=== PATIENT | male | born 1940 | race Caucasian/White ===

== ENCOUNTER 2017-11-11 13:40 | Inpatient (IN) | payer OTHER ==
[~2017-11-11] VITALS: Ht 182.9 cm; Wt 87.7 kg
[2017-11-11 15:35] VITALS: BP 107/76; PULSE 84; TEMP 36.6; O2SAT 99; BMI 22.3
[2017-11-11 15:44] LABS: HEMOGLOBIN 8.2 g/dL (14.0-18.0); MEAN CELL VOLUME 84.5 fL (80-100); MEAN CORPUSCULAR HEMOGLOBIN 27.7 pg (25-34); MEAN PLATELET VOLUME 8.3 fL (7.4-10.4); PLATELET COUNT 220 K/uL (130-400); RED CELL DISTRIBUTION WIDTH CV 15.9 % (11.5-14.5); RED CELL DISTRIBUTION WIDTH SD 49.3 fL (36.4-46.3); WHITE BLOOD COUNT 8.04 K/uL (4.8-10.8)
[2017-11-11] MEDS ORDERED: PANTOprazole INJ 80 MG in DEXTROSE 5% 100ML IV SCH (15:45)
[2017-11-11 16:00] LABS: MEAN CORPUSCULAR HGB CONC 32.8 g/dl (32-36)
--- NOTE | 2017-11-11 16:04 | DIAGNOSTIC IMAGING REPORT ---
CHEST ONE VIEW PORTABLE CLINICAL HISTORY: Shortness of breath. COMPARISON STUDY: No previous studies for comparison. FINDINGS: Lung volumes are normal. No pneumothorax or pleural effusion is noted. There is no evidence for pulmonary edema. Cardiomediastinal silhouette is normal. Pulmonary vascularity is normal. IMPRESSION: No acute cardiopulmonary findings. Electronically signed by: Olegario Hurtado M.D. 11/11/2017 4:03 PM Dictated Date/Time: 11/11/2017 3:57 PM
[2017-11-11 16:06] LABS: ALBUMIN 1.9 gm/dl (3.4-5.0); ALKALINE PHOSPHATASE 161 U/L (45-117); ALT/SGPT 40 U/L (12-78); AST/SGOT 52 U/L (15-37); BLOOD UREA NITROGEN 13 mg/dl (7-18); CARBON DIOXIDE 27 mmol/L (21-32); CREATININE 0.69 mg/dl (0.60-1.40); GLUCOSE 99 mg/dl (70-99); POTASSIUM 3.5 mmol/L (3.5-5.1); SODIUM 133 mmol/L (136-145); TOTAL PROTEIN 6.4 gm/dl (6.4-8.2)
[2017-11-11] MEDS ORDERED: SODIUM CHLORIDE 0.9% 500ML 500 ML IV ONE (16:15)
[2017-11-11] MEDS: SODIUM CHLORIDE 0.9% 1000ML 1,000 ML IV SCH ×2 (16:31→23:52)
[2017-11-11] MEDS: PANTOprazole INJ 40 MG in DEXTROSE 5% 100ML IV SCH ×2 (16:31→21:37)
[2017-11-11] MEDS ORDERED: LISI-461 PO (16:44)
[2017-11-11] MEDS ORDERED: ATV/1 PO (17:23)
[2017-11-11] MEDS ORDERED: SIMV-151 PO (17:23)
--- NOTE | 2017-11-11 17:29 | Surgery Consultation ---
Consultation Date of Consultation: Nov 11, 2017. Attending Physician: Nathalie Tarango M.D. History of Present Illness pt has been having some weakness and weightloss ( about 45 lbs over past 9 months or so). Here today for SOB and found to be anemic. denies n/v, abdominal pain or other symptoms. Social History Drug Use: none Marital Status: Housing Status: lives alone ( in Rehab with dementia) Occupation Status: retired Allergies Coded Allergies: Penicillins (Verified Allergy, Intermediate, HIVES, 11/11/17) swelling Home Medications Scheduled Lisinopril (Lisinopril), 1 TAB PO DAILY Lorazepam (Ativan), 1 MG PO TID Simvastatin (Simvastatin), 1 TAB PO HS Current Inpatient Medications Current Inpatient Medications Medications (Trade) Dose Ordered Sig/Jose Route Start Time Stop Time Status Last Admin Dose Admin Ondansetron HCl (Zofran Inj) 4 mg Q6H PRN IV 11/11/17 15:30 12/11/17 15:29 Pantoprazole Sodium 40 mg/ Dextrose 100 ml @ 20 mls/hr Q5H IV 11/11/17 16:00 12/11/17 15:59 11/11/17 16:31 20 MLS/HR Sodium Chloride 1,000 ml @ 100 mls/hr Q10H IV 11/11/17 17:15 11/12/17 03:14 11/11/17 16:31 100 MLS/HR Review of Systems Respiratory: + shortness of breath, + dyspnea on exertion Abdomen: + GI bleeding Physical Exam Date Time Temp Pulse Resp B/P (MAP) Pulse Ox O2 Delivery O2 Flow Rate FiO2 11/11/17 15:35 36.6 84 18 107/76 General Appearance: no apparent distress, + pertinent finding (pale) Head: normocephalic, atraumatic ENT: hearing grossly normal Neck: no JVD Respiratory/Chest: no respiratory distress, no accessory muscle use Abdomen/GI: non tender, soft, no pulsatile mass Extremities/Musculoskelatal: no calf tenderness, non-tender Neurologic/Psych: alert, oriented x 3 Skin: warm/dry, no rash, + pallor Laboratory Results Last 24 Hours Test 11/11/17 15:34 White Blood Count 8.04 K/uL Red Blood Count 2.96 M/uL Hemoglobin 8.2 g/dL Hematocrit 25.0 % Mean Corpuscular Volume 84.5 fL Mean Corpuscular Hemoglobin 27.7 pg Mean Corpuscular Hemoglobin Concent 32.8 g/dl RDW Standard Deviation 49.3 fL RDW Coefficient of Variation 15.9 % Platelet Count 220 K/uL Mean Platelet Volume 8.3 fL Prothrombin Time 10.7 SECONDS Prothromb Time International Ratio 1.0 Sodium Level 133 mmol/L Potassium Level 3.5 mmol/L Chloride Level 100 mmol/L Carbon Dioxide Level 27 mmol/L Anion Gap 6.0 mmol/L Blood Urea Nitrogen 13 mg/dl Creatinine 0.69 mg/dl Estimated GFR () 104.6 Estimated GFR (Non- 90.3 BUN/Creatinine Ratio 18.5 Random Glucose 99 mg/dl Calcium Level 8.0 mg/dl Total Bilirubin 0.4 mg/dl Direct Bilirubin 0.2 mg/dl Aspartate Amino Transf (AST/SGOT) 52 U/L Alanine Aminotransferase (ALT/SGPT) 40 U/L Alkaline Phosphatase 161 U/L Total Protein 6.4 gm/dl Albumin 1.9 gm/dl Globulin 4.5 gm/dl Albumin/Globulin Ratio 0.4 Assessment & Plan 77 year old with heme + stool with weightloss/anemia colon ca until proven otherwise no acute bleeding await GI input. will need colonoscopy +/- egd will follow along
[2017-11-11] MEDS ORDERED: NURSING VERBAL MED ORDER ONE (19:00)
[2017-11-11 19:03] LABS: HEMATOCRIT 26.7 % (42-52); HEMOGLOBIN 8.6 g/dL (14.0-18.0)
--- NOTE | 2017-11-11 19:41 | History and Physical ---
History & Physical Date & Time of Service: Nov 11, 2017 at 17:22 Chief Complaint: Gi Bleed Primary Care Physician: Arline History of Present Illness Source: patient, clinic records, hospital records Pt is 77 y/o M with PMH HTN, gout, anxiety, BPH who presented as transfer from [facility] ER for anemia and heme +stool. Pt states went to ER secondary to SOB. There he was found to have Hgb: 8 and had Hemoccult positive stool. He had temp of 38.1 then 38.6C and was given tylenol. No leukocytosis, negative troponin, normal co-ags. negative CXR. He was given Protonix 80mg IV. Report no GI support there so pt was transferred here. Pt states for past 3 months has been having SOB, worse with exertion and generalized weakness. Denies CP, palpitations. He reports progressive anorexia and past couple of weeks hasn't been eating or drinking much. Pt reports approx 20 pound weight loss over past couple of months. He reports that has been working with his PCP - Dr Nunn and pt reports has had benign labs done and they had talked about him being referred for a colonoscopy. Reports hx anxiety with his having dementia and sometimes will use Ativan. Denies current anxiety. Denies known fever/chills, diaphoresis, N/V/D/C, LESTER, dizziness, syncope , vision changes, neck pain, CP, orthopnea, palpitations, cough, sore throat, choking, otalgia, rhinorrhea, abdominal pain, paresthesias, extremity edema, rashes, dysuria, hematuria, urinary frequency or retention, epistaxis, any melena, hematochezia, or indigestion. Denies ill contacts. Denies aspirin or NSAID use. Denies hx colonoscopy in past. Past Medical/Surgical History Medical Problems: (1) Anxiety Status: Chronic (2) BPH (benign prostatic hyperplasia) Status: Chronic (3) Gout Status: Chronic (4) HTN (hypertension) Status: Chronic (5) Hyperlipidemia Status: Chronic Surgical Problems: (1) Hx of transurethral resection of prostate Status: Resolved Family History FH: skin cancer Social History Smoking Status: Never Smoker Smokeless Tobacco Use: No Alcohol Use: none Drug Use: none Marital Status: Housing status: lives alone ( in care facility with dementia) Allergies Coded Allergies: Penicillins (Verified Allergy, Intermediate, HIVES, 11/11/17) swelling Home Medications Scheduled Lisinopril (Lisinopril), 1 TAB PO DAILY Lorazepam (Ativan), 1 MG PO TID Simvastatin (Simvastatin), 1 TAB PO HS Review of Systems See HPI for pertinent positives & negatives. All other systems reviewed and were otherwise negative Physical Exam Vital Signs Date Time Temp Pulse Resp B/P (MAP) Pulse Ox O2 Delivery O2 Flow Rate FiO2 11/11/17 15:35 36.6 84 18 107/76 General Appearance: WD/WN, no apparent distress Head: normocephalic, atraumatic Eyes: normal inspection, PERRL, EOMI, sclerae normal ENT: pharynx normal, + pertinent finding (mucous membranes moist, hard of hearing) Neck: supple, no JVD, trachea midline Respiratory/Chest: lungs clear, normal breath sounds, no respiratory distress, no accessory muscle use Cardiovascular: regular rate, rhythm, normal peripheral pulses Abdomen/GI: normal bowel sounds, non tender, soft Extremities/Musculoskelatal: normal inspection, normal capillary refill, no pedal edema, normal range of motion, non-tender Neurologic/Psych: alert, normal mood/affect, oriented x 3 Skin: normal color, warm/dry Diagnostics Laboratory Results 11/11/17 15:34 11/11/17 18:51 11/11/17 15:34 Test 11/11/17 15:34 11/11/17 18:04 11/11/17 18:15 Red Blood Count 2.96 M/uL (4.7-6.1) Mean Corpuscular Volume 84.5 fL (80-100) Mean Corpuscular Hemoglobin 27.7 pg (25-34) Mean Corpuscular Hemoglobin Concent 32.8 g/dl (32-36) RDW Standard Deviation 49.3 fL (36.4-46.3) RDW Coefficient of Variation 15.9 % (11.5-14.5) Mean Platelet Volume 8.3 fL (7.4-10.4) Prothrombin Time 10.7 SECONDS (9.0-12.0) Prothromb Time International Ratio 1.0 (0.9-1.1) Anion Gap 6.0 mmol/L (3-11) Estimated GFR () 104.6 Estimated GFR (Non- 90.3 BUN/Creatinine Ratio 18.5 (10-20) Calcium Level 8.0 mg/dl (8.5-10.1) Total Bilirubin 0.4 mg/dl (0.2-1) Direct Bilirubin 0.2 mg/dl (0-0.2) Aspartate Amino Transf (AST/SGOT) 52 U/L (15-37) Alanine Aminotransferase (ALT/SGPT) 40 U/L (12-78) Alkaline Phosphatase 161 U/L (45-117) Total Protein 6.4 gm/dl (6.4-8.2) Albumin 1.9 gm/dl (3.4-5.0) Globulin 4.5 gm/dl (2.5-4.0) Albumin/Globulin Ratio 0.4 (0.9-2) Lactic Acid Level 1.4 mmol/L (0.4-2.0) Procalcitonin 0.31 ng/ml (0-0.5) Urine Color YELLOW Urine Appearance CLEAR (CLEAR) Urine pH 7.0 (4.5-7.5) Urine Specific [place] 1.004 (1.000-1.030) Urine Protein NEG (NEG) Urine Glucose (UA) NEG (NEG) Urine Ketones NEG (NEG) Urine Occult Blood NEG (NEG) Urine Nitrite NEG (NEG) Urine Bilirubin NEG (NEG) Urine Urobilinogen NEG (NEG) Urine Leukocyte Esterase NEG (NEG) Date/Time Source Procedure Growth Status 11/11/17 00:00 Nasal MRSA DNA Surveillance Screen Pending Received Results Past 24 Hours Test 11/11/17 15:34 Range/Units White Blood Count 8.04 4.8-10.8 K/uL Red Blood Count 2.96 4.7-6.1 M/uL Hemoglobin 8.2 14.0-18.0 g/dL Hematocrit 25.0 42-52 % Mean Corpuscular Volume 84.5 80-100 fL Mean Corpuscular Hemoglobin 27.7 25-34 pg Mean Corpuscular Hemoglobin Concent 32.8 32-36 g/dl RDW Standard Deviation 49.3 36.4-46.3 fL RDW Coefficient of Variation 15.9 11.5-14.5 % Platelet Count 220 130-400 K/uL Mean Platelet Volume 8.3 7.4-10.4 fL Prothrombin Time 10.7 9.0-12.0 SECONDS Prothromb Time International Ratio 1.0 0.9-1.1 Sodium Level 133 136-145 mmol/L Potassium Level 3.5 3.5-5.1 mmol/L Chloride Level 100 98-107 mmol/L Carbon Dioxide Level 27 21-32 mmol/L Anion Gap 6.0 3-11 mmol/L Blood Urea Nitrogen 13 7-18 mg/dl Creatinine 0.69 0.60-1.40 mg/dl Estimated GFR () 104.6 Estimated GFR (Non- 90.3 BUN/Creatinine Ratio 18.5 10-20 Random Glucose 99 70-99 mg/dl Calcium Level 8.0 8.5-10.1 mg/dl Total Bilirubin 0.4 0.2-1 mg/dl Direct Bilirubin 0.2 0-0.2 mg/dl Aspartate Amino Transf (AST/SGOT) 52 15-37 U/L Alanine Aminotransferase (ALT/SGPT) 40 12-78 U/L Alkaline Phosphatase 161 45-117 U/L Total Protein 6.4 6.4-8.2 gm/dl Albumin 1.9 3.4-5.0 gm/dl Globulin 4.5 2.5-4.0 gm/dl Albumin/Globulin Ratio 0.4 0.9-2 Diagnostic Radiology CXR: IMPRESSION: No acute cardiopulmonary findings. CXR normal EKG EKG: sinus rhythm, rate 82, 1st degree AV block Impression Assessment and Plan ANEMIA Hgb: 8.2. SOB and weakness x 3 months. No dizziness or syncope or CP. BP: 107/76 , P: 84. No active rectal bleeding -trend H&H -PRBC type and cross ordered -NSS 250ml bolus followed by 100ml/hr -clear liquid diet for now -GI consult, suspect pt will require colonoscopy and +/- EGD -will hold on abd imaging currently, appreciate GI in put HEME POSITIVE STOOL No signs of active bleeding. No reported hematochezia, melena, abdominal pain, N /V/D/C. Pt had heme positive stool and was given Protonix 80mg IV at [place] ER -Protonix drip was ordered, consider re-evaluation and discontinuation as does not appear to be active upper GI bleed FEVER Had temp 38.6C, lactic acid 2.4 at [facility]. Was given Tylenol. Negative influenza. Negative CXR. Unremarkable Urine culture. Pt without cough, N/V/D, rhinorrhea, rashes or infectious symptoms at this time. -will do U/A, repeat lactic acid, add procalcitonin and blood cultures -monitor at this time and hold on antibiotics at this time HTN Currently pt with soft BP's -hold lisinopril HLD -hold simvastatin currently DVT Prophylaxis -SCD Disposition admit tele Full Code as per discussion with pt Follows with Dr Nunn for routine care Pt was seen with Dr Wall. See addendum I have seen and examined the patient and agree with the assessment and plan above with the following exceptions. Dedpite denying anxiety above he reported it to me so I have continued his Lorazepam PRN. Review of PDMP reveals he was given it BID a couple of months ago but not on a consistent basis. The main reason that he went to the ER was SOB, which has been progressively worse since Aug when he got out of rehab after a long hospital stay for weakness in his legs after a prostate surgery. He reports being able to function and perform IADLs and is living alone and caring for himself. He denies coughing or chest pain and can't objectively tell me any limitations, he just knows it's harder to do things than it was a few weeks ago. Regarding weight loss and anemia, he denies abdominal pain, denies any changes in his stools including denying seeing any blood or black stools. He denies nausea, vomiting or abdominal pain. He denies h/o colonoscopy and has no abdominal imaging in the inpatient or outpatient records for review. Ordered echo for tomorrow and GI consult to consider expediting cancer screening as malignancy is higher on the differential. There does not appear an active bleed going on and he is not meeting requirements for a transfusion at this time. Symptomatic anemia was considered, but no h/o CAD and this has been progressive for him. Ordering records to see baseline H/H in recent months and any recent workups. Physical exam is unremarkable. Abdomen is benign. DO [facility] Level of Care Telemetry Advanced Directives Existing Living Will: No Existing Power of Morgue Technician: No Resuscitation Status FULL RESUSCITATION VTE Prophylaxis VTE Risk Assessment Done? Y/N: Yes Risk Level: Moderate Given or contraindicated: SCD's Additional Copies To Cruzito Nunn D.O.
[2017-11-11 20:01] VITALS: BP 104/68; PULSE 102; TEMP 36.9; O2SAT 100
[2017-11-11] MEDS ORDERED: LORAZEPAM 1 MG TAB PO PRN (21:00)
[2017-11-11] MEDS ORDERED: LORAZEPAM 1 MG TAB PO SCH (21:00)
[2017-11-11] MEDS: SIMVASTATIN 20 MG TAB PO SCH (21:49)
[2017-11-12] VITALS (12 sets, daily range): BP systolic 78–105; BP diastolic 45–68; PULSE 83–112; TEMP 36.4–37.4; O2SAT 96–100; Ht 182.9 cm; Wt 87.7 kg
[2017-11-12] MEDS: PANTOprazole INJ 40 MG in DEXTROSE 5% 100ML IV SCH ×4 (03:09→19:44)
[2017-11-12 05:51] LABS: HEMATOCRIT 24.1 % (42-52); HEMOGLOBIN 7.6 g/dL (14.0-18.0); MEAN CELL VOLUME 85.5 fL (80-100); MEAN CORPUSCULAR HGB CONC 31.5 g/dl (32-36); MEAN PLATELET VOLUME 8.3 fL (7.4-10.4); PLATELET COUNT 219 K/uL (130-400); RED CELL DISTRIBUTION WIDTH CV 15.9 % (11.5-14.5); RED CELL DISTRIBUTION WIDTH SD 49.7 fL (36.4-46.3); WHITE BLOOD COUNT 7.99 K/uL (4.8-10.8)
[2017-11-12 06:20] LABS: CALCIUM 7.5 mg/dl (8.5-10.1); CREATININE 0.74 mg/dl (0.60-1.40); POTASSIUM 3.7 mmol/L (3.5-5.1)
--- NOTE | 2017-11-12 06:40 | Clinical Documentation Query ---
TOVA Paul : CLINICAL DOCUMENTATION QUERY Patient is a 77 year old male admitted for evaluation of anemia. H&P notes report of approximately a 20 pound weight loss over the past couple months. databases computer consultant notes weight loss of "about 45 pounds over past 9 months or so". Based on current weight, this would represent a > 20% loss of body weight over this interval. This would suggest either a reduced energy intake and/or a hypermetabolic process. Please clarify as clinically appropriate. Thank you. In your clinical opinion is this patient being managed for: (x ) Severe protein-calorie malnutrition ( ) Not Agree ( ) Other explanation of clinical findings (Please Explain) ( ) Unable to determine (Please Define) ( ) Need to Discuss The medical record reflects the following clinical findings, treatment, and risk factors. Clinical Indicators: As above Treatment: GI consultation, admission to ICU, general surgery consultation, serial labs Risk Factors: Age, possible colon cancer Please clarify and document your clinical opinion in the progress notes and discharge summary. Terms such as "probable", "suspected", "likely", "questionable", "possible", or "still to be ruled out" are acceptable. IF IN AGREEMENT, YOU MUST DOCUMENT ABOVE DIAGNOSTIC STATEMENT IN DAILY PROGRESS NOTES AND DISCHARGE SUMMARY. This document is not part of the patient's record. Thank You, Sergey Montalvo, ALEJO [phone]
--- NOTE | 2017-11-12 08:32 | Gastrointestinal Consultation ---
Gastrointestinal Consultation Date of Consultation: Nov 12, 2017 Attending Physician: Dr. Tarango Consulting Physician: Dr. Vaca Reason for Consultation: Anemia, occult positive stool History of Present Illness Patient is a 77 year old male patient presented to [facility] yesterday for SOB. His Hb was 8 and an occult stool was positive and he was transferred here as there was no GI support available there. His Hb on arrival was 8.2 on arrival and this morning is 7.6. He is iron deficient (13) but MCV is normal. He has not had any gross bleeding prior to arrival or since arrival. On arrival to [place], he had a fever of 38.1 then 38.6C. Here, he has been afebrile w/o leukocytosis. He is mildly tachycardic with a HR of 100-110, and BPs are 90's/60. CXR was normal. He denies any abdominal pain, diarrhea, constipation, blood in stools. He passes a BM about 2 times/week. Of note, the pt tells me that he had a prostate surgery at [place] in July, complicated by sepsis. Additionally, on Sep 14, he had an episodes of dizziness, weakness for which he was taken to [facility] and told that he was dehydrated. He denies any blood in his urine. He has never undergone prior EGD or colonoscopy. Past Medical/Surgical History Past Medical History: 1. Anxiety 2. BPH 3. Gout 4. HTN 5. Hyperlipidemia Past Surgical History: Transurethral prostate resection. Family History FH: skin cancer Social History Smoking Status: Never Smoker Drug Use: none Marital Status: Housing Status: lives alone ( in Rehab with dementia) Occupation Status: retired Allergies Coded Allergies: Penicillins (Verified Allergy, Intermediate, HIVES, 11/11/17) swelling Current Medications Home Meds and Scripts Medications Dose Route/Sig Max Daily Dose Days Date Category Simvastatin 20 Mg Tab 1 Tab PO HS 11/11/17 Reported Ativan (Lorazepam) 1 Mg Tab 1 Mg PO TID 11/11/17 Reported Lisinopril 10 Mg Tab 1 Tab PO DAILY 11/11/17 Reported Review of Systems Constitutional: + fever, No weakness ENT: + hearing loss Respiratory: + shortness of breath, No cough Cardiac: No chest pain Abdomen: No pain, No nausea, No vomiting, No diarrhea, No constipation, No GI bleeding, No dysphagia, No odynophagia, No acolic stools, No jaundice Musculoskeletal: No joint pain Male : No dysuria Neuro: No memory loss Psych: No depression symptoms Heme: No abnormal bleeding/bruising Endo: + fatigue Skin: No rash Physical Exam Date Time Temp Pulse Resp B/P (MAP) Pulse Ox O2 Delivery O2 Flow Rate FiO2 11/12/17 05:39 101 99/52 (68) 108 91/56 (68) 112 95/60 (72) 11/12/17 04:00 100 20 90/57 (68) 100 Room Air 11/12/17 04:00 Room Air 11/12/17 00:17 36.9 98 22 100/67 (78) 96 Room Air 11/11/17 23:59 Room Air 11/11/17 20:01 36.9 102 22 104/68 (80) 100 Room Air 11/11/17 20:00 Room Air 11/11/17 15:35 36.6 84 18 107/76 99 Room Air General Appearance: no apparent distress Eyes: normal inspection, EOMI Neck: supple, no adenopathy, thyroid normal, no JVD Respiratory/Chest: chest non-tender, lungs clear, normal breath sounds, no accessory muscle use Cardiovascular: regular rate, rhythm, no JVD, no murmur Abdomen: normal bowel sounds, non tender, soft, no organomegaly Extremities: normal inspection, no pedal edema, normal capillary refill Neurologic/Psych: alert, normal mood/affect, oriented x 3 Skin: normal color, no jaundice, warm/dry, no rash Laboratory Results Last 24 Hours Test 11/11/17 15:34 11/11/17 18:04 11/11/17 18:15 11/11/17 18:51 White Blood Count 8.04 K/uL Red Blood Count 2.96 M/uL Hemoglobin 8.2 g/dL 8.6 g/dL Hematocrit 25.0 % 26.7 % Mean Corpuscular Volume 84.5 fL Mean Corpuscular Hemoglobin 27.7 pg Mean Corpuscular Hemoglobin Concent 32.8 g/dl RDW Standard Deviation 49.3 fL RDW Coefficient of Variation 15.9 % Platelet Count 220 K/uL Mean Platelet Volume 8.3 fL Prothrombin Time 10.7 SECONDS Prothromb Time International Ratio 1.0 Sodium Level 133 mmol/L Potassium Level 3.5 mmol/L Chloride Level 100 mmol/L Carbon Dioxide Level 27 mmol/L Anion Gap 6.0 mmol/L Blood Urea Nitrogen 13 mg/dl Creatinine 0.69 mg/dl Estimated GFR () 104.6 Estimated GFR (Non- 90.3 BUN/Creatinine Ratio 18.5 Random Glucose 99 mg/dl Calcium Level 8.0 mg/dl Total Bilirubin 0.4 mg/dl Direct Bilirubin 0.2 mg/dl Aspartate Amino Transf (AST/SGOT) 52 U/L Alanine Aminotransferase (ALT/SGPT) 40 U/L Alkaline Phosphatase 161 U/L Total Protein 6.4 gm/dl Albumin 1.9 gm/dl Globulin 4.5 gm/dl Albumin/Globulin Ratio 0.4 Lactic Acid Level 1.4 mmol/L Procalcitonin 0.31 ng/ml Urine Color YELLOW Urine Appearance CLEAR Urine pH 7.0 Urine Specific [place] 1.004 Urine Protein NEG Urine Glucose (UA) NEG Urine Ketones NEG Urine Occult Blood NEG Urine Nitrite NEG Urine Bilirubin NEG Urine Urobilinogen NEG Urine Leukocyte Esterase NEG Test 11/12/17 05:35 White Blood Count 7.99 K/uL Red Blood Count 2.82 M/uL Hemoglobin 7.6 g/dL Hematocrit 24.1 % Mean Corpuscular Volume 85.5 fL Mean Corpuscular Hemoglobin 27.0 pg Mean Corpuscular Hemoglobin Concent 31.5 g/dl RDW Standard Deviation 49.7 fL RDW Coefficient of Variation 15.9 % Platelet Count 219 K/uL Mean Platelet Volume 8.3 fL Sodium Level 134 mmol/L Potassium Level 3.7 mmol/L Chloride Level 104 mmol/L Carbon Dioxide Level 26 mmol/L Anion Gap 4.0 mmol/L Blood Urea Nitrogen 11 mg/dl Creatinine 0.74 mg/dl Est Creatinine Clear Calc Drug Dose 85.3 ml/min Estimated GFR () 101.7 Estimated GFR (Non- 87.7 BUN/Creatinine Ratio 14.4 Random Glucose 93 mg/dl Calcium Level 7.5 mg/dl Iron Level 13 mcg/dl Total Iron Binding Capacity 182 mcg/dl Ferritin 60.3 ng/ml Impression Patient is a 77 year old male with anemia, occult positive stool. Differentials considered are colon cancer, gastritis, Celiac Disease. Plan Colonoscopy to r/o colon cancer, which does not necessarily need to be done as an inpatient. If patient is still here at [facility] on Wednesday will plan for colonoscopy for then. If colonoscopy w/o cause of anemia, EGD would also be done that day. Issues that are not expected with colon cancer and suggest the need to r/o infection and other abdominal mass include his fever yesterday and, his prostate procedure and sepsis in Jul 2017. Please consider urine culture and CT abd/pelvis. I performed a history and physical examination of the patient. I have discussed the patient's case, impression and plan with EUGENE Nazario. Her note reflects my findings and plan. Patient has never had colon cancer screening. If patient agrees we will arrange endoscopic evaluation possible Wednesday. Jose Vaca MD
[2017-11-12] MEDS ORDERED: POLYETHYLENE (MIRALAX) 17 GM PACK PO ONE (09:28)
[2017-11-12] MEDS ORDERED: BISACODYL 5 MG TABEC PO ONE (09:30)
--- NOTE | 2017-11-12 09:38 | Gastroenterology Progress Note ---
Progress Note Date of Service: Nov 12, 2017 Subjective Pt evaluation today including: conversation w/ patient, physical exam, chart review, lab review, review of studies, review of inpatient medication list Mr. Ortiz is a 77 yr old male transferred yesterday from [place] for SOB, anemia, occult positive stool. Today: still no gross GI bleeding, no abdominal pain. Hb 8.2 yesterday afternoon , 7.6 this morning Pt tells me about prostate resection in Nov with sepsis, then dizzy episode requiring IV fluids on Sep 14 after which time colonoscopy was scheduled, so pt has likely been chronically anemic, atleast since August. Review of Systems Constitutional: + fever (early yesterday) ENT: No hearing loss Respiratory: No cough Cardiac: No chest pain Abdomen: + see HPI, No pain, No nausea, No vomiting, No diarrhea, No constipation, No GI bleeding Male : No dysuria, No hematuria Neuro: No memory loss Psych: No depression symptoms Heme: No abnormal bleeding/bruising Endo: + fatigue Skin: No rash Medications Current Inpatient Medications Medications (Trade) Dose Ordered Sig/Jose Route Start Time Stop Time Status Last Admin Dose Admin Ondansetron HCl (Zofran Inj) 4 mg Q6H PRN IV 11/11/17 15:30 12/11/17 15:29 Pantoprazole Sodium 40 mg/ Dextrose 100 ml @ 20 mls/hr Q5H IV 11/11/17 16:00 12/11/17 15:59 11/12/17 08:32 20 MLS/HR Simvastatin (Zocor Tab) 20 mg PM PO 11/11/17 21:00 12/11/17 20:59 11/11/17 21:49 20 MG Lorazepam (Ativan Tab) 1 mg TID PRN PO 11/11/17 21:00 12/11/17 20:59 Objective Vital Signs Date Time Temp Pulse Resp B/P (MAP) Pulse Ox O2 Delivery O2 Flow Rate FiO2 11/12/17 08:00 37.4 89 20 92/65 (74) 100 Room Air 11/12/17 08:00 Room Air 11/12/17 05:39 101 99/52 (68) 108 91/56 (68) 112 95/60 (72) 11/12/17 04:00 100 20 90/57 (68) 100 Room Air 11/12/17 04:00 Room Air 11/12/17 00:17 36.9 98 22 100/67 (78) 96 Room Air 11/11/17 23:59 Room Air 11/11/17 20:01 36.9 102 22 104/68 (80) 100 Room Air 11/11/17 20:00 Room Air 11/11/17 15:35 36.6 84 18 107/76 99 Room Air Physical Exam General Appearance: no apparent distress, + thin ENT: pharynx normal Neck: no JVD Respiratory/Chest: lungs clear Cardiovascular: regular rate, rhythm, no JVD, no murmur Abdomen: non tender, soft Extremities: non-tender Neurologic/Psych: alert, normal mood/affect, oriented x 3 Skin: normal color, no jaundice Laboratory Results Last 24 Hours Test 11/11/17 15:34 11/11/17 18:04 11/11/17 18:15 11/11/17 18:51 White Blood Count 8.04 K/uL Red Blood Count 2.96 M/uL Hemoglobin 8.2 g/dL 8.6 g/dL Hematocrit 25.0 % 26.7 % Mean Corpuscular Volume 84.5 fL Mean Corpuscular Hemoglobin 27.7 pg Mean Corpuscular Hemoglobin Concent 32.8 g/dl RDW Standard Deviation 49.3 fL RDW Coefficient of Variation 15.9 % Platelet Count 220 K/uL Mean Platelet Volume 8.3 fL Prothrombin Time 10.7 SECONDS Prothromb Time International Ratio 1.0 Sodium Level 133 mmol/L Potassium Level 3.5 mmol/L Chloride Level 100 mmol/L Carbon Dioxide Level 27 mmol/L Anion Gap 6.0 mmol/L Blood Urea Nitrogen 13 mg/dl Creatinine 0.69 mg/dl Estimated GFR () 104.6 Estimated GFR (Non- 90.3 BUN/Creatinine Ratio 18.5 Random Glucose 99 mg/dl Calcium Level 8.0 mg/dl Total Bilirubin 0.4 mg/dl Direct Bilirubin 0.2 mg/dl Aspartate Amino Transf (AST/SGOT) 52 U/L Alanine Aminotransferase (ALT/SGPT) 40 U/L Alkaline Phosphatase 161 U/L Total Protein 6.4 gm/dl Albumin 1.9 gm/dl Globulin 4.5 gm/dl Albumin/Globulin Ratio 0.4 Lactic Acid Level 1.4 mmol/L Procalcitonin 0.31 ng/ml Urine Color YELLOW Urine Appearance CLEAR Urine pH 7.0 Urine Specific [place] 1.004 Urine Protein NEG Urine Glucose (UA) NEG Urine Ketones NEG Urine Occult Blood NEG Urine Nitrite NEG Urine Bilirubin NEG Urine Urobilinogen NEG Urine Leukocyte Esterase NEG Test 11/12/17 05:35 White Blood Count 7.99 K/uL Red Blood Count 2.82 M/uL Hemoglobin 7.6 g/dL Hematocrit 24.1 % Mean Corpuscular Volume 85.5 fL Mean Corpuscular Hemoglobin 27.0 pg Mean Corpuscular Hemoglobin Concent 31.5 g/dl RDW Standard Deviation 49.7 fL RDW Coefficient of Variation 15.9 % Platelet Count 219 K/uL Mean Platelet Volume 8.3 fL Sodium Level 134 mmol/L Potassium Level 3.7 mmol/L Chloride Level 104 mmol/L Carbon Dioxide Level 26 mmol/L Anion Gap 4.0 mmol/L Blood Urea Nitrogen 11 mg/dl Creatinine 0.74 mg/dl Est Creatinine Clear Calc Drug Dose 85.3 ml/min Estimated GFR () 101.7 Estimated GFR (Non- 87.7 BUN/Creatinine Ratio 14.4 Random Glucose 93 mg/dl Calcium Level 7.5 mg/dl Iron Level 13 mcg/dl Total Iron Binding Capacity 182 mcg/dl Ferritin 60.3 ng/ml Assessment and Plan Mr. Ortiz is a 77 yr old male with anemia, occult positive stools. He also carries a hx of prostrate surgery 3 months ago complicated by Sepsis. Would question if some of his blood loss if from the prostate surgery. We will need to r/o colon cancer, ulcer disease, Celiac Disease. Plan: 1. Colonoscopy on Wednesday 11/15. If no abnormalities on Colonoscopy then will need EGD. 2. Celiac serology with tomorrow AM labs. 3. Consider CT abd/pelvis and urine culture because of pt's prostate procedure and sepsis in July, dizziness/dehydration in Aug and fever yesterday. 4. Regular consistency diet today and tomorrow. Clear liquids Wednesday. Prep Wednesday for colonoscopy Wednesday. Will Give one dose of Miralax/Dulcolax today and tomorrow to increase likelihood of good prep. I performed a history and physical examination of the patient. I have discussed the patient's case, impression and plan with EUGENE Nazario. Her note reflects my findings and plan. H/H stable. If patient remains an in patient will arrange a colonoscopy on Wednesday. Jose Vaca MD
--- NOTE | 2017-11-12 09:51 | ECHOCARDIOGRAM REPORT ---
*NOTICE TO RECEIVING CONSTITUTION PARTY AGENCY This information is strictly Confidential and protected under [place] law. [place] law prohibits you from making any further disclosure of this information unless further disclosure is expressly permitted by the written consent of the person to whom it pertains or is authorized by law. A general authorization for the release of medical or other information is not sufficient for this purpose. Hospital accepts no responsibility if the information is made available to any other person, INCLUDING THE PATIENT. Interpretation Summary * Name: LISA WATSON Study Date: 11/12/2017 07:20 AM BP: 95/60 mmHg * Patient Location: [facility]\S\E105\S\1 HR: 112 * : 1940 (M/d/yyyy) Gender: Male Height: 72 in * Age: 77 yrs Ethnicity: [place] Weight: 164 lb * Ordering Physician: Monisha Wall * Referring Physician: No Doctor, Assigned * Performed By: Steffanie Jang RDCS * * Reason For Study: Progressive dyspnea over several months * BSA: 2.0 m2 * -- Conclusions -- * Normal LV chamber size and wall thickness. * Normal LV systolic function, EF 55-60%. * No segmental left ventricular wall motion abnormalities are noted. * Grade I diastolic dysfunction. * No significant valvular pathology. Procedure Details * A complete two-dimensional transthoracic echocardiogram was performed (2D, M-mode, Doppler and color flow Doppler). * The study was technically limited. * The study was technically difficult. * Limited views were obtained. * There were technical limitations due to patient'sbody habitus Left Ventricle * The left ventricle is normal in size. * There is normal left ventricular wall thickness. * Left ventricular systolic function is normal. * No segmental left ventricular wall motion abnormalities are noted. * Ejection Fraction = 55-60%. * The left ventricular wall motion is normal. Right Ventricle * The right ventricle is not well visualized. * The right ventricular systolic function is normal as assessed by tricuspid annular plane systolic excursion (TAPSE) (normal >1.5 cm). Atria * The left atrium is not well visualized. * Grossly normal LA size. * Right atrium not well visualized. Mitral Valve * The mitral valve is normal in structure and function. Tricuspid Valve * The tricuspid valve is not well visualized. * There is no tricuspid stenosis. * No tricuspid regurgitation. Aortic Valve * The aortic valve is not well visualized. * No hemodynamically significant valvular aortic stenosis. * There is no significant aortic regurgitation. Pulmonic Valve * The pulmonary valve is not well seen, but the Doppler examination is normal without significant regurgitation or stenosis. Great Vessels * The aortic root is normal size. Pericardium/Pleural * There is no pericardial effusion. Left Ventricular Diastolic Function * Grade I diastolic dysfunction, (abnormal relaxation pattern). Doppler Measurements and Calculations MV E max blane 81.9 cm/sec MV A max blane 97.0 cm/sec MV E/A 0.84 Ao V2 max 106.8 cm/sec Ao max PG 4.6 mmHg Ao max PG (full) 2.2 mmHg LV V1 max PG 2.4 mmHg LV V1 max 77.0 cm/sec TR max blane 210.6 cm/sec
--- NOTE | 2017-11-12 11:38 | Progress Note ---
Medicine Progress Note Date & Time of Visit: Nov 12, 2017 at 11:31. Subjective 77 yo M with progressive worsening dyspnea and anemia along with weight loss over the past few months. The patient declines any blood transfusion this morning. He reports an improvement in his breathing and denies any lightheadedness with standing. TTE performed this am and was normal. Denies chest or abdominal pain. Objective Last 8 Hrs Date Time Temp Pulse Resp B/P (MAP) Pulse Ox O2 Delivery O2 Flow Rate FiO2 11/12/17 08:00 37.4 89 20 92/65 (74) 100 Room Air 11/12/17 08:00 Room Air 11/12/17 05:39 101 99/52 (68) 108 91/56 (68) 112 95/60 (72) 11/12/17 04:00 100 20 90/57 (68) 100 Room Air 11/12/17 04:00 Room Air Physical Exam: GEN: WNWD, in no acute distress, alert and appropriate HEENT: NC/AT, normal sclerae, MMM CARDIO: reg rate, S1/2 heard without m/g/r LUNGS: CTA bilaterally, no crackles, rales or wheezes, good diaphragmatic excursion ABD: soft, non-tender, non-distended, no rebound or guarding, +BS EXTREMITY: RP and DP palpable 2+ bilat, no LE swelling or edema, extremities are warm and well-perfused NEURO: CN 2-12 grossly intact MUSC: 5/5 strength throughout, no focal deficits SKIN: warm and dry Laboratory Results: 11/12/17 05:35 11/12/17 05:35 Test 11/11/17 15:34 11/11/17 18:04 11/11/17 18:15 11/12/17 05:35 Prothrombin Time 10.7 SECONDS (9.0-12.0) Prothromb Time International Ratio 1.0 (0.9-1.1) Total Bilirubin 0.4 mg/dl (0.2-1) Direct Bilirubin 0.2 mg/dl (0-0.2) Aspartate Amino Transf (AST/SGOT) 52 U/L (15-37) Alanine Aminotransferase (ALT/SGPT) 40 U/L (12-78) Alkaline Phosphatase 161 U/L (45-117) Total Protein 6.4 gm/dl (6.4-8.2) Albumin 1.9 gm/dl (3.4-5.0) Globulin 4.5 gm/dl (2.5-4.0) Albumin/Globulin Ratio 0.4 (0.9-2) Lactic Acid Level 1.4 mmol/L (0.4-2.0) Procalcitonin 0.31 ng/ml (0-0.5) Urine Color YELLOW Urine Appearance CLEAR (CLEAR) Urine pH 7.0 (4.5-7.5) Urine Specific [place] 1.004 (1.000-1.030) Urine Protein NEG (NEG) Urine Glucose (UA) NEG (NEG) Urine Ketones NEG (NEG) Urine Occult Blood NEG (NEG) Urine Nitrite NEG (NEG) Urine Bilirubin NEG (NEG) Urine Urobilinogen NEG (NEG) Urine Leukocyte Esterase NEG (NEG) Red Blood Count 2.82 M/uL (4.7-6.1) Mean Corpuscular Volume 85.5 fL (80-100) Mean Corpuscular Hemoglobin 27.0 pg (25-34) Mean Corpuscular Hemoglobin Concent 31.5 g/dl (32-36) RDW Standard Deviation 49.7 fL (36.4-46.3) RDW Coefficient of Variation 15.9 % (11.5-14.5) Mean Platelet Volume 8.3 fL (7.4-10.4) Anion Gap 4.0 mmol/L (3-11) Est Creatinine Clear Calc Drug Dose 85.3 ml/min Estimated GFR () 101.7 Estimated GFR (Non- 87.7 BUN/Creatinine Ratio 14.4 (10-20) Calcium Level 7.5 mg/dl (8.5-10.1) Iron Level 13 mcg/dl (35-175) Total Iron Binding Capacity 182 mcg/dl (250-450) Ferritin 60.3 ng/ml (8.0-388.0) Date/Time Source Procedure Growth Status 11/11/17 00:00 Nasal MRSA DNA Surveillance Screen - Final Specimen Negative for MRSA by DNA Probe Complete Last 24 Hours Test 11/11/17 15:34 11/11/17 18:04 11/11/17 18:15 11/11/17 18:51 White Blood Count 8.04 K/uL Red Blood Count 2.96 M/uL Hemoglobin 8.2 g/dL 8.6 g/dL Hematocrit 25.0 % 26.7 % Mean Corpuscular Volume 84.5 fL Mean Corpuscular Hemoglobin 27.7 pg Mean Corpuscular Hemoglobin Concent 32.8 g/dl RDW Standard Deviation 49.3 fL RDW Coefficient of Variation 15.9 % Platelet Count 220 K/uL Mean Platelet Volume 8.3 fL Prothrombin Time 10.7 SECONDS Prothromb Time International Ratio 1.0 Sodium Level 133 mmol/L Potassium Level 3.5 mmol/L Chloride Level 100 mmol/L Carbon Dioxide Level 27 mmol/L Anion Gap 6.0 mmol/L Blood Urea Nitrogen 13 mg/dl Creatinine 0.69 mg/dl Estimated GFR () 104.6 Estimated GFR (Non- 90.3 BUN/Creatinine Ratio 18.5 Random Glucose 99 mg/dl Calcium Level 8.0 mg/dl Total Bilirubin 0.4 mg/dl Direct Bilirubin 0.2 mg/dl Aspartate Amino Transf (AST/SGOT) 52 U/L Alanine Aminotransferase (ALT/SGPT) 40 U/L Alkaline Phosphatase 161 U/L Total Protein 6.4 gm/dl Albumin 1.9 gm/dl Globulin 4.5 gm/dl Albumin/Globulin Ratio 0.4 Lactic Acid Level 1.4 mmol/L Procalcitonin 0.31 ng/ml Urine Color YELLOW Urine Appearance CLEAR Urine pH 7.0 Urine Specific [place] 1.004 Urine Protein NEG Urine Glucose (UA) NEG Urine Ketones NEG Urine Occult Blood NEG Urine Nitrite NEG Urine Bilirubin NEG Urine Urobilinogen NEG Urine Leukocyte Esterase NEG Test 11/12/17 05:35 White Blood Count 7.99 K/uL Red Blood Count 2.82 M/uL Hemoglobin 7.6 g/dL Hematocrit 24.1 % Mean Corpuscular Volume 85.5 fL Mean Corpuscular Hemoglobin 27.0 pg Mean Corpuscular Hemoglobin Concent 31.5 g/dl RDW Standard Deviation 49.7 fL RDW Coefficient of Variation 15.9 % Platelet Count 219 K/uL Mean Platelet Volume 8.3 fL Sodium Level 134 mmol/L Potassium Level 3.7 mmol/L Chloride Level 104 mmol/L Carbon Dioxide Level 26 mmol/L Anion Gap 4.0 mmol/L Blood Urea Nitrogen 11 mg/dl Creatinine 0.74 mg/dl Est Creatinine Clear Calc Drug Dose 85.3 ml/min Estimated GFR () 101.7 Estimated GFR (Non- 87.7 BUN/Creatinine Ratio 14.4 Random Glucose 93 mg/dl Calcium Level 7.5 mg/dl Iron Level 13 mcg/dl Total Iron Binding Capacity 182 mcg/dl Ferritin 60.3 ng/ml Assessment & Plan 77 yo M with progressive worsening dyspnea and anemia along with weight loss over the past few months. The patient declines any blood transfusion this morning. He reports an improvement in his breathing and denies any lightheadedness with standing. TTE performed this am and was normal. Denies chest or abdominal pain. 1. Anemia -poss causes include malignancy in setting of weight loss vs ACD. Workup in progress with GI performing CSP on Wednesday to expedite workup. No signs of active bleeding. Pt declines blood transfusion at this time. Cont PPI drip until otherwise specified by GI team. 2. Protein-calorie malnutrition-Nutrition consult, apprec recs. 3. HTN-BP relatively low, holding outpatient lisinopril at this time. DVT Prophylaxis -SCDs in setting of poss bleed with anemia Monisha Wall DO [facility] Hospitalist Consultants: GI Gen Surg Current Inpatient Medications: Current Inpatient Medications Medications (Trade) Dose Ordered Sig/Jose Route Start Time Stop Time Status Last Admin Dose Admin Ondansetron HCl (Zofran Inj) 4 mg Q6H PRN IV 11/11/17 15:30 12/11/17 15:29 Pantoprazole Sodium 40 mg/ Dextrose 100 ml @ 20 mls/hr Q5H IV 11/11/17 16:00 12/11/17 15:59 11/12/17 08:32 20 MLS/HR Simvastatin (Zocor Tab) 20 mg PM PO 11/11/17 21:00 12/11/17 20:59 11/11/17 21:49 20 MG Lorazepam (Ativan Tab) 1 mg TID PRN PO 11/11/17 21:00 12/11/17 20:59 Polyethylene (Miralax Powder Packet) 17 gm DAILY PO 11/13/17 09:00 11/13/17 10:00 Bisacodyl (Dulcolax Tab) 5 mg ONE ONCE PO 11/13/17 09:30 11/13/17 09:31 Polyethylene Glycol/ Electrolytes (Golytely Soln) 8 dose UD PO 11/14/17 08:00 11/14/17 18:00 Bisacodyl (Dulcolax Tab) 10 mg ONE PO 11/14/17 09:45 11/14/17 09:46
[2017-11-12] MEDS ORDERED: SODIUM CHLORIDE 0.9% 500ML 500 ML IV SCH (12:45)
--- NOTE | 2017-11-12 12:54 | Surgery Progress Note ---
Surgery Progress Note Date of Service Nov 12, 2017. Subjective pt sleeping/ I did not wake him Objective Vital Signs: Date Time Temp Pulse Resp B/P (MAP) Pulse Ox O2 Delivery O2 Flow Rate FiO2 11/12/17 12:15 83 90/63 (72) 11/12/17 12:06 88 20 78/45 (56) 98 Room Air 11/12/17 12:00 37.0 85 20 87/60 (69) 98 Room Air 11/12/17 12:00 Room Air 11/12/17 08:00 37.4 89 20 92/65 (74) 100 Room Air 11/12/17 08:00 Room Air 11/12/17 05:39 101 99/52 (68) 108 91/56 (68) 112 95/60 (72) 11/12/17 04:00 100 20 90/57 (68) 100 Room Air 11/12/17 04:00 Room Air 11/12/17 00:17 36.9 98 22 100/67 (78) 96 Room Air 11/11/17 23:59 Room Air 11/11/17 20:01 36.9 102 22 104/68 (80) 100 Room Air 11/11/17 20:00 Room Air 11/11/17 15:35 36.6 84 18 107/76 99 Room Air General Appearance: no apparent distress Neck: no JVD Respiratory/Chest: no respiratory distress, no accessory muscle use Abdomen: non tender, non distended, soft Laboratory Results: Results Past 24 Hours Test 11/11/17 15:34 11/11/17 18:04 11/11/17 18:15 11/11/17 18:51 Range/Units White Blood Count 8.04 4.8-10.8 K/uL Red Blood Count 2.96 4.7-6.1 M/uL Hemoglobin 8.2 8.6 14.0-18.0 g/dL Hematocrit 25.0 26.7 42-52 % Mean Corpuscular Volume 84.5 80-100 fL Mean Corpuscular Hemoglobin 27.7 25-34 pg Mean Corpuscular Hemoglobin Concent 32.8 32-36 g/dl RDW Standard Deviation 49.3 36.4-46.3 fL RDW Coefficient of Variation 15.9 11.5-14.5 % Platelet Count 220 130-400 K/uL Mean Platelet Volume 8.3 7.4-10.4 fL Prothrombin Time 10.7 9.0-12.0 SECONDS Prothromb Time International Ratio 1.0 0.9-1.1 Sodium Level 133 136-145 mmol/L Potassium Level 3.5 3.5-5.1 mmol/L Chloride Level 100 98-107 mmol/L Carbon Dioxide Level 27 21-32 mmol/L Anion Gap 6.0 3-11 mmol/L Blood Urea Nitrogen 13 7-18 mg/dl Creatinine 0.69 0.60-1.40 mg/dl Estimated GFR () 104.6 Estimated GFR (Non- 90.3 BUN/Creatinine Ratio 18.5 10-20 Random Glucose 99 70-99 mg/dl Calcium Level 8.0 8.5-10.1 mg/dl Total Bilirubin 0.4 0.2-1 mg/dl Direct Bilirubin 0.2 0-0.2 mg/dl Aspartate Amino Transf (AST/SGOT) 52 15-37 U/L Alanine Aminotransferase (ALT/SGPT) 40 12-78 U/L Alkaline Phosphatase 161 45-117 U/L Total Protein 6.4 6.4-8.2 gm/dl Albumin 1.9 3.4-5.0 gm/dl Globulin 4.5 2.5-4.0 gm/dl Albumin/Globulin Ratio 0.4 0.9-2 Lactic Acid Level 1.4 0.4-2.0 mmol/L Procalcitonin 0.31 0-0.5 ng/ml Urine Color YELLOW Urine Appearance CLEAR CLEAR Urine pH 7.0 4.5-7.5 Urine Specific [place] 1.004 1.000-1.030 Urine Protein NEG NEG Urine Glucose (UA) NEG NEG Urine Ketones NEG NEG Urine Occult Blood NEG NEG Urine Nitrite NEG NEG Urine Bilirubin NEG NEG Urine Urobilinogen NEG NEG Urine Leukocyte Esterase NEG NEG Test 11/12/17 05:35 Range/Units White Blood Count 7.99 4.8-10.8 K/uL Red Blood Count 2.82 4.7-6.1 M/uL Hemoglobin 7.6 14.0-18.0 g/dL Hematocrit 24.1 42-52 % Mean Corpuscular Volume 85.5 80-100 fL Mean Corpuscular Hemoglobin 27.0 25-34 pg Mean Corpuscular Hemoglobin Concent 31.5 32-36 g/dl RDW Standard Deviation 49.7 36.4-46.3 fL RDW Coefficient of Variation 15.9 11.5-14.5 % Platelet Count 219 130-400 K/uL Mean Platelet Volume 8.3 7.4-10.4 fL Sodium Level 134 136-145 mmol/L Potassium Level 3.7 3.5-5.1 mmol/L Chloride Level 104 98-107 mmol/L Carbon Dioxide Level 26 21-32 mmol/L Anion Gap 4.0 3-11 mmol/L Blood Urea Nitrogen 11 7-18 mg/dl Creatinine 0.74 0.60-1.40 mg/dl Est Creatinine Clear Calc Drug Dose 85.3 ml/min Estimated GFR () 101.7 Estimated GFR (Non- 87.7 BUN/Creatinine Ratio 14.4 10-20 Random Glucose 93 70-99 mg/dl Calcium Level 7.5 8.5-10.1 mg/dl Iron Level 13 35-175 mcg/dl Total Iron Binding Capacity 182 250-450 mcg/dl Ferritin 60.3 8.0-388.0 ng/ml Assessment & Plan 11/12/17 no acute GI bleeding awaiting colonoscopy results wednesday will follow along [facility] surgeons covering this weekend if any acute issues.
[2017-11-12] MEDS ORDERED: NURSING VERBAL MED ORDER ONE (16:00)
[2017-11-12 17:37] LABS: HEMATOCRIT 25.5 % (42-52); HEMOGLOBIN 8.1 g/dL (14.0-18.0)
[2017-11-12] MEDS: SIMVASTATIN 20 MG TAB PO SCH (19:43)
[2017-11-13] VITALS: O2SAT 99
[2017-11-13] MEDS: PANTOprazole INJ 40 MG in DEXTROSE 5% 100ML IV SCH ×5 (00:27→20:46)
[2017-11-13 07:14] VITALS: BP_SYST 120; BP_SYST 93; BP_SYST 96; BP_DIAS 53; BP_DIAS 64; BP_DIAS 65; PULSE 55; PULSE 74; PULSE 76; TEMP 36.8; O2SAT 96
[2017-11-13] MEDS ORDERED: BISACODYL 5 MG TABEC ONE (07:58)
[2017-11-13] MEDS ORDERED: POLYETHYLENE (MIRALAX) 17 GM PACK PO SCH (08:00)
[2017-11-13] MEDS ORDERED: BISACODYL 5 MG TABEC PO ONE (09:30)
[2017-11-13] MEDS ORDERED: SODIUM CHLORIDE 0.9% 1000ML 1,000 ML IV SCH (16:00)
[2017-11-13] MEDS ORDERED: LAVAGE SOLUTION 4000ML PO SCH (16:00)
[2017-11-13 16:01] VITALS: BP 95/61; PULSE 93; TEMP 37.1; O2SAT 98
--- NOTE | 2017-11-13 19:03 | GASTROENTEROLOGY PROGRESS NOTE ---
DATE: 11/13/2017 SUBJECTIVE: Mr. Ortiz is doing quite well today. He has had no evidence of active bleeding. He denies any abdominal pain. He has been resting comfortably. His hemoglobin has been stable. His shortness of breath has improved, which is what his original presentation was and this was felt related to his anemia. PHYSICAL EXAMINATION: VITAL SIGNS: During this visit his most recent temperature is 36.8, pulse is 74, blood pressure is 93/53. SKIN: Anicteric. EYES: Show anicteric sclerae. NECK: Thin but supple. MOUTH: Clear lesions. CHEST: Some scattered rhonchi, but is otherwise clear. HEART: Regular rate and rhythm. ABDOMEN: Soft with good bowel sounds. There are no masses or rebound tenderness. EXTREMITIES: Thin, but warm with good distal pulse. LABORATORY DATA: Shows hemoglobin of 8.1. IMPRESSION: A 77-year-old gentleman with anemia, heme positive stool, concerns for chronic low-grade gastrointestinal bleeding; and who never had a screening colonoscopy. I will take the liberty of setting him up for upper and lower endoscopy on Wednesday. In the meantime, continue current care and follow his hemoglobin. This was discussed with patient and he is agreeable with this plan. PAT
[2017-11-13] MEDS: SIMVASTATIN 20 MG TAB PO SCH (20:46)
--- NOTE | 2017-11-13 23:33 | Progress Note ---
Medicine Progress Note Date & Time of Visit: Nov 13, 2017 at 15:48. Subjective 77 yo M with progressive worsening dyspnea and anemia along with weight loss over the past few months. The patient declines any blood transfusion. He reports an improvement in his breathing and denies any lightheadedness with standing. Orthostatics positive and urine is reported to be somewhat concentrated by nursing. TTE performed this am and was normal. Denies chest or abdominal pain. Objective Last 8 Hrs Date Time Temp Pulse Resp B/P (MAP) Pulse Ox O2 Delivery O2 Flow Rate FiO2 11/13/17 08:00 Room Air Physical Exam: GEN: WNWD, in no acute distress, alert and appropriate HEENT: NC/AT, normal sclerae, MMM CARDIO: reg rate, S1/2 heard without m/g/r LUNGS: CTA bilaterally, no crackles, rales or wheezes, good diaphragmatic excursion ABD: soft, non-tender, non-distended, no rebound or guarding, +BS EXTREMITY: RP and DP palpable 2+ bilat, no LE swelling or edema, extremities are warm and well-perfused NEURO: CN 2-12 grossly intact MUSC: 5/5 strength throughout, no focal deficits SKIN: warm and dry Laboratory Results: 11/12/17 05:35 11/12/17 16:54 11/12/17 05:35 Test 11/11/17 15:34 11/11/17 18:04 11/11/17 18:15 11/12/17 05:35 Prothrombin Time 10.7 SECONDS (9.0-12.0) Prothromb Time International Ratio 1.0 (0.9-1.1) Total Bilirubin 0.4 mg/dl (0.2-1) Direct Bilirubin 0.2 mg/dl (0-0.2) Aspartate Amino Transf (AST/SGOT) 52 U/L (15-37) Alanine Aminotransferase (ALT/SGPT) 40 U/L (12-78) Alkaline Phosphatase 161 U/L (45-117) Total Protein 6.4 gm/dl (6.4-8.2) Albumin 1.9 gm/dl (3.4-5.0) Globulin 4.5 gm/dl (2.5-4.0) Albumin/Globulin Ratio 0.4 (0.9-2) Lactic Acid Level 1.4 mmol/L (0.4-2.0) Procalcitonin 0.31 ng/ml (0-0.5) Urine Color YELLOW Urine Appearance CLEAR (CLEAR) Urine pH 7.0 (4.5-7.5) Urine Specific [place] 1.004 (1.000-1.030) Urine Protein NEG (NEG) Urine Glucose (UA) NEG (NEG) Urine Ketones NEG (NEG) Urine Occult Blood NEG (NEG) Urine Nitrite NEG (NEG) Urine Bilirubin NEG (NEG) Urine Urobilinogen NEG (NEG) Urine Leukocyte Esterase NEG (NEG) Red Blood Count 2.82 M/uL (4.7-6.1) Mean Corpuscular Volume 85.5 fL (80-100) Mean Corpuscular Hemoglobin 27.0 pg (25-34) Mean Corpuscular Hemoglobin Concent 31.5 g/dl (32-36) RDW Standard Deviation 49.7 fL (36.4-46.3) RDW Coefficient of Variation 15.9 % (11.5-14.5) Mean Platelet Volume 8.3 fL (7.4-10.4) Anion Gap 4.0 mmol/L (3-11) Est Creatinine Clear Calc Drug Dose 85.3 ml/min Estimated GFR () 101.7 Estimated GFR (Non- 87.7 BUN/Creatinine Ratio 14.4 (10-20) Calcium Level 7.5 mg/dl (8.5-10.1) Iron Level 13 mcg/dl (35-175) Total Iron Binding Capacity 182 mcg/dl (250-450) Ferritin 60.3 ng/ml (8.0-388.0) Test 11/13/17 04:32 Immunoglobulin A 169.0 mg/dL (70-400) Date/Time Source Procedure Growth Status 11/11/17 00:00 Nasal MRSA DNA Surveillance Screen - Final Specimen Negative for MRSA by DNA Probe Complete Last 24 Hours Test 11/12/17 16:54 11/13/17 04:32 Hemoglobin 8.1 g/dL Hematocrit 25.5 % Immunoglobulin A 169.0 mg/dL Assessment & Plan 77 yo M with progressive worsening dyspnea and anemia along with weight loss over the past few months. The patient declines any blood transfusion. He reports an improvement in his breathing and denies any lightheadedness with standing. Orthostatics positive and urine is reported to be somewhat concentrated by nursing. TTE performed this am and was normal. Denies chest or abdominal pain. 1. Anemia -poss causes include malignancy in setting of weight loss vs ACD. Workup in progress with GI performing CSP on Wednesday to expedite workup. No signs of active bleeding. Pt declines blood transfusion at this time. Cont PPI drip until otherwise specified by GI team. 2. Protein-calorie malnutrition-Nutrition consult, apprec recs. Cont PO intake 3. HTN-BP relatively low, holding outpatient lisinopril at this time. Pt orthostatic-1L IVF given. Cont to monitor for bleeding or HD instability. DVT Prophylaxis -SCDs in setting of poss bleed with anemia DO [facility] Hospital[facility] Consultants: GI Gen Surg Current Inpatient Medications: Current Inpatient Medications Medications (Trade) Dose Ordered Sig/Jose Route Start Time Stop Time Status Last Admin Dose Admin Ondansetron HCl (Zofran Inj) 4 mg Q6H PRN IV 11/11/17 15:30 12/11/17 15:29 Pantoprazole Sodium 40 mg/ Dextrose 100 ml @ 20 mls/hr Q5H IV 11/11/17 16:00 12/11/17 15:59 11/13/17 15:33 20 MLS/HR Simvastatin (Zocor Tab) 20 mg PM PO 11/11/17 21:00 12/11/17 20:59 11/12/17 19:43 20 MG Lorazepam (Ativan Tab) 1 mg TID PRN PO 11/11/17 21:00 12/11/17 20:59 Polyethylene Glycol/ Electrolytes (Golytely Soln) 8 dose UD PO 11/14/17 08:00 11/14/17 18:00 Bisacodyl (Dulcolax Tab) 10 mg ONE PO 11/14/17 09:45 11/14/17 09:46
[2017-11-13 23:45] VITALS: BP_SYST 106; BP_SYST 112; BP_SYST 99; BP_DIAS 62; BP_DIAS 70; PULSE 86; TEMP 37.1; O2SAT 97
[2017-11-14] MEDS: PANTOprazole INJ 40 MG in DEXTROSE 5% 100ML IV SCH ×5 (02:00→21:13)
[2017-11-14 07:45] LABS: HEMATOCRIT 20.4 % (42-52); HEMOGLOBIN 6.5 g/dL (14.0-18.0); MEAN CORPUSCULAR HEMOGLOBIN 27.1 pg (25-34); MEAN CORPUSCULAR HGB CONC 31.9 g/dl (32-36); MEAN PLATELET VOLUME 8.4 fL (7.4-10.4); PLATELET COUNT 212 K/uL (130-400); RED CELL DISTRIBUTION WIDTH CV 15.9 % (11.5-14.5)
[2017-11-14 07:52] VITALS: BP_SYST 100; BP_SYST 90; BP_SYST 96; BP_DIAS 61; BP_DIAS 64; BP_DIAS 67; PULSE 85; TEMP 36.7; O2SAT 96
[2017-11-14] MEDS ORDERED: LAVAGE SOLUTION 4000ML PO SCH (08:00)
[2017-11-14 08:08] LABS: CALCIUM 7.3 mg/dl (8.5-10.1); CREATININE 0.69 mg/dl (0.60-1.40); POTASSIUM 3.7 mmol/L (3.5-5.1)
[2017-11-14] MEDS ORDERED: BISACODYL 5 MG TABEC PO SCH (09:45)
--- NOTE | 2017-11-14 12:32 | Progress Note ---
Medicine Progress Note Date & Time of Visit: Nov 14, 2017 at 12:29. Subjective 77 yo M with progressive worsening dyspnea and anemia along with weight loss over the past few months. The patient continues to decline any blood transfusion. He reports an improvement in his breathing and denies any lightheadedness with standing. Orthostatics are negative after IVF given yesterday. Denies chest or abdominal pain. Denies any bleeding or blood in stool. Tolerating PO. Objective Last 8 Hrs Date Time Temp Pulse Resp B/P (MAP) Pulse Ox O2 Delivery O2 Flow Rate FiO2 11/14/17 08:30 Room Air 11/14/17 07:52 36.7 85 20 100/67 (78) 96 Room Air 90/61 (71) 96/64 (75) Physical Exam: GEN: WNWD, in no acute distress, alert and appropriate HEENT: NC/AT, normal sclerae, MMM CARDIO: reg rate, S1/2 heard without m/g/r LUNGS: CTA bilaterally, no crackles, rales or wheezes, good diaphragmatic excursion ABD: soft, non-tender, non-distended, no rebound or guarding, +BS EXTREMITY: RP and DP palpable 2+ bilat, no LE swelling or edema, extremities are warm and well-perfused NEURO: CN 2-12 grossly intact MUSC: 5/5 strength throughout, no focal deficits SKIN: warm and dry Laboratory Results: 11/14/17 06:54 11/14/17 06:54 Test 11/11/17 15:34 11/11/17 18:04 11/11/17 18:15 11/12/17 05:35 Prothrombin Time 10.7 SECONDS (9.0-12.0) Prothromb Time International Ratio 1.0 (0.9-1.1) Total Bilirubin 0.4 mg/dl (0.2-1) Direct Bilirubin 0.2 mg/dl (0-0.2) Aspartate Amino Transf (AST/SGOT) 52 U/L (15-37) Alanine Aminotransferase (ALT/SGPT) 40 U/L (12-78) Alkaline Phosphatase 161 U/L (45-117) Total Protein 6.4 gm/dl (6.4-8.2) Albumin 1.9 gm/dl (3.4-5.0) Globulin 4.5 gm/dl (2.5-4.0) Albumin/Globulin Ratio 0.4 (0.9-2) Lactic Acid Level 1.4 mmol/L (0.4-2.0) Procalcitonin 0.31 ng/ml (0-0.5) Urine Color YELLOW Urine Appearance CLEAR (CLEAR) Urine pH 7.0 (4.5-7.5) Urine Specific [place] 1.004 (1.000-1.030) Urine Protein NEG (NEG) Urine Glucose (UA) NEG (NEG) Urine Ketones NEG (NEG) Urine Occult Blood NEG (NEG) Urine Nitrite NEG (NEG) Urine Bilirubin NEG (NEG) Urine Urobilinogen NEG (NEG) Urine Leukocyte Esterase NEG (NEG) Iron Level 13 mcg/dl (35-175) Total Iron Binding Capacity 182 mcg/dl (250-450) Ferritin 60.3 ng/ml (8.0-388.0) Test 11/13/17 04:32 11/14/17 06:54 Immunoglobulin A 169.0 mg/dL (70-400) Red Blood Count 2.40 M/uL (4.7-6.1) Mean Corpuscular Volume 85.0 fL (80-100) Mean Corpuscular Hemoglobin 27.1 pg (25-34) Mean Corpuscular Hemoglobin Concent 31.9 g/dl (32-36) RDW Standard Deviation 50.0 fL (36.4-46.3) RDW Coefficient of Variation 15.9 % (11.5-14.5) Mean Platelet Volume 8.4 fL (7.4-10.4) Anion Gap 4.0 mmol/L (3-11) Est Creatinine Clear Calc Drug Dose 92.5 ml/min Estimated GFR () 104.6 Estimated GFR (Non- 90.3 BUN/Creatinine Ratio 15.9 (10-20) Calcium Level 7.3 mg/dl (8.5-10.1) Date/Time Source Procedure Growth Status 11/11/17 00:00 Nasal MRSA DNA Surveillance Screen - Final Specimen Negative for MRSA by DNA Probe Complete Last 24 Hours Test 11/14/17 06:54 White Blood Count 8.90 K/uL Red Blood Count 2.40 M/uL Hemoglobin 6.5 g/dL Hematocrit 20.4 % Mean Corpuscular Volume 85.0 fL Mean Corpuscular Hemoglobin 27.1 pg Mean Corpuscular Hemoglobin Concent 31.9 g/dl RDW Standard Deviation 50.0 fL RDW Coefficient of Variation 15.9 % Platelet Count 212 K/uL Mean Platelet Volume 8.4 fL Sodium Level 134 mmol/L Potassium Level 3.7 mmol/L Chloride Level 100 mmol/L Carbon Dioxide Level 29 mmol/L Anion Gap 4.0 mmol/L Blood Urea Nitrogen 11 mg/dl Creatinine 0.69 mg/dl Est Creatinine Clear Calc Drug Dose 92.5 ml/min Estimated GFR () 104.6 Estimated GFR (Non- 90.3 BUN/Creatinine Ratio 15.9 Random Glucose 83 mg/dl Calcium Level 7.3 mg/dl Assessment & Plan 77 yo M with progressive worsening dyspnea and anemia along with weight loss over the past few months. The patient continues to decline any blood transfusion. He reports an improvement in his breathing and denies any lightheadedness with standing. Orthostatics are negative after IVF given yesterday. Denies chest or abdominal pain. Denies any bleeding or blood in stool. Tolerating PO. 1. Anemia -poss causes include malignancy in setting of weight loss vs ACD. This is also in setting of worsening anemia after IVF so hemodilution is likely playing a role. Workup in progress with GI performing upper and lower endoscopy. No signs of active bleeding. Pt continues to decline blood transfusion at this time. Cont PPI drip until otherwise specified by GI team. 2. Protein-calorie malnutrition-Nutrition consult, apprec recs. Cont PO intake. Daily weights. 3. HTN-BP relatively low, holding outpatient lisinopril at this time. Cont to monitor for bleeding or HD instability. DVT Prophylaxis -SCDs in setting of poss bleed with anemia DO Malka Abreu Hospitalist Consultants: GI Gen Surg Current Inpatient Medications: Current Inpatient Medications Medications (Trade) Dose Ordered Sig/Jose Route Start Time Stop Time Status Last Admin Dose Admin Ondansetron HCl (Zofran Inj) 4 mg Q6H PRN IV 11/11/17 15:30 12/11/17 15:29 Pantoprazole Sodium 40 mg/ Dextrose 100 ml @ 20 mls/hr Q5H IV 11/11/17 16:00 12/11/17 15:59 11/14/17 11:34 20 MLS/HR Simvastatin (Zocor Tab) 20 mg PM PO 11/11/17 21:00 12/11/17 20:59 11/13/17 20:46 20 MG Lorazepam (Ativan Tab) 1 mg TID PRN PO 11/11/17 21:00 12/11/17 20:59 Polyethylene Glycol/ Electrolytes (Golytely Soln) 8 dose UD PO 11/14/17 08:00 11/14/17 18:00
[2017-11-14] MEDS: LAVAGE SOLUTION 4000ML PO SCH ×4 (16:07→17:47)
[2017-11-14 16:27] VITALS: BP_SYST 100; BP_SYST 116; BP_SYST 90; BP_DIAS 63; BP_DIAS 77; BP_DIAS 79; PULSE 106; PULSE 85; PULSE 92; TEMP 37; O2SAT 96
[2017-11-14] MEDS: SIMVASTATIN 20 MG TAB PO SCH (20:43)
[2017-11-14] MEDS: ONDANSETRON INJ 2 MG/ML 2 ML VIAL IV PRN (22:37)
[2017-11-14 23:04] VITALS: BP_SYST 108; BP_SYST 114; BP_SYST 120; BP_DIAS 73; BP_DIAS 74; BP_DIAS 83; PULSE 97; TEMP 36.7; O2SAT 97
[2017-11-15] VITALS (9 sets, daily range): BP systolic 95–132; BP diastolic 55–82; PULSE 72–125; TEMP 34.7–36.7; O2SAT 97–99
[2017-11-15] MEDS ORDERED: PROMETHAZINE HCL INJ 12.5 MG in SODIUM CHLORIDE 0.9% 50ML 50 ML IV STA (01:17)
[2017-11-15] MEDS ORDERED: SOD PHOSPHATE/SOD BIPHOSPHATE ENEMA 132 ML BTL PR ONE (02:30)
[2017-11-15] MEDS: PANTOprazole INJ 40 MG in DEXTROSE 5% 100ML IV SCH ×5 (03:35→23:42)
[2017-11-15 06:35] LABS: HEMATOCRIT 23.6 % (42-52); HEMOGLOBIN 7.3 g/dL (14.0-18.0)
--- NOTE | 2017-11-15 07:05 | DIAGNOSTIC IMAGING REPORT ---
KUB CLINICAL HISTORY: R/O Ileus/obstruction COMPARISON STUDY: CT of the abdomen and pelvis September 10, 2011. FINDINGS: Incidental note is made of a calcified right lower lobe granuloma. A large amount of poorly formed stool is noted within the colon which is moderately distended. There is no evidence for a small bowel obstruction. IMPRESSION: 1. Large amount of poorly formed stool throughout the colon. Moderate colonic distention which is nonspecific. A colonic obstruction is considered unlikely but would be difficult to exclude and radiographic follow-up is recommended. 2. No evidence for small bowel obstruction. Electronically signed by: Olegario Hurtado M.D. 11/15/2017 7:04 AM Dictated Date/Time: 11/15/2017 7:02 AM
[2017-11-15] MEDS ORDERED: SOD PHOSPHATE/SOD BIPHOSPHATE ENEMA 132 ML BTL PR STA (08:39)
--- NOTE | 2017-11-15 08:41 | Progress Note ---
Progress Note Date of Service Nov 15, 2017. (Glenis Diamond .EUGENE) Progress Note Pt was seen and evaluated, chart reviewed. No acute events overnight. Is NPO for EGD/Colon. Took 3/4 of bowel prep without a BM. Had an enema last night with a large, soft black BM. No other BMs. He is tired. No pain. No nausea, vomiting. Is refusing blood products. No acute distres Abd soft, non-distended and non-tender Fleet enema now. NPO for EGD/Colonoscopy (Glenis Diamond .EUGENE) ATTESTATION: I have performed a history and physical examination of this patient and reviewed the electronic record. Specifically, on physical examination there is no abdominal tenderness. I have discussed the case with EUGENE Hawley. The above note reflects my findings, conclusions, and recommendations. Parth Nam MD (Parth Nam M.D.)
[2017-11-15] MEDS: ONDANSETRON INJ 2 MG/ML 2 ML VIAL IV PRN ×2 (08:43→15:55)
--- NOTE | 2017-11-15 10:01 | Surgery Progress Note ---
Surgery Progress Note Date of Service Nov 15, 2017. Subjective Patient for possible EGD/Colonoscopy today. Objective Vital Signs: Date Time Temp Pulse Resp B/P (MAP) Pulse Ox O2 Delivery O2 Flow Rate FiO2 11/15/17 08:32 97 Room Air 11/15/17 07:47 90 95/55 (68) 11/15/17 07:46 76 106/76 (86) 11/15/17 07:45 36.3 82 20 112/68 (83) 97 Room Air 11/15/17 00:01 Room Air 11/14/17 23:04 36.7 97 18 108/74 (85) 97 Room Air 120/83 (95) 114/73 (87) 11/14/17 20:01 Room Air 11/14/17 16:27 37.0 85 18 90/63 (72) 96 Room Air 92 100/79 (86) 106 116/77 (90) 11/14/17 16:00 Room Air General Appearance: WD/WN, no apparent distress Laboratory Results: Results Past 24 Hours Test 11/15/17 05:46 Range/Units Hemoglobin 7.3 14.0-18.0 g/dL Hematocrit 23.6 42-52 % Assessment & Plan 11/15/17- Patient for possible EGD/Colonoscopy today. General Surgery awaiting results- will continue to follow peripherally.
[2017-11-15] MEDS ORDERED: FENTANYL CITRATE INJ 50 MCG/1 ML 2 ML VIAL ONE (10:11)
[2017-11-15] MEDS ORDERED: LIDOCAINE HCL 2% 2 ML VIAL (20MG/ML) ONE (10:11)
[2017-11-15] MEDS ORDERED: PROPOFOL IV EMULSION 10 MG/ML 20 ML VIAL IV ONE ×2 (10:11→11:01)
--- NOTE | 2017-11-15 10:49 | GI REPORT ---
Procedure Date: 11/15/2017 10:27 AM Procedure: Upper GI endoscopy Indications: Iron deficiency anemia, Heme positive stool, Weight loss Medicines: Monitored Anesthesia Care Complications: No immediate complications. Estimated blood loss: None. Estimated Blood Loss: Estimated blood loss: none. Procedure: Pre-Anesthesia Assessment: - Prior to the procedure, a History and Physical was performed, and patient medications, allergies and sensitivities were reviewed. The patient's tolerance of previous anesthesia was reviewed. - ASA Grade Assessment: III - A patient with severe systemic disease. After obtaining informed consent, the endoscope was passed under direct vision. Throughout the procedure, the patient's blood pressure, pulse, and oxygen saturations were monitored continuously. The scope was introduced through the mouth, and advanced to the third part of the duodenum. Small bowel enteroscopy was deemed necessary. The upper GI endoscopy was accomplished with ease. The patient tolerated the procedure well. Findings: The upper third of the esophagus, middle third of the esophagus and lower third of the esophagus were normal. The Z-line was regular and was found 37 cm from the incisors. A small hiatal hernia was present. The entire examined stomach was normal. Biopsies were taken with a cold forceps for Helicobacter pylori testing. The examined duodenum was normal. Biopsies for histology were taken with a cold forceps for evaluation of celiac disease. Verification of patient identification for the specimens was done by the physician and nurse using the patient's name, date and medical record number. Impression: - Normal upper third of esophagus, middle third of esophagus and lower third of esophagus. - Z-line regular, 37 cm from the incisors. - Small hiatal hernia. - Normal stomach. Biopsied. - Normal examined duodenum. Biopsied. Recommendation: - Perform a colonoscopy today. Parth Nam M.D. Parth Nam MD 11/15/2017 10:49:22 AM This report has been signed electronically. Note Initiated On: 11/15/2017 10:27 AM I attest to the content of the Intraoperative Record and orders documented therein, exceptions below
[2017-11-15] MEDS ORDERED: ENDOSCOPIC MARKER 5 ML SYR ONE (10:55)
--- NOTE | 2017-11-15 11:14 | GI REPORT ---
Procedure Date: 11/15/2017 10:28 AM Procedure: Colonoscopy Indications: Heme positive stool, Iron deficiency anemia Medicines: Monitored Anesthesia Care Complications: No immediate complications. Estimated blood loss: None. Estimated Blood Loss: Estimated blood loss: none. Procedure: Pre-Anesthesia Assessment: - Prior to the procedure, a History and Physical was performed, and patient medications, allergies and sensitivities were reviewed. The patient's tolerance of previous anesthesia was reviewed. - ASA Grade Assessment: III - A patient with severe systemic disease. After I obtained informed consent, the scope was passed under direct vision. Throughout the procedure, the patient's blood pressure, pulse, and oxygen saturations were monitored continuously. The Scope was introduced through the anus with the intention of advancing to the cecum. The scope was advanced to the descending colon before the procedure was aborted. Medications were given. The colonoscopy was performed with difficulty due to inadequate bowel prep. The patient tolerated the procedure well. The quality of the bowel preparation was inadequate. Findings: An ulcerated partially obstructing large mass was found in the descending colon. The mass was circumferential. A large amount of stool was found in the entire colon, precluding visualization. Impression: - Preparation of the colon was inadequate. 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 - Stool in the entire examined colon. - No specimens collected. Recommendation: - Perform CT scan (computed tomography) of the abdomen with contrast. - Repeat colonoscopy tomorrow because the bowel preparation was poor. Parth Nam M.D. Parth Nam MD 11/15/2017 11:13:46 AM This report has been signed electronically. Note Initiated On: 11/15/2017 10:28 AM I attest to the content of the Intraoperative Record and orders documented therein, exceptions below
[2017-11-15] MEDS ORDERED: OPTIRAY 320 IV PRN (12:30)
--- NOTE | 2017-11-15 12:40 | Anesthesiology Progress Note ---
Anesthesia Post Op Note Date & Time Nov 15, 2017 at 12:39 Vital Signs Pain Intensity: 0 Vital Signs Past 12 Hours Date Time Temp Pulse Resp B/P (MAP) Pulse Ox O2 Delivery O2 Flow Rate FiO2 11/15/17 12:27 36.2 76 20 112/70 (84) 99 Room Air 11/15/17 11:56 74 18 111/81 (91) 96 Room Air 11/15/17 11:30 84 20 107/73 (84) 97 Room Air 11/15/17 11:18 73 12 115/63 (80) 100 Mask 15 11/15/17 10:23 36.3 75 18 116/84 (95) 98 11/15/17 08:45 Room Air 11/15/17 08:32 97 Room Air 11/15/17 07:47 90 95/55 (68) 11/15/17 07:46 76 106/76 (86) 11/15/17 07:45 36.3 82 20 112/68 (83) 97 Room Air Notes Mental Status: alert / awake / arousable, participated in evaluation Pt Amnestic to Procedure: Yes Nausea / Vomiting: adequately controlled Pain: adequately controlled Airway Patency, RR, SpO2: stable & adequate BP & HR: stable & adequate Hydration State: stable & adequate Anesthetic Complications: no major complications apparent
--- NOTE | 2017-11-15 13:05 | Progress Note ---
Progress Note Date of Service Nov 15, 2017. Progress Note Pt is s/p EGD and colonoscopy. Colonoscopy w/ poor prep but a likely malignant partially obstructing tumor in the descending colon, we were unable to biopsy. He has reported weight loss - concerned for metastatic colon CA - Please send pt for CT ABD/Pelvis today w/ contrast - Clear liquids today - Start colytely at 3p - Please use fleet enema as needed - Trend H&H - Transfuse PRN if pt is agreeable - fearful of blood product related infections - NPO after midnight - Colonoscopy 11/16/17 Please call with any questions, concerns.
[2017-11-15] MEDS ORDERED: LAVAGE SOLUTION 4000ML PO SCH (15:00)
--- NOTE | 2017-11-15 15:25 | DIAGNOSTIC IMAGING REPORT ---
ABD/PELVIS IV AND ORAL CONT CLINICAL HISTORY: 77 years-old Male presenting with colon mass, weight loss. TECHNIQUE: Multidetector CT of the abdomen and pelvis was performed after the administration of oral and intravenous contrast. IV contrast: None. A dose lowering technique was used consistent with the principles of ALARA (as low as reasonably achievable). COMPARISON: 09/10/2011. CT DOSE (mGy.cm): The estimated cumulative dose is 600.38 mGycm. FINDINGS: Home Planning Consultant Salesperson topogram: Gaseous distention of bowel. Lung bases: Calcified granuloma noted in the right lower lobe. Dependent changes likely atelectasis. Normal heart size. Coronary artery calcification. Trace bilateral pleural effusions. Liver: Congenital hypoplasia of the medial segments of the left hepatic lobe. No focal lesion. Patent hepatic vasculature. Biliary: No intrahepatic or extrahepatic biliary ductal dilatation. Normal gallbladder. Pancreas: Mild parenchymal atrophy. Spleen: Normal. Splenule noted. Adrenal glands: Normal. Kidneys and ureters: Normal. No hydronephrosis. Bladder: Normal. Pelvic organs: Prostate enlargement likely secondary to benign prostatic hyperplasia. A TURP defect may be present. Bowel: Mild wall thickening of the rectum, nonspecific. Diverticulosis of the sigmoid colon. Masslike thickening of the distal descending colon, which has fistulized with adjacent small bowel. The adjacent small bowel appears grossly involved with the neoplastic process. Surrounding inflammatory change and fluid. Additional sinus tracts emanating from the mass anteriorly into the mesentery (series 3 image 260). Large stool burden proximal to this with mild diffuse colonic wall thickening. The greatest burden is noted in the cecum. The distal small bowel is decompressed. The appendix is normal. No pathologic distention of small bowel. Peritoneal cavity: Small amount of abdominal pelvic ascites. No soft tissue nodularity in the peritoneum. Mild infiltration of the omentum without soft tissue nodularity. Lymph nodes: Several borderline enlarged lymph nodes noted in the retroperitoneum the largest measuring 9 mm in short axis (series 3 image 29) in the left periaortic region anterior to the duodenum. Pathologically enlarged lymph node in the mesentery measuring 10 mm (series 3 image 241). Enlarged lymph nodes in the heather hepatis, though these are subcentimeter in the short axis. Few subcentimeter prominent lymph nodes noted in the right cardiophrenic region (series 3 image 84). Vasculature: Atherosclerosis of the normal caliber abdominal aorta. IVC patent. 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 Abdominal wall: Mild body wall edema. Musculoskeletal: Degenerative changes of the spine. IMPRESSION: 1. 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 This appears to have formed both a fistulous connection and direct invasion of adjacent small bowel as well as sinus tracks into the mesentery. 2. Resultant partial large bowel obstruction and developing stercoral colitis of the colon proximal to the descending colonic mass. 3. Findings also concerning for lymph node metastases, although the lymph nodes in the mesentery and retroperitoneum are borderline enlarged. 4. Small amount of abdominal pelvic ascites. The report will be called/faxed according to standard departmental protocol. Electronically signed by: Sukhjinder Jaquez M.D. 11/15/2017 3:18 PM Dictated Date/Time: 11/15/2017 3:07 PM
[2017-11-15] MEDS ORDERED: ONDANSETRON INJ 2 MG/ML 2 ML VIAL IV PRN (19:30)
[2017-11-15] MEDS ORDERED: PROMETHAZINE HCL 25 MG SUPP PR PRN (19:30)
[2017-11-15] MEDS: SIMVASTATIN 20 MG TAB PO SCH (21:46)
--- NOTE | 2017-11-15 23:31 | Progress Note ---
Medicine Progress Note Date & Time of Visit: Nov 15, 2017 at 15:30. Subjective 77 yo M with progressive worsening dyspnea and anemia along with weight loss over the past few months. The patient continues to decline any blood transfusion. He reports an improvement in his breathing and denies any lightheadedness with standing. Tolering PO somewhat and abdominal discomfort to say Objective Last 8 Hrs Date Time Temp Pulse Resp B/P (MAP) Pulse Ox O2 Delivery O2 Flow Rate FiO2 11/15/17 15:00 36.2 72 20 108/74 (85) 98 Room Air 11/15/17 12:27 36.2 76 20 112/70 (84) 99 Room Air 11/15/17 11:56 74 18 111/81 (91) 96 Room Air 11/15/17 11:30 84 20 107/73 (84) 97 Room Air 11/15/17 11:18 73 12 115/63 (80) 100 Mask 15 11/15/17 10:23 36.3 75 18 116/84 (95) 98 11/15/17 08:45 Room Air 11/15/17 08:32 97 Room Air 11/15/17 07:47 90 95/55 (68) 11/15/17 07:46 76 106/76 (86) 11/15/17 07:45 36.3 82 20 112/68 (83) 97 Room Air Physical Exam: GEN: WNWD, in no acute distress, alert and appropriate HEENT: NC/AT, normal sclerae, MMM CARDIO: reg rate, S1/2 heard without m/g/r LUNGS: CTA bilaterally, no crackles, rales or wheezes, good diaphragmatic excursion ABD: soft, mild gen TTP, non-distended, no rebound or guarding, +BS EXTREMITY: RP and DP palpable 2+ bilat, no LE swelling or edema, extremities are warm and well-perfused NEURO: CN 2-12 grossly intact MUSC: 5/5 strength throughout, no focal deficits SKIN: warm and dry Laboratory Results: 11/14/17 06:54 11/15/17 05:46 11/14/17 06:54 Test 11/11/17 15:34 11/11/17 18:04 11/11/17 18:15 11/12/17 05:35 Prothrombin Time 10.7 SECONDS (9.0-12.0) Prothromb Time International Ratio 1.0 (0.9-1.1) Total Bilirubin 0.4 mg/dl (0.2-1) Direct Bilirubin 0.2 mg/dl (0-0.2) Aspartate Amino Transf (AST/SGOT) 52 U/L (15-37) Alanine Aminotransferase (ALT/SGPT) 40 U/L (12-78) Alkaline Phosphatase 161 U/L (45-117) Total Protein 6.4 gm/dl (6.4-8.2) Albumin 1.9 gm/dl (3.4-5.0) Globulin 4.5 gm/dl (2.5-4.0) Albumin/Globulin Ratio 0.4 (0.9-2) Lactic Acid Level 1.4 mmol/L (0.4-2.0) Procalcitonin 0.31 ng/ml (0-0.5) Urine Color YELLOW Urine Appearance CLEAR (CLEAR) Urine pH 7.0 (4.5-7.5) Urine Specific [place] 1.004 (1.000-1.030) Urine Protein NEG (NEG) Urine Glucose (UA) NEG (NEG) Urine Ketones NEG (NEG) Urine Occult Blood NEG (NEG) Urine Nitrite NEG (NEG) Urine Bilirubin NEG (NEG) Urine Urobilinogen NEG (NEG) Urine Leukocyte Esterase NEG (NEG) Iron Level 13 mcg/dl (35-175) Total Iron Binding Capacity 182 mcg/dl (250-450) Ferritin 60.3 ng/ml (8.0-388.0) Test 11/13/17 04:32 11/14/17 06:54 Immunoglobulin A 169.0 mg/dL (70-400) Tissue Transglutaminase IgA Ab <1 U/ML (<4) Red Blood Count 2.40 M/uL (4.7-6.1) Mean Corpuscular Volume 85.0 fL (80-100) Mean Corpuscular Hemoglobin 27.1 pg (25-34) Mean Corpuscular Hemoglobin Concent 31.9 g/dl (32-36) RDW Standard Deviation 50.0 fL (36.4-46.3) RDW Coefficient of Variation 15.9 % (11.5-14.5) Mean Platelet Volume 8.4 fL (7.4-10.4) Anion Gap 4.0 mmol/L (3-11) Est Creatinine Clear Calc Drug Dose 92.5 ml/min Estimated GFR () 104.6 Estimated GFR (Non- 90.3 BUN/Creatinine Ratio 15.9 (10-20) Calcium Level 7.3 mg/dl (8.5-10.1) Date/Time Source Procedure Growth Status 11/11/17 00:00 Nasal MRSA DNA Surveillance Screen - Final Specimen Negative for MRSA by DNA Probe Complete Last 24 Hours Test 11/15/17 05:46 Hemoglobin 7.3 g/dL Hematocrit 23.6 % Assessment & Plan 77 yo M with progressive worsening dyspnea and anemia along with weight loss over the past few months. The patient continues to decline any blood transfusion. He reports an improvement in his breathing and denies any lightheadedness with standing. 1. Tumor mass-likely malignancy. Needs to repeat prep overnight obtain path tomorrow. Anemia -likely related to tumor mass seen on scope today. Pt declines blood. 2. Protein-calorie malnutrition-Nutrition consult, apprec recs. Cont PO intake. Daily weights. 3. HTN-BP relatively low, holding outpatient lisinopril at this time. Cont to monitor for bleeding or HD instability. DVT Prophylaxis -SCDs in setting of poss bleed with anemia Monisha Wall DO [facility] Hospitalist Consultants: GI Gen Surg Current Inpatient Medications: Current Inpatient Medications Medications (Trade) Dose Ordered Sig/Jose Route Start Time Stop Time Status Last Admin Dose Admin Ondansetron HCl (Zofran Inj) 4 mg Q6H PRN IV 11/11/17 15:30 12/11/17 15:29 11/15/17 08:43 4 MG Pantoprazole Sodium 40 mg/ Dextrose 100 ml @ 20 mls/hr Q5H IV 11/11/17 16:00 12/11/17 15:59 11/15/17 13:16 20 MLS/HR Simvastatin (Zocor Tab) 20 mg PM PO 11/11/17 21:00 12/11/17 20:59 11/14/17 20:43 20 MG Lorazepam (Ativan Tab) 1 mg TID PRN PO 11/11/17 21:00 12/11/17 20:59 Polyethylene Glycol/ Electrolytes (Golytely Soln) 16 dose UD PO 11/15/17 15:00 11/15/17 23:59 Ioversol (Optiray 320) 125 ml UD PRN IV 11/15/17 12:30 11/19/17 12:29
[2017-11-16] VITALS (16 sets, daily range): BP systolic 105–119; BP diastolic 58–83; PULSE 63–100; TEMP 36.2–36.6; O2SAT 93–98
[2017-11-16] MEDS: PANTOprazole INJ 40 MG in DEXTROSE 5% 100ML IV SCH ×2 (04:41→08:27)
[2017-11-16] MEDS: ONDANSETRON INJ 2 MG/ML 2 ML VIAL IV PRN ×2 (04:44→12:23)
[2017-11-16 05:43] LABS: HEMATOCRIT 23.6 % (42-52); HEMOGLOBIN 7.4 g/dL (14.0-18.0)
--- NOTE | 2017-11-16 11:39 | Surgery Progress Note ---
Surgery Progress Note Date of Service Nov 16, 2017. Subjective + feeling well no new complaints. he is aware of the findings on ct scan Objective Vital Signs: Date Time Temp Pulse Resp B/P (MAP) Pulse Ox O2 Delivery O2 Flow Rate FiO2 11/16/17 08:30 Room Air 11/16/17 07:46 94 Room Air 11/16/17 07:39 36.3 86 20 110/61 (77) 94 Room Air 11/16/17 00:00 98 Room Air 11/15/17 23:21 36.7 83 19 112/73 (86) 98 Room Air 11/15/17 16:00 98 Room Air 11/15/17 15:00 36.2 72 20 108/74 (85) 98 Room Air 11/15/17 12:27 36.2 76 20 112/70 (84) 99 Room Air 11/15/17 11:56 74 18 111/81 (91) 96 Room Air General Appearance: no apparent distress Head: normocephalic, atraumatic Neck: supple, trachea midline Respiratory/Chest: no respiratory distress, no accessory muscle use Abdomen: non tender, non distended, soft Extremities: normal range of motion, non-tender Laboratory Results: Results Past 24 Hours Test 11/16/17 05:17 Range/Units Hemoglobin 7.4 14.0-18.0 g/dL Hematocrit 23.6 42-52 % Assessment & Plan 11/16/17 discussed with primary service and GI ( Cyril). 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 b/c of fistulas will perform in open technique. we discussed risks ( bleeding/infection/leaks/injury to organs such as bladder/ ureter/ dvt/pe/mi etc...) questions answered he is also now agreeable to blood transfusion if needed. primary team to d/w him and anesthesia will plan for . 11/12/17 no acute GI bleeding awaiting colonoscopy results wednesday will follow along [facility] covering this weekend if any acute issues. 11/12/17 no acute GI bleeding awaiting colonoscopy results wednesday will follow along [facility] covering this if any acute issues.
--- NOTE | 2017-11-16 11:57 | Gastroenterology Progress Note ---
Progress Note Date of Service: Nov 16, 2017 Subjective Pt evaluation today including: conversation w/ patient, physical exam, chart review, lab review Pt was seen and evaluated, chart reviewed. No acute events noted over night. He did not take prep for colonoscopy. CT w/ evidence of colon mass w/ fistula to small bowel. Pt reports some mild abd pain today. No BM but passed gas. No black or bloody stools. No nausea, vomiting. CT ABD/Pelvis 11/15/17: Findings highly suspicious for primary malignancy of the descending colon.This appears to have formed both a fistulous connection and direct invasion of adjacent small bowel as well as sinus tracks into the mesentery. Resultant partial large bowel obstruction and developing stercoral colitis of the colon proximal to the descending colonic mass. Findings also concerning for lymph node metastases, although the lymph nodes in the mesentery and retroperitoneum are borderline enlarged. Small amount of abdominal pelvic ascites. The report will be called/faxed according to standard departmental protocol Colonoscopy 11/15/17: likely malignant partially obstructing tumor in the descending colon Review of Systems Constitutional: + weight loss, No fever, No chills, No weakness ENT: No hearing loss, No unusual epistaxis, No sore throat Respiratory: No cough, No sputum, No shortness of breath, No dyspnea on exertion Cardiac: No chest pain, No edema, No palpitations Abdomen: + pain, + constipation, No nausea, No vomiting, No diarrhea, No GI bleeding, No dysphagia, No odynophagia Skin: No rash, No itch, No color change, No bleeding Medications Current Inpatient Medications Medications (Trade) Dose Ordered Sig/Jose Route Start Time Stop Time Status Last Admin Dose Admin Ondansetron HCl (Zofran Inj) 4 mg Q6H PRN IV 11/11/17 15:30 12/11/17 15:29 11/16/17 04:44 4 MG Simvastatin (Zocor Tab) 20 mg PM PO 11/11/17 21:00 12/11/17 20:59 11/15/17 21:46 20 MG Lorazepam (Ativan Tab) 1 mg TID PRN PO 11/11/17 21:00 12/11/17 20:59 Ioversol (Optiray 320) 125 ml UD PRN IV 11/15/17 12:30 11/19/17 12:29 Promethazine HCl (Phenergan Supp) 25 mg Q6H PRN ME 11/15/17 19:30 12/15/17 19:29 Ondansetron HCl (Zofran Inj) 4 mg NOW PRN IV 11/15/17 19:30 12/15/17 19:29 Objective Vital Signs Date Time Temp Pulse Resp B/P (MAP) Pulse Ox O2 Delivery O2 Flow Rate FiO2 11/16/17 08:30 Room Air 11/16/17 07:46 94 Room Air 11/16/17 07:39 36.3 86 20 110/61 (77) 94 Room Air 11/16/17 00:00 98 Room Air 11/15/17 23:21 36.7 83 19 112/73 (86) 98 Room Air 11/15/17 16:00 98 Room Air 11/15/17 15:00 36.2 72 20 108/74 (85) 98 Room Air 11/15/17 12:27 36.2 76 20 112/70 (84) 99 Room Air 11/15/17 11:56 74 18 111/81 (91) 96 Room Air Physical Exam General Appearance: no apparent distress, + thin Eyes: PERRL ENT: hearing grossly normal Neck: supple, no adenopathy, trachea midline Respiratory/Chest: lungs clear, normal breath sounds, no respiratory distress, no accessory muscle use Cardiovascular: regular rate, rhythm, no edema, no gallop, no JVD Abdomen: normal bowel sounds, non tender, soft, no organomegaly, no pulsatile mass Neurologic/Psych: alert, normal mood/affect, oriented x 3 Skin: normal color, no jaundice, warm/dry, no rash Laboratory Results Last 24 Hours Test 11/16/17 05:17 Hemoglobin 7.4 g/dL Hematocrit 23.6 % Assessment and Plan 77 year old male w/ attempt of colonoscopy yesterday w/ likely malignant partially obstructing tumor in the descending colon, however biopsies were not performed due to poor prep. 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 + lymph node metastases. For now, no role for repeat colonoscopy as pt did not repeat the prep and he will need surgical evaluation. Please call with any questions, concerns, changes. ATTESTATION: I have performed a history and physical examination of this patient and reviewed the electronic record. Specifically, on physical examination there was mild abdominal tenderness. I had a long discussion with the patient about his disease and our management plan. I have discussed the case with EUGENE Hawley. The above note reflects my findings, conclusions, and recommendations. Parth Nam MD
--- NOTE | 2017-11-16 16:58 | Progress Note ---
Internal Med Progress Note Date of Service: Nov 16, 2017. Provider Documentation: SUBJECTIVE: Seen and examined at bedside States having nausea and abdominal discomfort Denies chest pain, SOB, dizziness Discussed with surgery Patient agreeable for blood transfusion today OBJECTIVE: Vital Signs-as noted below Physical Exam: General Appearance:Moderately built and nourished, no apparent distress Head: normocephalic, Atraumatic Eyes: normal inspection, EOMI, PERRL Neck: supple, Trachea midline Respiratory/Chest: Normal breath sounds, CTA Cardiovascular: S1, S2, No murmur Abdomen/GI:Soft, mild tender generalized, Bowel sounds present Extremities/Musculoskelatal:normal inspection, no edema Neurologic/Psych:AAOX3, grossly no focal neurological deficits Skin: normal color, warm Lab data as noted below. ASSESSMENT & PLAN: Patient is a 77 yr male presented with progressive worsening dyspnea and anemia along with weight loss over the past few months. Large descending Colon Mass likely malignant partially obstructing the descending colon S/p Colonoscopy: unable to obtain biopsies secondary to poor prep S/P EGD CT abd : suggestive of primary malignancy of the descending colon with fistulous connection and direct invasion of small bowel w/ sinus tracks and large bowel obstruction; lymph node metastases. Appreciate GI and Surgery Input Planned for surgery on Will give 2 units PRBCs given baseline anemia Anemia: likely secondary to above Monitor Hb 2 units PRBC Protein-calorie malnutrition: Nutrition consult HTN: relatively low hold lisinopril monitor DVT Px: SCDs Code Status: Full Code PROCEDURES: EGD: Impression: - Normal upper third of esophagus, middle third of esophagus and lower third of esophagus. - Z-line regular, 37 cm from the incisors. - Small hiatal hernia. - Normal stomach. Biopsied. - Normal examined duodenum. Biopsied. Recommendation: - Perform a colonoscopy today. Colonoscopy: Findings: An ulcerated partially obstructing large mass was found in the descending colon. The mass was circumferential. A large amount of stool was found in the entire colon, precluding visualization. Impression: - Preparation of the colon was inadequate. 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 - Stool in the entire examined colon. - No specimens collected. Recommendation: - Perform CT scan (computed tomography) of the abdomen with contrast. - Repeat colonoscopy tomorrow because the bowel preparation was poor. CT ABD: 1. 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 This appears to have formed both a fistulous connection and direct invasion of adjacent small bowel as well as sinus tracks into the mesentery. 2. Resultant partial large bowel obstruction and developing stercoral colitis of the colon proximal to the descending colonic mass. 3. Findings also concerning for lymph node metastases, although the lymph nodes in the mesentery and retroperitoneum are borderline enlarged. 4. Small amount of abdominal pelvic ascites. Vital Signs: Date Time Temp Pulse Resp B/P (MAP) Pulse Ox O2 Delivery O2 Flow Rate FiO2 11/16/17 08:30 Room Air 11/16/17 07:46 94 Room Air 11/16/17 07:39 36.3 86 20 110/61 (77) 94 Room Air 11/16/17 00:00 98 Room Air 11/15/17 23:21 36.7 83 19 112/73 (86) 98 Room Air Lab Results: Results Past 24 Hours Test 11/16/17 05:17 Range/Units Hemoglobin 7.4 14.0-18.0 g/dL Hematocrit 23.6 42-52 %
[2017-11-16] MEDS: SIMVASTATIN 20 MG TAB PO SCH (21:52)
[2017-11-17] VITALS: BP 116/75; PULSE 71; TEMP 36.3; O2SAT 95
[2017-11-17 07:19] LABS: HEMATOCRIT 29.2 % (42-52); HEMOGLOBIN 9.4 g/dL (14.0-18.0); MEAN CELL VOLUME 84.4 fL (80-100); MEAN CORPUSCULAR HEMOGLOBIN 27.2 pg (25-34); MEAN CORPUSCULAR HGB CONC 32.2 g/dl (32-36); MEAN PLATELET VOLUME 8.7 fL (7.4-10.4); PLATELET COUNT 206 K/uL (130-400); RED CELL DISTRIBUTION WIDTH SD 48.8 fL (36.4-46.3); WHITE BLOOD COUNT 8.05 K/uL (4.8-10.8)
[2017-11-17 07:25] VITALS: BP 108/71; PULSE 78; TEMP 36.4; O2SAT 95
[2017-11-17 07:57] LABS: CALCIUM 7.8 mg/dl (8.5-10.1); CREATININE 0.67 mg/dl (0.60-1.40); POTASSIUM 3.2 mmol/L (3.5-5.1)
[2017-11-17] MEDS: ONDANSETRON INJ 2 MG/ML 2 ML VIAL IV PRN ×2 (08:18→17:04)
--- NOTE | 2017-11-17 08:39 | Surgery Progress Note ---
Surgery Progress Note Date of Service Nov 17, 2017. Subjective no new complaints. received blood transfusion without incident. Objective Vital Signs: Date Time Temp Pulse Resp B/P (MAP) Pulse Ox O2 Delivery O2 Flow Rate FiO2 11/17/17 07:25 36.4 78 20 108/71 (83) 95 11/17/17 00:00 Room Air 11/17/17 00:00 36.3 71 16 116/75 95 11/16/17 23:38 36.2 70 18 119/77 (91) 97 Room Air 11/16/17 23:00 36.2 98 18 119/77 98 11/16/17 22:30 36.2 63 18 117/74 93 11/16/17 22:00 36.3 100 20 109/73 93 11/16/17 21:45 36.5 78 18 116/77 97 11/16/17 21:30 36.5 85 18 109/72 96 11/16/17 21:05 36.4 87 18 115/78 95 11/16/17 20:15 36.3 80 18 116/79 98 11/16/17 20:00 Room Air 11/16/17 19:45 36.6 77 20 111/77 96 11/16/17 19:15 36.3 90 18 118/83 97 11/16/17 19:00 36.3 84 18 106/72 97 11/16/17 18:40 36.3 86 18 105/58 96 11/16/17 15:59 36.3 86 22 109/65 (80) 96 Room Air General Appearance: no apparent distress Head: normocephalic, atraumatic Neck: supple, no JVD Respiratory/Chest: no respiratory distress, no accessory muscle use Abdomen: non tender, non distended, soft Extremities: normal inspection Laboratory Results: Results Past 24 Hours Test 11/17/17 06:52 Range/Units White Blood Count 8.05 4.8-10.8 K/uL Red Blood Count 3.46 4.7-6.1 M/uL Hemoglobin 9.4 14.0-18.0 g/dL Hematocrit 29.2 42-52 % Mean Corpuscular Volume 84.4 80-100 fL Mean Corpuscular Hemoglobin 27.2 25-34 pg Mean Corpuscular Hemoglobin Concent 32.2 32-36 g/dl RDW Standard Deviation 48.8 36.4-46.3 fL RDW Coefficient of Variation 16.0 11.5-14.5 % Platelet Count 206 130-400 K/uL Mean Platelet Volume 8.7 7.4-10.4 fL Sodium Level 137 136-145 mmol/L Potassium Level 3.2 3.5-5.1 mmol/L Chloride Level 101 98-107 mmol/L Carbon Dioxide Level 28 21-32 mmol/L Anion Gap 8.0 3-11 mmol/L Blood Urea Nitrogen 12 7-18 mg/dl Creatinine 0.67 0.60-1.40 mg/dl Est Creatinine Clear Calc Drug Dose 95.2 ml/min Estimated GFR () 105.9 Estimated GFR (Non- 91.4 BUN/Creatinine Ratio 18.7 10-20 Random Glucose 94 70-99 mg/dl Calcium Level 7.8 8.5-10.1 mg/dl Assessment & Plan 11/17/17 plan is to proceed with resection tomorrow re-discussed what to expect/risks/post op expectations pt agreeable 11/16/17 discussed with primary service and GI ( Cyril). 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 b/c of fistulas will perform in open technique. we discussed risks ( bleeding/infection/leaks/injury to organs such as bladder/ ureter/ dvt/pe/mi etc...) questions answered he is also now agreeable to blood transfusion if needed. primary team to d/w him and anesthesia will plan for . 11/12/17 no acute GI bleeding awaiting colonoscopy results wednesday will follow along [facility] covering this weekend if any acute issues. 11/16/17 discussed with primary service and GI ( Cyril). 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 b/c of fistulas will perform in open technique. we discussed risks ( bleeding/infection/leaks/injury to organs such as bladder/ ureter/ dvt/pe/mi etc...) questions answered he is also now agreeable to blood transfusion if needed. primary team to d/w him and anesthesia will plan for . 11/12/17 no acute GI bleeding awaiting colonoscopy results wednesday will follow along [facility] covering this weekend if any acute issues.
[2017-11-17 10:32] VITALS: PULSE 103; O2SAT 98
[2017-11-17 15:11] VITALS: BP 112/76; PULSE 81; TEMP 36.3; O2SAT 94
--- NOTE | 2017-11-17 15:14 | Progress Note ---
Internal Med Progress Note Date of Service: Nov 17, 2017. Provider Documentation: SUBJECTIVE: Seen and examined at bedside Less nauseous today, denies vomiting abdominal discomfort about the same Denies chest pain, SOB, dizziness Poor oral intake No BM, passing gas OBJECTIVE: Vital Signs-as noted below Physical Exam: General Appearance:Moderately built and nourished, no apparent distress Head: normocephalic, Atraumatic Eyes: normal inspection, EOMI, PERRL Neck: supple, Trachea midline Respiratory/Chest: Normal breath sounds, CTA Cardiovascular: S1, S2, No murmur Abdomen/GI:Soft, mild tender generalized, Bowel sounds present Extremities/Musculoskelatal:normal inspection, no edema Neurologic/Psych:AAOX3, grossly no focal neurological deficits Skin: normal color, warm Lab data as noted below. ASSESSMENT & PLAN: Patient is a 77 yr male presented with progressive worsening dyspnea and anemia along with weight loss over the past few months. Large descending Colon Mass likely malignant partially obstructing the descending colon S/p Colonoscopy: unable to obtain biopsies secondary to poor prep S/P EGD CT abd : suggestive of primary malignancy of the descending colon with fistulous connection and direct invasion of small bowel w/ sinus tracks and large bowel obstruction; lymph node metastases. Appreciate GI and Surgery Input Planned for resection tomorrow Start on IV fluids Poor oral intake Patient would like to think about considering TPN, States he is not sure yet Anemia: likely secondary to above Monitor Hb:9.4 S/P 2 units PRBC Hypokalemia: Poor oral intake Replace and monitor Protein-calorie malnutrition: Nutrition consult HTN: relatively low hold lisinopril monitor DVT Px: SCDs Code Status: Full Code PROCEDURES: EGD: Impression: - Normal upper third of esophagus, middle third of esophagus and lower third of esophagus. - Z-line regular, 37 cm from the incisors. - Small hiatal hernia. - Normal stomach. Biopsied. - Normal examined duodenum. Biopsied. Recommendation: - Perform a colonoscopy today. Colonoscopy: Findings: An ulcerated partially obstructing large mass was found in the descending colon. The mass was circumferential. A large amount of stool was found in the entire colon, precluding visualization. Impression: - Preparation of the colon was inadequate. 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 - Stool in the entire examined colon. - No specimens collected. Recommendation: - Perform CT scan (computed tomography) of the abdomen with contrast. - Repeat colonoscopy tomorrow because the bowel preparation was poor. CT ABD: 1. 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 This appears to have formed both a fistulous connection and direct invasion of adjacent small bowel as well as sinus tracks into the mesentery. 2. Resultant partial large bowel obstruction and developing stercoral colitis of the colon proximal to the descending colonic mass. 3. Findings also concerning for lymph node metastases, although the lymph nodes in the mesentery and retroperitoneum are borderline enlarged. 4. Small amount of abdominal pelvic ascites. Vital Signs: Date Time Temp Pulse Resp B/P (MAP) Pulse Ox O2 Delivery O2 Flow Rate FiO2 11/17/17 11:08 Room Air 11/17/17 10:32 103 98 11/17/17 07:25 36.4 78 20 108/71 (83) 95 11/17/17 00:00 Room Air 11/17/17 00:00 36.3 71 16 116/75 95 11/16/17 23:38 36.2 70 18 119/77 (91) 97 Room Air 11/16/17 23:00 36.2 98 18 119/77 98 11/16/17 22:30 36.2 63 18 117/74 93 11/16/17 22:00 36.3 100 20 109/73 93 11/16/17 21:45 36.5 78 18 116/77 97 11/16/17 21:30 36.5 85 18 109/72 96 11/16/17 21:05 36.4 87 18 115/78 95 11/16/17 20:15 36.3 80 18 116/79 98 11/16/17 20:00 Room Air 11/16/17 19:45 36.6 77 20 111/77 96 11/16/17 19:15 36.3 90 18 118/83 97 11/16/17 19:00 36.3 84 18 106/72 97 11/16/17 18:40 36.3 86 18 105/58 96 11/16/17 15:59 36.3 86 22 109/65 (80) 96 Room Air Lab Results: Results Past 24 Hours Test 11/17/17 06:52 Range/Units White Blood Count 8.05 4.8-10.8 K/uL Red Blood Count 3.46 4.7-6.1 M/uL Hemoglobin 9.4 14.0-18.0 g/dL Hematocrit 29.2 42-52 % Mean Corpuscular Volume 84.4 80-100 fL Mean Corpuscular Hemoglobin 27.2 25-34 pg Mean Corpuscular Hemoglobin Concent 32.2 32-36 g/dl RDW Standard Deviation 48.8 36.4-46.3 fL RDW Coefficient of Variation 16.0 11.5-14.5 % Platelet Count 206 130-400 K/uL Mean Platelet Volume 8.7 7.4-10.4 fL Sodium Level 137 136-145 mmol/L Potassium Level 3.2 3.5-5.1 mmol/L Chloride Level 101 98-107 mmol/L Carbon Dioxide Level 28 21-32 mmol/L Anion Gap 8.0 3-11 mmol/L Blood Urea Nitrogen 12 7-18 mg/dl Creatinine 0.67 0.60-1.40 mg/dl Est Creatinine Clear Calc Drug Dose 95.2 ml/min Estimated GFR () 105.9 Estimated GFR (Non- 91.4 BUN/Creatinine Ratio 18.7 10-20 Random Glucose 94 70-99 mg/dl Calcium Level 7.8 8.5-10.1 mg/dl
[2017-11-17] MEDS ORDERED: D5W AND 1/2NSS + 20MEQ KCL 1,000 ML IV SCH (15:30)
[2017-11-17] MEDS: POTASSIUM CHLORIDE 20 MEQ/15 ML UDC PO ONE ×2 (16:17→17:06)
[2017-11-17] MEDS: SIMVASTATIN 20 MG TAB PO SCH (21:20)
[2017-11-17 23:34] VITALS: BP_SYST 111; BP_SYST 93; BP_SYST 97; BP_DIAS 60; BP_DIAS 62; BP_DIAS 74; PULSE 81; TEMP 36.8; O2SAT 93
[2017-11-18] VITALS (26 sets, daily range): BP systolic 80–128; BP diastolic 52–91; PULSE 58–107; TEMP 36.3–37.2; O2SAT 88–100
[2017-11-18 05:46] LABS: HEMATOCRIT 29.9 % (42-52); HEMOGLOBIN 9.3 g/dL (14.0-18.0); MEAN CELL VOLUME 85.4 fL (80-100); MEAN CORPUSCULAR HEMOGLOBIN 26.6 pg (25-34); MEAN CORPUSCULAR HGB CONC 31.1 g/dl (32-36); MEAN PLATELET VOLUME 8.5 fL (7.4-10.4); PLATELET COUNT 212 K/uL (130-400); RED CELL DISTRIBUTION WIDTH CV 16.1 % (11.5-14.5); RED CELL DISTRIBUTION WIDTH SD 49.4 fL (36.4-46.3); WHITE BLOOD COUNT 10.34 K/uL (4.8-10.8)
[2017-11-18 06:15] LABS: CALCIUM 7.6 mg/dl (8.5-10.1); CREATININE 0.71 mg/dl (0.60-1.40); POTASSIUM 2.9 mmol/L (3.5-5.1)
[2017-11-18] MEDS ORDERED: ACETAMINOPHEN 1000 MG/100 ML IV IV ONE (08:00)
[2017-11-18] MEDS: POTASSIUM CHLR 10 MEQ / WTR 10 MEQ in PREMIXED WATER 100 ML IV SCH ×5 (08:30→23:43)
--- NOTE | 2017-11-18 11:57 | History & Physical Bridge Note ---
H&P Re-Evaluation Bridge Note: I have examined the patient, reviewed the History & Physical and in the interval since the performance of the History & Physical I have noted the following changes of clinical significance: No changes noted. rediscussed risks (bleeding/infection/dvt/pe/mi/leaks/injury to organs such as bowel/bladder/ ureter etc...). questions answered. ok to proceed.
[2017-11-18] MEDS ORDERED: FENTANYL CITRATE INJ 50 MCG/1 ML 2 ML VIAL ONE ×3 (12:26→17:42)
[2017-11-18] MEDS ORDERED: BUPIVACAINE/EPINEPHRINE 0.5% MPF 1:200,000 30 ML VIAL ONE (12:39)
[2017-11-18] MEDS ORDERED: CLINDAMYCIN PHOS 150 MG/ML 2 ML VIAL ONE (13:34)
[2017-11-18] MEDS ORDERED: LIDOCAINE HCL 2% 2 ML VIAL (20MG/ML) ONE (13:58)
[2017-11-18] MEDS ORDERED: CISATRACURIUM BESYLATE IV SOLN 2 MG/ML 10 ML VIAL ONE ×2 (13:58→14:15)
[2017-11-18] MEDS ORDERED: DEXAMETHASONE SOD INJ 4 MG/ML VIAL ONE (13:58)
[2017-11-18] MEDS ORDERED: SUCCINYLCHOLINE CHLORIDE 20 MG/ML 10 ML VIAL IV ONE (13:58)
[2017-11-18] MEDS ORDERED: ONDANSETRON INJ 2 MG/ML 2 ML VIAL ONE (13:58)
[2017-11-18] MEDS ORDERED: PROPOFOL IV EMULSION 10 MG/ML 20 ML VIAL IV ONE ×2 (13:58→17:08)
[2017-11-18] MEDS ORDERED: ALBUMIN HUMAN 5% 12.5 GM/250 ML VIAL IV ONE (14:06)
[2017-11-18] MEDS ORDERED: NALOXONE HCL 0.4 MG/1 ML VIAL/CARP IV PRN (15:30)
[2017-11-18] MEDS ORDERED: PROMETHAZINE HCL INJ 12.5 MG in SODIUM CHLORIDE 0.9% 50ML 50 ML IV PRN (15:30)
[2017-11-18] MEDS ORDERED: HYDROmorphone INJ 1 MG/ML SYR IV PRN (15:30)
[2017-11-18] MEDS ORDERED: FLUMAZENIL 0.1 MG/1 ML 10 ML VIAL IV PRN (15:30)
[2017-11-18] MEDS ORDERED: ATROPINE SULFATE 0.1 MG/ML 5ML SYR IV PRN (15:30)
[2017-11-18] MEDS ORDERED: EpHEDrine SULFATE INJ 50 MG/ML AMP IV PRN (15:30)
[2017-11-18] MEDS ORDERED: ONDANSETRON INJ 2 MG/ML 2 ML VIAL IV PRN (15:30)
[2017-11-18] MEDS ORDERED: SODIUM CHLORIDE 0.9% INJ 10 ML VIAL ONE (15:31)
[2017-11-18] MEDS ORDERED: VASOPRESSIN 20 UNIT/ML VIAL ONE (15:31)
[2017-11-18] MEDS ORDERED: EpHEDrine SULFATE INJ 50 MG/ML AMP ONE (15:31)
[2017-11-18] MEDS ORDERED: TISSEEL FIBRIN SEALANT 10ML TOP ONE (16:06)
--- NOTE | 2017-11-18 16:35 | [facility] Post Operative Brief Note ---
Immediate Operative Summary Operative Date Nov 18, 2017. 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 Juarez Performance Consultant Surgeon(s) Bonilla Acosta Pa-C Estimated Blood Loss 500 Findings Consistent with Post-Op Diagnosis Specimens left colon; portion of duodenum/jejunum Drains 19 ed Anesthesia Type General Complication(s) none
--- NOTE | 2017-11-18 17:11 | [facility] Operative Report ---
Operative Report Operative Date Nov 18, 2017. 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 Juarez Log Check Scaler Surgeon(s) Bonilla Acosta Pa-C Estimated Blood Loss 500 Specimens left colon; portion of duodenum/jejunum Drains 19 manjeet Anesthesia Type General Complication(s) none Description of Procedure After informed consent was obtained the patient was taken to the operating room and placed in the supine position. After successful intubation a Dunn catheter was placed. The abdomen was shaved and the perineum and abdomen were sterilely prepped and draped in usual fashion. We began with a midline incision which started above the umbilicus and carried it down to the pubic bone. We would end up extending this superiorly to the xiphoid process. We carried this down through the soft tissue using electrocautery. The anterior rectus fascia was opened using electrocautery. Peritoneum was elevated with hemostats and incised under direct vision using a Metzenbaum scissor. We then extended the incision to both poles with electrocautery. Once in the abdomen we examined all 4 quadrants. There was a very large mass in the proximal left colon relatively close to the splenic flexure. It was a very large very firm mass. There is no evidence of metastatic disease but it had grown into the retroperitoneum. Peritoneal surfaces were normal as was the liver. We began by mobilizing the left colon and sigmoid colon along the white line of Toldt using small amounts of electrocautery and blunt dissection. As we came up to the very hard firm mass we noted that it had eroded into the retroperitoneum. We transected the left colon with its junction at the sigmoid using a CALDERON purple cartridge linear stapler. We used a LigaSure device throughout the procedure to take down the mesentery. Once we came up the mesentery as far as we safely could we then try to mobilize the transverse colon. The proximal colon from the splenic flexure the entire way to the cecum was massively dilated. In fact several times throughout the case we decompressed the colon using needle decompression. We would then sew the needle hole closed with 3-0 silk. Eventually we were able to free up the transverse colon from the omentum as well as the stomach. We transected the transverse colon just distal to the middle colic vessels using a CALDERON purple cartridge stapler. We then used the LigaSure device to come around the splenic flexure and take it down. Eventually we were able to free up all of the colon proximal and distal to the mass itself. What we encountered then was the fistula seen on CAT scan. This was an extremely difficult fistula which involved 2 areas of the small bowel unfortunately 1 of them being the fourth portion of the duodenum. During the process of freeing up the tumor from the retroperitoneum there was some spillage as the tumor had eroded through the wall of the colon. We suctioned this up as rapidly as we could throughout the procedure whenever there would be spillage. Eventually we were able to figure out the small bowel fistulas. I was able to transect the duodenum right at the junction of the fourth portion with the proximal jejunum using a CALDERON light cartridge stapler. We then transected the bowel distal to the area of the 2 fistulas as well. Again we used LigaSure to take down the small bowel mesentery. Eventually we were able to pass off the specimen en bloc. It involved the left colon, a portion of the transverse colon,a portion of the duodenum and portion of the jejunum. Once we had the specimen out we thoroughly irrigated the entire abdomen with multiple liters of warm irrigation. We then changed our gloves as well. We then set about performing the 2 anastomoses. We performed a 2 layered handsewn end-to- end anastomosis from the fourth portion of the duodenum to the jejunum. We used a back row of 3-0 silk's, a running row of 3-0 Monocryl that involved serosa and mucosa. We then used 3-0 silk to make an anterior row. The anastomosis was patent and intact. We then covered the entire anastomosis with Tisseel sealant. There was no evidence of any air leak at the end of the procedure. There was a small mesenteric defect which we closed using 2-0 Vicryl in simple interrupted fashion. Next our attention turned to performing the colonic anastomosis. There was plenty of sigmoid colon such that we could perform a side to side transverse to sigmoid colon anastomosis. We made a small enterotomy in each and use a CALDERON brown cartridge stapler to create the [id number] anastomosis. I then hand sewed the common enterotomy using 3-0 Monocryl for the serosal mucosal layers followed by 3-0 silk in Lembert fashion for a second layer. We also used 3-0 silk for a crotch stitch. We were going to attempt to close this mesenteric defect however because of the orientation of it we would simply be making a large defect into a small defect which would be more dangerous. I therefore opted not to close that defect. Both of the anastomosis were viable and intact. Both were widely patent. There was adequate hemostasis at this point in the procedure. We thoroughly irrigated the entire abdomen again with multiple liters of warm irrigant. We placed a 19 Manjeet drain along the left paracolic gutter down into the pelvis brought out through a separate stab incision secured to skin using 2-0 silk. We then closed the fascia using 0- looped PDS starting either pole and running them and securing them in the midline. Soft tissue was irrigated and skin was closed very loosely with skin fara. A silver dressing was applied. The patient was left intubated and transferred to the intensive care unit in guarded condition. We did transfuse approximately 2 packed red blood cells during the procedure. Blood loss was approximately 500 cc. My physician's hospital clinic assistant was present throughout the entire procedure. He was instrumental in exposure and generalized assistance throughout the procedure. He also helped with wound closure and dressing placement. I attest to the content of the Intraoperative Record and any orders documented therein. Any exceptions are noted below.
[2017-11-18 17:30] LABS: HEMATOCRIT 31.6 % (42-52); HEMOGLOBIN 10.4 g/dL (14.0-18.0)
[2017-11-18] MEDS ORDERED: NOREPINEPHRINE BIT INJ 4 MG in DEXTROSE 5% 250ML 250 ML IV ONE (17:30)
[2017-11-18] MEDS ORDERED: NSS + 20MEQ KCL 1000ML 1,000 ML IV SCH (17:30)
[2017-11-18 17:31] LABS: ISTAT CREATININE 0.7 mg/dl (0.6-1.3); ISTAT IONIZED CALCIUM 1.08 mmol/l (1.12-1.32); ISTAT POTASSIUM 3.7 mEq/L (3.3-5.0)
[2017-11-18 17:32] LABS: ISTAT CREATININE 0.7 mg/dl (0.6-1.3); ISTAT IONIZED CALCIUM 1.03 mmol/l (1.12-1.32); ISTAT POTASSIUM 3.5 mEq/L (3.3-5.0)
[2017-11-18] MEDS ORDERED: VANCOMYCIN CONSULT ACTIVE PRN (17:45)
[2017-11-18 17:48] LABS: CALCIUM 6.6 mg/dl (8.5-10.1); CREATININE 0.57 mg/dl (0.60-1.40)
--- NOTE | 2017-11-18 17:49 | Anesthesiology Progress Note ---
Anesthesia Post Op Note Date & Time Nov 18, 2017 at 17:47 Vital Signs Pain Intensity: 0.0 Vital Signs Past 12 Hours Date Time Temp Pulse Resp B/P (MAP) Pulse Ox O2 Delivery O2 Flow Rate FiO2 11/18/17 17:22 70 15 93/59 100 60 11/18/17 17:18 71 14 88/61 (65) 99 11/18/17 17:12 72 14 90/61 (65) 100 Mechanical Ventilator 60 11/18/17 17:08 60 11/18/17 17:06 74 14 121/82 (95) 100 Mechanical Ventilator 60 11/18/17 16:52 74 13 101/71 100 Mechanical Ventilator 60 11/18/17 10:31 Room Air 11/18/17 10:27 36.4 87 18 120/76 (91) 94 11/18/17 08:30 Room Air 11/18/17 08:07 36.6 75 18 127/77 (94) 92 Room Air Notes Mental Status: alert / awake / arousable, participated in evaluation Pt Amnestic to Procedure: Yes Nausea / Vomiting: adequately controlled Pain: adequately controlled Airway Patency, RR, SpO2: stable & adequate BP & HR: stable & adequate Hydration State: stable & adequate Anesthetic Complications: no major complications apparent The patient was transported to the ICU with monitors and O2, VSS throughout transport. The pt remained intubated 2/2 large fluid shifts. I personally gave report to Dr. Corea. Care was transferred to ICU team.
[2017-11-18] MEDS: METRONIDAZOLE / NSS 500 MG in PREMIXED NSS 100 ML IV SCH (18:00)
[2017-11-18] MEDS ORDERED: CASPOFUNGIN INJ 70 MG in SODIUM CHLORIDE 0.9% 250ML 250 ML IV ONE (18:00)
[2017-11-18] MEDS ORDERED: VANCOMYCIN INJ 1,500 MG in SODIUM CHLORIDE 0.9% 500ML 500 ML IV ONE (18:00)
[2017-11-18] MEDS: CIPROFLOXACIN / D5W 400 MG in PREMIXED IN D5W 200 ML IV SCH (18:00)
[2017-11-18] MEDS: MIDAZOLAM HCL 5 MG/ML 1 ML VIAL IV PRN ×2 (18:04→23:43)
[2017-11-18] MEDS: NORMOSOL R 1,000 ML IV SCH (18:10)
[2017-11-18 18:20] LABS: POTASSIUM 3.4 mmol/L (3.5-5.1)
--- NOTE | 2017-11-18 18:25 | Progress Note ---
Internal Med Progress Note Date of Service: Nov 18, 2017. Provider Documentation: SUBJECTIVE: Seen and examined at bedside Currently sedated and Intubated post Op On pressors No family at bedside OBJECTIVE: Vital Signs-as noted below Physical Exam: General Appearance:Moderately built and nourished, no apparent distress, + Intubated Head: normocephalic, Atraumatic Eyes: normal inspection, EOMI, PERRL Neck: supple, Trachea midline Respiratory/Chest: Normal breath sounds, CTA Cardiovascular: S1, S2, No murmur Abdomen/GI:Soft, mild tender generalized, Bowel sounds present, +Surgical bandage, drain Extremities/Musculoskelatal:normal inspection, no edema Neurologic/Psych:grossly no focal neurological deficits Skin: normal color, warm Lab data as noted below. ASSESSMENT & PLAN: Patient is a 77 yr male presented with progressive worsening dyspnea and anemia along with weight loss over the past few months. Malignancy of descending colon with coloenteric fistula S/P extended left hemicolectomy and partial small bowel resection POD # 0 S/p Colonoscopy: unable to obtain biopsies secondary to poor prep S/P EGD CT abd : suggestive of primary malignancy of the descending colon with fistulous connection and direct invasion of small bowel w/ sinus tracks and large bowel obstruction; lymph node metastases. Intubated post op: 11/18/17 Appreciate GI and Surgery Input On IV fluids Consider to start TPN Continue board spectrum antibiotics Appreciate [employer] Compliance Manager help Pain control Anemia: likely secondary to above Monitor Hb:9.4>>10.4 S/P 2 units PRBC Monitor Hb Hypokalemia: Replace and monitor Normal magnesium levels Protein-calorie malnutrition: Nutrition consult HTN: relatively low hold lisinopril for now monitor DVT Px: SCDs Code Status: Full Code PROCEDURES: EGD: Impression: - Normal upper third of esophagus, middle third of esophagus and lower third of esophagus. - Z-line regular, 37 cm from the incisors. - Small hiatal hernia. - Normal stomach. Biopsied. - Normal examined duodenum. Biopsied. Recommendation: - Perform a colonoscopy today. Colonoscopy: Findings: An ulcerated partially obstructing large mass was found in the descending colon. The mass was circumferential. A large amount of stool was found in the entire colon, precluding visualization. Impression: - Preparation of the colon was inadequate. 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 - Stool in the entire examined colon. - No specimens collected. Recommendation: - Perform CT scan (computed tomography) of the abdomen with contrast. - Repeat colonoscopy tomorrow because the bowel preparation was poor. CT ABD: 1. 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 This appears to have formed both a fistulous connection and direct invasion of adjacent small bowel as well as sinus tracks into the mesentery. 2. Resultant partial large bowel obstruction and developing stercoral colitis of the colon proximal to the descending colonic mass. 3. Findings also concerning for lymph node metastases, although the lymph nodes in the mesentery and retroperitoneum are borderline enlarged. 4. Small amount of abdominal pelvic ascites. Vital Signs: Date Time Temp Pulse Resp B/P (MAP) Pulse Ox O2 Delivery O2 Flow Rate FiO2 11/18/17 17:22 70 15 93/59 100 60 11/18/17 17:18 71 14 88/61 (65) 99 11/18/17 17:12 72 14 90/61 (65) 100 Mechanical Ventilator 60 11/18/17 17:08 60 11/18/17 17:06 74 14 121/82 (95) 100 Mechanical Ventilator 60 11/18/17 16:52 74 13 101/71 100 Mechanical Ventilator 60 11/18/17 10:31 Room Air 11/18/17 10:27 36.4 87 18 120/76 (91) 94 11/18/17 08:30 Room Air 11/18/17 08:07 36.6 75 18 127/77 (94) 92 Room Air 11/18/17 00:00 Room Air 11/17/17 23:34 36.8 81 20 111/74 (86) 93 BiPAP 93/62 (72) 97/60 (72) Lab Results: Results Past 24 Hours Test 11/18/17 05:24 11/18/17 14:14 11/18/17 15:37 11/18/17 17:19 Range/Units White Blood Count 10.34 4.8-10.8 K/uL Red Blood Count 3.50 4.7-6.1 M/uL Hemoglobin 9.3 10.4 14.0-18.0 g/dL Hematocrit 29.9 31.6 42-52 % Mean Corpuscular Volume 85.4 80-100 fL Mean Corpuscular Hemoglobin 26.6 25-34 pg Mean Corpuscular Hemoglobin Concent 31.1 32-36 g/dl RDW Standard Deviation 49.4 36.4-46.3 fL RDW Coefficient of Variation 16.1 11.5-14.5 % Platelet Count 212 130-400 K/uL Mean Platelet Volume 8.5 7.4-10.4 fL Sodium Level 136 137 136-145 mmol/L Potassium Level 2.9 3.5-5.1 mmol/L Chloride Level 102 107 98-107 mmol/L Carbon Dioxide Level 26 23 21-32 mmol/L Anion Gap 8.0 15.0 14.0 7.0 3-11 mmol/L Blood Urea Nitrogen 15 15 7-18 mg/dl Creatinine 0.71 0.57 0.60-1.40 mg/dl Est Creatinine Clear Calc Drug Dose 89.9 111.9 ml/min Estimated GFR () 103.4 113.2 Estimated GFR (Non- 89.2 97.7 BUN/Creatinine Ratio 21.3 26.4 10-20 Random Glucose 101 155 70-99 mg/dl Calcium Level 7.6 6.6 8.5-10.1 mg/dl Magnesium Level 2.5 1.8-2.4 mg/dl Bedside Hemoglobin 8.8 9.2 14.0-18.0 g/dl Bedside Hematocrit 26 27 42-52 % Bedside Sodium 135 136 135-144 mEq/L Bedside Potassium 3.7 3.5 3.3-5.0 mEq/L Bedside Chloride 98 102 101-112 mEq/L Bedside Total CO2 26 24 24-31 mEq/l Bedside Blood Urea Nitrogen 14 14 7-18 mg/dl Bedside Creatinine 0.7 0.7 0.6-1.3 mg/dl Bedside Glucose (other) 143 174 70-99 mg/dl Bedside Ionized Calcium (Deya) 1.08 1.03 1.12-1.32 mmol/l Test 11/18/17 17:50 Range/Units Ionized Calcium 1.02 1.12-1.32 mmol/l Microbiology Results 11/18/17 MRSA DNA Surveillance Screen, Received Pending
[2017-11-18] MEDS ORDERED: THIAMINE HCL INJ 200 MG in SODIUM CHLORIDE 0.9% 50ML 50 ML IV STA (18:44)
[2017-11-18] MEDS ORDERED: CALCIUM GLUCONATE 10% 1,000 MG in SODIUM CHLORIDE 0.9% 50ML 50 ML IV STA (18:44)
--- NOTE | 2017-11-18 21:31 | Critical Care Consultation ---
Critical Care Consultation Date of Consultation: Nov 18, 2017. Attending Physician: Pradeep Caceres MD Reason for Consultation: Extended intubation s/p extended left hemicolectomy; partial small resection/ partial duodenal resection History of Present Illness Germán Ortiz is a 77yo male who was transferred from [facility] after being found to be anemic with heme positive stools. Per pt records he had been suffering from worsening shortness of breath for 3 months. Pt hasn't been eating or drinking much lately and experienced a 45lb weight loss over 9 months. No hx of prior colonoscopy. Pt rcv'd Protonix 80mg IV prior to transport. Here at [facility] pt underwent colonoscopy on 11/15 which demonstrated an ulcerated partially obstructing large mass in the descending colon. EGD at the same time demonstrated a small hiatal hernia but was otherwise unremarkable. 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 Pt was consented to open surgical procedure. Pt underwent extended left hemicolectomy and partial small resection/partial duodenal resection. Pt required multiple vasopressor intraoperatively and remained intubated on Levophed afterwards. He did have a 500 mL blood loss intraoperatively and was repleted with 2 units in the operating room and 2 units postop. Currently H&H are trending up. Patient was transferred to the ICU for further monitoring. I did speak with family. Patient has no history of DVT or PE. He has no prior history of cancer or bleeding dyscrasias. Family was able to contribute that the patient suffers from BPH and had previously had a TURP. Patient does not suffer from diabetes. He does take chronic medication for hyperlipidemia as well as hypertension. Review of systems is limited secondary to patient's intubation, intermittent sedation and condition. Past Medical/Surgical History Medical Problems: Anemia Anxiety BPH (benign prostatic hyperplasia) Gout HTN (hypertension) Hyperlipidemia Surgical Problems: Hx of transurethral resection of prostate Left rotator cuff repair Family History FH: skin cancer Social History Smoking Status: Never Smoker Smokeless Tobacco Use: No Alcohol Use: none Drug Use: none Marital Status: Housing Status: lives alone ( in Rehab with dementia) Occupation Status: retired Allergies Coded Allergies: Penicillins (Verified Allergy, Intermediate, HIVES, 11/11/17) swelling Home Medications Scheduled Lisinopril (Lisinopril), 1 TAB PO DAILY Lorazepam (Ativan), 1 MG PO TID Simvastatin (Simvastatin), 1 TAB PO HS Current Inpatient Medications Current Inpatient Medications Medications (Trade) Dose Ordered Sig/Jose Route Start Time Stop Time Status Last Admin Dose Admin Ciprofloxacin/ Dextrose 400 mg/ Prmx 200 ml @ 100 mls/hr Q12H IV 11/18/17 18:00 11/28/17 17:59 11/18/17 18:00 100 MLS/HR Metronidazole 500 mg/Prmx 100 ml @ 100 mls/hr Q8H IV 11/18/17 18:00 11/28/17 17:59 11/18/17 18:00 100 MLS/HR Norepinephrine Bitartrate 8 mg/ Dextrose 508 ml @ 0 mls/hr Q0M IV 11/18/17 17:13 12/18/17 17:12 Future hold Fentanyl Citrate (Fentanyl Inj) 100 mcg Q2H PRN IV 11/18/17 17:30 12/02/17 17:29 Midazolam HCl (Versed Inj) 2 mg Q2H PRN IV 11/18/17 17:30 12/18/17 17:29 11/18/17 18:04 2 MG Parenteral Electrolyte Solution 1,000 ml @ 125 mls/hr Q8H IV 11/18/17 17:45 12/18/17 17:44 11/18/17 18:10 125 MLS/HR Caspofungin 50 mg/ Sodium Chloride 260 ml @ 250 mls/hr QD IV 11/19/17 18:00 12/19/17 17:59 Miscellaneous Information (Consult) 1 ea UD PRN N/A 11/18/17 17:45 12/18/17 17:44 Review of Systems 12 systems reviewed and negative other than previously mentioned in the HPI. Physical Exam Date Time Temp Pulse Resp B/P (MAP) Pulse Ox O2 Delivery O2 Flow Rate FiO2 11/18/17 19:59 60 11/18/17 19:05 36.3 85 15 107/79 (88) 100 116/70 (85) 11/18/17 17:22 70 15 93/59 100 60 11/18/17 17:18 71 14 88/61 (65) 99 11/18/17 17:12 72 14 90/61 (65) 100 Mechanical Ventilator 60 11/18/17 17:08 60 11/18/17 17:06 74 14 121/82 (95) 100 Mechanical Ventilator 60 11/18/17 16:52 74 13 101/71 100 Mechanical Ventilator 60 11/18/17 10:31 Room Air 11/18/17 10:27 36.4 87 18 120/76 (91) 94 11/18/17 08:30 Room Air 11/18/17 08:07 36.6 75 18 127/77 (94) 92 Room Air 11/18/17 00:00 Room Air 11/17/17 23:34 36.8 81 20 111/74 (86) 93 BiPAP 93/62 (72) 97/60 (72) Vital Signs - as noted Laboratory Data - as noted Physical Exam: General - NAD, Intubated and resting alert in bed Eyes - PERRL, EOMI No icterus, gaze conjugate ENT - Mucosa moist, no lesions or candidiasis Neck - Supple, trachea midline, no masses or lymphadenopathy, no JVD or bruits Lungs - No paradoxical chest wall movement, clear and diminished to auscultation bilaterally, no wheezes, rales, or rhonchi Heart - Reg rate and rhythm, No murmur, rubs, clicks, or gallops appreciated Abdomen - BS Absent, no bruits noted, tympanic to percussion, soft, nontender, nondistended, surgical dressing clean dry and intact down the midline. [address] with diluted blood to suction Extremities - No pedal edema, pedal pulses intact Neuro - Rass 0 Strength extremities equal and appropriate bilaterally CN:PERRL, EOMI, no facial asymmetry Laboratory Results Last 24 Hours Test 11/18/17 05:24 11/18/17 14:14 11/18/17 15:37 11/18/17 17:19 White Blood Count 10.34 K/uL Red Blood Count 3.50 M/uL Hemoglobin 9.3 g/dL 10.4 g/dL Hematocrit 29.9 % 31.6 % Mean Corpuscular Volume 85.4 fL Mean Corpuscular Hemoglobin 26.6 pg Mean Corpuscular Hemoglobin Concent 31.1 g/dl RDW Standard Deviation 49.4 fL RDW Coefficient of Variation 16.1 % Platelet Count 212 K/uL Mean Platelet Volume 8.5 fL Sodium Level 136 mmol/L 137 mmol/L Potassium Level 2.9 mmol/L 3.4 mmol/L Chloride Level 102 mmol/L 107 mmol/L Carbon Dioxide Level 26 mmol/L 23 mmol/L Anion Gap 8.0 mmol/L 15.0 mmol/L 14.0 mmol/L 7.0 mmol/L Blood Urea Nitrogen 15 mg/dl 15 mg/dl Creatinine 0.71 mg/dl 0.57 mg/dl Est Creatinine Clear Calc Drug Dose 89.9 ml/min 111.9 ml/min Estimated GFR () 103.4 113.2 Estimated GFR (Non- 89.2 97.7 BUN/Creatinine Ratio 21.3 26.4 Random Glucose 101 mg/dl 155 mg/dl Calcium Level 7.6 mg/dl 6.6 mg/dl Magnesium Level 2.5 mg/dl Bedside Hemoglobin 8.8 g/dl 9.2 g/dl Bedside Hematocrit 26 % 27 % Bedside Sodium 135 mEq/L 136 mEq/L Bedside Potassium 3.7 mEq/L 3.5 mEq/L Bedside Chloride 98 mEq/L 102 mEq/L Bedside Total CO2 26 mEq/l 24 mEq/l Bedside Blood Urea Nitrogen 14 mg/dl 14 mg/dl Bedside Creatinine 0.7 mg/dl 0.7 mg/dl Bedside Glucose (other) 143 mg/dl 174 mg/dl Bedside Ionized Calcium (Deya) 1.08 mmol/l 1.03 mmol/l Phosphorus Level 3.0 mg/dl Test 11/18/17 17:50 Ionized Calcium 1.02 mmol/l Diagnostic Results CHEST ONE VIEW PORTABLE CLINICAL HISTORY: Shortness of breath. COMPARISON STUDY: No previous studies for comparison. FINDINGS: Lung volumes are normal. No pneumothorax or pleural effusion is noted. There is no evidence for pulmonary edema. Cardiomediastinal silhouette is normal. Pulmonary vascularity is normal. IMPRESSION: No acute cardiopulmonary findings. Electronically signed by: Olegario Hurtado M.D. 11/11/2017 4:03 PM Dictated Date/Time: 11/11/2017 3:57 PM KUB CLINICAL HISTORY: R/O Ileus/obstruction COMPARISON STUDY: CT of the abdomen and pelvis September 10, 2011. FINDINGS: Incidental note is made of a calcified right lower lobe granuloma. A large amount of poorly formed stool is noted within the colon which is moderately distended. There is no evidence for a small bowel obstruction. IMPRESSION: 1. Large amount of poorly formed stool throughout the colon. Moderate colonic distention which is nonspecific. A colonic obstruction is considered unlikely but would be difficult to exclude and radiographic follow-up is recommended. 2. No evidence for small bowel obstruction. Electronically signed by: Olegario Hurtado M.D. 11/15/2017 7:04 AM Dictated Date/Time: 11/15/2017 7:02 AM ABD/PELVIS IV AND ORAL CONT CLINICAL HISTORY: 77 years-old Male presenting with colon mass, weight loss. TECHNIQUE: Multidetector CT of the abdomen and pelvis was performed after the administration of oral and intravenous contrast. IV contrast: None. A dose lowering technique was used consistent with the principles of ALARA (as low as reasonably achievable). COMPARISON: 09/10/2011. CT DOSE (mGy.cm): The estimated cumulative dose is 600.38 mGycm. FINDINGS: Dermatology Physician Assistant topogram: Gaseous distention of bowel. Lung bases: Calcified granuloma noted in the right lower lobe. Dependent changes likely atelectasis. Normal heart size. Coronary artery calcification. Trace bilateral pleural effusions. Liver: Congenital hypoplasia of the medial segments of the left hepatic lobe. No focal lesion. Patent hepatic vasculature. Biliary: No intrahepatic or extrahepatic biliary ductal dilatation. Normal gallbladder. Pancreas: Mild parenchymal atrophy. Spleen: Normal. Splenule noted. Adrenal glands: Normal. Kidneys and ureters: Normal. No hydronephrosis. Bladder: Normal. Pelvic organs: Prostate enlargement likely secondary to benign prostatic hyperplasia. A TURP defect may be present. Bowel: Mild wall thickening of the rectum, nonspecific. Diverticulosis of the sigmoid colon. Masslike thickening of the distal descending colon, which has fistulized with adjacent small bowel. The adjacent small bowel appears grossly involved with the neoplastic process. Surrounding inflammatory change and fluid. Additional sinus tracts emanating from the mass anteriorly into the mesentery (series 3 image 260). Large stool burden proximal to this with mild diffuse colonic wall thickening. The greatest burden is noted in the cecum. The distal small bowel is decompressed. The appendix is normal. No pathologic distention of small bowel. Peritoneal cavity: Small amount of abdominal pelvic ascites. No soft tissue nodularity in the peritoneum. Mild infiltration of the omentum without soft tissue nodularity. Lymph nodes: Several borderline enlarged lymph nodes noted in the retroperitoneum the largest measuring 9 mm in short axis (series 3 image 29) in the left periaortic region anterior to the duodenum. Pathologically enlarged lymph node in the mesentery measuring 10 mm (series 3 image 241). Enlarged lymph nodes in the heather hepatis, though these are subcentimeter in the short axis. Few subcentimeter prominent lymph nodes noted in the right cardiophrenic region (series 3 image 84). Vasculature: Atherosclerosis of the normal caliber abdominal aorta. IVC patent. 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 Abdominal wall: Mild body wall edema. Musculoskeletal: Degenerative changes of the spine. IMPRESSION: 1. 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 This appears to have formed both a fistulous connection and direct invasion of adjacent small bowel as well as sinus tracks into the mesentery. 2. Resultant partial large bowel obstruction and developing stercoral colitis of the colon proximal to the descending colonic mass. 3. Findings also concerning for lymph node metastases, although the lymph nodes in the mesentery and retroperitoneum are borderline enlarged. 4. Small amount of abdominal pelvic ascites. The report will be called/faxed according to standard departmental protocol. Electronically signed by: Sukhjinder Jaquez M.D. 11/15/2017 3:18 PM Dictated Date/Time: 11/15/2017 3:07 PM CHEST ONE VIEW PORTABLE CLINICAL HISTORY: 77 years-old Male presenting with S/P OR Intubation ET Tube placement. TECHNIQUE: Portable upright AP view of the chest was obtained. COMPARISON: 11/11/2017. FINDINGS: Nasogastric tube descends below the diaphragm, side hole at the gastroesophageal junction. An endotracheal tube may also be present terminating in the cervical trachea. Multiple overlying external leads degrade image quality. Atherosclerosis of aortic arch. Lungs and pleural spaces clear. Osseous structures normal. Upper abdomen normal. IMPRESSION: 1. Endotracheal tube terminates in the cervical trachea; advancement recommended. 2. Nasogastric tube terminates in the gastric lumen with sidehole at the gastroesophageal junction; advanced recommended. The report will be called/faxed according to standard departmental protocol. Electronically signed by: Sukhjinder Jaquez M.D. 11/18/2017 10:01 PM Dictated Date/Time: 11/18/2017 10:00 PM Assessment & Plan (1) GI bleed (2) Colonic mass (3) Hypotension (4) Hyperlipidemia (5) Anemia Reason Critically Ill: Patient is an 77-year-old male who is transferred to the ICU for continue hypotension intra-operatively, with 500cc EBL and 4u of PRBCs given. Colonic mass found on CT and removed via L hemicolectomy with resection. Pt remains intubated secondary to profound hypotension. PLAN: CV: * Hypotension * Levophed titrate to MAP > 65 * Check Random Cortisol * Monitor fluid status * Paroxysmal atrial fibrillation with RVR noted around 2330 * Patient's blood pressures dropped to systolics of 70s * Treated with 1 dose of 5 mg IV metoprolol * Patient return to prior sinus rhythm with first-degree AV block * QTC 462 * Repeat morning EKG * Monitor on telemetry * Arterial line in place * Hold home anti-hypertensives Neuro: * Intermittent Versed and fentanyl for sedation * Goal RASS 0 * Patient denies pain Resp: * Patient intubated and sedated. * Chest x-ray completed to verify ET tube as air leak was noted and tube was located at 21cm at the lip: Noted to be in the cervical trachea and was advanced * Now in place at 3.9cm above the esther * Repeat CXR in AM * AC 14/500/5/50% * Titrate fio2 per protocol Fluids/Renal: * Monitor and replete electrolytes per protocol * Trend Renal Function * UOP decreased * 3rd spacing 2/2 surgical procedure * Monitor fluid status * Hypotensive ID: * Abx ciprofloxacin, metronidazole, vancomycin * Antifungal: Caspofungin * Trend fever curve * Monitor WBC, Except rise after surgery GI/Nutrition: * POD # 0 Left Colectomy and resection * Dr. Juarez following * Dressing clean dry and intact * MICHAEL Drain to suction with dilute blood appearance * Pt denies pain * EBL in OR 500cc * 4u of PRBCs given * Pt required phenylephrine, vasopressin as well as use of albumin intraoperatively * NPO * NG tube in place, not to be move and checked for permission per GI Heme: * Anemia secondary to Rectal bleeding * OR EBL 500cc * 4u PRBCs rcv'd * Trend H&H Endocrine: Accu-Checks per protocol, started insulin infusion for 2 blood sugars greater than 180 CCT: 80 Minutes; This time is exclusive of all separately billable procedures. Thank you for involving us in the care of this patient. Please refer to Dr. Sergey Corea's addendum for further recommendations. I have personally evaluated and examined this patient. I agree with assessment and plan of John Kirk PA-C. I discussed the treatment plan with the family. Will readdress CODE STATUS today
[2017-11-18] MEDS: NOREPINEPHRINE BIT INJ 8 MG in DEXTROSE 5% 500ML 500 ML IV SCH (21:43)
--- NOTE | 2017-11-18 22:02 | Pharmacy Progress Note ---
Pharmacy Abx Initial Consult Date of Service Nov 18, 2017. Pharmacy Dosing Scope Date of Consult: 11/18/17 Consultation requested by: Dr. Corea Pharmacy is consulted to initiate vancomycin IV dosing therapy, order appropriate labs and adjust drug dose/frequency. Subjective The patient is a 77 year old male admitted on Nov 11, 2017 at 15:19. Objective Height (Feet): 6 Height (Inches): 0.00 Weight (Kilograms): 75.300 Vital Signs (Past 12Hrs) Vital Signs Past 12 Hours Date Time Temp Pulse Resp B/P (MAP) Pulse Ox O2 Delivery O2 Flow Rate FiO2 11/18/17 19:59 60 11/18/17 19:05 36.3 85 15 107/79 (88) 100 116/70 (85) 11/18/17 17:22 70 15 93/59 100 60 11/18/17 17:18 71 14 88/61 (65) 99 11/18/17 17:12 72 14 90/61 (65) 100 Mechanical Ventilator 60 11/18/17 17:08 60 11/18/17 17:06 74 14 121/82 (95) 100 Mechanical Ventilator 60 11/18/17 16:52 74 13 101/71 100 Mechanical Ventilator 60 11/18/17 10:31 Room Air 11/18/17 10:27 36.4 87 18 120/76 (91) 94 Lab Results (24Hrs) Laboratory Tests (24 Hours) Test 11/18/17 05:24 White Blood Count 10.34 K/uL (4.8-10.8) Micro Results Date/Time Source Procedure Growth Status 11/18/17 17:00 Nasal MRSA DNA Surveillance Screen - Final Specimen Negative for MRSA by DNA Probe Complete 11/11/17 00:00 Nasal MRSA DNA Surveillance Screen - Final Specimen Negative for MRSA by DNA Probe Complete Risk Factors for Resistance * Current hospitalization > 5 days Assessment & Plan Assessment 77 year old male s/p bowel surgery w/ shannon spillage of intra-abdominal contents. Has been admitted since 11/11 so with possibility for MRSA. Plan Vancomycin IV * Loading dose: 1500 mg (20 mg/kg) * Maintenance dose: 1250 mg IV (16.6 mg/kg) every 12 hours - start 8 hrs after loading dose since it was not a full dose * Goal trough level for gastrointestinal infection : 15 to 20 mcg/mL * Trough level ordered for 11/20/17 prior to the 4th dose Pharmacy will continue to follow and will adjust dose/frequency as necessary. Thank you.
--- NOTE | 2017-11-18 22:03 | DIAGNOSTIC IMAGING REPORT ---
CHEST ONE VIEW PORTABLE CLINICAL HISTORY: 77 years-old Male presenting with S/P OR Intubation ET Tube placement. TECHNIQUE: Portable upright AP view of the chest was obtained. COMPARISON: 11/11/2017. FINDINGS: Nasogastric tube descends below the diaphragm, side hole at the gastroesophageal junction. An endotracheal tube may also be present terminating in the cervical trachea. Multiple overlying external leads degrade image quality. Atherosclerosis of aortic arch. Lungs and pleural spaces clear. Osseous structures normal. Upper abdomen normal. IMPRESSION: 1. Endotracheal tube terminates in the cervical trachea; advancement recommended. 2. Nasogastric tube terminates in the gastric lumen with sidehole at the gastroesophageal junction; advanced recommended. The report will be called/faxed according to standard departmental protocol. Electronically signed by: Sukhjinder Jaquez M.D. 11/18/2017 10:01 PM Dictated Date/Time: 11/18/2017 10:00 PM
--- NOTE | 2017-11-18 22:55 | DIAGNOSTIC IMAGING REPORT ---
CHEST ONE VIEW PORTABLE CLINICAL HISTORY: 77 years-old Male presenting with Adjusted ET Tube. TECHNIQUE: Portable upright AP view of the chest was obtained. COMPARISON: 11/18/2017 at 9:39 PM. FINDINGS: The endotracheal tube has been advanced and is approximately 1 cm from the esther. Nasogastric tube descends below the diaphragm with sidehole remaining at the gastroesophageal junction. Atherosclerosis of the aortic arch. Cardiac silhouette normal in size. Mildly low lung volumes with hypoventilatory changes. Multiple overlying external leads degrade image quality. Osseous structures normal. A hiatal hernia may be present. IMPRESSION: 1. Endotracheal tube has been advanced now within 1 cm of the esther; consider slight retraction/repositioning. 2. Nasogastric tube terminates in the gastric lumen with sidehole at the gastroesophageal junction; advancement recommended. The report will be called/faxed according to standard departmental protocol. Electronically signed by: Sukhjinder Jaquez M.D. 11/18/2017 10:54 PM Dictated Date/Time: 11/18/2017 10:51 PM
[2017-11-18] MEDS ORDERED: METOPROLOL TARTRATE 1 MG/ML VIAL IV SCH (23:45)
[2017-11-18] MEDS ORDERED: METOPROLOL TARTRATE 1 MG/ML VIAL ONE (23:46)
[2017-11-19] VITALS (78 sets, daily range): BP systolic 71–119; BP diastolic 41–90; PULSE 68–111; TEMP 36.4–37.4; O2SAT 93–100
[2017-11-19 00:06] LABS: HEMATOCRIT 37.2 % (42-52); HEMOGLOBIN 12.8 g/dL (14.0-18.0)
[2017-11-19 00:20] LABS: BLOOD UREA NITROGEN 19 mg/dl (7-18); CALCIUM 6.9 mg/dl (8.5-10.1); CARBON DIOXIDE 19 mmol/L (21-32); CREATININE 1.07 mg/dl (0.60-1.40); GLUCOSE 175 mg/dl (70-99); PHOSPHORUS 3.2 mg/dl (2.5-4.9); POTASSIUM 4.2 mmol/L (3.5-5.1); SODIUM 136 mmol/L (136-145)
[2017-11-19] MEDS: POTASSIUM CHLR 10 MEQ / WTR 10 MEQ in PREMIXED WATER 100 ML IV SCH ×2 (01:05→08:01)
[2017-11-19] MEDS: FENTANYL CITRATE INJ 50 MCG/1 ML 2 ML VIAL IV PRN ×3 (01:40→08:00)
[2017-11-19] MEDS ORDERED: VANCOMYCIN INJ 1,250 MG in SODIUM CHLORIDE 0.9% 250ML 250 ML IV SCH (02:00)
[2017-11-19] MEDS: VASOPRESSIN INJ 50 UNITS in SODIUM CHLORIDE 0.9% 500ML 500 ML IV PRN (02:04)
[2017-11-19] MEDS: NORMOSOL R 1,000 ML IV SCH ×3 (02:26→17:58)
--- NOTE | 2017-11-19 02:45 | Procedure Note ---
Procedure Note Procedure Date Nov 19, 2017. Central Line Procedure time out: side/site verified, patient ID confirmed, sterile procedure used Consent obtained: emergent consent implied (Spoke with Dr. Corea, Emergent Consent Agreed) Time of procedure: 02:10 Performed by: physician computer engineering technologist Indications: poor venous access, central drug admin., CVP monitoring Prep: chlorhexadine prep, sterile drape, sterile procedures used Anesthesia: local injection, lidocaine 1% without epi Volume anesthetic (ml's): 5 Central line lumen: triple Central line location: internal jugular (R) Additional details: percutaneous placement, ultrasound guidance, Selinger technique used, line sutured, good blood return CXR: appropriate position, no pneumothorax Complications: none Patient tolerated procedure: well Post-procedure vital signs: reviewed and stable Comments: Consent was obtained prior to procedure. Indication, risks, and benefits were explained at length. Procedure: Procedure was performed under strict sterile field in O.R. fashion. The right neck and chest were cleaned with chloroprep scrub and the pt was draped in sterile fashion. The internal jugular vein was identified using ultrasound. After anesthetizing the area with 5cc of lidocaine, venous blood was withdrawn after accessing the vein under ultrasound guidance. The syringe was removed and a guide wire was advanced into the introducer needle.The dilator was advanced after being exchanged for the introducer needle. After appropriate dilation was obtained, the dilator was removed and the central catheter was placed over the guide wire using Seldinger technique. The wire was removed intact and the catheter was sutured at 16cm. A surgical dressing was placed over the catheter with a biofilm shield in place. At the time of the procedure each port was aspirated and then flushed properly. Pt tolerated the procedure well with no complications. Post procedure x-ray was completed, placement was appropriate and no pneumothorax was noted.
[2017-11-19 03:31] LABS: HEMOGLOBIN 11.5 g/dL (14.0-18.0)
[2017-11-19 03:49] LABS: CALCIUM 6.7 mg/dl (8.5-10.1); CREATININE 1.38 mg/dl (0.60-1.40); POTASSIUM 4.5 mmol/L (3.5-5.1)
[2017-11-19] MEDS: METRONIDAZOLE / NSS 500 MG in PREMIXED NSS 100 ML IV SCH ×3 (04:08→18:10)
[2017-11-19] MEDS: NOREPINEPHRINE BIT INJ 8 MG in DEXTROSE 5% 500ML 500 ML IV SCH (05:43)
[2017-11-19] MEDS: CIPROFLOXACIN / D5W 400 MG in PREMIXED IN D5W 200 ML IV SCH ×2 (06:02→18:10)
--- NOTE | 2017-11-19 07:08 | DIAGNOSTIC IMAGING REPORT ---
CHEST ONE VIEW PORTABLE CLINICAL HISTORY: CVL Placement COMPARISON STUDY: Chest radiograph November 18, 2017. FINDINGS: The tip of the endotracheal tube 6 cm above the esther. There is apparent kinking or discontinuity of the distal endotracheal tube which is probably artifactual. The tip of the right internal jugular central line projects over the distal SVC. There is no pneumothorax. There is no evidence for pulmonary edema. Cardiomediastinal silhouette is stable. Tip of nasogastric tube projects over the gastric cardia. IMPRESSION: 1. No pneumothorax following placement of right internal jugular central line. 2. Tip of endotracheal tube approximately 6 cm above the esther. Linear radiodensity adjacent to the endotracheal tube tip is indeterminate and may be artifactual. Kinking/discontinuity of the tube is considered unlikely. This can be assessed on subsequent chest radiograph. Electronically signed by: Olegario Hurtado M.D. 11/19/2017 7:06 AM Dictated Date/Time: 11/19/2017 7:00 AM
[2017-11-19] MEDS: INSULIN ASPART 100 UNITS/ML 3 ML PEN SC SCH ×4 (08:02→21:00)
--- NOTE | 2017-11-19 08:13 | Anesthesiology Progress Note ---
Anesthesia Post Op Note Date & Time Nov 19, 2017 at 08:10 Vital Signs Pain Intensity: 9.0 Vital Signs Past 12 Hours Date Time Temp Pulse Resp B/P (MAP) Pulse Ox O2 Delivery O2 Flow Rate FiO2 11/19/17 07:31 40 18 06:03 88 19 95/60 (75) 97 78/58 18 06:01 77 19 89/72 (81) 97 80/60 18 05:46 87 19 95/68 (78) 99 81/58 18 05:32 40 18 05:31 88 15 87/69 (72) 98 77/58 18 05:17 81 14 101/73 (68) 97 79/60 18 05:01 88 21 115/77 (88) 100 91/69 18 04:46 89 20 109/70 (73) 98 89/65 18 04:31 76 19 112/73 (88) 98 89/57 18 04:31 76 19 112/73 (88) 98 89/57 18 04:22 90 21 113/65 (84) 98 83/61 18 04:16 77 19 105/74 (78) 98 82/64 218 04:01 36.5 78 19 104/79 (83) 99 99/60 18 04:00 40 18 04:00 100 Mechanical Ventilator 40 11/19/17 03:57 86 19 101/80 (86) 99 101/62 18 03:46 86 20 115/78 (99) 99 92/74 218 03:31 72 21 105/79 (91) 99 101/75 18 03:16 91 22 107/76 (86) 98 76/64 218 03:02 84 24 72/49 (62) 98 75/58 218 02:53 96 22 86/75 (81) 98 86/56 /2/18 02:39 100 22 87/74 (77) 98 74/57 /2/18 02:31 92 21 93/78 (79) 99 104/90 18 02:01 88 20 108/75 (77) 98 93/71 11/19/17 01:55 94 19 97/70 (77) 99 97/70 11/19/17 01:46 111 26 79/53 (70) 97 80/62 11/19/17 01:44 40 11/19/17 01:39 87 33 82/67 (73) 93 93/68 11/19/17 01:17 92 32 100/61 (75) 97 98/74 11/19/17 01:04 88 23 /69 (97) 97 104/76 11/19/17 01:00 90 24 (88) 98 106/81 11/19/17 01:00 37.4 92 21 97/76 (87) 99 110/80 (87) 11/19/17 00:50 92 20 97/76 (87) 97 96/66 11/19/17 00:32 96 16 71/55 (64) 96 85/58 11/19/17 00:17 76 26 71/41 (58) 98 95/65 (73) 11/19/17 00:02 90 20 94/76 (67) 98 86/60 11/19/17 00:01 100 Mechanical Ventilator 60 11/19/17 00:01 60 11/18/17 23:58 37.2 58 26 101/72 (76) 100 91/58 11/18/17 23:49 124 83/59 11/18/17 23:32 107 28 87/67 (76) 96 80/52 11/18/17 23:32 107 28 87/67 (76) 96 80/52 11/18/17 23:31 97 23 94/71 (80) 97 83/55 11/18/17 23:17 99 26 93/69 (71) 97 11/18/17 23:10 45 11/18/17 23:01 100 25 99/75 (77) 99 11/18/17 22:46 90 32 102/86 (96) 99 11/18/17 22:31 92 30 90/73 (74) 99 11/18/17 22:16 83 30 102/67 (77) 100 11/18/17 22:16 83 30 102/67 (77) 100 11/18/17 22:01 81 21 98/73 (84) 99 11/18/17 21:46 91 22 104/73 (84) 100 11/18/17 21:31 79 23 113/72 (89) 100 11/18/17 21:16 96 20 97/74 (76) 100 11/18/17 21:01 80 19 106/71 (74) 99 11/18/17 20:46 84 19 99/71 (74) 100 11/18/17 20:31 76 24 99/76 (87) 88 11/18/17 20:16 92 16 108/79 (85) 98 Notes Pt Amnestic to Procedure: No Patient still intubated, IV pressors infusing, sedated and unable to participate in interview.....will continue to follow.
[2017-11-19] MEDS ORDERED: NORMOSOL R 1,000 ML IV ONE (08:15)
[2017-11-19] MEDS ORDERED: METOPROLOL TARTRATE 1 MG/ML VIAL IV PRN (08:30)
[2017-11-19] MEDS ORDERED: INSULIN GLARGINE SOLOSTAR 100 UNITS/ML 3 ML PEN SC ONE (08:30)
[2017-11-19] MEDS: PANTOprazole INJ 40 MG in SYRINGE 0 ML IV SCH (09:44)
[2017-11-19] MEDS: HEPARIN SOD 5000 UNIT/0.5 ML CARP SC SCH ×3 (09:47→22:32)
[2017-11-19] MEDS: MIDAZOLAM HCL 5 MG/ML 1 ML VIAL IV PRN ×3 (09:51→18:09)
[2017-11-19] MEDS ORDERED: FENTANYL BOLUS FROM BAG IV PRN (10:00)
[2017-11-19] MEDS ORDERED: FENTANYL 1250MCG/250ML NSS IV PRN (10:00)
[2017-11-19 10:34] LABS: HEMATOCRIT 30.5 % (42-52); MEAN CELL VOLUME 86.6 fL (80-100); MEAN CORPUSCULAR HEMOGLOBIN 28.4 pg (25-34); MEAN CORPUSCULAR HGB CONC 32.8 g/dl (32-36); MEAN PLATELET VOLUME 8.9 fL (7.4-10.4); PLATELET COUNT 138 K/uL (130-400); RED CELL DISTRIBUTION WIDTH CV 15.9 % (11.5-14.5); RED CELL DISTRIBUTION WIDTH SD 48.9 fL (36.4-46.3); WHITE BLOOD COUNT 10.35 K/uL (4.8-10.8)
[2017-11-19 10:44] LABS: HEMOGLOBIN A1C 5.4 % (4.5-5.6)
[2017-11-19 10:54] LABS: IG# 0.06 K/uL (0.00-0.02); LYMPH % 10.7 %; LYMPH ABS # 1.11 K/uL (1.2-3.4); MONO % 7.1 %; MONO ABS # 0.73 K/uL (0.11-0.59); NEUT % 81.6 %; NEUT ABS # 8.45 K/uL (1.4-6.5)
[2017-11-19] MEDS ORDERED: NORMOSOL R 500 ML IV ONE (13:00)
--- NOTE | 2017-11-19 13:20 | Pharmacy Progress Note ---
Pharmacy Antibiotic Prog Note Date of Service Nov 19, 2017. Objective Height (Feet): 6 Height (Inches): 0.00 Weight (Kilograms): 75.300 Lab Results (24hrs): Test 11/18/17 14:14 11/18/17 15:37 11/18/17 17:19 11/18/17 17:50 Bedside Hemoglobin 8.8 g/dl (14.0-18.0) 9.2 g/dl (14.0-18.0) Bedside Hematocrit 26 % (42-52) 27 % (42-52) Bedside Sodium 135 mEq/L (135-144) 136 mEq/L (135-144) Bedside Potassium 3.7 mEq/L (3.3-5.0) 3.5 mEq/L (3.3-5.0) Bedside Chloride 98 mEq/L (101-112) 102 mEq/L (101-112) Bedside Total CO2 26 mEq/l (24-31) 24 mEq/l (24-31) Bedside Blood Urea Nitrogen 14 mg/dl (7-18) 14 mg/dl (7-18) Bedside Creatinine 0.7 mg/dl (0.6-1.3) 0.7 mg/dl (0.6-1.3) Bedside Ionized Calcium (Deya) 1.08 mmol/l (1.12-1.32) 1.03 mmol/l (1.12-1.32) Bedside Glucose (other) 174 mg/dl (70-99) Phosphorus Level 3.0 mg/dl (2.5-4.9) Ionized Calcium 1.02 mmol/l (1.12-1.32) Test 11/18/17 23:49 11/19/17 00:15 11/19/17 03:20 11/19/17 06:43 Sodium Level 136 mmol/L (136-145) 135 mmol/L (136-145) Potassium Level 4.2 mmol/L (3.5-5.1) 4.5 mmol/L (3.5-5.1) Chloride Level 107 mmol/L (98-107) 104 mmol/L (98-107) Carbon Dioxide Level 19 mmol/L (21-32) 20 mmol/L (21-32) Anion Gap 10.0 mmol/L (3-11) 11.0 mmol/L (3-11) Blood Urea Nitrogen 19 mg/dl (7-18) 19 mg/dl (7-18) Creatinine 1.07 mg/dl (0.60-1.40) 1.38 mg/dl (0.60-1.40) Est Creatinine Clear Calc Drug Dose 59.6 ml/min 46.2 ml/min Estimated GFR () 76.1 56.0 Estimated GFR (Non- 65.7 48.3 BUN/Creatinine Ratio 17.7 (10-20) 13.9 (10-20) Random Glucose 175 mg/dl (70-99) 216 mg/dl (70-99) Calcium Level 6.9 mg/dl (8.5-10.1) 6.7 mg/dl (8.5-10.1) Phosphorus Level 3.2 mg/dl (2.5-4.9) Magnesium Level 1.9 mg/dl (1.8-2.4) 2.1 mg/dl (1.8-2.4) Troponin I < 0.015 ng/ml (0-0.045) Bedside Glucose 166 mg/dl (70-99) 187 mg/dl (70-99) Hemoglobin 11.5 g/dL (14.0-18.0) Hematocrit 35.0 % (42-52) Lactic Acid Level 3.5 mmol/L (0.4-2.0) Random Cortisol 53.01 mcg/dl Test 11/19/17 10:20 11/19/17 12:28 White Blood Count 10.35 K/uL (4.8-10.8) Red Blood Count 3.52 M/uL (4.7-6.1) Hemoglobin 10.0 g/dL (14.0-18.0) Hematocrit 30.5 % (42-52) Mean Corpuscular Volume 86.6 fL (80-100) Mean Corpuscular Hemoglobin 28.4 pg (25-34) Mean Corpuscular Hemoglobin Concent 32.8 g/dl (32-36) Platelet Count 138 K/uL (130-400) Mean Platelet Volume 8.9 fL (7.4-10.4) Neutrophils (%) (Auto) 81.6 % Lymphocytes (%) (Auto) 10.7 % Monocytes (%) (Auto) 7.1 % Eosinophils (%) (Auto) 0.0 % Basophils (%) (Auto) 0.0 % Neutrophils # (Auto) 8.45 K/uL (1.4-6.5) Lymphocytes # (Auto) 1.11 K/uL (1.2-3.4) Monocytes # (Auto) 0.73 K/uL (0.11-0.59) Eosinophils # (Auto) 0.00 K/uL (0-0.5) Basophils # (Auto) 0.00 K/uL (0-0.2) RDW Standard Deviation 48.9 fL (36.4-46.3) RDW Coefficient of Variation 15.9 % (11.5-14.5) Immature Granulocyte % (Auto) 0.6 % Immature Granulocyte # (Auto) 0.06 K/uL (0.00-0.02) Hyposegmented Neutrophils 1+ Echinocytes 1+ Estimated Average Glucose 108 mg/dl Hemoglobin A1c 5.4 % (4.5-5.6) Bedside Glucose (other) 175 mg/dl (70-99) Assessment & Plan Assessment * 77 yo M POD 1 s/p hemicolectomy on ciprofloxacin, metronidazole, vancomycin, and caspofungin x48 hours each for spillage of abdominal contents during surgery * No cultures pending * Significant increase in SCr from 0.6 to 1.4 over 24 hours - will hold additional vancomycin and check a random level at 16 hours post-dose * Vancomycin should be therapeutic until 11/20 1800 (48 hours after initial dose) - OK to discontinue at that time per Dr. Corea * Goal vancomycin trough 15-20 mcg/mL Plan * Discontinue ongoing vancomycin for now * Random level today @ 1900 Pharmacy will continue to follow and will adjust dose/frequency as necessary. Thank you
--- NOTE | 2017-11-19 15:20 | Surgery Progress Note ---
Surgery Progress Note Date of Service Nov 19, 2017. Subjective Post OP Day: 1 remains intubated, on pressors, reaching for tubes, granddaughters at the bedside Objective Vital Signs: Date Time Temp Pulse Resp B/P (MAP) Pulse Ox O2 Delivery O2 Flow Rate FiO2 11/19/17 13:57 40 11/19/17 12:32 75 16 102/59 (73) 97 11/19/17 12:01 36.8 78 16 110/74 (86) 96 Mechanical Ventilator 35 11/19/17 11:32 84 17 102/81 (88) 96 11/19/17 11:02 68 22 110/72 (85) 11/19/17 11:00 73 18 92/81 (85) 97 11/19/17 10:55 40 11/19/17 10:32 72 17 91/83 (86) 96 11/19/17 10:02 78 17 96/59 (71) 96 Mechanical Ventilator 35 11/19/17 09:16 78 20 119/85 (96) 100 11/19/17 09:01 81 14 109/79 (89) 100 11/19/17 09:00 81 20 96/62 (73) 99 11/19/17 08:46 84 17 111/78 (89) 98 11/19/17 08:31 74 16 87/73 (78) 99 11/19/17 08:17 81 16 90/60 (70) 98 11/19/17 08:01 36.4 85 27 106/48 (67) 97 Mechanical Ventilator 40 11/19/17 08:00 Mechanical Ventilator 11/19/17 07:31 81 18 100/78 (85) 99 11/19/17 07:31 40 11/19/17 07:02 86 22 94/65 (75) 98 11/19/17 07:00 82 20 100/64 (76) 99 11/19/17 06:03 88 19 95/60 (75) 97 78/58 18 06:01 77 19 89/72 (81) 97 80/60 18 05:46 87 19 95/68 (78) 99 81/58 11/19/17 05:32 40 11/19/17 05:31 88 15 87/69 (72) 98 77/58 11/19/17 05:17 81 14 101/73 (68) 97 79/60 3/2/18 05:01 88 21 115/77 (88) 100 91/69 3/2/18 04:46 89 20 109/70 (73) 98 89/65 3/2/18 04:31 76 19 112/73 (88) 98 89/57 3/2/18 04:31 76 19 112/73 (88) 98 89/57 3/2/18 04:22 90 21 113/65 (84) 98 83/61 3/2/18 04:16 77 19 105/74 (78) 98 82/64 3/2/18 04:01 36.5 78 19 104/79 (83) 99 99/60 3/2/18 04:00 40 3/2/18 04:00 100 Mechanical Ventilator 40 3/2/18 03:57 86 19 101/80 (86) 99 101/62 3/2/18 03:46 86 20 115/78 (99) 99 92/74 3/2/18 03:31 72 21 105/79 (91) 99 101/75 3/2/18 03:16 91 22 107/76 (86) 98 76/64 3/2/18 03:02 84 24 72/49 (62) 98 75/58 3/2/18 02:53 96 22 86/75 (81) 98 86/56 3/2/18 02:39 100 22 87/74 (77) 98 74/57 3/2/18 02:31 92 21 93/78 (79) 99 104/90 3/2/18 02:01 88 20 108/75 (77) 98 93/71 3/2/18 01:55 94 19 97/70 (77) 99 97/70 3/2/18 01:46 111 26 79/53 (70) 97 80/62 3/2/18 01:44 40 3/2/18 01:39 87 33 82/67 (73) 93 93/68 3/2/18 01:17 92 32 100/61 (75) 97 98/74 3/2/18 01:04 88 23 /69 (97) 97 104/76 3/2/18 01:00 90 24 (88) 98 106/81 3/2/18 01:00 37.4 92 21 97/76 (87) 99 110/80 (87) 3/2/18 00:50 92 20 97/76 (87) 97 96/66 11/19/17 00:32 96 16 71/55 (64) 96 85/58 11/19/17 00:17 76 26 71/41 (58) 98 95/65 (73) 11/19/17 00:02 90 20 94/76 (67) 98 86/60 11/19/17 00:01 100 Mechanical Ventilator 60 11/19/17 00:01 60 11/18/17 23:58 37.2 58 26 101/72 (76) 100 91/58 11/18/17 23:49 124 83/59 11/18/17 23:32 107 28 87/67 (76) 96 80/52 11/18/17 23:32 107 28 87/67 (76) 96 80/52 11/18/17 23:31 97 23 94/71 (80) 97 83/55 11/18/17 23:17 99 26 93/69 (71) 97 11/18/17 23:10 45 11/18/17 23:01 100 25 99/75 (77) 99 11/18/17 22:46 90 32 102/86 (96) 99 11/18/17 22:31 92 30 90/73 (74) 99 11/18/17 22:16 83 30 102/67 (77) 100 11/18/17 22:16 83 30 102/67 (77) 100 11/18/17 22:01 81 21 98/73 (84) 99 11/18/17 21:46 91 22 104/73 (84) 100 11/18/17 21:31 79 23 113/72 (89) 100 11/18/17 21:16 96 20 97/74 (76) 100 11/18/17 21:01 80 19 106/71 (74) 99 11/18/17 20:46 84 19 99/71 (74) 100 11/18/17 20:31 76 24 99/76 (87) 88 11/18/17 20:16 92 16 108/79 (85) 98 11/18/17 20:01 36.5 87 20 107/78 (84) 100 11/18/17 20:00 100 Mechanical Ventilator 60 11/18/17 20:00 60 11/18/17 19:59 60 11/18/17 19:46 100 23 119/83 (104) 99 11/18/17 19:37 98 18 120/91 (100) 100 11/18/17 19:31 94 25 128/90 (114) 100 11/18/17 19:16 86 17 122/86 (90) 100 11/18/17 19:05 36.3 85 15 107/79 (88) 100 116/70 (85) 11/18/17 19:02 84 17 107/79 (81) 98 11/18/17 17:22 70 15 93/59 100 60 11/18/17 17:18 71 14 88/61 (65) 99 11/18/17 17:12 72 14 90/61 (65) 100 Mechanical Ventilator 60 11/18/17 17:08 60 11/18/17 17:06 74 14 121/82 (95) 100 Mechanical Ventilator 60 11/18/17 16:52 74 13 101/71 100 Mechanical Ventilator 60 Physical Exam: MICHAEL drainage (200 cc overnight), urine output (100 cc overnight) Abdomen: non distended, soft Incision(s): intact (dressing) Laboratory Results: Results Past 24 Hours Test 11/18/17 15:37 11/18/17 17:19 11/18/17 17:50 11/18/17 23:49 Range/Units Bedside Hemoglobin 9.2 14.0-18.0 g/dl Bedside Hematocrit 27 42-52 % Bedside Sodium 136 135-144 mEq/L Bedside Potassium 3.5 3.3-5.0 mEq/L Bedside Chloride 102 101-112 mEq/L Bedside Total CO2 24 24-31 mEq/l Anion Gap 14.0 7.0 10.0 3-11 mmol/L Bedside Blood Urea Nitrogen 14 7-18 mg/dl Bedside Creatinine 0.7 0.6-1.3 mg/dl Bedside Glucose (other) 174 70-99 mg/dl Bedside Ionized Calcium (Deya) 1.03 1.12-1.32 mmol/l Hemoglobin 10.4 12.8 14.0-18.0 g/dL Hematocrit 31.6 37.2 42-52 % Sodium Level 137 136 136-145 mmol/L Potassium Level 3.4 4.2 3.5-5.1 mmol/L Chloride Level 107 107 98-107 mmol/L Carbon Dioxide Level 23 19 21-32 mmol/L Blood Urea Nitrogen 15 19 7-18 mg/dl Creatinine 0.57 1.07 0.60-1.40 mg/dl Est Creatinine Clear Calc Drug Dose 111.9 59.6 ml/min Estimated GFR () 113.2 76.1 Estimated GFR (Non- 97.7 65.7 BUN/Creatinine Ratio 26.4 17.7 10-20 Random Glucose 155 175 70-99 mg/dl Calcium Level 6.6 6.9 8.5-10.1 mg/dl Phosphorus Level 3.0 3.2 2.5-4.9 mg/dl Ionized Calcium 1.02 1.12-1.32 mmol/l Magnesium Level 1.9 1.8-2.4 mg/dl Troponin I < 0.015 0-0.045 ng/ml Test 11/19/17 00:15 11/19/17 03:20 11/19/17 06:43 11/19/17 10:20 Range/Units Bedside Glucose 166 187 70-99 mg/dl Hemoglobin 11.5 10.0 14.0-18.0 g/dL Hematocrit 35.0 30.5 42-52 % Sodium Level 135 136-145 mmol/L Potassium Level 4.5 3.5-5.1 mmol/L Chloride Level 104 98-107 mmol/L Carbon Dioxide Level 20 21-32 mmol/L Anion Gap 11.0 3-11 mmol/L Blood Urea Nitrogen 19 7-18 mg/dl Creatinine 1.38 0.60-1.40 mg/dl Est Creatinine Clear Calc Drug Dose 46.2 ml/min Estimated GFR () 56.0 Estimated GFR (Non- 48.3 BUN/Creatinine Ratio 13.9 10-20 Random Glucose 216 70-99 mg/dl Lactic Acid Level 3.5 0.4-2.0 mmol/L Calcium Level 6.7 8.5-10.1 mg/dl Magnesium Level 2.1 1.8-2.4 mg/dl Random Cortisol 53.01 mcg/dl White Blood Count 10.35 4.8-10.8 K/uL Red Blood Count 3.52 4.7-6.1 M/uL Mean Corpuscular Volume 86.6 80-100 fL Mean Corpuscular Hemoglobin 28.4 25-34 pg Mean Corpuscular Hemoglobin Concent 32.8 32-36 g/dl Platelet Count 138 130-400 K/uL Mean Platelet Volume 8.9 7.4-10.4 fL Neutrophils (%) (Auto) 81.6 % Lymphocytes (%) (Auto) 10.7 % Monocytes (%) (Auto) 7.1 % Eosinophils (%) (Auto) 0.0 % Basophils (%) (Auto) 0.0 % Neutrophils # (Auto) 8.45 1.4-6.5 K/uL Lymphocytes # (Auto) 1.11 1.2-3.4 K/uL Monocytes # (Auto) 0.73 0.11-0.59 K/uL Eosinophils # (Auto) 0.00 0-0.5 K/uL Basophils # (Auto) 0.00 0-0.2 K/uL RDW Standard Deviation 48.9 36.4-46.3 fL RDW Coefficient of Variation 15.9 11.5-14.5 % Immature Granulocyte % (Auto) 0.6 % Immature Granulocyte # (Auto) 0.06 0.00-0.02 K/uL Hyposegmented Neutrophils 1+ Echinocytes 1+ Estimated Average Glucose 108 mg/dl Hemoglobin A1c 5.4 4.5-5.6 % Test 11/19/17 12:28 Range/Units Bedside Glucose (other) 175 70-99 mg/dl Microbiology Results 11/18/17 MRSA DNA Surveillance Screen - Final, Complete Specimen Negative for MRSA by DNA Probe Assessment & Plan extended left hemicolectomy; partial small resection/partial duodenal resection for obstructing colon cancer with coloenteric fistula(s) anemia/hypotension seen this morning by Dr. Juarez given (2) 500cc boluses today UOP remains low preop Hgb 9, 2 units given intraop MICHAEL output 200 cc per shift (had >1 liter ascites in OR) on cipro, flagyl, caspofungin family meeting planned for this afternoon to discuss code status
[2017-11-19] MEDS ORDERED: NORMOSOL R 500 ML IV SCH (17:15)
[2017-11-19] MEDS ORDERED: CASPOFUNGIN INJ 50 MG in SODIUM CHLORIDE 0.9% 250ML 250 ML IV SCH (18:00)
--- NOTE | 2017-11-19 18:04 | Progress Note ---
Internal Med Progress Note Date of Service: Nov 19, 2017. Provider Documentation: SUBJECTIVE: Seen and examined at bedside Patient continues to be intubated and admits to having pain Currently on pressors for profound Hypotension Family bedside, discussed in detail: Granddaughter states patient never wanted to be Intubated Applied Research Director discussed with Patient's Son in detail OBJECTIVE: Vital Signs-as noted below Physical Exam: General Appearance:Moderately built and nourished, no apparent distress, + Intubated Head: normocephalic, Atraumatic Eyes: normal inspection, EOMI, PERRL Neck: supple, Trachea midline Respiratory/Chest: Normal breath sounds, CTA Cardiovascular: S1, S2, No murmur Abdomen/GI:Soft, mild tender generalized, Bowel sounds present, +Surgical bandage, drain Extremities/Musculoskelatal:normal inspection, no edema Neurologic/Psych:grossly no focal neurological deficits Skin: normal color, warm Lab data as noted below. ASSESSMENT & PLAN: Patient is a 77 yr male presented with progressive worsening dyspnea and anemia along with weight loss over the past few months. 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 Intubated post op: 11/18/17 Appreciate GI and Surgery Input On IV fluids, pressors Continue empiric board spectrum antibiotics Appreciate Applied Research Director help Pain control discussed with Patient's Son in detail regarding current management May need to readdress goals of care if patient deteriorates Anemia: likely secondary to above Monitor Hb:9.4>>10.0 S/P 4 units PRBC Monitor Hb Hypokalemia: Resolved monitor Protein-calorie malnutrition: Nutrition consult HTN: Currently Hypotensive on pressors hold lisinopril monitor DVT Px: Heparin SQ Code Status: Full Code for now PROCEDURES: EGD: Impression: - Normal upper third of esophagus, middle third of esophagus and lower third of esophagus. - Z-line regular, 37 cm from the incisors. - Small hiatal hernia. - Normal stomach. Biopsied. - Normal examined duodenum. Biopsied. Recommendation: - Perform a colonoscopy today. Colonoscopy: Findings: An ulcerated partially obstructing large mass was found in the descending colon. The mass was circumferential. A large amount of stool was found in the entire colon, precluding visualization. Impression: - Preparation of the colon was inadequate. 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 - Stool in the entire examined colon. - No specimens collected. Recommendation: - Perform CT scan (computed tomography) of the abdomen with contrast. - Repeat colonoscopy tomorrow because the bowel preparation was poor. CT ABD: 1. 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 This appears to have formed both a fistulous connection and direct invasion of adjacent small bowel as well as sinus tracks into the mesentery. 2. Resultant partial large bowel obstruction and developing stercoral colitis of the colon proximal to the descending colonic mass. 3. Findings also concerning for lymph node metastases, although the lymph nodes in the mesentery and retroperitoneum are borderline enlarged. 4. Small amount of abdominal pelvic ascites. Vital Signs: Date Time Temp Pulse Resp B/P (MAP) Pulse Ox O2 Delivery O2 Flow Rate FiO2 11/19/17 18:21 87 16 88/63 (71) 11/19/17 18:01 88 14 109/67 (81) 96 11/19/17 18:00 88 21 88/62 (71) 95 11/19/17 17:48 40 11/19/17 17:32 87 11 94/62 (73) 97 11/19/17 17:01 76 18 106/67 (80) 96 11/19/17 17:00 74 16 84/58 (67) 96 11/19/17 16:32 78 16 98/63 (75) 96 11/19/17 16:07 35 11/19/17 16:07 Mechanical Ventilator 35 11/19/17 16:01 85 21 117/83 (94) 96 11/19/17 16:00 36.8 80 17 104/65 (78) 97 11/19/17 15:02 82 16 95/62 (73) 95 11/19/17 14:31 70 16 103/71 (82) 96 11/19/17 14:01 68 18 101/74 (83) 96 11/19/17 13:57 40 11/19/17 13:37 69 16 102/66 (78) 96 11/19/17 13:32 72 19 90/51 (64) 96 18 13:00 79 20 102/63 (76) 95 /2/18 12:32 75 16 102/59 (73) 97 //18 12:01 36.8 78 16 110/74 (86) 96 Mechanical Ventilator 35 18 12:00 35 /2/18 12:00 Mechanical Ventilator 35 18 11:32 84 17 102/81 (88) 96 18 11:02 68 22 110/72 (85) 18 11:00 73 18 92/81 (85) 97 18 10:55 40 18 10:32 72 17 91/83 (86) 96 18 10:02 78 17 96/59 (71) 96 Mechanical Ventilator 35 11/19/17 09:16 78 20 119/85 (96) 100 /11/07 09:01 81 14 109/79 (89) 100 11/19/17 09:00 81 20 96/62 (73) 99 11/19/17 08:46 84 17 111/78 (89) 98 18 08:31 74 16 87/73 (78) 99 /18 08:17 81 16 90/60 (70) 98 18 08:01 36.4 85 27 106/48 (67) 97 Mechanical Ventilator 40 11/19/17 08:00 Mechanical Ventilator 18 08:00 40 /18 08:00 Mechanical Ventilator 40 11/19/17 07:31 81 18 100/78 (85) 99 18 07:31 40 18 07:02 86 22 94/65 (75) 98 //18 07:00 82 20 100/64 (76) 99 /2/18 06:03 88 19 95/60 (75) 97 78/58 /2/18 06:01 77 19 89/72 (81) 97 80/60 /2/18 05:46 87 19 95/68 (78) 99 81/58 /2/18 05:32 40 /2/18 05:31 88 15 87/69 (72) 98 77/58 /2/18 05:17 81 14 101/73 (68) 97 79/60 3/2/18 05:01 88 21 115/77 (88) 100 91/69 3/2/18 04:46 89 20 109/70 (73) 98 89/65 3/2/18 04:31 76 19 112/73 (88) 98 89/57 3/2/18 04:31 76 19 112/73 (88) 98 89/57 3/2/18 04:22 90 21 113/65 (84) 98 83/61 3/2/18 04:16 77 19 105/74 (78) 98 82/64 3/2/18 04:01 36.5 78 19 104/79 (83) 99 99/60 3/2/18 04:00 40 3/2/18 04:00 100 Mechanical Ventilator 40 3/2/18 03:57 86 19 101/80 (86) 99 101/62 3/2/18 03:46 86 20 115/78 (99) 99 92/74 3/2/18 03:31 72 21 105/79 (91) 99 101/75 3/2/18 03:16 91 22 107/76 (86) 98 76/64 3/2/18 03:02 84 24 72/49 (62) 98 75/58 3/2/18 02:53 96 22 86/75 (81) 98 86/56 3/2/18 02:39 100 22 87/74 (77) 98 74/57 3/2/18 02:31 92 21 93/78 (79) 99 104/90 3/2/18 02:01 88 20 108/75 (77) 98 93/71 3/2/18 01:55 94 19 97/70 (77) 99 97/70 3/2/18 01:46 111 26 79/53 (70) 97 80/62 3/2/18 01:44 40 3/2/18 01:39 87 33 82/67 (73) 93 93/68 3/2/18 01:17 92 32 100/61 (75) 97 98/74 3/2/18 01:04 88 23 /69 (97) 97 104/76 3/2/18 01:00 90 24 (88) 98 106/81 3/2/18 01:00 37.4 92 21 97/76 (87) 99 110/80 (87) 3/2/18 00:50 92 20 97/76 (87) 97 96/66 11/19/17 00:32 96 16 71/55 (64) 96 85/58 11/19/17 00:17 76 26 71/41 (58) 98 95/65 (73) 11/19/17 00:02 90 20 94/76 (67) 98 86/60 11/19/17 00:01 100 Mechanical Ventilator 60 11/19/17 00:01 60 11/18/17 23:58 37.2 58 26 101/72 (76) 100 91/58 11/18/17 23:49 124 83/59 11/18/17 23:32 107 28 87/67 (76) 96 80/52 11/18/17 23:32 107 28 87/67 (76) 96 80/52 11/18/17 23:31 97 23 94/71 (80) 97 83/55 11/18/17 23:17 99 26 93/69 (71) 97 11/18/17 23:10 45 11/18/17 23:01 100 25 99/75 (77) 99 11/18/17 22:46 90 32 102/86 (96) 99 11/18/17 22:31 92 30 90/73 (74) 99 11/18/17 22:16 83 30 102/67 (77) 100 11/18/17 22:16 83 30 102/67 (77) 100 11/18/17 22:01 81 21 98/73 (84) 99 11/18/17 21:46 91 22 104/73 (84) 100 11/18/17 21:31 79 23 113/72 (89) 100 11/18/17 21:16 96 20 97/74 (76) 100 11/18/17 21:01 80 19 106/71 (74) 99 11/18/17 20:46 84 19 99/71 (74) 100 11/18/17 20:31 76 24 99/76 (87) 88 11/18/17 20:16 92 16 108/79 (85) 98 11/18/17 20:01 36.5 87 20 107/78 (84) 100 11/18/17 20:00 100 Mechanical Ventilator 60 11/18/17 20:00 60 11/18/17 19:59 60 11/18/17 19:46 100 23 119/83 (104) 99 11/18/17 19:37 98 18 120/91 (100) 100 11/18/17 19:31 94 25 128/90 (114) 100 11/18/17 19:16 86 17 122/86 (90) 100 11/18/17 19:05 36.3 85 15 107/79 (88) 100 116/70 (85) 11/18/17 19:02 84 17 107/79 (81) 98 Lab Results: Results Past 24 Hours Test 11/18/17 23:49 11/19/17 00:15 11/19/17 03:20 11/19/17 06:43 Range/Units Hemoglobin 12.8 11.5 14.0-18.0 g/dL Hematocrit 37.2 35.0 42-52 % Sodium Level 136 135 136-145 mmol/L Potassium Level 4.2 4.5 3.5-5.1 mmol/L Chloride Level 107 104 98-107 mmol/L Carbon Dioxide Level 19 20 21-32 mmol/L Anion Gap 10.0 11.0 3-11 mmol/L Blood Urea Nitrogen 19 19 7-18 mg/dl Creatinine 1.07 1.38 0.60-1.40 mg/dl Est Creatinine Clear Calc Drug Dose 59.6 46.2 ml/min Estimated GFR () 76.1 56.0 Estimated GFR (Non- 65.7 48.3 BUN/Creatinine Ratio 17.7 13.9 10-20 Random Glucose 175 216 70-99 mg/dl Calcium Level 6.9 6.7 8.5-10.1 mg/dl Phosphorus Level 3.2 2.5-4.9 mg/dl Magnesium Level 1.9 2.1 1.8-2.4 mg/dl Troponin I < 0.015 0-0.045 ng/ml Bedside Glucose 166 187 70-99 mg/dl Lactic Acid Level 3.5 0.4-2.0 mmol/L Random Cortisol 53.01 mcg/dl Test 11/19/17 10:20 11/19/17 12:28 11/19/17 16:07 Range/Units White Blood Count 10.35 4.8-10.8 K/uL Red Blood Count 3.52 4.7-6.1 M/uL Hemoglobin 10.0 14.0-18.0 g/dL Hematocrit 30.5 42-52 % Mean Corpuscular Volume 86.6 80-100 fL Mean Corpuscular Hemoglobin 28.4 25-34 pg Mean Corpuscular Hemoglobin Concent 32.8 32-36 g/dl Platelet Count 138 130-400 K/uL Mean Platelet Volume 8.9 7.4-10.4 fL Neutrophils (%) (Auto) 81.6 % Lymphocytes (%) (Auto) 10.7 % Monocytes (%) (Auto) 7.1 % Eosinophils (%) (Auto) 0.0 % Basophils (%) (Auto) 0.0 % Neutrophils # (Auto) 8.45 1.4-6.5 K/uL Lymphocytes # (Auto) 1.11 1.2-3.4 K/uL Monocytes # (Auto) 0.73 0.11-0.59 K/uL Eosinophils # (Auto) 0.00 0-0.5 K/uL Basophils # (Auto) 0.00 0-0.2 K/uL RDW Standard Deviation 48.9 36.4-46.3 fL RDW Coefficient of Variation 15.9 11.5-14.5 % Immature Granulocyte % (Auto) 0.6 % Immature Granulocyte # (Auto) 0.06 0.00-0.02 K/uL Hyposegmented Neutrophils 1+ Echinocytes 1+ Estimated Average Glucose 108 mg/dl Hemoglobin A1c 5.4 4.5-5.6 % Bedside Glucose (other) 175 170 70-99 mg/dl
--- NOTE | 2017-11-19 18:29 | Critical Care Progress Note ---
Critical Care Progress Note Date of Service Nov 19, 2017. ICU Day ICU Day Number: [address] Corea Subjective Overnight patient's urine output decreased. He required the placement of a central line and arterial line. The patient did admit to abdominal pain at the incision site. Objective Vital signs reviewed Physical Exam: General - NAD, Intubated and resting alert in bed Eyes - PERRL, EOMI No icterus, gaze conjugate ENT -endotracheal tube present Neck - Supple, trachea midline Lungs - No paradoxical chest wall movement, clear and diminished to auscultation bilaterally, no wheezes, rales, or rhonchi Heart - Reg rate and rhythm, No murmur, rubs, clicks, or gallops appreciated Abdomen - BS Absent, no bruits noted, tympanic to percussion, soft, nontender, nondistended, surgical dressing clean dry and intact down the midline. [address] with serosanguineous fluid noted in the drain Extremities - No pedal edema, pedal pulses intact Neuro - Rass 0 Strength extremities equal and appropriate bilaterally normal perfusion CN:PERRL, EOMI, no facial asymmetry Assessment & Plan Reason Critically Ill: Patient is an 77-year-old male who is transferred to the ICU for continue hypotension intra-operatively, with 500cc EBL and 4u of PRBCs given. Colonic mass found on CT and removed via L hemicolectomy with resection. Pt remains intubated secondary to profound hypotension. PLAN: CV: * Hypotension * Levophed titrate to MAP > 65 * Monitor fluid status optimal CVP 12 * Paroxysmal atrial fibrillation with RVR noted around 2330 * Patient's blood pressures dropped to systolics of 70s * Treated with 1 dose of 5 mg IV metoprolol * Patient return to prior sinus rhythm with first-degree AV block * QTC 462 Neuro: * Intermittent Versed and fentanyl for sedation * Goal RASS 0 * Patient denies pain Resp: * Patient intubated and sedated. * Minimal vent settings at this time * Patient moving towards extubation, however he has significant vasoactive medication requirements and is requiring still large-volume resuscitation secondary to poor urinary output * I feel extubating the patient puts the patient at significant risk for acute decompensation and feel he is best kept intubated while still in the acute postoperative phase Fluids/Renal: * Monitor and replete electrolytes per protocol * Trend Renal Function * UOP decreased * 3rd spacing 2/2 surgical procedure * Monitor fluid status ID: * Abx ciprofloxacin, metronidazole, vancomycin * Antifungal: Caspofungin * Trend fever curve * Empiric 48 hours of all antibiotics then will likely discontinue GI/Nutrition: * POD # 1 Left Colectomy and resection * Dr. Juarez following, I have discussed with him this morning * Dressing clean dry and intact * MICHAEL Drain to suction with dilute blood appearance * Pt denies pain * 4u of PRBCs given * Pt required phenylephrine, vasopressin as well as use of albumin intraoperatively * NPO * NG tube in place, not to be moved Heme: * Anemia secondary to Rectal bleeding * OR EBL 500cc * 4u PRBCs rcv'd * Trend H&H Endocrine: Accu-Checks per protocol, started insulin infusion for 2 blood sugars greater than 180 Access: Right internal jugular vein triple-lumen catheter Radial arterial line discontinued today CODE STATUS: DO NOT RESUSCITATE in event of cardiac arrest I had an extensive discussion with the patient's son regarding update, Germán Gabriel Junior at [phone]. Patient's son agrees that the benefits outweigh the risk of early extubation. Of note patient's granddaughter presented herself to the ICU claiming to be the primary caregiver as well as power of city attorney. She was unable to produce any documentation. I called the patient's son and discussed her interactions. Patient's son advised me that he remains the primary caregiver and that if her conduct becomes detrimental to the patient's care that he requested we remove the granddaughter for the sake of the patient's condition. I advised him as well as the granddaughter that we will continue to follow the current treatment course that was discussed preoperatively and will maintain close line communication with the patient's son who will in turn disseminate the information to the rest of the family. Additionally updated the son that the kidneys surgery producing minimal urine. In the next 24 hours it may warrant a discussion whether the patient would desire to undergo hemodialysis albeit temporary. No formal decision has been made yet however initial thoughts were that the patient would not want to undergo such an aggressive measure. I have personally spent 85 minutes of critical care time in the direct management of this patient. This is a life/limb threatening event. This includes time spent evaluating patient, direct bedside care, chart review, placing orders, interpretation of diagnostic studies, discussion with consultants, patient, and/or family members regarding treatment decisions, as well as other required patient management activities. This time is exclusive of all separately billable procedures, and teaching time and separate from and in addition to any other critical care service time. Data Medications: Current Inpatient Medications Medications (Trade) Dose Ordered Sig/Jose Route Start Time Stop Time Status Last Admin Dose Admin Ciprofloxacin/ Dextrose 400 mg/ Prmx 200 ml @ 100 mls/hr Q12H IV 11/18/17 18:00 11/20/17 17:59 11/19/17 18:10 100 MLS/HR Metronidazole 500 mg/Prmx 100 ml @ 100 mls/hr Q8H IV 11/18/17 18:00 11/20/17 17:59 11/19/17 18:10 100 MLS/HR Norepinephrine Bitartrate 8 mg/ Dextrose 508 ml @ 0 mls/hr Q0M IV 11/18/17 17:13 12/18/17 17:12 Future hold 11/19/17 05:43 28.1 MLS/HR Midazolam HCl (Versed Inj) 2 mg Q2H PRN IV 11/18/17 17:30 12/18/17 17:29 11/19/17 18:09 2 MG Parenteral Electrolyte Solution 1,000 ml @ 125 mls/hr Q8H IV 11/18/17 17:45 12/18/17 17:44 11/19/17 17:58 125 MLS/HR Caspofungin 50 mg/ Sodium Chloride 260 ml @ 250 mls/hr QD IV 11/19/17 18:00 11/19/17 23:59 11/19/17 18:09 250 MLS/HR Miscellaneous Information (Consult) 1 ea UD PRN N/A 11/18/17 17:45 11/20/17 17:59 Vasopressin 50 units/Sodium Chloride 502.5 ml @ 0 mls/hr Q0M PRN IV 11/19/17 01:55 12/19/17 01:54 11/19/17 02:04 12 MLS/HR Insulin Aspart (novoLOG ASPART) SLIDING SCALE G... ACHS SC 11/19/17 06:45 12/19/17 06:44 11/19/17 08:02 1 UNITS Pantoprazole Sodium 40 mg/ Syringe 10 ml @ 5 mls/min DAILY@11 IV 11/19/17 11:00 12/19/17 10:59 11/19/17 09:44 5 MLS/MIN Metoprolol Tartrate (Lopressor Iv) 5 mg Q4H PRN IV 11/19/17 08:30 12/19/17 08:29 Heparin Sodium (Porcine) (Heparin Sq 5000 Unit/0.5ml) 5,000 unit Q8 SC 11/19/17 09:00 12/19/17 08:59 11/19/17 15:59 5,000 UNIT Fentanyl Citrate (Fentanyl Bolus From Bag) 50 mcg Q20M PRN IV 11/19/17 10:00 12/03/17 09:59 11/19/17 16:12 50 MCG Fentanyl Citrate 250 ml @ 0 mls/hr Q0M PRN IV 11/19/17 10:00 12/03/17 09:59 11/19/17 11:45 5 MLS/HR I & O: 24-Hour Column 11/20/17 08:00 Intake Total 2904 ml Output Total 300 ml Balance 2604 ml Vital Signs: Date Time Temp Pulse Resp B/P (MAP) Pulse Ox O2 Delivery O2 Flow Rate FiO2 11/19/17 17:32 87 11 94/62 (73) 97 11/19/17 17:01 76 18 106/67 (80) 96 11/19/17 17:00 74 16 84/58 (67) 96 11/19/17 16:32 78 16 98/63 (75) 96 11/19/17 16:07 35 11/19/17 16:07 Mechanical Ventilator 35 11/19/17 16:01 85 21 117/83 (94) 96 11/19/17 16:00 36.8 80 17 104/65 (78) 97 11/19/17 15:02 82 16 95/62 (73) 95 11/19/17 14:31 70 16 103/71 (82) 96 11/19/17 14:01 68 18 101/74 (83) 96 11/19/17 13:57 40 11/19/17 13:37 69 16 102/66 (78) 96 11/19/17 13:32 72 19 90/51 (64) 96 11/19/17 13:00 79 20 102/63 (76) 95 11/19/17 12:32 75 16 102/59 (73) 97 18 12:01 36.8 78 16 110/74 (86) 96 Mechanical Ventilator 35 11/19/17 12:00 35 11/19/17 12:00 Mechanical Ventilator 35 11/19/17 11:32 84 17 102/81 (88) 96 11/19/17 11:02 68 22 110/72 (85) 11/19/17 11:00 73 18 92/81 (85) 97 11/19/17 10:55 40 11/19/17 10:32 72 17 91/83 (86) 96 11/19/17 10:02 78 17 96/59 (71) 96 Mechanical Ventilator 35 11/19/17 09:16 78 20 119/85 (96) 100 11/19/17 09:01 81 14 109/79 (89) 100 11/19/17 09:00 81 20 96/62 (73) 99 11/19/17 08:46 84 17 111/78 (89) 98 11/19/17 08:31 74 16 87/73 (78) 99 11/19/17 08:17 81 16 90/60 (70) 98 11/19/17 08:01 36.4 85 27 106/48 (67) 97 Mechanical Ventilator 40 11/19/17 08:00 Mechanical Ventilator 11/19/17 08:00 40 11/19/17 08:00 Mechanical Ventilator 40 11/19/17 07:31 81 18 100/78 (85) 99 11/19/17 07:31 40 11/19/17 07:02 86 22 94/65 (75) 98 11/19/17 07:00 82 20 100/64 (76) 99 18 06:03 88 19 95/60 (75) 97 78/58 18 06:01 77 19 89/72 (81) 97 80/60 11/19/17 05:46 87 19 95/68 (78) 99 81/58 18 05:32 40 18 05:31 88 15 87/69 (72) 98 77/58 18 05:17 81 14 101/73 (68) 97 79/60 11/19/17 05:01 88 21 115/77 (88) 100 91/69 3/2/18 04:46 89 20 109/70 (73) 98 89/65 3/2/18 04:31 76 19 112/73 (88) 98 89/57 3/2/18 04:31 76 19 112/73 (88) 98 89/57 3/2/18 04:22 90 21 113/65 (84) 98 83/61 3/2/18 04:16 77 19 105/74 (78) 98 82/64 3/2/18 04:01 36.5 78 19 104/79 (83) 99 99/60 3/2/18 04:00 40 3/2/18 04:00 100 Mechanical Ventilator 40 3/2/18 03:57 86 19 101/80 (86) 99 101/62 3/2/18 03:46 86 20 115/78 (99) 99 92/74 3/2/18 03:31 72 21 105/79 (91) 99 101/75 3/2/18 03:16 91 22 107/76 (86) 98 76/64 3/2/18 03:02 84 24 72/49 (62) 98 75/58 3/2/18 02:53 96 22 86/75 (81) 98 86/56 3/2/18 02:39 100 22 87/74 (77) 98 74/57 3/2/18 02:31 92 21 93/78 (79) 99 104/90 3/2/18 02:01 88 20 108/75 (77) 98 93/71 3/2/18 01:55 94 19 97/70 (77) 99 97/70 3/2/18 01:46 111 26 79/53 (70) 97 80/62 3/2/18 01:44 40 3/2/18 01:39 87 33 82/67 (73) 93 93/68 3/2/18 01:17 92 32 100/61 (75) 97 98/74 3/2/18 01:04 88 23 /69 (97) 97 104/76 3/2/18 01:00 90 24 (88) 98 106/81 3/2/18 01:00 37.4 92 21 97/76 (87) 99 110/80 (87) 3/2/18 00:50 92 20 97/76 (87) 97 96/66 3/2/18 00:32 96 16 71/55 (64) 96 85/58 11/19/17 00:17 76 26 71/41 (58) 98 95/65 (73) 11/19/17 00:02 90 20 94/76 (67) 98 86/60 11/19/17 00:01 100 Mechanical Ventilator 60 11/19/17 00:01 60 11/18/17 23:58 37.2 58 26 101/72 (76) 100 91/58 11/18/17 23:49 124 83/59 11/18/17 23:32 107 28 87/67 (76) 96 80/52 11/18/17 23:32 107 28 87/67 (76) 96 80/52 11/18/17 23:31 97 23 94/71 (80) 97 83/55 11/18/17 23:17 99 26 93/69 (71) 97 11/18/17 23:10 45 11/18/17 23:01 100 25 99/75 (77) 99 11/18/17 22:46 90 32 102/86 (96) 99 11/18/17 22:31 92 30 90/73 (74) 99 11/18/17 22:16 83 30 102/67 (77) 100 11/18/17 22:16 83 30 102/67 (77) 100 11/18/17 22:01 81 21 98/73 (84) 99 11/18/17 21:46 91 22 104/73 (84) 100 11/18/17 21:31 79 23 113/72 (89) 100 11/18/17 21:16 96 20 97/74 (76) 100 11/18/17 21:01 80 19 106/71 (74) 99 11/18/17 20:46 84 19 99/71 (74) 100 11/18/17 20:31 76 24 99/76 (87) 88 11/18/17 20:16 92 16 108/79 (85) 98 11/18/17 20:01 36.5 87 20 107/78 (84) 100 11/18/17 20:00 100 Mechanical Ventilator 60 11/18/17 20:00 60 11/18/17 19:59 60 11/18/17 19:46 100 23 119/83 (104) 99 11/18/17 19:37 98 18 120/91 (100) 100 11/18/17 19:31 94 25 128/90 (114) 100 11/18/17 19:16 86 17 122/86 (90) 100 11/18/17 19:05 36.3 85 15 107/79 (88) 100 116/70 (85) 11/18/17 19:02 84 17 107/79 (81) 98 Laboratory Results: Last 24 Hours Test 11/18/17 23:49 11/19/17 00:15 11/19/17 03:20 11/19/17 06:43 Hemoglobin 12.8 g/dL 11.5 g/dL Hematocrit 37.2 % 35.0 % Sodium Level 136 mmol/L 135 mmol/L Potassium Level 4.2 mmol/L 4.5 mmol/L Chloride Level 107 mmol/L 104 mmol/L Carbon Dioxide Level 19 mmol/L 20 mmol/L Anion Gap 10.0 mmol/L 11.0 mmol/L Blood Urea Nitrogen 19 mg/dl 19 mg/dl Creatinine 1.07 mg/dl 1.38 mg/dl Est Creatinine Clear Calc Drug Dose 59.6 ml/min 46.2 ml/min Estimated GFR () 76.1 56.0 Estimated GFR (Non- 65.7 48.3 BUN/Creatinine Ratio 17.7 13.9 Random Glucose 175 mg/dl 216 mg/dl Calcium Level 6.9 mg/dl 6.7 mg/dl Phosphorus Level 3.2 mg/dl Magnesium Level 1.9 mg/dl 2.1 mg/dl Troponin I < 0.015 ng/ml Bedside Glucose 166 mg/dl 187 mg/dl Lactic Acid Level 3.5 mmol/L Random Cortisol 53.01 mcg/dl Test 11/19/17 10:20 11/19/17 12:28 11/19/17 16:07 White Blood Count 10.35 K/uL Red Blood Count 3.52 M/uL Hemoglobin 10.0 g/dL Hematocrit 30.5 % Mean Corpuscular Volume 86.6 fL Mean Corpuscular Hemoglobin 28.4 pg Mean Corpuscular Hemoglobin Concent 32.8 g/dl Platelet Count 138 K/uL Mean Platelet Volume 8.9 fL Neutrophils (%) (Auto) 81.6 % Lymphocytes (%) (Auto) 10.7 % Monocytes (%) (Auto) 7.1 % Eosinophils (%) (Auto) 0.0 % Basophils (%) (Auto) 0.0 % Neutrophils # (Auto) 8.45 K/uL Lymphocytes # (Auto) 1.11 K/uL Monocytes # (Auto) 0.73 K/uL Eosinophils # (Auto) 0.00 K/uL Basophils # (Auto) 0.00 K/uL RDW Standard Deviation 48.9 fL RDW Coefficient of Variation 15.9 % Immature Granulocyte % (Auto) 0.6 % Immature Granulocyte # (Auto) 0.06 K/uL Hyposegmented Neutrophils 1+ Echinocytes 1+ Estimated Average Glucose 108 mg/dl Hemoglobin A1c 5.4 % Bedside Glucose (other) 175 mg/dl 170 mg/dl
[2017-11-19] MEDS ORDERED: VANCOMYCIN INJ 1,000 MG in SODIUM CHLORIDE 0.9% 250ML 250 ML IV ONE (20:15)
[2017-11-20] VITALS (87 sets, daily range): BP systolic 87–126; BP diastolic 49–76; PULSE 70–93; TEMP 36.6–37.1; O2SAT 89–100
[2017-11-20] MEDS ORDERED: VANCOMYCIN TROUGH ONE (01:30)
[2017-11-20] MEDS: METRONIDAZOLE / NSS 500 MG in PREMIXED NSS 100 ML IV SCH ×2 (02:08→10:11)
[2017-11-20] MEDS: NORMOSOL R 1,000 ML IV SCH ×3 (02:08→16:45)
[2017-11-20] MEDS: INSULIN ASPART 100 UNITS/ML 3 ML PEN SC SCH ×4 (05:31→21:00)
[2017-11-20] MEDS: CIPROFLOXACIN / D5W 400 MG in PREMIXED IN D5W 200 ML IV SCH (05:31)
[2017-11-20] MEDS: HEPARIN SOD 5000 UNIT/0.5 ML CARP SC SCH ×3 (05:33→22:33)
[2017-11-20 05:47] LABS: HEMATOCRIT 28.6 % (42-52); HEMOGLOBIN 8.9 g/dL (14.0-18.0); MEAN CELL VOLUME 86.9 fL (80-100); MEAN CORPUSCULAR HEMOGLOBIN 27.1 pg (25-34); MEAN CORPUSCULAR HGB CONC 31.1 g/dl (32-36); MEAN PLATELET VOLUME 8.5 fL (7.4-10.4); PLATELET COUNT 118 K/uL (130-400); RED CELL DISTRIBUTION WIDTH CV 16.2 % (11.5-14.5); RED CELL DISTRIBUTION WIDTH SD 51.2 fL (36.4-46.3); WHITE BLOOD COUNT 13.59 K/uL (4.8-10.8)
[2017-11-20 06:29] LABS: CALCIUM 6.4 mg/dl (8.5-10.1); CREATININE 0.85 mg/dl (0.60-1.40); POTASSIUM 3.8 mmol/L (3.5-5.1)
[2017-11-20] MEDS ORDERED: VANCOMYCIN INJ 1,250 MG in SODIUM CHLORIDE 0.9% 250ML 250 ML IV ONE (08:15)
--- NOTE | 2017-11-20 08:27 | Pharmacy Progress Note ---
Pharmacy Abx Dose Short Note Date of Service Nov 20, 2017. Assessment & Plan Assessment 77 year old male receiving cipro/flagyl/vancomycin for empiric 48 hr treatment for spillage of abdominal contents during surgery Day # 2 of antimicrobial therapy. No cultures pending, vancomycin was held for an increase in SCr, random level last night 13.4 and given 1x dose of 1000 mg Plan Vancomycin * Random level this AM 15.4, SCr decreased to 0.85, estimate T1/2 ~9-10 hours * Gave supplemental 1 x dose of 1250 mg to get peak ~30, would begin maintenance of 1250 mg q12 hours, however vancomycin empiric 48 hours and is set to at 1800 (before additional dose needed), so will not schedule additional doses at this time, unless vancomycin to be continued. * No further levels ordered. Pharmacy will continue to follow and will adjust dose/frequency as necessary. Thank you.
--- NOTE | 2017-11-20 08:50 | Critical Care Progress Note ---
Critical Care Progress Note Date of Service Nov 20, 2017. ICU Day ICU Day Number: [address] Corea Subjective Denies pain, no events overnight Objective Vital signs reviewed Physical Exam: General - NAD, Intubated and resting alert in bed Eyes - PERRL, EOMI No icterus, gaze conjugate ENT -endotracheal tube present Neck - Supple, trachea midline Lungs - No paradoxical chest wall movement, clear and diminished to auscultation bilaterally, no wheezes, rales, or rhonchi Heart - Reg rate and rhythm, No murmur, rubs, clicks, or gallops appreciated Abdomen - BS Absent, no bruits noted, tympanic to percussion, soft, nontender, nondistended, surgical dressing clean dry and intact down the midline. [address] with serosanguineous fluid noted in the drain Extremities - No pedal edema, pedal pulses intact Neuro - Rass -1 Can hold head off pillow for greater than 5 seconds Assessment & Plan Reason Critically Ill: Patient is an 77-year-old male who is transferred to the ICU for continue hypotension intra-operatively, with 500cc EBL and 4u of PRBCs given. Colonic mass found on CT and removed via L hemicolectomy with resection. Pt remains intubated secondary to profound hypotension. PLAN: CV: * Hypotension * Levophed titrate to MAP > 65 * Monitor fluid status optimal CVP 8-10 after extubation * Paroxysmal atrial fibrillation with RVR * Resolved Neuro: * Started on fentanyl infusion yesterday for abdominal pain * Will decrease to DIAL PAINTER today Resp: * Minimal vent settings at this time * Improving urine output and creatinine * Maintaining a minute ventilation of 6 L on minimal vent settings pressure support 5 PEEP of 5 FiO2 30% * Adequate strength, able to lift head off bed for greater than 5 seconds * I feel that the patient is an appropriate window for extubation. I discussed reintubation and postop respiratory failure with the patient's son all in agreement after this extubation the patient should not be reintubated Fluids/Renal: * Monitor and replete electrolytes per protocol * Trend Renal Function * Improvement in renal function ID: * Abx ciprofloxacin, metronidazole, vancomycin * Antifungal: Caspofungin * Trend fever curve * Empiric stop today GI/Nutrition: * POD # 2 Left Colectomy and resection * Dressing clean dry and intact * MICHAEL Drain to suction improving * Pt denies pain * 4u of PRBCs given * NPO * NG tube in place, not to be moved Heme: * Anemia secondary to Rectal bleeding * OR EBL 500cc * 4u PRBCs rcv'd * Trend H&H Endocrine: Accu-Checks per protocol * Can transition to subcu insulin today Access: Right internal jugular vein triple-lumen catheter Radial arterial line discontinued November 19 CODE STATUS: DO NOT RESUSCITATE in event of cardiac arrest I have updated the patient's son at [phone] I discussed his care with the general surgery team I have personally spent 90 minutes of critical care time in the direct management of this patient. This is a life/limb threatening event. This includes time spent evaluating patient, direct bedside care, chart review, placing orders, interpretation of diagnostic studies, discussion with consultants, patient, and/or family members regarding treatment decisions, as well as other required patient management activities. This time is exclusive of all separately billable procedures, and teaching time and separate from and in addition to any other critical care service time. Data Medications: Current Inpatient Medications Medications (Trade) Dose Ordered Sig/Jose Route Start Time Stop Time Status Last Admin Dose Admin Ciprofloxacin/ Dextrose 400 mg/ Prmx 200 ml @ 100 mls/hr Q12H IV 11/18/17 18:00 11/20/17 17:59 11/20/17 05:31 100 MLS/HR Metronidazole 500 mg/Prmx 100 ml @ 100 mls/hr Q8H IV 11/18/17 18:00 11/20/17 17:59 11/20/17 02:08 100 MLS/HR Norepinephrine Bitartrate 8 mg/ Dextrose 508 ml @ 0 mls/hr Q0M IV 11/18/17 17:13 12/18/17 17:12 Future hold 11/19/17 05:43 28.1 MLS/HR Midazolam HCl (Versed Inj) 2 mg Q2H PRN IV 11/18/17 17:30 12/18/17 17:29 11/19/17 18:09 2 MG Parenteral Electrolyte Solution 1,000 ml @ 125 mls/hr Q8H IV 11/18/17 17:45 12/18/17 17:44 11/20/17 02:08 125 MLS/HR Miscellaneous Information (Consult) 1 ea UD PRN N/A 11/18/17 17:45 11/20/17 17:59 Vasopressin 50 units/Sodium Chloride 502.5 ml @ 0 mls/hr Q0M PRN IV 11/19/17 01:55 12/19/17 01:54 11/19/17 02:04 12 MLS/HR Insulin Aspart (novoLOG ASPART) SLIDING SCALE G... ACHS OR 11/19/17 06:45 12/19/17 06:44 11/19/17 08:02 1 UNITS Pantoprazole Sodium 40 mg/ Syringe 10 ml @ 5 mls/min DAILY@11 IV 11/19/17 11:00 12/19/17 10:59 11/19/17 09:44 5 MLS/MIN Metoprolol Tartrate (Lopressor Iv) 5 mg Q4H PRN IV 11/19/17 08:30 12/19/17 08:29 Heparin Sodium (Porcine) (Heparin Sq 5000 Unit/0.5ml) 5,000 unit Q8 SC 11/19/17 09:00 12/19/17 08:59 11/20/17 05:33 5,000 UNIT Fentanyl Citrate (Fentanyl Bolus From Bag) 50 mcg Q20M PRN IV 11/19/17 10:00 12/03/17 09:59 11/19/17 16:12 50 MCG Fentanyl Citrate 250 ml @ 0 mls/hr Q0M PRN IV 11/19/17 10:00 12/03/17 09:59 11/19/17 11:45 5 MLS/HR Vancomycin HCl 1250 mg/Sodium Chloride 275 ml @ 125 mls/hr NOW ONCE IV 11/20/17 08:15 11/20/17 10:26 Vital Signs: Date Time Temp Pulse Resp B/P (MAP) Pulse Ox O2 Delivery O2 Flow Rate FiO2 11/20/17 07:16 30 11/20/17 07:05 30 11/20/17 06:01 36.6 72 14 93/61 (72) 98 11/20/17 05:31 74 19 105/59 (74) 97 11/20/17 05:30 75 20 105/62 (76) 97 11/20/17 05:23 30 11/20/17 04:30 70 15 92/57 (69) 97 11/20/17 04:29 35 3/3/18 04:29 Mechanical Ventilator 35 3/18 04:01 71 14 96/63 (74) 97 3/3/18 03:31 72 14 99/68 (78) 98 3//18 03:30 72 14 98/59 (72) 98 3//18 03:01 70 14 94/65 (75) 97 //18 02:31 70 14 95/64 (74) 98 //18 02:31 30 3/18 02:30 71 14 87/55 (66) 97 //18 02:01 74 16 103/68 (80) 97 //18 02:00 77 15 103/63 (76) 97 11/20/18 01:31 77 15 107/66 (80) 98 //18 01:01 77 21 101/76 (84) 98 //18 01:00 77 15 102/62 (75) 98 /18 00:03 35 /18 00:03 Mechanical Ventilator 35 11/20/17 00:01 74 14 101/69 (80) 98 //18 00:00 37.0 75 14 101/62 (75) 98 /2/18 23:31 72 14 96/61 (73) 97 3/18 23:10 30 //18 23:01 71 14 88/63 (71) 98 3/2/18 23:00 71 12 93/57 (69) 98 3/2/18 22:01 37.0 73 14 87/60 (69) 97 3/2/18 21:32 89 15 93/88 (90) 98 3/2/18 21:30 87 14 92/88 (89) 98 3/2/18 21:01 78 14 113/69 (84) 98 3/2/18 20:31 80 14 101/74 (83) 98 /2/18 20:30 80 14 91/63 (72) 96 3/2/18 20:28 35 3/2/18 20:28 Mechanical Ventilator 35 3/2/18 20:25 30 3/2/18 20:02 80 14 87/59 (68) 96 3/2/18 20:00 37.0 80 14 89/60 (70) 97 3/2/18 19:31 84 15 108/72 (84) 96 3/2/18 19:01 68 15 93/63 (73) 96 18 19:00 71 15 80/52 (61) 96 18 18:21 87 16 88/63 (71) 18 18:01 88 14 109/67 (81) 96 18 18:00 88 21 88/62 (71) 95 18 17:48 40 11/19/17 17:32 87 11 94/62 (73) 97 11/19/17 17:01 76 18 106/67 (80) 96 11/19/17 17:00 74 16 84/58 (67) 96 11/19/17 16:32 78 16 98/63 (75) 96 11/19/17 16:07 35 11/19/17 16:07 Mechanical Ventilator 35 11/19/17 16:01 85 21 117/83 (94) 96 11/19/17 16:00 36.8 80 17 104/65 (78) 97 11/19/17 15:02 82 16 95/62 (73) 95 11/19/17 14:31 70 16 103/71 (82) 96 11/19/17 14:01 68 18 101/74 (83) 96 11/19/17 13:57 40 11/19/17 13:37 69 16 102/66 (78) 96 11/19/17 13:32 72 19 90/51 (64) 96 11/19/17 13:00 79 20 102/63 (76) 95 11/19/17 12:32 75 16 102/59 (73) 97 11/19/17 12:01 36.8 78 16 110/74 (86) 96 Mechanical Ventilator 35 11/19/17 12:00 35 11/19/17 12:00 Mechanical Ventilator 35 11/19/17 11:32 84 17 102/81 (88) 96 11/19/17 11:02 68 22 110/72 (85) 11/19/17 11:00 73 18 92/81 (85) 97 18 10:55 40 11/19/17 10:32 72 17 91/83 (86) 96 11/19/17 10:02 78 17 96/59 (71) 96 Mechanical Ventilator 35 11/19/17 09:16 78 20 119/85 (96) 100 11/19/17 09:01 81 14 109/79 (89) 100 11/19/17 09:00 81 20 96/62 (73) 99 11/19/17 08:46 84 17 111/78 (89) 98 11/19/17 08:31 74 16 87/73 (78) 99 Laboratory Results: Last 24 Hours Test 11/19/17 10:20 11/19/17 12:28 11/19/17 16:07 11/19/17 19:02 White Blood Count 10.35 K/uL Red Blood Count 3.52 M/uL Hemoglobin 10.0 g/dL Hematocrit 30.5 % Mean Corpuscular Volume 86.6 fL Mean Corpuscular Hemoglobin 28.4 pg Mean Corpuscular Hemoglobin Concent 32.8 g/dl Platelet Count 138 K/uL Mean Platelet Volume 8.9 fL Neutrophils (%) (Auto) 81.6 % Lymphocytes (%) (Auto) 10.7 % Monocytes (%) (Auto) 7.1 % Eosinophils (%) (Auto) 0.0 % Basophils (%) (Auto) 0.0 % Neutrophils # (Auto) 8.45 K/uL Lymphocytes # (Auto) 1.11 K/uL Monocytes # (Auto) 0.73 K/uL Eosinophils # (Auto) 0.00 K/uL Basophils # (Auto) 0.00 K/uL RDW Standard Deviation 48.9 fL RDW Coefficient of Variation 15.9 % Immature Granulocyte % (Auto) 0.6 % Immature Granulocyte # (Auto) 0.06 K/uL Hyposegmented Neutrophils 1+ Echinocytes 1+ Estimated Average Glucose 108 mg/dl Hemoglobin A1c 5.4 % Bedside Glucose (other) 175 mg/dl 170 mg/dl Random Vancomycin Level 13.4 mcg/ml Test 11/19/17 21:55 11/20/17 00:03 11/20/17 05:23 11/20/17 05:32 Bedside Glucose (other) 161 mg/dl 130 mg/dl Bedside Glucose 134 mg/dl White Blood Count 13.59 K/uL Red Blood Count 3.29 M/uL Hemoglobin 8.9 g/dL Hematocrit 28.6 % Mean Corpuscular Volume 86.9 fL Mean Corpuscular Hemoglobin 27.1 pg Mean Corpuscular Hemoglobin Concent 31.1 g/dl RDW Standard Deviation 51.2 fL RDW Coefficient of Variation 16.2 % Platelet Count 118 K/uL Mean Platelet Volume 8.5 fL Sodium Level 134 mmol/L Potassium Level 3.8 mmol/L Chloride Level 103 mmol/L Carbon Dioxide Level 23 mmol/L Anion Gap 8.0 mmol/L Blood Urea Nitrogen 21 mg/dl Creatinine 0.85 mg/dl Est Creatinine Clear Calc Drug Dose 75.1 ml/min Estimated GFR () 96.1 Estimated GFR (Non- 82.9 BUN/Creatinine Ratio 24.8 Random Glucose 129 mg/dl Calcium Level 6.4 mg/dl Magnesium Level 2.3 mg/dl Random Vancomycin Level 15.1 mcg/ml
[2017-11-20] MEDS ORDERED: CALCIUM GLUCONATE 10% 1,000 MG in SODIUM CHLORIDE 0.9% 50ML 50 ML IV STA (09:02)
--- NOTE | 2017-11-20 09:09 | Progress Note ---
Internal Med Progress Note Date of Service: Nov 20, 2017. Provider Documentation: SUBJECTIVE: Seen and examined at bedside Patient is extubated this morning Denies chest pain, SOB, abdominal pain On pressor support Mild leukocytosis, afebrile OBJECTIVE: Vital Signs-as noted below Physical Exam: General Appearance:Moderately built and nourished, no apparent distress Head: normocephalic, Atraumatic Eyes: normal inspection, EOMI, PERRL Neck: supple, Trachea midline Respiratory/Chest: Coarse breath sounds, CTA Cardiovascular: S1, S2, No murmur Abdomen/GI:Soft, mild tender generalized, Bowel sounds present, +Surgical bandage, drain Extremities/Musculoskelatal:normal inspection, Trace edema Neurologic/Psych:grossly no focal neurological deficits Skin: normal color, warm Lab data as noted below. ASSESSMENT & PLAN: Patient is a 77 yr male presented with progressive worsening dyspnea and anemia along with weight loss over the past few months. 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 Intubated post op: 11/18/17 Extubated on 11/20/17 Appreciate GI and Surgery Input On IV fluids, pressors Continue empiric board spectrum antibiotics Appreciate Veneer Jointer help Pain control Discussed with who discussed with Patient's Son in detail Pathology report pending Will consider to start on TPN as able Anemia: likely secondary to above Monitor Hb:8.9 today S/P 4 units PRBC Monitor Hb Transfuse PRN Hypokalemia/Hypocalcemia: Replace as needed monitor Protein-calorie malnutrition: Nutrition consult HTN: Currently Hypotensive on pressors hold lisinopril monitor DVT Px: Heparin SQ Disposition: Monitor in ICU PROCEDURES: EGD: Impression: - Normal upper third of esophagus, middle third of esophagus and lower third of esophagus. - Z-line regular, 37 cm from the incisors. - Small hiatal hernia. - Normal stomach. Biopsied. - Normal examined duodenum. Biopsied. Recommendation: - Perform a colonoscopy today. Colonoscopy: Findings: An ulcerated partially obstructing large mass was found in the descending colon. The mass was circumferential. A large amount of stool was found in the entire colon, precluding visualization. Impression: - Preparation of the colon was inadequate. 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 - Stool in the entire examined colon. - No specimens collected. Recommendation: - Perform CT scan (computed tomography) of the abdomen with contrast. - Repeat colonoscopy tomorrow because the bowel preparation was poor. CT ABD: 1. 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 This appears to have formed both a fistulous connection and direct invasion of adjacent small bowel as well as sinus tracks into the mesentery. 2. Resultant partial large bowel obstruction and developing stercoral colitis of the colon proximal to the descending colonic mass. 3. Findings also concerning for lymph node metastases, although the lymph nodes in the mesentery and retroperitoneum are borderline enlarged. 4. Small amount of abdominal pelvic ascites. Vital Signs: Date Time Temp Pulse Resp B/P (MAP) Pulse Ox O2 Delivery O2 Flow Rate FiO2 11/20/17 07:16 30 11/20/17 07:05 30 11/20/17 06:01 36.6 72 14 93/61 (72) 98 11/20/17 05:31 74 19 105/59 (74) 97 11/20/17 05:30 75 20 105/62 (76) 97 11/20/17 05:23 30 11/20/17 04:30 70 15 92/57 (69) 97 11/20/17 04:29 35 11/20/17 04:29 Mechanical Ventilator 35 11/20/17 04:01 71 14 96/63 (74) 97 11/20/17 03:31 72 14 99/68 (78) 98 11/20/17 03:30 72 14 98/59 (72) 98 11/20/17 03:01 70 14 94/65 (75) 97 11/20/17 02:31 70 14 95/64 (74) 98 11/20/17 02:31 30 11/20/17 02:30 71 14 87/55 (66) 97 11/20/17 02:01 74 16 103/68 (80) 97 11/20/17 02:00 77 15 103/63 (76) 97 11/20/17 01:31 77 15 107/66 (80) 98 11/20/17 01:01 77 21 101/76 (84) 98 3/3/18 01:00 77 15 102/62 (75) 98 3/3/18 00:03 35 3/3/18 00:03 Mechanical Ventilator 35 3//18 00:01 74 14 101/69 (80) 98 3/3/18 00:00 37.0 75 14 101/62 (75) 98 3/2/18 23:31 72 14 96/61 (73) 97 3/2/18 23:10 30 3/2/18 23:01 71 14 88/63 (71) 98 3/2/18 23:00 71 12 93/57 (69) 98 3/2/18 22:01 37.0 73 14 87/60 (69) 97 3/2/18 21:32 89 15 93/88 (90) 98 3/2/18 21:30 87 14 92/88 (89) 98 3/2/18 21:01 78 14 113/69 (84) 98 3/2/18 20:31 80 14 101/74 (83) 98 3/2/18 20:30 80 14 91/63 (72) 96 3/2/18 20:28 35 3/2/18 20:28 Mechanical Ventilator 35 3/2/18 20:25 30 3/2/18 20:02 80 14 87/59 (68) 96 3/2/18 20:00 37.0 80 14 89/60 (70) 97 3/2/18 19:31 84 15 108/72 (84) 96 3/2/18 19:01 68 15 93/63 (73) 96 3/2/18 19:00 71 15 80/52 (61) 96 3/2/18 18:21 87 16 88/63 (71) 3/2/18 18:01 88 14 109/67 (81) 96 3/2/18 18:00 88 21 88/62 (71) 95 3/2/18 17:48 40 3/2/18 17:32 87 11 94/62 (73) 97 3/2/18 17:01 76 18 106/67 (80) 96 3/2/18 17:00 74 16 84/58 (67) 96 3/2/18 16:32 78 16 98/63 (75) 96 3/2/18 16:07 35 3/2/18 16:07 Mechanical Ventilator 35 11/19/17 16:01 85 21 117/83 (94) 96 11/19/17 16:00 36.8 80 17 104/65 (78) 97 11/19/17 15:02 82 16 95/62 (73) 95 11/19/17 14:31 70 16 103/71 (82) 96 11/19/17 14:01 68 18 101/74 (83) 96 11/19/17 13:57 40 11/19/17 13:37 69 16 102/66 (78) 96 11/19/17 13:32 72 19 90/51 (64) 96 11/19/17 13:00 79 20 102/63 (76) 95 11/19/17 12:32 75 16 102/59 (73) 97 11/19/17 12:01 36.8 78 16 110/74 (86) 96 Mechanical Ventilator 35 11/19/17 12:00 35 11/19/17 12:00 Mechanical Ventilator 35 11/19/17 11:32 84 17 102/81 (88) 96 11/19/17 11:02 68 22 110/72 (85) 11/19/17 11:00 73 18 92/81 (85) 97 11/19/17 10:55 40 11/19/17 10:32 72 17 91/83 (86) 96 11/19/17 10:02 78 17 96/59 (71) 96 Mechanical Ventilator 35 11/19/17 09:16 78 20 119/85 (96) 100 11/19/17 09:01 81 14 109/79 (89) 100 11/19/17 09:00 81 20 96/62 (73) 99 Lab Results: Results Past 24 Hours Test 11/19/17 10:20 11/19/17 12:28 11/19/17 16:07 11/19/17 19:02 Range/Units White Blood Count 10.35 4.8-10.8 K/uL Red Blood Count 3.52 4.7-6.1 M/uL Hemoglobin 10.0 14.0-18.0 g/dL Hematocrit 30.5 42-52 % Mean Corpuscular Volume 86.6 80-100 fL Mean Corpuscular Hemoglobin 28.4 25-34 pg Mean Corpuscular Hemoglobin Concent 32.8 32-36 g/dl Platelet Count 138 130-400 K/uL Mean Platelet Volume 8.9 7.4-10.4 fL Neutrophils (%) (Auto) 81.6 % Lymphocytes (%) (Auto) 10.7 % Monocytes (%) (Auto) 7.1 % Eosinophils (%) (Auto) 0.0 % Basophils (%) (Auto) 0.0 % Neutrophils # (Auto) 8.45 1.4-6.5 K/uL Lymphocytes # (Auto) 1.11 1.2-3.4 K/uL Monocytes # (Auto) 0.73 0.11-0.59 K/uL Eosinophils # (Auto) 0.00 0-0.5 K/uL Basophils # (Auto) 0.00 0-0.2 K/uL RDW Standard Deviation 48.9 36.4-46.3 fL RDW Coefficient of Variation 15.9 11.5-14.5 % Immature Granulocyte % (Auto) 0.6 % Immature Granulocyte # (Auto) 0.06 0.00-0.02 K/uL Hyposegmented Neutrophils 1+ Echinocytes 1+ Estimated Average Glucose 108 mg/dl Hemoglobin A1c 5.4 4.5-5.6 % Bedside Glucose (other) 175 170 70-99 mg/dl Random Vancomycin Level 13.4 mcg/ml Test 11/19/17 21:55 11/20/17 00:03 11/20/17 05:23 11/20/17 05:32 Range/Units Bedside Glucose (other) 161 130 70-99 mg/dl Bedside Glucose 134 70-99 mg/dl White Blood Count 13.59 4.8-10.8 K/uL Red Blood Count 3.29 4.7-6.1 M/uL Hemoglobin 8.9 14.0-18.0 g/dL Hematocrit 28.6 42-52 % Mean Corpuscular Volume 86.9 80-100 fL Mean Corpuscular Hemoglobin 27.1 25-34 pg Mean Corpuscular Hemoglobin Concent 31.1 32-36 g/dl RDW Standard Deviation 51.2 36.4-46.3 fL RDW Coefficient of Variation 16.2 11.5-14.5 % Platelet Count 118 130-400 K/uL Mean Platelet Volume 8.5 7.4-10.4 fL Sodium Level 134 136-145 mmol/L Potassium Level 3.8 3.5-5.1 mmol/L Chloride Level 103 98-107 mmol/L Carbon Dioxide Level 23 21-32 mmol/L Anion Gap 8.0 3-11 mmol/L Blood Urea Nitrogen 21 7-18 mg/dl Creatinine 0.85 0.60-1.40 mg/dl Est Creatinine Clear Calc Drug Dose 75.1 ml/min Estimated GFR () 96.1 Estimated GFR (Non- 82.9 BUN/Creatinine Ratio 24.8 10-20 Random Glucose 129 70-99 mg/dl Calcium Level 6.4 8.5-10.1 mg/dl Magnesium Level 2.3 1.8-2.4 mg/dl Random Vancomycin Level 15.1 mcg/ml
--- NOTE | 2017-11-20 09:18 | Surgery Progress Note ---
Surgery Progress Note Date of Service Nov 20, 2017. Subjective 77-year-old male status post laparotomy, left hemicolectomy with duodenal resection large colon mass eroding in the duodenum, POD #[address] Juarez. He was extubated this morning but is still on low-dose vasopressors. His renal function appears to be improving. He states his pain is controlled is without complaint. Objective Vital Signs: Date Time Temp Pulse Resp B/P (MAP) Pulse Ox O2 Delivery O2 Flow Rate FiO2 11/20/17 07:16 30 11/20/17 07:05 30 11/20/17 06:01 36.6 72 14 93/61 (72) 98 11/20/17 05:31 74 19 105/59 (74) 97 11/20/17 05:30 75 20 105/62 (76) 97 11/20/17 05:23 30 11/20/17 04:30 70 15 92/57 (69) 97 11/20/17 04:29 35 11/20/17 04:29 Mechanical Ventilator 35 11/20/17 04:01 71 14 96/63 (74) 97 11/20/17 03:31 72 14 99/68 (78) 98 11/20/17 03:30 72 14 98/59 (72) 98 11/20/17 03:01 70 14 94/65 (75) 97 11/20/17 02:31 70 14 95/64 (74) 98 18 02:31 30 11/20/17 02:30 71 14 87/55 (66) 97 11/20/17 02:01 74 16 103/68 (80) 97 11/20/17 02:00 77 15 103/63 (76) 97 18 01:31 77 15 107/66 (80) 98 11/20/17 01:01 77 21 101/76 (84) 98 11/20/17 01:00 77 15 102/62 (75) 98 11/20/17 00:03 35 11/20/17 00:03 Mechanical Ventilator 35 11/20/17 00:01 74 14 101/69 (80) 98 11/20/17 00:00 37.0 75 14 101/62 (75) 98 11/19/17 23:31 72 14 96/61 (73) 97 11/19/17 23:10 30 3/2/18 23:01 71 14 88/63 (71) 98 3/2/18 23:00 71 12 93/57 (69) 98 3/2/18 22:01 37.0 73 14 87/60 (69) 97 3/2/18 21:32 89 15 93/88 (90) 98 3/2/18 21:30 87 14 92/88 (89) 98 3/2/18 21:01 78 14 113/69 (84) 98 3/2/18 20:31 80 14 101/74 (83) 98 3/2/18 20:30 80 14 91/63 (72) 96 3/2/18 20:28 35 3/2/18 20:28 Mechanical Ventilator 35 3/2/18 20:25 30 3/2/18 20:02 80 14 87/59 (68) 96 3/2/18 20:00 37.0 80 14 89/60 (70) 97 3/2/18 19:31 84 15 108/72 (84) 96 3/2/18 19:01 68 15 93/63 (73) 96 3/2/18 19:00 71 15 80/52 (61) 96 3/2/18 18:21 87 16 88/63 (71) 3/2/18 18:01 88 14 109/67 (81) 96 3/2/18 18:00 88 21 88/62 (71) 95 3/2/18 17:48 40 3/2/18 17:32 87 11 94/62 (73) 97 3/2/18 17:01 76 18 106/67 (80) 96 3/2/18 17:00 74 16 84/58 (67) 96 3/2/18 16:32 78 16 98/63 (75) 96 3/2/18 16:07 35 3/2/18 16:07 Mechanical Ventilator 35 3/2/18 16:01 85 21 117/83 (94) 96 3/2/18 16:00 36.8 80 17 104/65 (78) 97 3/2/18 15:02 82 16 95/62 (73) 95 3/2/18 14:31 70 16 103/71 (82) 96 3/2/18 14:01 68 18 101/74 (83) 96 3/2/18 13:57 40 3/2/18 13:37 69 16 102/66 (78) 96 11/19/17 13:32 72 19 90/51 (64) 96 11/19/17 13:00 79 20 102/63 (76) 95 11/19/17 12:32 75 16 102/59 (73) 97 11/19/17 12:01 36.8 78 16 110/74 (86) 96 Mechanical Ventilator 35 11/19/17 12:00 35 11/19/17 12:00 Mechanical Ventilator 35 11/19/17 11:32 84 17 102/81 (88) 96 11/19/17 11:02 68 22 110/72 (85) 11/19/17 11:00 73 18 92/81 (85) 97 11/19/17 10:55 40 11/19/17 10:32 72 17 91/83 (86) 96 11/19/17 10:02 78 17 96/59 (71) 96 Mechanical Ventilator 35 11/19/17 09:16 78 20 119/85 (96) 100 Physical Exam: MICHAEL drainage (Serosanguineous) General Appearance: no apparent distress Abdomen: non distended, soft, + tenderness (Appropriate tenderness to palpation ) Incision(s): clean, dry, intact, no erythema, no drainage Laboratory Results: Results Past 24 Hours Test 11/19/17 10:20 11/19/17 12:28 11/19/17 16:07 11/19/17 19:02 Range/Units White Blood Count 10.35 4.8-10.8 K/uL Red Blood Count 3.52 4.7-6.1 M/uL Hemoglobin 10.0 14.0-18.0 g/dL Hematocrit 30.5 42-52 % Mean Corpuscular Volume 86.6 80-100 fL Mean Corpuscular Hemoglobin 28.4 25-34 pg Mean Corpuscular Hemoglobin Concent 32.8 32-36 g/dl Platelet Count 138 130-400 K/uL Mean Platelet Volume 8.9 7.4-10.4 fL Neutrophils (%) (Auto) 81.6 % Lymphocytes (%) (Auto) 10.7 % Monocytes (%) (Auto) 7.1 % Eosinophils (%) (Auto) 0.0 % Basophils (%) (Auto) 0.0 % Neutrophils # (Auto) 8.45 1.4-6.5 K/uL Lymphocytes # (Auto) 1.11 1.2-3.4 K/uL Monocytes # (Auto) 0.73 0.11-0.59 K/uL Eosinophils # (Auto) 0.00 0-0.5 K/uL Basophils # (Auto) 0.00 0-0.2 K/uL RDW Standard Deviation 48.9 36.4-46.3 fL RDW Coefficient of Variation 15.9 11.5-14.5 % Immature Granulocyte % (Auto) 0.6 % Immature Granulocyte # (Auto) 0.06 0.00-0.02 K/uL Hyposegmented Neutrophils 1+ Echinocytes 1+ Estimated Average Glucose 108 mg/dl Hemoglobin A1c 5.4 4.5-5.6 % Bedside Glucose (other) 175 170 70-99 mg/dl Random Vancomycin Level 13.4 mcg/ml Test 11/19/17 21:55 11/20/17 00:03 11/20/17 05:23 11/20/17 05:32 Range/Units Bedside Glucose (other) 161 130 70-99 mg/dl Bedside Glucose 134 70-99 mg/dl White Blood Count 13.59 4.8-10.8 K/uL Red Blood Count 3.29 4.7-6.1 M/uL Hemoglobin 8.9 14.0-18.0 g/dL Hematocrit 28.6 42-52 % Mean Corpuscular Volume 86.9 80-100 fL Mean Corpuscular Hemoglobin 27.1 25-34 pg Mean Corpuscular Hemoglobin Concent 31.1 32-36 g/dl RDW Standard Deviation 51.2 36.4-46.3 fL RDW Coefficient of Variation 16.2 11.5-14.5 % Platelet Count 118 130-400 K/uL Mean Platelet Volume 8.5 7.4-10.4 fL Sodium Level 134 136-145 mmol/L Potassium Level 3.8 3.5-5.1 mmol/L Chloride Level 103 98-107 mmol/L Carbon Dioxide Level 23 21-32 mmol/L Anion Gap 8.0 3-11 mmol/L Blood Urea Nitrogen 21 7-18 mg/dl Creatinine 0.85 0.60-1.40 mg/dl Est Creatinine Clear Calc Drug Dose 75.1 ml/min Estimated GFR () 96.1 Estimated GFR (Non- 82.9 BUN/Creatinine Ratio 24.8 10-20 Random Glucose 129 70-99 mg/dl Calcium Level 6.4 8.5-10.1 mg/dl Magnesium Level 2.3 1.8-2.4 mg/dl Random Vancomycin Level 15.1 mcg/ml Assessment & Plan POD #2 left hemicolectomy partial small bowel resection, overall doing well, appreciate critical care management of this patient. Continue MICHAEL drain, NG tube, Dunn catheter Keep NPO, UGI on Wednesday continue broad spectrum abx for spillage during case continue dressing medical management per ICU team surgery will follow, call with questions or concerns
[2017-11-20] MEDS: PANTOprazole INJ 40 MG in SYRINGE 0 ML IV SCH (11:21)
[2017-11-20] MEDS ORDERED: FENTANYL CITRATE INJ 50 MCG/1 ML 2 ML VIAL ONE ×2 (11:51→13:53)
[2017-11-20] MEDS ORDERED: NURSING VERBAL MED ORDER ONE ×2 (12:00→14:30)
[2017-11-20] MEDS ORDERED: FENTANYL CITRATE 50 MCG/1 ML 20 ML AMP IV PRN (12:15)
[2017-11-20] MEDS ORDERED: SODIUM CHLORIDE 0.9% 1000ML 1,000 ML IV ONE (15:45)
[2017-11-20 16:28] LABS: HEMATOCRIT 26.4 % (42-52); HEMOGLOBIN 8.6 g/dL (14.0-18.0)
[2017-11-20] MEDS ORDERED: LACTATED RINGER'S 1000ML 500 ML IV SCH (16:45)
[2017-11-20] MEDS: VASOPRESSIN INJ 50 UNITS in SODIUM CHLORIDE 0.9% 500ML 500 ML IV PRN (19:53)
[2017-11-20] MEDS: NOREPINEPHRINE BIT INJ 8 MG in DEXTROSE 5% 500ML 500 ML IV SCH (19:55)
[2017-11-20] MEDS: FENTANYL CITRATE INJ 50 MCG/1 ML 2 ML VIAL IV PRN (22:58)
[2017-11-21] VITALS (42 sets, daily range): BP systolic 92–272; BP diastolic 41–271; PULSE 73–105; TEMP 36.8–37; O2SAT 93–99
[2017-11-21] MEDS: NORMOSOL R 1,000 ML IV SCH ×2 (02:06→08:41)
[2017-11-21] MEDS: FENTANYL CITRATE INJ 50 MCG/1 ML 2 ML VIAL IV PRN ×6 (03:41→23:36)
[2017-11-21] MEDS: HEPARIN SOD 5000 UNIT/0.5 ML CARP SC SCH (05:37)
[2017-11-21 05:39] LABS: CALCIUM 6.5 mg/dl (8.5-10.1); CREATININE 0.48 mg/dl (0.60-1.40); POTASSIUM 3.6 mmol/L (3.5-5.1)
[2017-11-21 06:02] LABS: HEMATOCRIT 24.3 % (42-52); MEAN CELL VOLUME 85.6 fL (80-100); MEAN CORPUSCULAR HEMOGLOBIN 28.2 pg (25-34); MEAN CORPUSCULAR HGB CONC 32.9 g/dl (32-36); RED CELL DISTRIBUTION WIDTH CV 16.2 % (11.5-14.5); RED CELL DISTRIBUTION WIDTH SD 50.6 fL (36.4-46.3); WHITE BLOOD COUNT 11.64 K/uL (4.8-10.8)
[2017-11-21] MEDS: INSULIN ASPART 100 UNITS/ML 3 ML PEN SC SCH ×4 (06:09→21:00)
[2017-11-21 06:41] LABS: MEAN PLATELET VOLUME 8.4 fL (7.4-10.4); PLATELET COUNT 76 K/uL (130-400)
[2017-11-21 06:54] LABS: BASO % 0.1 %; BASO ABS # 0.01 K/uL (0-0.2); EOS % 0.2 %; EOS ABS # 0.02 K/uL (0-0.5); IG# 0.04 K/uL (0.00-0.02); LYMPH % 8.6 %; MONO % 3.5 %; MONO ABS # 0.41 K/uL (0.11-0.59); NEUT % 87.3 %; NEUT ABS # 10.16 K/uL (1.4-6.5)
--- NOTE | 2017-11-21 10:16 | Surgery Progress Note ---
Surgery Progress Note Date of Service Nov 21, 2017. Subjective 77-year-old male status post laparotomy, left hemicolectomy with duodenal resection for large colon mass eroding in the duodenum, POD #[address] Juarez. He was extubated yesterday, and is still on low-dose vasopressors but these are being weaned. His renal function has improved. He states his pain is controlled is without complaint. He had a liquid bowel movement last night. He states he is having some mild pain with no other complaint. Objective Vital Signs: Date Time Temp Pulse Resp B/P (MAP) Pulse Ox O2 Delivery O2 Flow Rate FiO2 11/21/17 10:00 90 27 93/61 (72) 97 Nasal Cannula 2.0 11/21/17 09:30 88 16 94/58 (70) 95 Nasal Cannula 2.0 11/21/17 09:00 85 22 96/58 (71) 97 Nasal Cannula 2.0 11/21/17 08:30 94 26 99/61 (74) 95 Nasal Cannula 2.0 11/21/17 08:00 36.8 89 27 110/67 (81) 96 Nasal Cannula 2.0 11/21/17 08:00 Nasal Cannula 2.0 11/21/17 07:30 97 22 109/56 (73) 95 Nasal Cannula 2.0 11/21/17 07:00 90 23 103/56 (72) 97 Nasal Cannula 2.0 11/21/17 06:31 89 30 98/63 (75) 97 Nasal Cannula 2.0 11/21/17 06:01 86 26 93/62 (72) 96 Nasal Cannula 2.0 11/21/17 06:00 87 24 94/53 (67) 96 Nasal Cannula 2.0 11/21/17 05:32 86 27 103/99 (100) 93 Nasal Cannula 2.0 11/21/17 05:01 82 27 106/66 (79) 96 Nasal Cannula 2.0 11/21/17 05:00 85 27 272/271 (271) 95 Nasal Cannula 2.0 11/21/17 04:10 Nasal Cannula 11/21/17 04:01 78 22 107/69 (82) 98 Nasal Cannula 2.0 11/21/17 04:00 79 22 100/57 (71) 99 Nasal Cannula 2.0 11/21/17 03:31 78 27 105/68 (80) 96 Nasal Cannula 2.0 18 03:01 76 25 104/64 (77) 96 Nasal Cannula 2.0 18 03:00 77 28 101/57 (72) 96 Nasal Cannula 2.0 18 02:31 83 31 106/66 (79) 95 Nasal Cannula 2.0 18 02:01 82 28 107/65 (79) 96 Nasal Cannula 2.0 18 02:00 83 32 105/60 (75) 95 Nasal Cannula 2.0 18 01:31 84 32 100/63 (75) 95 Nasal Cannula 2.0 18 01:02 83 30 115/73 (87) 93 Nasal Cannula 2.0 11/21/17 01:00 78 33 110/62 (78) 96 Nasal Cannula 2.0 11/21/17 00:13 Nasal Cannula 18 00:01 76 25 115/68 (84) 98 Nasal Cannula 2.0 11/21/17 00:00 73 30 105/61 (76) 98 Nasal Cannula 2.0 11/20/17 23:01 77 27 103/60 (74) 96 Nasal Cannula 2.0 18 23:00 79 33 116/65 (82) 97 Nasal Cannula 2.0 18 22:31 76 21 108/65 (79) 97 Nasal Cannula 2.0 18 22:01 37.0 82 29 116/69 (85) 97 Nasal Cannula 2.0 18 22:00 80 29 105/60 (75) 97 Nasal Cannula 2.0 18 21:31 74 27 109/67 (81) 97 Nasal Cannula 2.0 18 21:13 79 24 107/60 (76) 97 Nasal Cannula 2.0 18 21:01 79 27 106/66 (79) 96 Nasal Cannula 2.0 18 21:00 80 27 109/61 (77) 96 Nasal Cannula 2.0 18 20:31 37.0 74 25 102/64 (77) 96 Nasal Cannula 2.0 18 20:24 Nasal Cannula 18 20:01 83 23 109/65 (80) 96 18 20:00 82 26 111/62 (78) 96 318 19:31 81 23 99/68 (78) 98 3/18 19:01 82 30 100/64 (76) 96 18 19:00 82 27 108/60 (76) 96 /18 18:31 78 16 106/61 (76) 97 3/18 18:30 78 19 100/56 (71) 97 18 18:15 80 23 100/55 (70) 97 18 18:01 81 18 96/58 (71) 97 //18 18:00 83 20 105/57 (73) 97 //18 17:45 86 24 105/57 (73) 97 /18 17:31 80 21 94/61 (72) 96 18 17:30 83 25 105/58 (74) 96 18 17:15 82 20 108/59 (75) 96 11/20/17 17:00 87 28 115/62 (79) 95 18 16:45 80 27 115/61 (79) 96 /18 16:30 93 23 113/61 (78) 95 Nasal Cannula 2.0 110/70 (83) 11/20/17 16:15 89 120/62 (81) 97 Nasal Cannula 2.0 11/20/17 16:00 91 Room Air 11/20/17 16:00 37.1 93 20 119/71 (87) 91 Room Air 11/20/17 15:45 89 114/65 (81) 95 11/20/17 15:30 74 102/61 (75) 95 18 15:15 75 96/56 (69) 95 18 15:02 86 96/62 (73) 89 18 15:00 76 98/56 (70) 95 18 14:45 85 108/60 (76) 94 18 14:31 81 104/66 (79) 94 11/20/18 14:30 83 103/56 (72) 93 18 14:15 85 101/55 (70) 93 18 14:01 83 111/69 (83) 94 18 14:00 86 102/56 (71) 93 3/3/18 13:45 80 99/55 (70) 94 11/20/17 13:31 78 103/67 (79) 94 11/20/17 13:30 80 103/55 (71) 95 11/20/17 13:15 76 98/53 (68) 95 11/20/17 13:00 73 87/49 (62) 95 11/20/17 12:45 75 90/50 (63) 95 11/20/17 12:30 78 102/55 (71) 94 11/20/17 12:15 80 105/55 (72) 94 11/20/17 12:00 36.9 77 20 95/58 (70) 92 Room Air 11/20/17 12:00 92 Room Air 11/20/17 11:30 75 91/50 (64) 99 Nasal Cannula 2.0 11/20/17 11:15 77 95/52 (66) 99 Nasal Cannula 2.0 11/20/17 11:01 74 99/65 (76) 99 Nasal Cannula 2.0 11/20/17 11:00 78 16 95/52 (66) 99 Nasal Cannula 2.0 11/20/17 10:45 77 95/52 (66) 100 Nasal Cannula 2.0 11/20/17 10:30 83 92/52 (65) 100 Nasal Cannula 2.0 11/20/17 10:15 80 96/52 (67) 99 Nasal Cannula 2.0 General Appearance: WD/WN, no apparent distress Abdomen: non distended, soft, + tenderness (Appropriate) Incision(s): clean, dry, intact, no erythema, no drainage Laboratory Results: Results Past 24 Hours Test 11/20/17 11:23 11/20/17 16:11 11/20/17 16:19 11/20/17 21:48 Range/Units Bedside Glucose (other) 123 104 90 70-99 mg/dl Hemoglobin 8.6 14.0-18.0 g/dL Hematocrit 26.4 42-52 % Test 11/21/17 04:57 11/21/17 06:03 Range/Units White Blood Count 11.64 4.8-10.8 K/uL Red Blood Count 2.84 4.7-6.1 M/uL Hemoglobin 8.0 14.0-18.0 g/dL Hematocrit 24.3 42-52 % Mean Corpuscular Volume 85.6 80-100 fL Mean Corpuscular Hemoglobin 28.2 25-34 pg Mean Corpuscular Hemoglobin Concent 32.9 32-36 g/dl Platelet Count 76 130-400 K/uL Mean Platelet Volume 8.4 7.4-10.4 fL Neutrophils (%) (Auto) 87.3 % Lymphocytes (%) (Auto) 8.6 % Monocytes (%) (Auto) 3.5 % Eosinophils (%) (Auto) 0.2 % Basophils (%) (Auto) 0.1 % Neutrophils # (Auto) 10.16 1.4-6.5 K/uL Lymphocytes # (Auto) 1.00 1.2-3.4 K/uL Monocytes # (Auto) 0.41 0.11-0.59 K/uL Eosinophils # (Auto) 0.02 0-0.5 K/uL Basophils # (Auto) 0.01 0-0.2 K/uL RDW Standard Deviation 50.6 36.4-46.3 fL RDW Coefficient of Variation 16.2 11.5-14.5 % Immature Granulocyte % (Auto) 0.3 % Immature Granulocyte # (Auto) 0.04 0.00-0.02 K/uL Platelet Estimate DECREASED Polychromasia 1+ Sodium Level 133 136-145 mmol/L Potassium Level 3.6 3.5-5.1 mmol/L Chloride Level 102 98-107 mmol/L Carbon Dioxide Level 27 21-32 mmol/L Anion Gap 4.0 3-11 mmol/L Blood Urea Nitrogen 15 7-18 mg/dl Creatinine 0.48 0.60-1.40 mg/dl Est Creatinine Clear Calc Drug Dose 132.9 ml/min Estimated GFR () 121.5 Estimated GFR (Non- 104.8 BUN/Creatinine Ratio 31.9 10-20 Random Glucose 82 70-99 mg/dl Calcium Level 6.5 8.5-10.1 mg/dl Ionized Calcium 0.96 1.12-1.32 mmol/l Magnesium Level 2.3 1.8-2.4 mg/dl Bedside Glucose (other) 81 70-99 mg/dl Assessment & Plan POD #3 left hemicolectomy partial small bowel resection, overall doing well, appreciate critical care management of this patient. Continue MICHAEL drain, NG tube, Dunn catheter Keep NPO, UGI on Wednesday continue broad spectrum abx for spillage during case Dressing change Out of bed to chair, IS medical management per ICU team surgery will follow, call with questions or concerns
[2017-11-21] MEDS ORDERED: CONSULT PHARMACY STA (11:15)
[2017-11-21] MEDS ORDERED: TPN/PPN CONSULT PHARMACY PRN (11:29)
[2017-11-21] MEDS: PANTOprazole INJ 40 MG in SYRINGE 0 ML IV SCH (11:29)
[2017-11-21] MEDS ORDERED: DEXTROSE 50% 50 ML SYR ONE (11:36)
--- NOTE | 2017-11-21 11:58 | Critical Care Progress Note ---
Critical Care Progress Note Date of Service Nov 21, 2017. ICU Day ICU Day Number: [address] Corea Subjective Feels improved compared to yesterday Vasopressin turned off at approximately 7 AM this morning Levophed turned off later this morning Objective Vital signs reviewed Physical Exam: General - NAD, Intubated and resting alert in bed Eyes - PERRL, EOMI No icterus, gaze conjugate Neck - Supple, trachea midline Lungs - No paradoxical chest wall movement, clear and diminished to auscultation bilaterally, no wheezes, rales, or rhonchi Heart - Reg rate and rhythm, No murmur, rubs, clicks, or gallops appreciated Abdomen - BS Absent, no bruits noted, tympanic to percussion, soft, nontender, nondistended, surgical dressing clean dry and intact down the midline. [address], fluid color improving to serous fluid Extremities -2+ edema Neuro -alert oriented 3 conversant Assessment & Plan Reason Critically Ill: Patient is an 77-year-old male who is transferred to the ICU for continue hypotension intra-operatively, with 500cc EBL and 4u of PRBCs given. Colonic mass found on CT and removed via L hemicolectomy with resection. Pt remains intubated secondary to profound hypotension, off vasoactive's this morning PLAN: CV: * Hypotension * Off vasoactive's as of this morning * Paroxysmal atrial fibrillation with RVR * Resolved Neuro: * Pain controlled * Continue with fentanyl IV as needed * Discontinued sedatives Resp: * Extubation 11/20/2017 * Incentive spirometry q. shift Fluids/Renal: * Stopping maintenance fluids today * Starting TPN administration today * Has central line, max concentrate fluids PAULINE: Resolved * Will begin gentle diuresis * 80 MBq potassium in TPN * Higher phosphorus levels secondary to possible refeeding syndrome Anasarca * Begin gentle diuresis ID: * Abx ciprofloxacin, metronidazole, vancomycin discontinued yesterday * Antifungal: Caspofungin discontinued yesterday * Trend fever curve GI/Nutrition: * POD # 3 Left Colectomy and resection * Dressing clean dry and intact * MICHAEL Drain to suction improving * Pt denies pain * 4u of PRBCs given * Starting TPN administration today * Given 2 g/kg protein: 600 kcal * 175 g dextrose: 595 kcal * 50 g lipid: 500 kcal * Total calories approximately 1695 kcal * Estimated caloric needs: 1875 kcal * NG tube in place, not to be moved Protein calorie malnutrition: Evidenced by BMI of 22, 50+ pound weight loss, acute (exploratory laparotomy) and chronic illness (abdominal mass), diffuse anasarca Heme: * Anemia secondary to Rectal bleeding * Likely require iron supplementation in the near future * DVT prophylaxis conversion to Lovenox later today renal function now normal Endocrine: Accu-Checks per protocol * Blood sugars within acceptable ranges Access: Right internal jugular vein triple-lumen catheter Radial arterial line discontinued November 19 CODE STATUS: DO NOT RESUSCITATE in event of cardiac arrest I have consented the patient for a PICC line as the patient will likely need continued TPN administration given protein calorie malnutrition recent weight loss I have personally spent 100 minutes of critical care time in the direct management of this patient. This is a life/limb threatening event. This includes time spent evaluating patient, direct bedside care, chart review, placing orders, interpretation of diagnostic studies, discussion with consultants, patient, and/or family members regarding treatment decisions, as well as other required patient management activities. This time is exclusive of all separately billable procedures, and teaching time and separate from and in addition to any other critical care service time. Data Medications: Current Inpatient Medications Medications (Trade) Dose Ordered Sig/Jose Route Start Time Stop Time Status Last Admin Dose Admin Norepinephrine Bitartrate 8 mg/ Dextrose 508 ml @ 0 mls/hr Q0M IV 11/18/17 17:13 12/18/17 17:12 Future hold 11/20/17 19:55 25 MLS/HR Midazolam HCl (Versed Inj) 2 mg Q2H PRN IV 11/18/17 17:30 12/18/17 17:29 11/19/17 18:09 2 MG Parenteral Electrolyte Solution 1,000 ml @ 125 mls/hr Q8H IV 11/18/17 17:45 12/18/17 17:44 11/21/17 08:41 125 MLS/HR Vasopressin 50 units/Sodium Chloride 502.5 ml @ 0 mls/hr Q0M PRN IV 11/19/17 01:55 12/19/17 01:54 11/20/17 19:53 24 MLS/HR Insulin Aspart (novoLOG ASPART) SLIDING SCALE G... ACHS SC 11/19/17 06:45 12/19/17 06:44 11/19/17 08:02 1 UNITS Pantoprazole Sodium 40 mg/ Syringe 10 ml @ 5 mls/min DAILY@11 IV 11/19/17 11:00 12/19/17 10:59 11/20/17 11:21 5 MLS/MIN Metoprolol Tartrate (Lopressor Iv) 5 mg Q4H PRN IV 11/19/17 08:30 12/19/17 08:29 Heparin Sodium (Porcine) (Heparin Sq 5000 Unit/0.5ml) 5,000 unit Q8 SC 11/19/17 09:00 12/19/17 08:59 11/21/17 05:37 5,000 UNIT Fentanyl Citrate (Fentanyl Bolus From Bag) 50 mcg Q20M PRN IV 11/19/17 10:00 12/03/17 09:59 11/19/17 16:12 50 MCG Fentanyl Citrate 250 ml @ 0 mls/hr Q0M PRN IV 11/19/17 10:00 12/03/17 09:59 11/19/17 11:45 5 MLS/HR Fentanyl Citrate (Fentanyl Inj) 100 mcg Q2H PRN IV 11/20/17 14:15 12/04/17 14:14 11/21/17 07:26 100 MCG Vital Signs: Date Time Temp Pulse Resp B/P (MAP) Pulse Ox O2 Delivery O2 Flow Rate FiO2 11/21/17 10:00 90 27 93/61 (72) 97 Nasal Cannula 2.0 11/21/17 09:30 88 16 94/58 (70) 95 Nasal Cannula 2.0 11/21/17 09:00 85 22 96/58 (71) 97 Nasal Cannula 2.0 11/21/17 08:30 94 26 99/61 (74) 95 Nasal Cannula 2.0 11/21/17 08:00 36.8 89 27 110/67 (81) 96 Nasal Cannula 2.0 11/21/17 08:00 Nasal Cannula 2.0 11/21/17 07:30 97 22 109/56 (73) 95 Nasal Cannula 2.0 11/21/17 07:00 90 23 103/56 (72) 97 Nasal Cannula 2.0 11/21/17 06:31 89 30 98/63 (75) 97 Nasal Cannula 2.0 11/21/17 06:01 86 26 93/62 (72) 96 Nasal Cannula 2.0 11/21/17 06:00 87 24 94/53 (67) 96 Nasal Cannula 2.0 11/21/17 05:32 86 27 103/99 (100) 93 Nasal Cannula 2.0 11/21/17 05:01 82 27 106/66 (79) 96 Nasal Cannula 2.0 11/21/17 05:00 85 27 272/271 (271) 95 Nasal Cannula 2.0 11/21/17 04:10 Nasal Cannula 11/21/17 04:01 78 22 107/69 (82) 98 Nasal Cannula 2.0 11/21/17 04:00 79 22 100/57 (71) 99 Nasal Cannula 2.0 11/21/17 03:31 78 27 105/68 (80) 96 Nasal Cannula 2.0 11/21/17 03:01 76 25 104/64 (77) 96 Nasal Cannula 2.0 11/21/17 03:00 77 28 101/57 (72) 96 Nasal Cannula 2.0 11/21/17 02:31 83 31 106/66 (79) 95 Nasal Cannula 2.0 11/21/17 02:01 82 28 107/65 (79) 96 Nasal Cannula 2.0 11/21/17 02:00 83 32 105/60 (75) 95 Nasal Cannula 2.0 11/21/17 01:31 84 32 100/63 (75) 95 Nasal Cannula 2.0 11/21/17 01:02 83 30 115/73 (87) 93 Nasal Cannula 2.0 11/21/17 01:00 78 33 110/62 (78) 96 Nasal Cannula 2.0 11/21/17 00:13 Nasal Cannula 11/21/17 00:01 76 25 115/68 (84) 98 Nasal Cannula 2.0 11/21/17 00:00 73 30 105/61 (76) 98 Nasal Cannula 2.0 11/20/17 23:01 77 27 103/60 (74) 96 Nasal Cannula 2.0 11/20/17 23:00 79 33 116/65 (82) 97 Nasal Cannula 2.0 18 22:31 76 21 108/65 (79) 97 Nasal Cannula 2.0 11/20/17 22:01 37.0 82 29 116/69 (85) 97 Nasal Cannula 2.0 11/20/17 22:00 80 29 105/60 (75) 97 Nasal Cannula 2.0 33/18 21:31 74 27 109/67 (81) 97 Nasal Cannula 2.0 318 21:13 79 24 107/60 (76) 97 Nasal Cannula 2.0 318 21:01 79 27 106/66 (79) 96 Nasal Cannula 2.0 18 21:00 80 27 109/61 (77) 96 Nasal Cannula 2.0 18 20:31 37.0 74 25 102/64 (77) 96 Nasal Cannula 2.0 18 20:24 Nasal Cannula 18 20:01 83 23 109/65 (80) 96 18 20:00 82 26 111/62 (78) 96 18 19:31 81 23 99/68 (78) 98 3//18 19:01 82 30 100/64 (76) 96 //18 19:00 82 27 108/60 (76) 96 11/20/18 18:31 78 16 106/61 (76) 97 3//18 18:30 78 19 100/56 (71) 97 3//18 18:15 80 23 100/55 (70) 97 3//18 18:01 81 18 96/58 (71) 97 //18 18:00 83 20 105/57 (73) 97 3/3/18 17:45 86 24 105/57 (73) 97 3/3/18 17:31 80 21 94/61 (72) 96 11/20/18 17:30 83 25 105/58 (74) 96 3//18 17:15 82 20 108/59 (75) 96 3/3/18 17:00 87 28 115/62 (79) 95 3/3/18 16:45 80 27 115/61 (79) 96 11/20/18 16:30 93 23 113/61 (78) 95 Nasal Cannula 2.0 110/70 (83) 18 16:15 89 120/62 (81) 97 Nasal Cannula 2.0 18 16:00 91 Room Air 18 16:00 37.1 93 20 119/71 (87) 91 Room Air 18 15:45 89 114/65 (81) 95 3/3/18 15:30 74 102/61 (75) 95 11/20/17 15:15 75 96/56 (69) 95 11/20/17 15:02 86 96/62 (73) 89 11/20/17 15:00 76 98/56 (70) 95 11/20/17 14:45 85 108/60 (76) 94 11/20/17 14:31 81 104/66 (79) 94 11/20/17 14:30 83 103/56 (72) 93 11/20/17 14:15 85 101/55 (70) 93 11/20/17 14:01 83 111/69 (83) 94 11/20/17 14:00 86 102/56 (71) 93 11/20/17 13:45 80 99/55 (70) 94 11/20/17 13:31 78 103/67 (79) 94 11/20/17 13:30 80 103/55 (71) 95 11/20/17 13:15 76 98/53 (68) 95 11/20/17 13:00 73 87/49 (62) 95 11/20/17 12:45 75 90/50 (63) 95 11/20/17 12:30 78 102/55 (71) 94 11/20/17 12:15 80 105/55 (72) 94 11/20/17 12:00 36.9 77 20 95/58 (70) 92 Room Air 11/20/17 12:00 92 Room Air 11/20/17 11:30 75 91/50 (64) 99 Nasal Cannula 2.0 11/20/17 11:15 77 95/52 (66) 99 Nasal Cannula 2.0 Laboratory Results: Last 24 Hours Test 11/20/17 11:23 11/20/17 16:11 11/20/17 16:19 11/20/17 21:48 Bedside Glucose (other) 123 mg/dl 104 mg/dl 90 mg/dl Hemoglobin 8.6 g/dL Hematocrit 26.4 % Test 11/21/17 04:57 11/21/17 06:03 White Blood Count 11.64 K/uL Red Blood Count 2.84 M/uL Hemoglobin 8.0 g/dL Hematocrit 24.3 % Mean Corpuscular Volume 85.6 fL Mean Corpuscular Hemoglobin 28.2 pg Mean Corpuscular Hemoglobin Concent 32.9 g/dl Platelet Count 76 K/uL Mean Platelet Volume 8.4 fL Neutrophils (%) (Auto) 87.3 % Lymphocytes (%) (Auto) 8.6 % Monocytes (%) (Auto) 3.5 % Eosinophils (%) (Auto) 0.2 % Basophils (%) (Auto) 0.1 % Neutrophils # (Auto) 10.16 K/uL Lymphocytes # (Auto) 1.00 K/uL Monocytes # (Auto) 0.41 K/uL Eosinophils # (Auto) 0.02 K/uL Basophils # (Auto) 0.01 K/uL RDW Standard Deviation 50.6 fL RDW Coefficient of Variation 16.2 % Immature Granulocyte % (Auto) 0.3 % Immature Granulocyte # (Auto) 0.04 K/uL Platelet Estimate DECREASED Polychromasia 1+ Sodium Level 133 mmol/L Potassium Level 3.6 mmol/L Chloride Level 102 mmol/L Carbon Dioxide Level 27 mmol/L Anion Gap 4.0 mmol/L Blood Urea Nitrogen 15 mg/dl Creatinine 0.48 mg/dl Est Creatinine Clear Calc Drug Dose 132.9 ml/min Estimated GFR () 121.5 Estimated GFR (Non- 104.8 BUN/Creatinine Ratio 31.9 Random Glucose 82 mg/dl Calcium Level 6.5 mg/dl Ionized Calcium 0.96 mmol/l Magnesium Level 2.3 mg/dl Bedside Glucose (other) 81 mg/dl
[2017-11-21 12:35] LABS: INR 1.1 (0.9-1.1); PTT PATIENT 44.5 SECONDS (21.0-31.0)
[2017-11-21 12:41] LABS: ALBUMIN 0.9 gm/dl (3.4-5.0); PHOSPHORUS 2.1 mg/dl (2.5-4.9)
--- NOTE | 2017-11-21 15:56 | Progress Note ---
Internal Med Progress Note Date of Service: Nov 21, 2017. Provider Documentation: SUBJECTIVE: Seen and examined at bedside Feels better today Abdominal Pain is controlled Off pressors and antibiotics Denies chest pain, SOB Planned to be started on TPN today Had Liquid BM overnight OBJECTIVE: Vital Signs-as noted below Physical Exam: General Appearance:Moderately built and nourished, no apparent distress Head: normocephalic, Atraumatic Eyes: normal inspection, EOMI, PERRL Neck: supple, Trachea midline Respiratory/Chest: Coarse breath sounds, CTA Cardiovascular: S1, S2, No murmur Abdomen/GI:Soft, mild tender generalized, Bowel sounds present, +Surgical bandage, drain Extremities/Musculoskelatal:normal inspection, 2-3+ Edema in extremities (3rd Spacing) Neurologic/Psych:grossly no focal neurological deficits Skin: normal color, warm Lab data as noted below. ASSESSMENT & PLAN: Patient is a 77 yr male presented with progressive worsening dyspnea and anemia along with weight loss over the past few months. 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 Intubated post op: 11/18/17 Extubated on 11/20/17 Appreciate GI and Surgery Input Off IV fluids, pressors, and empiric antibiotics Appreciate Shop Firer/Fireman help Pain control Pathology pending TPN to be started today Gentle diuresis PRN Anemia: likely secondary to above Monitor Hb:8.0 today S/P 4 units PRBC Monitor Hb Transfuse PRN Hypokalemia/Hypocalcemia: Replace as needed monitor Protein-calorie malnutrition: Nutrition consult On TPN HTN: hold lisinopril monitor DVT Px: Lovenox SQ Disposition: Monitor in ICU PROCEDURES: EGD: Impression: - Normal upper third of esophagus, middle third of esophagus and lower third of esophagus. - Z-line regular, 37 cm from the incisors. - Small hiatal hernia. - Normal stomach. Biopsied. - Normal examined duodenum. Biopsied. Recommendation: - Perform a colonoscopy today. Colonoscopy: Findings: An ulcerated partially obstructing large mass was found in the descending colon. The mass was circumferential. A large amount of stool was found in the entire colon, precluding visualization. Impression: - Preparation of the colon was inadequate. 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 - Stool in the entire examined colon. - No specimens collected. Recommendation: - Perform CT scan (computed tomography) of the abdomen with contrast. - Repeat colonoscopy tomorrow because the bowel preparation was poor. CT ABD: 1. 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 This appears to have formed both a fistulous connection and direct invasion of adjacent small bowel as well as sinus tracks into the mesentery. 2. Resultant partial large bowel obstruction and developing stercoral colitis of the colon proximal to the descending colonic mass. 3. Findings also concerning for lymph node metastases, although the lymph nodes in the mesentery and retroperitoneum are borderline enlarged. 4. Small amount of abdominal pelvic ascites. Vital Signs: Date Time Temp Pulse Resp B/P (MAP) Pulse Ox O2 Delivery O2 Flow Rate FiO2 11/21/17 14:00 105 26 105/84 (91) 96 Room Air 11/21/17 13:01 91 24 100/62 (75) 97 2.0 11/21/17 12:00 Nasal Cannula 2.0 11/21/17 12:00 36.8 92 22 99/59 (72) 96 Nasal Cannula 2.0 11/21/17 11:00 84 26 101/76 (84) 96 Nasal Cannula 2.0 11/21/17 10:30 90 27 99/61 (74) 96 Nasal Cannula 2.0 11/21/17 10:00 90 27 93/61 (72) 97 Nasal Cannula 2.0 11/21/17 09:30 88 16 94/58 (70) 95 Nasal Cannula 2.0 11/21/17 09:00 85 22 96/58 (71) 97 Nasal Cannula 2.0 11/21/17 08:30 94 26 99/61 (74) 95 Nasal Cannula 2.0 11/21/17 08:00 36.8 89 27 110/67 (81) 96 Nasal Cannula 2.0 11/21/17 08:00 Nasal Cannula 2.0 11/21/17 07:30 97 22 109/56 (73) 95 Nasal Cannula 2.0 11/21/17 07:00 90 23 103/56 (72) 97 Nasal Cannula 2.0 11/21/17 06:31 89 30 98/63 (75) 97 Nasal Cannula 2.0 11/21/17 06:01 86 26 93/62 (72) 96 Nasal Cannula 2.0 11/21/17 06:00 87 24 94/53 (67) 96 Nasal Cannula 2.0 11/21/17 05:32 86 27 103/99 (100) 93 Nasal Cannula 2.0 11/21/17 05:01 82 27 106/66 (79) 96 Nasal Cannula 2.0 11/21/17 05:00 85 27 272/271 (271) 95 Nasal Cannula 2.0 11/21/17 04:10 Nasal Cannula 11/21/17 04:01 78 22 107/69 (82) 98 Nasal Cannula 2.0 11/21/17 04:00 79 22 100/57 (71) 99 Nasal Cannula 2.0 11/21/17 03:31 78 27 105/68 (80) 96 Nasal Cannula 2.0 11/21/17 03:01 76 25 104/64 (77) 96 Nasal Cannula 2.0 11/21/17 03:00 77 28 101/57 (72) 96 Nasal Cannula 2.0 11/21/17 02:31 83 31 106/66 (79) 95 Nasal Cannula 2.0 11/21/17 02:01 82 28 107/65 (79) 96 Nasal Cannula 2.0 11/21/17 02:00 83 32 105/60 (75) 95 Nasal Cannula 2.0 11/21/17 01:31 84 32 100/63 (75) 95 Nasal Cannula 2.0 11/21/17 01:02 83 30 115/73 (87) 93 Nasal Cannula 2.0 11/21/17 01:00 78 33 110/62 (78) 96 Nasal Cannula 2.0 11/21/17 00:13 Nasal Cannula 11/21/17 00:01 76 25 115/68 (84) 98 Nasal Cannula 2.0 11/21/17 00:00 73 30 105/61 (76) 98 Nasal Cannula 2.0 11/20/17 23:01 77 27 103/60 (74) 96 Nasal Cannula 2.0 11/20/17 23:00 79 33 116/65 (82) 97 Nasal Cannula 2.0 11/20/17 22:31 76 21 108/65 (79) 97 Nasal Cannula 2.0 11/20/18 22:01 37.0 82 29 116/69 (85) 97 Nasal Cannula 2.0 18 22:00 80 29 105/60 (75) 97 Nasal Cannula 2.0 318 21:31 74 27 109/67 (81) 97 Nasal Cannula 2.0 33/18 21:13 79 24 107/60 (76) 97 Nasal Cannula 2.0 18 21:01 79 27 106/66 (79) 96 Nasal Cannula 2.0 18 21:00 80 27 109/61 (77) 96 Nasal Cannula 2.0 18 20:31 37.0 74 25 102/64 (77) 96 Nasal Cannula 2.0 18 20:24 Nasal Cannula 18 20:01 83 23 109/65 (80) 96 18 20:00 82 26 111/62 (78) 96 18 19:31 81 23 99/68 (78) 98 318 19:01 82 30 100/64 (76) 96 33/18 19:00 82 27 108/60 (76) 96 3/18 18:31 78 16 106/61 (76) 97 18 18:30 78 19 100/56 (71) 97 3/18 18:15 80 23 100/55 (70) 97 3/3/18 18:01 81 18 96/58 (71) 97 3/3/18 18:00 83 20 105/57 (73) 97 3/3/18 17:45 86 24 105/57 (73) 97 33/18 17:31 80 21 94/61 (72) 96 33/18 17:30 83 25 105/58 (74) 96 3/3/18 17:15 82 20 108/59 (75) 96 3/18 17:00 87 28 115/62 (79) 95 3/18 16:45 80 27 115/61 (79) 96 3/3/18 16:30 93 23 113/61 (78) 95 Nasal Cannula 2.0 110/70 (83) 18 16:15 89 120/62 (81) 97 Nasal Cannula 2.0 3/3/18 16:00 91 Room Air 3/3/18 16:00 37.1 93 20 119/71 (87) 91 Room Air 11/20/17 15:45 89 114/65 (81) 95 11/20/17 15:30 74 102/61 (75) 95 Lab Results: Results Past 24 Hours Test 11/20/17 16:11 11/20/17 16:19 11/20/17 21:48 11/21/17 04:57 Range/Units Hemoglobin 8.6 8.0 14.0-18.0 g/dL Hematocrit 26.4 24.3 42-52 % Bedside Glucose (other) 104 90 70-99 mg/dl White Blood Count 11.64 4.8-10.8 K/uL Red Blood Count 2.84 4.7-6.1 M/uL Mean Corpuscular Volume 85.6 80-100 fL Mean Corpuscular Hemoglobin 28.2 25-34 pg Mean Corpuscular Hemoglobin Concent 32.9 32-36 g/dl Platelet Count 76 130-400 K/uL Mean Platelet Volume 8.4 7.4-10.4 fL Neutrophils (%) (Auto) 87.3 % Lymphocytes (%) (Auto) 8.6 % Monocytes (%) (Auto) 3.5 % Eosinophils (%) (Auto) 0.2 % Basophils (%) (Auto) 0.1 % Neutrophils # (Auto) 10.16 1.4-6.5 K/uL Lymphocytes # (Auto) 1.00 1.2-3.4 K/uL Monocytes # (Auto) 0.41 0.11-0.59 K/uL Eosinophils # (Auto) 0.02 0-0.5 K/uL Basophils # (Auto) 0.01 0-0.2 K/uL RDW Standard Deviation 50.6 36.4-46.3 fL RDW Coefficient of Variation 16.2 11.5-14.5 % Immature Granulocyte % (Auto) 0.3 % Immature Granulocyte # (Auto) 0.04 0.00-0.02 K/uL Platelet Estimate DECREASED Polychromasia 1+ Sodium Level 133 136-145 mmol/L Potassium Level 3.6 3.5-5.1 mmol/L Chloride Level 102 98-107 mmol/L Carbon Dioxide Level 27 21-32 mmol/L Anion Gap 4.0 3-11 mmol/L Blood Urea Nitrogen 15 7-18 mg/dl Creatinine 0.48 0.60-1.40 mg/dl Est Creatinine Clear Calc Drug Dose 132.9 ml/min Estimated GFR () 121.5 Estimated GFR (Non- 104.8 BUN/Creatinine Ratio 31.9 10-20 Random Glucose 82 70-99 mg/dl Calcium Level 6.5 8.5-10.1 mg/dl Ionized Calcium 0.96 1.12-1.32 mmol/l Magnesium Level 2.3 1.8-2.4 mg/dl Test 11/21/17 06:03 11/21/17 11:33 11/21/17 11:51 11/21/17 12:01 Range/Units Bedside Glucose (other) 81 70-99 mg/dl Bedside Glucose 66 105 70-99 mg/dl Prothrombin Time 12.0 9.0-12.0 SECONDS Prothromb Time International Ratio 1.1 0.9-1.1 Activated Partial Thromboplast Time 44.5 21.0-31.0 SECONDS Partial Thromboplastin Ratio 1.7 Ionized Calcium 0.99 1.12-1.32 mmol/l Phosphorus Level 2.1 2.5-4.9 mg/dl Total Bilirubin 0.6 0.2-1 mg/dl Direct Bilirubin 0.3 0-0.2 mg/dl Aspartate Amino Transf (AST/SGOT) 12 15-37 U/L Alanine Aminotransferase (ALT/SGPT) 10 12-78 U/L Alkaline Phosphatase 87 45-117 U/L Total Protein 4.0 6.4-8.2 gm/dl Albumin 0.9 3.4-5.0 gm/dl Lipase 72 73-393 U/L
[2017-11-21] MEDS ORDERED: CUSTOM CENTRAL PN 1 BAG IV SCH (16:00)
[2017-11-21] MEDS ORDERED: DEXTROSE 10% 1,000 ML IV PRN (16:00)
[2017-11-21] MEDS ORDERED: FUROSEMIDE INJ 20 MG in SYRINGE 0 ML IV ONE (18:00)
[2017-11-21] MEDS ORDERED: ENOXAPARIN 40 MG/0.4 ML SYR SQ SCH (18:00)
[2017-11-21] MEDS ORDERED: HEPARIN SOD 5000 UNIT/0.5 ML CARP SC SCH (21:00)
[2017-11-22] VITALS (42 sets, daily range): BP systolic 82–115; BP diastolic 56–82; PULSE 82–150; TEMP 37–37.5; O2SAT 91–100
[2017-11-22] MEDS: FENTANYL CITRATE INJ 50 MCG/1 ML 2 ML VIAL IV PRN ×8 (03:21→23:41)
[2017-11-22 05:59] LABS: HEMATOCRIT 27.4 % (42-52); HEMOGLOBIN 8.9 g/dL (14.0-18.0); MEAN CELL VOLUME 86.7 fL (80-100); MEAN CORPUSCULAR HEMOGLOBIN 28.2 pg (25-34); MEAN CORPUSCULAR HGB CONC 32.5 g/dl (32-36); RED CELL DISTRIBUTION WIDTH CV 16.3 % (11.5-14.5); RED CELL DISTRIBUTION WIDTH SD 51.1 fL (36.4-46.3); WHITE BLOOD COUNT 11.56 K/uL (4.8-10.8)
[2017-11-22 06:14] LABS: CALCIUM 6.6 mg/dl (8.5-10.1); CREATININE 0.62 mg/dl (0.60-1.40); POTASSIUM 3.7 mmol/L (3.5-5.1)
[2017-11-22 06:16] LABS: PHOSPHORUS 2.6 mg/dl (2.5-4.9)
[2017-11-22] MEDS: INSULIN ASPART 100 UNITS/ML 3 ML PEN SC SCH ×4 (06:16→23:57)
[2017-11-22 06:50] LABS: MEAN PLATELET VOLUME 8.8 fL (7.4-10.4); PLATELET COUNT 87 K/uL (130-400)
[2017-11-22 06:54] LABS: BASO % 0.1 %; BASO ABS # 0.01 K/uL (0-0.2); EOS % 0.4 %; EOS ABS # 0.05 K/uL (0-0.5); IG# 0.06 K/uL (0.00-0.02); LYMPH % 11.7 %; LYMPH ABS # 1.35 K/uL (1.2-3.4); MONO ABS # 0.58 K/uL (0.11-0.59); NEUT % 82.3 %; NEUT ABS # 9.51 K/uL (1.4-6.5)
[2017-11-22] MEDS ORDERED: SODIUM CHLORIDE 0.9% 500ML 500 ML IV SCH (09:30)
[2017-11-22] MEDS ORDERED: AMIODARONE IV BOLUS / DRIP IV STA (09:59)
[2017-11-22] MEDS: AZTREONAM IV 1,000 MG in DEXTROSE 5% 100ML 100 ML IV SCH ×2 (10:17→17:32)
[2017-11-22] MEDS: ALBUMIN HUMAN 25% 12.5 GM/50 ML VIAL IV SCH ×2 (10:18→17:32)
[2017-11-22] MEDS ORDERED: AMIODARONE / D5W 100 ML PHARMACY PREPARED IV SCH ×2 (10:30)
--- NOTE | 2017-11-22 10:33 | Surgery Progress Note ---
Surgery Progress Note Date of Service Nov 22, 2017. Subjective Post OP Day: 4 awake, pain controlled, BM x2 abx restarted this AM, also started on albumin and amio gtt, off pressors Objective Vital Signs: Date Time Temp Pulse Resp B/P (MAP) Pulse Ox O2 Delivery O2 Flow Rate FiO2 11/22/17 09:00 117 23 95/74 (81) 11/22/17 08:31 114 18 110/72 (85) 96 11/22/17 08:00 37.3 110 29 103/73 (83) 95 Nasal Cannula 2.0 11/22/17 06:01 94 16 82/65 (71) 99 Nasal Cannula 2.0 11/22/17 05:31 87 26 108/73 (85) 97 Nasal Cannula 2.0 11/22/17 05:01 82 18 100/68 (79) 97 Nasal Cannula 2.0 11/22/17 04:17 Nasal Cannula 2.0 11/22/17 04:01 37.0 85 16 107/67 (80) 96 Nasal Cannula 2.0 11/22/17 03:31 87 8 89/60 (70) 96 Nasal Cannula 2.0 11/22/17 03:01 90 17 100/67 (78) 95 Nasal Cannula 2.0 11/22/17 02:31 87 17 109/71 (84) 96 Nasal Cannula 2.0 11/22/17 02:01 83 14 99/63 (75) 96 Nasal Cannula 2.0 11/22/17 01:31 86 19 98/64 (75) 96 Nasal Cannula 2.0 11/22/17 01:01 87 12 99/56 (70) 95 Nasal Cannula 2.0 11/22/17 00:32 86 14 109/68 (82) 94 Nasal Cannula 2.0 11/22/17 00:30 Nasal Cannula 2.0 11/22/17 00:01 37.0 85 14 99/67 (78) 95 Nasal Cannula 2.0 11/21/17 23:01 83 18 107/69 (82) 95 Nasal Cannula 2.0 11/21/17 22:31 88 14 99/75 (83) 96 Nasal Cannula 2.0 11/21/17 22:01 89 15 117/41 (66) 95 Nasal Cannula 2.0 11/21/17 21:31 93 18 98/64 (75) 95 Nasal Cannula 2.0 11/21/17 21:01 91 17 92/63 (73) 95 Nasal Cannula 2.0 11/21/17 20:32 Nasal Cannula 2.0 11/21/17 20:31 84 17 114/77 (89) 96 Nasal Cannula 2.0 11/21/17 20:01 37.0 92 16 96/66 (76) 96 Nasal Cannula 2.0 11/21/17 19:31 100 19 112/79 (90) 96 Nasal Cannula 2.0 11/21/17 19:01 92 18 107/67 (80) 96 Nasal Cannula 2.0 11/21/17 18:00 94 26 102/67 (79) 96 Nasal Cannula 2.0 11/21/17 16:00 36.8 98 21 111/74 (86) 96 Nasal Cannula 2.0 11/21/17 16:00 Nasal Cannula 2.0 11/21/17 14:00 105 26 105/84 (91) 96 Room Air 11/21/17 13:01 91 24 100/62 (75) 97 2.0 11/21/17 12:00 Nasal Cannula 2.0 11/21/17 12:00 36.8 92 22 99/59 (72) 96 Nasal Cannula 2.0 11/21/17 11:00 84 26 101/76 (84) 96 Nasal Cannula 2.0 11/21/17 10:30 90 27 99/61 (74) 96 Nasal Cannula 2.0 Physical Exam: MICHAEL drainage (260, serous), urine output (450) Cardiovascular: + tachycardia Abdomen: soft Incision(s): clean, dry Extremities: + swelling (BUE) Laboratory Results: Results Past 24 Hours Test 11/21/17 11:33 11/21/17 11:51 11/21/17 12:01 11/21/17 16:22 Range/Units Bedside Glucose 66 105 83 70-99 mg/dl Prothrombin Time 12.0 9.0-12.0 SECONDS Prothromb Time International Ratio 1.1 0.9-1.1 Activated Partial Thromboplast Time 44.5 21.0-31.0 SECONDS Partial Thromboplastin Ratio 1.7 Ionized Calcium 0.99 1.12-1.32 mmol/l Phosphorus Level 2.1 2.5-4.9 mg/dl Total Bilirubin 0.6 0.2-1 mg/dl Direct Bilirubin 0.3 0-0.2 mg/dl Aspartate Amino Transf (AST/SGOT) 12 15-37 U/L Alanine Aminotransferase (ALT/SGPT) 10 12-78 U/L Alkaline Phosphatase 87 45-117 U/L Total Protein 4.0 6.4-8.2 gm/dl Albumin 0.9 3.4-5.0 gm/dl Lipase 72 73-393 U/L Test 11/21/17 21:13 11/22/17 05:20 11/22/17 05:24 11/22/17 09:10 Range/Units Bedside Glucose 121 140 70-99 mg/dl White Blood Count 11.56 4.8-10.8 K/uL Red Blood Count 3.16 4.7-6.1 M/uL Hemoglobin 8.9 14.0-18.0 g/dL Hematocrit 27.4 42-52 % Mean Corpuscular Volume 86.7 80-100 fL Mean Corpuscular Hemoglobin 28.2 25-34 pg Mean Corpuscular Hemoglobin Concent 32.5 32-36 g/dl Platelet Count 87 130-400 K/uL Mean Platelet Volume 8.8 7.4-10.4 fL Neutrophils (%) (Auto) 82.3 % Lymphocytes (%) (Auto) 11.7 % Monocytes (%) (Auto) 5.0 % Eosinophils (%) (Auto) 0.4 % Basophils (%) (Auto) 0.1 % Neutrophils # (Auto) 9.51 1.4-6.5 K/uL Lymphocytes # (Auto) 1.35 1.2-3.4 K/uL Monocytes # (Auto) 0.58 0.11-0.59 K/uL Eosinophils # (Auto) 0.05 0-0.5 K/uL Basophils # (Auto) 0.01 0-0.2 K/uL RDW Standard Deviation 51.1 36.4-46.3 fL RDW Coefficient of Variation 16.3 11.5-14.5 % Immature Granulocyte % (Auto) 0.5 % Immature Granulocyte # (Auto) 0.06 0.00-0.02 K/uL Poikilocytosis PRESENT Sodium Level 134 136-145 mmol/L Potassium Level 3.7 3.5-5.1 mmol/L Chloride Level 101 98-107 mmol/L Carbon Dioxide Level 28 21-32 mmol/L Anion Gap 5.0 3-11 mmol/L Blood Urea Nitrogen 20 7-18 mg/dl Creatinine 0.62 0.60-1.40 mg/dl Est Creatinine Clear Calc Drug Dose 102.9 ml/min Estimated GFR () 109.4 Estimated GFR (Non- 94.4 BUN/Creatinine Ratio 32.0 10-20 Random Glucose 141 70-99 mg/dl Calcium Level 6.6 8.5-10.1 mg/dl Phosphorus Level 2.6 2.5-4.9 mg/dl Magnesium Level 2.5 1.8-2.4 mg/dl Procalcitonin 1.82 0-0.5 ng/ml Assessment & Plan extended left hemicolectomy; partial small resection/partial duodenal resection for obstructing colon cancer with coloenteric fistula(s) anemia/hypotension/tachycardia Hgb stable 8.9, preop 9 back on flagyl + Azactam agree to hold on UGI for today, not stable for transfer continue NGT, TPN
[2017-11-22] MEDS: PANTOprazole INJ 40 MG in SYRINGE 0 ML IV SCH (10:43)
[2017-11-22] MEDS ORDERED: AMIODARONE / D5W 200 ML IV SCH (10:45)
--- NOTE | 2017-11-22 10:58 | Progress Note ---
Internal Med Progress Note Date of Service: Nov 22, 2017. Provider Documentation: SUBJECTIVE: Seen and examined at bedside Patient states feeling better Abdominal Pain is controlled Started on amiodarone for afib Also started on Albumin Platelets dropped, no obvious source of bleeding Denies chest pain, SOB, dizziness, palpitations Had BM Also on TPN OBJECTIVE: Vital Signs-as noted below Physical Exam: General Appearance:Moderately built and nourished, no apparent distress Head: normocephalic, Atraumatic Eyes: normal inspection, EOMI, PERRL Neck: supple, Trachea midline Respiratory/Chest: Coarse breath sounds, CTA Cardiovascular: Irregularly Irregular, No murmur Abdomen/GI:Soft, mild tender generalized, Bowel sounds present, +Surgical bandage, drain Extremities/Musculoskelatal:normal inspection, 2-3+ Edema in extremities (3rd Spacing) Neurologic/Psych:grossly no focal neurological deficits Skin: normal color, warm Lab data as noted below. ASSESSMENT & PLAN: Patient is a 77 yr male presented with progressive worsening dyspnea and anemia along with weight loss over the past few months. 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 Intubated post op: 11/18/17 Extubated on 11/20/17 Appreciate GI and Surgery Input Procalcitonin:1.82 Resumed antibiotics today Appreciate Ramp Lead help Pain control Pathology pending continue TPN Started on IV albumin Continue NGT Planned for UGI when more stable New Onset Atrial Fibrillation: Likely secondary to above Started on amiodarone ggt No anticoagulation for not HIT screen is pending Anemia: Thrombocytopenia likely secondary to above Monitor Hb:8.9 today S/P 4 units PRBC Monitor Hb Transfuse PRBCs PRN Heparin SQ is on hold HIT screen is pending Hypokalemia/Hypocalcemia: Replace as needed monitor Protein-calorie malnutrition: Nutrition consult On TPN HTN: hold lisinopril monitor Severe Protein Calorie Malnutrition: Started on TPN DVT Px: Lovenox SQ Disposition: Monitor in ICU Code Status: DNR/DNI PROCEDURES: EGD: Impression: - Normal upper third of esophagus, middle third of esophagus and lower third of esophagus. - Z-line regular, 37 cm from the incisors. - Small hiatal hernia. - Normal stomach. Biopsied. - Normal examined duodenum. Biopsied. Recommendation: - Perform a colonoscopy today. Colonoscopy: Findings: An ulcerated partially obstructing large mass was found in the descending colon. The mass was circumferential. A large amount of stool was found in the entire colon, precluding visualization. Impression: - Preparation of the colon was inadequate. 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 - Stool in the entire examined colon. - No specimens collected. Recommendation: - Perform CT scan (computed tomography) of the abdomen with contrast. - Repeat colonoscopy tomorrow because the bowel preparation was poor. CT ABD: 1. 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 This appears to have formed both a fistulous connection and direct invasion of adjacent small bowel as well as sinus tracks into the mesentery. 2. Resultant partial large bowel obstruction and developing stercoral colitis of the colon proximal to the descending colonic mass. 3. Findings also concerning for lymph node metastases, although the lymph nodes in the mesentery and retroperitoneum are borderline enlarged. 4. Small amount of abdominal pelvic ascites. Vital Signs: Date Time Temp Pulse Resp B/P (MAP) Pulse Ox O2 Delivery O2 Flow Rate FiO2 11/22/17 12:30 114 18 102/68 (79) 93 Nasal Cannula 2.0 11/22/17 12:00 37.4 93 22 109/71 (84) 94 Nasal Cannula 2.0 11/22/17 12:00 Nasal Cannula 2.0 11/22/17 11:30 121 21 103/68 (80) 95 Nasal Cannula 2.0 11/22/17 11:17 118 21 92/69 (77) 95 Nasal Cannula 2.0 11/22/17 11:00 126 21 106/73 (84) 100 Nasal Cannula 2.0 11/22/17 10:47 120 22 112/73 (86) 11/22/17 10:32 141 24 93/69 (77) 11/22/17 10:17 143 27 107/82 (90) 11/22/17 10:00 37.3 150 36 107/82 (90) 97 Nasal Cannula 2.0 11/22/17 09:00 117 23 95/74 (81) 11/22/17 08:31 114 18 110/72 (85) 96 11/22/17 08:00 Nasal Cannula 2.0 11/22/17 08:00 37.3 110 29 103/73 (83) 95 Nasal Cannula 2.0 11/22/17 06:01 94 16 82/65 (71) 99 Nasal Cannula 2.0 11/22/17 05:31 87 26 108/73 (85) 97 Nasal Cannula 2.0 11/22/17 05:01 82 18 100/68 (79) 97 Nasal Cannula 2.0 11/22/17 04:17 Nasal Cannula 2.0 11/22/17 04:01 37.0 85 16 107/67 (80) 96 Nasal Cannula 2.0 11/22/17 03:31 87 8 89/60 (70) 96 Nasal Cannula 2.0 11/22/17 03:01 90 17 100/67 (78) 95 Nasal Cannula 2.0 11/22/17 02:31 87 17 109/71 (84) 96 Nasal Cannula 2.0 11/22/17 02:01 83 14 99/63 (75) 96 Nasal Cannula 2.0 11/22/17 01:31 86 19 98/64 (75) 96 Nasal Cannula 2.0 11/22/17 01:01 87 12 99/56 (70) 95 Nasal Cannula 2.0 11/22/17 00:32 86 14 109/68 (82) 94 Nasal Cannula 2.0 11/22/17 00:30 Nasal Cannula 2.0 11/22/17 00:01 37.0 85 14 99/67 (78) 95 Nasal Cannula 2.0 11/21/17 23:01 83 18 107/69 (82) 95 Nasal Cannula 2.0 11/21/17 22:31 88 14 99/75 (83) 96 Nasal Cannula 2.0 11/21/17 22:01 89 15 117/41 (66) 95 Nasal Cannula 2.0 11/21/17 21:31 93 18 98/64 (75) 95 Nasal Cannula 2.0 11/21/17 21:01 91 17 92/63 (73) 95 Nasal Cannula 2.0 11/21/17 20:32 Nasal Cannula 2.0 11/21/17 20:31 84 17 114/77 (89) 96 Nasal Cannula 2.0 11/21/17 20:01 37.0 92 16 96/66 (76) 96 Nasal Cannula 2.0 11/21/17 19:31 100 19 112/79 (90) 96 Nasal Cannula 2.0 11/21/17 19:01 92 18 107/67 (80) 96 Nasal Cannula 2.0 11/21/17 18:00 94 26 102/67 (79) 96 Nasal Cannula 2.0 11/21/17 16:00 36.8 98 21 111/74 (86) 96 Nasal Cannula 2.0 11/21/17 16:00 Nasal Cannula 2.0 11/21/17 14:00 105 26 105/84 (91) 96 Room Air Lab Results: Results Past 24 Hours Test 11/21/17 16:22 11/21/17 21:13 11/22/17 05:20 11/22/17 05:24 Range/Units Bedside Glucose 83 121 140 70-99 mg/dl White Blood Count 11.56 4.8-10.8 K/uL Red Blood Count 3.16 4.7-6.1 M/uL Hemoglobin 8.9 14.0-18.0 g/dL Hematocrit 27.4 42-52 % Mean Corpuscular Volume 86.7 80-100 fL Mean Corpuscular Hemoglobin 28.2 25-34 pg Mean Corpuscular Hemoglobin Concent 32.5 32-36 g/dl Platelet Count 87 130-400 K/uL Mean Platelet Volume 8.8 7.4-10.4 fL Neutrophils (%) (Auto) 82.3 % Lymphocytes (%) (Auto) 11.7 % Monocytes (%) (Auto) 5.0 % Eosinophils (%) (Auto) 0.4 % Basophils (%) (Auto) 0.1 % Neutrophils # (Auto) 9.51 1.4-6.5 K/uL Lymphocytes # (Auto) 1.35 1.2-3.4 K/uL Monocytes # (Auto) 0.58 0.11-0.59 K/uL Eosinophils # (Auto) 0.05 0-0.5 K/uL Basophils # (Auto) 0.01 0-0.2 K/uL RDW Standard Deviation 51.1 36.4-46.3 fL RDW Coefficient of Variation 16.3 11.5-14.5 % Immature Granulocyte % (Auto) 0.5 % Immature Granulocyte # (Auto) 0.06 0.00-0.02 K/uL Poikilocytosis PRESENT Sodium Level 134 136-145 mmol/L Potassium Level 3.7 3.5-5.1 mmol/L Chloride Level 101 98-107 mmol/L Carbon Dioxide Level 28 21-32 mmol/L Anion Gap 5.0 3-11 mmol/L Blood Urea Nitrogen 20 7-18 mg/dl Creatinine 0.62 0.60-1.40 mg/dl Est Creatinine Clear Calc Drug Dose 102.9 ml/min Estimated GFR () 109.4 Estimated GFR (Non- 94.4 BUN/Creatinine Ratio 32.0 10-20 Random Glucose 141 70-99 mg/dl Calcium Level 6.6 8.5-10.1 mg/dl Phosphorus Level 2.6 2.5-4.9 mg/dl Magnesium Level 2.5 1.8-2.4 mg/dl Test 11/22/17 09:10 11/22/17 11:03 11/22/17 11:54 Range/Units Procalcitonin 1.82 0-0.5 ng/ml Heparin-PF4 Antibody Screen NEG NEG Bedside Glucose 165 70-99 mg/dl Ionized Calcium 0.98 1.12-1.32 mmol/l
[2017-11-22] MEDS: METRONIDAZOLE / NSS 500 MG in PREMIXED NSS 100 ML IV SCH ×2 (11:59→20:11)
[2017-11-22] MEDS ORDERED: VANCOMYCIN INJ 1,500 MG in SODIUM CHLORIDE 0.9% 250ML 250 ML IV ONE (12:00)
[2017-11-22] MEDS ORDERED: VANCOMYCIN CONSULT ACTIVE PRN ×2 (12:00)
--- NOTE | 2017-11-22 12:25 | Pharmacy Progress Note ---
Pharmacy Abx Initial Consult Date of Service Nov 22, 2017. Pharmacy Dosing Scope Date of Consult: 11/22/17 Consultation requested by: 11/22/17 Pharmacy is consulted to initiate VANCOMYCIN IV therapy, order appropriate labs and adjust drug dose/frequency. Subjective The patient is a 77 year old male admitted on Nov 11, 2017 at 15:19. Objective Height (Feet): 6 Height (Inches): 0.00 Weight (Kilograms): 75.300 Vital Signs (Past 12Hrs) Vital Signs Past 12 Hours Date Time Temp Pulse Resp B/P (MAP) Pulse Ox O2 Delivery O2 Flow Rate FiO2 11/22/17 09:00 117 23 95/74 (81) 11/22/17 08:31 114 18 110/72 (85) 96 11/22/17 08:00 37.3 110 29 103/73 (83) 95 Nasal Cannula 2.0 11/22/17 06:01 94 16 82/65 (71) 99 Nasal Cannula 2.0 11/22/17 05:31 87 26 108/73 (85) 97 Nasal Cannula 2.0 11/22/17 05:01 82 18 100/68 (79) 97 Nasal Cannula 2.0 11/22/17 04:17 Nasal Cannula 2.0 11/22/17 04:01 37.0 85 16 107/67 (80) 96 Nasal Cannula 2.0 11/22/17 03:31 87 8 89/60 (70) 96 Nasal Cannula 2.0 11/22/17 03:01 90 17 100/67 (78) 95 Nasal Cannula 2.0 11/22/17 02:31 87 17 109/71 (84) 96 Nasal Cannula 2.0 11/22/17 02:01 83 14 99/63 (75) 96 Nasal Cannula 2.0 11/22/17 01:31 86 19 98/64 (75) 96 Nasal Cannula 2.0 11/22/17 01:01 87 12 99/56 (70) 95 Nasal Cannula 2.0 11/22/17 00:32 86 14 109/68 (82) 94 Nasal Cannula 2.0 11/22/17 00:30 Nasal Cannula 2.0 Lab Results (24Hrs) Laboratory Tests (24 Hours) Test 11/22/17 05:20 11/22/17 09:10 White Blood Count 11.56 K/uL (4.8-10.8) H Red Blood Count 3.16 M/uL (4.7-6.1) L Hemoglobin 8.9 g/dL (14.0-18.0) L Hematocrit 27.4 % (42-52) L Mean Corpuscular Volume 86.7 fL (80-100) Mean Corpuscular Hemoglobin 28.2 pg (25-34) Mean Corpuscular Hemoglobin Concent 32.5 g/dl (32-36) Platelet Count 87 K/uL (130-400) L Mean Platelet Volume 8.8 fL (7.4-10.4) Neutrophils (%) (Auto) 82.3 % Lymphocytes (%) (Auto) 11.7 % Monocytes (%) (Auto) 5.0 % Eosinophils (%) (Auto) 0.4 % Basophils (%) (Auto) 0.1 % Neutrophils # (Auto) 9.51 K/uL (1.4-6.5) H Lymphocytes # (Auto) 1.35 K/uL (1.2-3.4) Monocytes # (Auto) 0.58 K/uL (0.11-0.59) Eosinophils # (Auto) 0.05 K/uL (0-0.5) Basophils # (Auto) 0.01 K/uL (0-0.2) Procalcitonin 1.82 ng/ml (0-0.5) H Micro Results Date/Time Source Procedure Growth Status 11/18/17 17:00 Nasal MRSA DNA Surveillance Screen - Final Specimen Negative for MRSA by DNA Probe Complete 11/11/17 00:00 Nasal MRSA DNA Surveillance Screen - Final Specimen Negative for MRSA by DNA Probe Complete Risk Factors for Resistance * Current hospitalization > 5 days * Antimicrobial use within the last 90 days: Cipro + Flagyl + Vancomycin IV 3 thru 33; Caspofungin 3 thru 3/2 Assessment & Plan Assessment * 77 yo male admitted from [place] [facility] for SOB, anemia, heme + stool; found to have colon CA w/ coloenteric fistulas * Patient is now s/p extended L hemicolectomy and partial sm bowel resection * Pt noted to have leakage of GI contents and covered with Cipo + Flagyl + Vanco + Caspofungin IV x 48 hrs post-op * Empiric ABX therapy again being started this AM due to tachycardia, low grade temp, increase MICHAEL output * Pt has PCN allergy reported, rxn = hives. Uncertain if pt tolerated cephalosporins in past. Will receive Aztreonam + Flagyl + Vancomycin IV as well as caspofungin * Renal fxn appears stable, SCr 0.62, U.O. ~1.7L last 24 hrs (but did receive Lasix yesterday) * Afebrile, MAPs > 65 however one SBP less than 90 this AM, sat's > 94% on 2L NC , RR 16-29 Plan Vancomycin IV * Loading dose: 1500 mg (~20 mg/kg) * Maintenance dose: 1250 mg IV (~16.6 mg/kg) every 10 hours * Goal trough level for intra-abd infxn : 10 to 20 mcg/mL * Trough level ordered for 11/24/17 w/ maintenance dose * P'kinetic estimates: Vd 0.7L/kg, half-life ~7-8 hours Pharmacy will continue to follow and will adjust dose/frequency as necessary. Thank you.
--- NOTE | 2017-11-22 12:50 | Clinical Documentation Query ---
Dr. AMES, [facility] : CLINICAL DOCUMENTATION QUERY Patient is a 77 year old male admitted for evaluation of anemia. H&P notes report of approximately a 20 pound weight loss over the past couple months. learning and development consultant notes weight loss of "about 45 pounds over past 9 months or so". Based on current weight, this would represent a > 20% loss of body weight over this interval. This would suggest either a reduced energy intake and/or a hypermetabolic process. Please clarify as clinically appropriate. Thank you. In your clinical opinion is this patient being managed for: ( x ) Severe protein-calorie malnutrition ( ) Not Agree ( ) Other explanation of clinical findings (Please Explain) ( ) Unable to determine (Please Define) ( ) Need to Discuss The medical record reflects the following clinical findings, treatment, and risk factors. Clinical Indicators: As above Treatment: GI consultation, admission to ICU, general surgery consultation, serial labs Risk Factors: Age, possible colon cancer Please clarify and document your clinical opinion in the progress notes and discharge summary. Terms such as "probable", "suspected", "likely", "questionable", "possible", or "still to be ruled out" are acceptable. IF IN AGREEMENT, YOU MUST DOCUMENT ABOVE DIAGNOSTIC STATEMENT IN DAILY PROGRESS NOTES AND DISCHARGE SUMMARY. This document is not part of the patient's record. Thank You, Sergey Motnalvo, ALEJO [phone]
[2017-11-22] MEDS ORDERED: CASPOFUNGIN INJ 70 MG in SODIUM CHLORIDE 0.9% 250ML 250 ML IV ONE (14:00)
[2017-11-22] MEDS ORDERED: NURSING VERBAL MED ORDER ONE (15:45)
[2017-11-22] MEDS ORDERED: CUSTOM CENTRAL PN 1 BAG IV SCH (16:00)
--- NOTE | 2017-11-22 16:29 | Critical Care Progress Note ---
Critical Care Progress Note Date of Service Nov 22, 2017. Attending Dr. Marrero Subjective More lethargic today Developed a-fib with RVR this AM (around 150 bpm). Converted to NSR with amiodarone Still with significant MICHAEL drain output (980 ml yesterday, 545 ml today so far) Objective Vital signs reviewed Physical Exam: General - NAD, lethargic Eyes - PERRL, EOMI No icterus Neck - Supple, trachea midline Lungs - No paradoxical chest wall movement, clear and diminished to auscultation bilaterally, no wheezes, rales, or rhonchi Heart - Irreg rate and rhythm, No murmur, rubs, clicks, or gallops appreciated Abdomen - BS Absent, no bruits noted, tympanic to percussion, soft, nontender, nondistended, surgical dressing clean dry and intact down the midline. [address], with serous fluid Extremities - Anasarca Neuro - Quite lethargic today, he does wake up with stimulation and converses in short sentences, but fall right back to sleep Assessment & Plan 77 year-old male s/p resection of large colonic mass, with colo-duodenal fistula , difficult post-operative course, requiring blood transfusions, prolonged ventilation, hypotension requiring pressor support, development of atrial fibrillation. Extubated two days ago Problems: Severe sepsis, of abdominal source. Was in shock but has resolved Toxic-metabolic encephalopathy A-fib with RVR Colonic mass Malnutrition Plan: [employer]: more lethargic today, likely toxic-metabolic encephalopathy, secondary to sepsis Continue to monitor Fentanyl prn for pain CVS: Amiodarone drip for a-fib with RVR. Converted to NSR Not an anticoagulation candidate due to recent GI bleeding, thrombocytopenia Respiratory: Incentive spirometry if able to perform ID: reinstitute Abx: Azactam, Vanco, metronidazole. Resume caspofungin Procalcitonin slightly increased to 1.82 Renal/metabolic: Continue TPN Albumin 25%, 25 mg tid for 3 days Monitor renal output GI: Maintain NGT Monitor MICHAEL ouptut Gastrografin study if stabilized. Keeping NPO for now, on TPN Follow up pathology Heme: Holding Lovenox, follow up HIT panel given new thrombocytopenia DVT prophylaxis: SCDs Patient is DNR/DNI Critical care time spent with the patient, reviewing chart, discussing with consultants, excluding procedures, greater than 35 minutes Consults & Procedures Consultants: Surgery: Dr Juarez GI - Dr Nam Procedures: 11/16/17 - Colonoscopy/EGD 11/18/17 - Left hemicolectomy, partial small bowel resection, partial duodenal resection 11/20/17 - Extubation Right IJ TLC Data Medications: Current Inpatient Medications Medications (Trade) Dose Ordered Sig/Jose Route Start Time Stop Time Status Last Admin Dose Admin Insulin Aspart (novoLOG ASPART) SLIDING SCALE G... ACHS SC 11/19/17 06:45 12/19/17 06:44 11/19/17 08:02 1 UNITS Pantoprazole Sodium 40 mg/ Syringe 10 ml @ 5 mls/min DAILY@11 IV 11/19/17 11:00 12/19/17 10:59 11/22/17 10:43 5 MLS/MIN Metoprolol Tartrate (Lopressor Iv) 5 mg Q4H PRN IV 11/19/17 08:30 12/19/17 08:29 Fentanyl Citrate (Fentanyl Inj) 100 mcg Q2H PRN IV 11/20/17 14:15 12/04/17 14:14 11/22/17 12:23 100 MCG Miscellaneous Information (Pharmacy Tpn/ Ppn Consult Active) 1 ea UD PRN N/A 11/21/17 11:29 12/21/17 11:28 Nutrition (Parenteral) 0 ml @ 0 mls/hr TODAY@1600 IV 11/21/17 16:00 11/22/17 15:59 11/21/17 15:48 0 MLS/HR Dextrose 1,000 ml @ 0 mls/hr Q0M PRN IV 11/21/17 16:00 12/21/17 15:59 Albumin Human (Albumin 25%) 25 gm Q8H IV 11/22/17 10:00 11/25/17 09:59 11/22/17 10:18 25 GM Metronidazole 500 mg/Prmx 100 ml @ 100 mls/hr Q8H IV 11/22/17 12:00 12/02/17 11:59 11/22/17 11:59 100 MLS/HR Aztreonam 1000 mg/ Dextrose 110 ml @ 100 mls/hr Q8H IV 11/22/17 10:00 3/15/18 09:59 11/22/17 10:17 100 MLS/HR Amiodarone HCL/ Dextrose 200 ml @ 33.3 mls/hr Q6H1M IV 11/22/17 10:45 11/22/17 16:45 11/22/17 10:21 33.3 MLS/HR Amiodarone HCL/ Dextrose 200 ml @ 16.7 mls/hr [id number] IV 11/22/17 16:45 12/22/17 16:44 Nutrition (Parenteral) 0 ml @ 0 mls/hr TODAY@1600 IV 11/22/17 16:00 11/23/17 15:59 11/22/17 15:38 0 MLS/HR Miscellaneous Information (Consult) 1 ea UD PRN N/A 11/22/17 12:00 12/22/17 11:59 Vancomycin HCl 1250 mg/Sodium Chloride 275 ml @ 125 mls/hr Q10H IV 11/22/17 22:00 12/02/17 21:59 Caspofungin 50 mg/ Sodium Chloride 260 ml @ 260 mls/hr Q24H IV 11/24/17 14:00 12/04/17 13:59 Miscellaneous Information (Nursing Verbal Med Order) 1 ea ONE ONCE N/A 11/22/17 15:45 11/22/17 15:46 UNV I & O: 24-Hour Column 11/23/17 08:00 Intake Total 1865 ml Output Total 760 ml Balance 1105 ml Vital Signs: Date Time Temp Pulse Resp B/P (MAP) Pulse Ox O2 Delivery O2 Flow Rate FiO2 11/22/17 12:30 114 18 102/68 (79) 93 Nasal Cannula 2.0 11/22/17 12:00 37.4 93 22 109/71 (84) 94 Nasal Cannula 2.0 11/22/17 12:00 Nasal Cannula 2.0 11/22/17 11:30 121 21 103/68 (80) 95 Nasal Cannula 2.0 11/22/17 11:17 118 21 92/69 (77) 95 Nasal Cannula 2.0 11/22/17 11:00 126 21 106/73 (84) 100 Nasal Cannula 2.0 11/22/17 10:47 120 22 112/73 (86) 11/22/17 10:32 141 24 93/69 (77) 11/22/17 10:17 143 27 107/82 (90) 11/22/17 10:00 37.3 150 36 107/82 (90) 97 Nasal Cannula 2.0 11/22/17 09:00 117 23 95/74 (81) 11/22/17 08:31 114 18 110/72 (85) 96 11/22/17 08:00 Nasal Cannula 2.0 11/22/17 08:00 37.3 110 29 103/73 (83) 95 Nasal Cannula 2.0 11/22/17 08:00 Nasal Cannula 11/22/17 06:01 94 16 82/65 (71) 99 Nasal Cannula 2.0 11/22/17 05:31 87 26 108/73 (85) 97 Nasal Cannula 2.0 11/22/17 05:01 82 18 100/68 (79) 97 Nasal Cannula 2.0 11/22/17 04:17 Nasal Cannula 2.0 11/22/17 04:01 37.0 85 16 107/67 (80) 96 Nasal Cannula 2.0 11/22/17 03:31 87 8 89/60 (70) 96 Nasal Cannula 2.0 11/22/17 03:01 90 17 100/67 (78) 95 Nasal Cannula 2.0 11/22/17 02:31 87 17 109/71 (84) 96 Nasal Cannula 2.0 11/22/17 02:01 83 14 99/63 (75) 96 Nasal Cannula 2.0 11/22/17 01:31 86 19 98/64 (75) 96 Nasal Cannula 2.0 11/22/17 01:01 87 12 99/56 (70) 95 Nasal Cannula 2.0 11/22/17 00:32 86 14 109/68 (82) 94 Nasal Cannula 2.0 11/22/17 00:30 Nasal Cannula 2.0 11/22/17 00:01 37.0 85 14 99/67 (78) 95 Nasal Cannula 2.0 11/21/17 23:01 83 18 107/69 (82) 95 Nasal Cannula 2.0 11/21/17 22:31 88 14 99/75 (83) 96 Nasal Cannula 2.0 11/21/17 22:01 89 15 117/41 (66) 95 Nasal Cannula 2.0 11/21/17 21:31 93 18 98/64 (75) 95 Nasal Cannula 2.0 11/21/17 21:01 91 17 92/63 (73) 95 Nasal Cannula 2.0 11/21/17 20:32 Nasal Cannula 2.0 11/21/17 20:31 84 17 114/77 (89) 96 Nasal Cannula 2.0 11/21/17 20:01 37.0 92 16 96/66 (76) 96 Nasal Cannula 2.0 11/21/17 19:31 100 19 112/79 (90) 96 Nasal Cannula 2.0 11/21/17 19:01 92 18 107/67 (80) 96 Nasal Cannula 2.0 11/21/17 18:00 94 26 102/67 (79) 96 Nasal Cannula 2.0 11/21/17 16:00 36.8 98 21 111/74 (86) 96 Nasal Cannula 2.0 11/21/17 16:00 Nasal Cannula 2.0 Laboratory Results: Last 24 Hours Test 11/21/17 16:22 11/21/17 21:13 11/22/17 05:20 11/22/17 05:24 Bedside Glucose 83 mg/dl 121 mg/dl 140 mg/dl White Blood Count 11.56 K/uL Red Blood Count 3.16 M/uL Hemoglobin 8.9 g/dL Hematocrit 27.4 % Mean Corpuscular Volume 86.7 fL Mean Corpuscular Hemoglobin 28.2 pg Mean Corpuscular Hemoglobin Concent 32.5 g/dl Platelet Count 87 K/uL Mean Platelet Volume 8.8 fL Neutrophils (%) (Auto) 82.3 % Lymphocytes (%) (Auto) 11.7 % Monocytes (%) (Auto) 5.0 % Eosinophils (%) (Auto) 0.4 % Basophils (%) (Auto) 0.1 % Neutrophils # (Auto) 9.51 K/uL Lymphocytes # (Auto) 1.35 K/uL Monocytes # (Auto) 0.58 K/uL Eosinophils # (Auto) 0.05 K/uL Basophils # (Auto) 0.01 K/uL RDW Standard Deviation 51.1 fL RDW Coefficient of Variation 16.3 % Immature Granulocyte % (Auto) 0.5 % Immature Granulocyte # (Auto) 0.06 K/uL Poikilocytosis PRESENT Sodium Level 134 mmol/L Potassium Level 3.7 mmol/L Chloride Level 101 mmol/L Carbon Dioxide Level 28 mmol/L Anion Gap 5.0 mmol/L Blood Urea Nitrogen 20 mg/dl Creatinine 0.62 mg/dl Est Creatinine Clear Calc Drug Dose 102.9 ml/min Estimated GFR () 109.4 Estimated GFR (Non- 94.4 BUN/Creatinine Ratio 32.0 Random Glucose 141 mg/dl Calcium Level 6.6 mg/dl Phosphorus Level 2.6 mg/dl Magnesium Level 2.5 mg/dl Test 11/22/17 09:10 11/22/17 11:03 11/22/17 11:54 Procalcitonin 1.82 ng/ml Heparin-PF4 Antibody Screen NEG Bedside Glucose 165 mg/dl Ionized Calcium 0.98 mmol/l
[2017-11-22] MEDS: AMIODARONE / D5W 200 ML IV SCH (16:50)
[2017-11-22] MEDS: VANCOMYCIN INJ 1,250 MG in SODIUM CHLORIDE 0.9% 250ML 250 ML IV SCH (21:33)
[2017-11-23] VITALS (24 sets, daily range): BP systolic 87–133; BP diastolic 54–95; PULSE 70–90; TEMP 36.8–37.6; O2SAT 90–100
[2017-11-23] MEDS: ALBUMIN HUMAN 25% 12.5 GM/50 ML VIAL IV SCH ×3 (02:11→17:39)
[2017-11-23] MEDS: FENTANYL CITRATE INJ 50 MCG/1 ML 2 ML VIAL IV PRN ×6 (02:14→17:48)
[2017-11-23] MEDS: AZTREONAM IV 1,000 MG in DEXTROSE 5% 100ML 100 ML IV SCH (03:37)
[2017-11-23] MEDS: METRONIDAZOLE / NSS 500 MG in PREMIXED NSS 100 ML IV SCH ×3 (03:54→20:07)
[2017-11-23] MEDS: AMIODARONE / D5W 200 ML IV SCH (03:56)
[2017-11-23 05:30] LABS: HEMATOCRIT 26.9 % (42-52); HEMOGLOBIN 8.9 g/dL (14.0-18.0); MEAN CELL VOLUME 85.9 fL (80-100); MEAN CORPUSCULAR HEMOGLOBIN 28.4 pg (25-34); MEAN CORPUSCULAR HGB CONC 33.1 g/dl (32-36); RED CELL DISTRIBUTION WIDTH CV 16.5 % (11.5-14.5); RED CELL DISTRIBUTION WIDTH SD 51.8 fL (36.4-46.3); WHITE BLOOD COUNT 12.85 K/uL (4.8-10.8)
[2017-11-23] MEDS: INSULIN ASPART 100 UNITS/ML 3 ML PEN SC SCH ×3 (05:46→18:00)
[2017-11-23 05:48] LABS: MEAN PLATELET VOLUME 8.8 fL (7.4-10.4); PLATELET COUNT 77 K/uL (130-400)
[2017-11-23 06:01] LABS: ALBUMIN 1.8 gm/dl (3.4-5.0); CALCIUM 6.8 mg/dl (8.5-10.1); CREATININE 0.66 mg/dl (0.60-1.40); PHOSPHORUS 2.8 mg/dl (2.5-4.9); TOTAL PROTEIN 4.1 gm/dl (6.4-8.2)
[2017-11-23] MEDS: VANCOMYCIN INJ 1,250 MG in SODIUM CHLORIDE 0.9% 250ML 250 ML IV SCH ×2 (07:45→17:39)
--- NOTE | 2017-11-23 09:23 | Surgery Progress Note ---
Surgery Progress Note Date of Service Nov 23, 2017. Subjective Post OP Day: 5 little more lethargic this AM, denies pain, increasing O2 requirement-- mask 8lpm, bowels moving Objective Vital Signs: Date Time Temp Pulse Resp B/P (MAP) Pulse Ox O2 Delivery O2 Flow Rate FiO2 11/23/17 06:00 88 20 103/63 (76) 92 11/23/17 05:00 90 29 123/95 (104) 94 11/23/17 04:00 36.8 78 18 98/62 (74) 95 11/23/17 04:00 90 Nasal Cannula 3.0 11/23/17 03:01 82 18 112/61 (78) 93 11/23/17 03:00 80 16 93 11/23/17 02:00 80 24 94/61 (72) 95 11/23/17 01:00 79 17 87/58 (68) 94 11/23/17 00:00 37.0 87 16 112/68 (83) 93 11/22/17 23:59 93 Nasal Cannula 3.0 11/22/17 23:00 100 24 115/63 (80) 92 11/22/17 22:20 96 22 115/60 (78) 11/22/17 21:38 93 27 114/66 (82) 94 Nasal Cannula 3.0 11/22/17 21:02 101 24 114/66 (82) 95 11/22/17 20:03 37.0 92 23 93/61 (72) 95 Nasal Cannula 3.0 11/22/17 20:00 94 Nasal Cannula 3.0 11/22/17 19:03 86 19 96/57 (70) 96 11/22/17 18:00 98 18 93/61 (72) 95 Nasal Cannula 3.0 11/22/17 17:00 107 18 86/59 (68) 95 Nasal Cannula 3.0 11/22/17 16:00 37.5 111 22 94/62 (73) 93 Nasal Cannula 3.0 11/22/17 16:00 Nasal Cannula 3.0 11/22/17 15:00 99 25 111/65 (80) 91 Nasal Cannula 3.0 11/22/17 14:32 110 22 109/65 (80) 92 Nasal Cannula 2.0 11/22/17 14:17 111 22 106/66 (79) 92 Nasal Cannula 2.0 11/22/17 14:00 101 21 97/63 (74) 93 Nasal Cannula 2.0 11/22/17 13:47 105 22 113/64 (80) 92 Nasal Cannula 2.0 11/22/17 13:33 98 21 100/65 (77) 93 Nasal Cannula 2.0 11/22/17 13:03 112 20 115/60 (78) 93 Nasal Cannula 2.0 11/22/17 12:30 114 18 102/68 (79) 93 Nasal Cannula 2.0 11/22/17 12:00 37.4 93 22 109/71 (84) 94 Nasal Cannula 2.0 11/22/17 12:00 Nasal Cannula 2.0 11/22/17 11:30 121 21 103/68 (80) 95 Nasal Cannula 2.0 11/22/17 11:17 118 21 92/69 (77) 95 Nasal Cannula 2.0 11/22/17 11:00 126 21 106/73 (84) 100 Nasal Cannula 2.0 11/22/17 10:47 120 22 112/73 (86) 11/22/17 10:32 141 24 93/69 (77) 11/22/17 10:17 143 27 107/82 (90) 11/22/17 10:00 37.3 150 36 107/82 (90) 97 Nasal Cannula 2.0 Physical Exam: MICHAEL drainage (580, little more turbid today), urine output (1475/ 275) Abdomen: non distended, soft Incision(s): clean, dry Extremities: + swelling (less UE edema) Laboratory Results: Results Past 24 Hours Test 11/22/17 11:03 11/22/17 11:54 11/22/17 18:15 11/22/17 23:52 Range/Units Bedside Glucose 165 173 152 70-99 mg/dl Ionized Calcium 0.98 1.12-1.32 mmol/l Test 11/23/17 05:10 11/23/17 05:44 Range/Units White Blood Count 12.85 4.8-10.8 K/uL Red Blood Count 3.13 4.7-6.1 M/uL Hemoglobin 8.9 14.0-18.0 g/dL Hematocrit 26.9 42-52 % Mean Corpuscular Volume 85.9 80-100 fL Mean Corpuscular Hemoglobin 28.4 25-34 pg Mean Corpuscular Hemoglobin Concent 33.1 32-36 g/dl RDW Standard Deviation 51.8 36.4-46.3 fL RDW Coefficient of Variation 16.5 11.5-14.5 % Platelet Count 77 130-400 K/uL Mean Platelet Volume 8.8 7.4-10.4 fL Sodium Level 136 136-145 mmol/L Potassium Level 4.0 3.5-5.1 mmol/L Chloride Level 105 98-107 mmol/L Carbon Dioxide Level 25 21-32 mmol/L Anion Gap 6.0 3-11 mmol/L Blood Urea Nitrogen 38 7-18 mg/dl Creatinine 0.66 0.60-1.40 mg/dl Est Creatinine Clear Calc Drug Dose 96.7 ml/min Estimated GFR () 106.6 Estimated GFR (Non- 92.0 BUN/Creatinine Ratio 57.5 10-20 Random Glucose 159 70-99 mg/dl Calcium Level 6.8 8.5-10.1 mg/dl Phosphorus Level 2.8 2.5-4.9 mg/dl Magnesium Level 2.4 1.8-2.4 mg/dl Total Bilirubin 0.6 0.2-1 mg/dl Aspartate Amino Transf (AST/SGOT) 8 15-37 U/L Alanine Aminotransferase (ALT/SGPT) 9 12-78 U/L Alkaline Phosphatase 58 45-117 U/L C-Reactive Protein 16.80 0-0.29 mg/dl Total Protein 4.1 6.4-8.2 gm/dl Albumin 1.8 3.4-5.0 gm/dl Globulin 2.3 2.5-4.0 gm/dl Albumin/Globulin Ratio 0.8 0.9-2 Prealbumin 3.4 20-40 mg/dl Triglycerides Level 51 0-150 mg/dl Bedside Glucose 170 70-99 mg/dl Microbiology Results 11/23/17 Gram Stain, Received Pending 11/23/17 Bacterial Culture, Received Pending Assessment & Plan extended left hemicolectomy; partial small resection/partial duodenal resection for obstructing colon cancer with coloenteric fistula(s) anemia, stable A-fib, converted Hgb stable 8.9, preop 9 flagyl + Azactam, vanco and caspofungin UGI has been on hold, doubt he would take anything po at this point but could consider NG feeds, will check drain amylase continue NGT, TPN
[2017-11-23] MEDS: PANTOprazole INJ 40 MG in SYRINGE 0 ML IV SCH (11:05)
--- NOTE | 2017-11-23 12:37 | Critical Care Progress Note ---
Critical Care Progress Note Date of Service Nov 23, 2017. Attending Dr. Marrero Subjective Seems even more lethargic today Still high MICHAEL serous output Rate and rhythm mostly controlled Objective Vital signs reviewed Physical Exam: General - NAD, lethargic Eyes - PERRL, EOMI No icterus Neck - Supple, trachea midline Lungs - No paradoxical chest wall movement, clear and diminished to auscultation bilaterally, no wheezes, rales, or rhonchi Heart - Regular rate and rhythm, No murmur, rubs, clicks, or gallops appreciated Abdomen - BS Absent, no bruits noted, tympanic to percussion, soft, nontender, nondistended, surgical dressing clean dry and intact down the midline. [address], with serous fluid Extremities - Anasarca Neuro - Quite lethargic today, he does wake up with stimulation and converses in short sentences, but fall right back to sleep Assessment & Plan 77 year-old male s/p resection of large colonic mass, with colo-duodenal fistula , difficult post-operative course, requiring blood transfusions, prolonged ventilation, hypotension requiring pressor support, development of atrial fibrillation. Extubated two days ago Problems: Severe sepsis, of abdominal source. Was in shock but has resolved Toxic-metabolic encephalopathy A-fib with RVR Colonic mass Malnutrition Plan: [employer]: Even more lethargic today, likely toxic-metabolic encephalopathy, secondary to sepsis Continue to monitor Fentanyl prn for pain CVS: Amiodarone drip for a-fib with RVR. Converted to NSR May hold amiodarone today. Not an anticoagulation candidate due to recent GI bleeding, thrombocytopenia Respiratory: Incentive spirometry if able to perform ID: Continue Abx: Azactam, Vanco, metronidazole. Continue caspofungin Procalcitonin slightly increased to 1.82 Check abdominal fluid culture Renal/metabolic: Continue TPN Albumin 25%, 25 mg tid for 3 days Monitor renal output GI: Maintain NGT Monitor MICHAEL output. Gastrografin study if stabilized. Keeping NPO for now, on TPN Follow up pathology Heme: Holding Lovenox, secondary to thrombocytopenia HIT panel negative DVT prophylaxis: SCDs Patient is DNR/DNI The patient appear moribund now. I discussed with the son, Germán Ortiz Jr at [phone] and updated him Critical care time spent with the patient, reviewing chart, discussing with consultants, excluding procedures, greater than 40 minutes Consults & Procedures Consultants: Surgery: Dr Juarez GI - Dr Nam Procedures: 11/16/17 - Colonoscopy/EGD 11/18/17 - Left hemicolectomy, partial small bowel resection, partial duodenal resection 11/20/17 - Extubation Right IJ TLC Data Medications: Current Inpatient Medications Medications (Trade) Dose Ordered Sig/Jose Route Start Time Stop Time Status Last Admin Dose Admin Pantoprazole Sodium 40 mg/ Syringe 10 ml @ 5 mls/min DAILY@11 IV 11/19/17 11:00 12/19/17 10:59 11/23/17 11:05 5 MLS/MIN Metoprolol Tartrate (Lopressor Iv) 5 mg Q4H PRN IV 11/19/17 08:30 12/19/17 08:29 Fentanyl Citrate (Fentanyl Inj) 100 mcg Q2H PRN IV 11/20/17 14:15 12/04/17 14:14 11/23/17 12:22 100 MCG Miscellaneous Information (Pharmacy Tpn/ Ppn Consult Active) 1 ea UD PRN N/A 11/21/17 11:29 12/21/17 11:28 Dextrose 1,000 ml @ 0 mls/hr Q0M PRN IV 11/21/17 16:00 12/21/17 15:59 Albumin Human (Albumin 25%) 25 gm Q8H IV 11/22/17 10:00 11/25/17 09:59 11/23/17 10:02 25 GM Metronidazole 500 mg/Prmx 100 ml @ 100 mls/hr Q8H IV 11/22/17 12:00 12/02/17 11:59 11/23/17 11:31 100 MLS/HR Amiodarone HCL/ Dextrose 200 ml @ 16.7 mls/hr [id number] IV 11/22/17 16:45 12/22/17 16:44 11/23/17 03:56 16.7 MLS/HR Nutrition (Parenteral) 0 ml @ 0 mls/hr TODAY@1600 IV 11/22/17 16:00 11/23/17 15:59 11/22/17 15:38 0 MLS/HR Miscellaneous Information (Consult) 1 ea UD PRN N/A 11/22/17 12:00 12/22/17 11:59 Vancomycin HCl 1250 mg/Sodium Chloride 275 ml @ 125 mls/hr Q10H IV 11/22/17 22:00 12/02/17 21:59 11/23/17 07:45 125 MLS/HR Caspofungin 50 mg/ Sodium Chloride 260 ml @ 260 mls/hr Q24H IV 11/24/17 14:00 12/04/17 13:59 Insulin Aspart (novoLOG ASPART) SLIDING SCALE G... Q6 SC 11/22/17 18:00 12/19/17 06:44 Aztreonam 2000 mg/ Syringe 20 ml @ 4 mls/min Q12H IV 11/23/17 14:00 12/02/17 09:59 Nutrition (Parenteral) 0 ml @ 0 mls/hr TODAY@1600 IV 11/23/17 16:00 11/24/17 15:59 Vital Signs: Date Time Temp Pulse Resp B/P (MAP) Pulse Ox O2 Delivery O2 Flow Rate FiO2 11/23/17 12:00 37.5 77 20 117/64 (81) 96 Oxymask 8.0 11/23/17 11:00 78 21 114/56 (75) 95 Oxymask 8.0 11/23/17 10:00 80 20 101/54 (70) 95 Oxymask 8.0 11/23/17 09:00 77 15 93/54 (67) 96 Oxymask 8.0 11/23/17 08:00 95 Nasal Cannula 8.0 Oxymask 11/23/17 08:00 37.6 82 22 100/57 (71) 95 Oxymask 8.0 11/23/17 07:00 81 21 96/62 (73) 95 Oxymask 8.0 11/23/17 06:00 88 20 103/63 (76) 92 11/23/17 05:00 90 29 123/95 (104) 94 11/23/17 04:00 36.8 78 18 98/62 (74) 95 11/23/17 04:00 90 Nasal Cannula 3.0 11/23/17 03:01 82 18 112/61 (78) 93 11/23/17 03:00 80 16 93 11/23/17 02:00 80 24 94/61 (72) 95 11/23/17 01:00 79 17 87/58 (68) 94 11/23/17 00:00 37.0 87 16 112/68 (83) 93 11/22/17 23:59 93 Nasal Cannula 3.0 11/22/17 23:00 100 24 115/63 (80) 92 11/22/17 22:20 96 22 115/60 (78) 11/22/17 21:38 93 27 114/66 (82) 94 Nasal Cannula 3.0 11/22/17 21:02 101 24 114/66 (82) 95 11/22/17 20:03 37.0 92 23 93/61 (72) 95 Nasal Cannula 3.0 11/22/17 20:00 94 Nasal Cannula 3.0 11/22/17 19:03 86 19 96/57 (70) 96 11/22/17 18:00 98 18 93/61 (72) 95 Nasal Cannula 3.0 11/22/17 17:00 107 18 86/59 (68) 95 Nasal Cannula 3.0 11/22/17 16:00 37.5 111 22 94/62 (73) 93 Nasal Cannula 3.0 11/22/17 16:00 Nasal Cannula 3.0 11/22/17 15:00 99 25 111/65 (80) 91 Nasal Cannula 3.0 11/22/17 14:32 110 22 109/65 (80) 92 Nasal Cannula 2.0 11/22/17 14:17 111 22 106/66 (79) 92 Nasal Cannula 2.0 11/22/17 14:00 101 21 97/63 (74) 93 Nasal Cannula 2.0 11/22/17 13:47 105 22 113/64 (80) 92 Nasal Cannula 2.0 11/22/17 13:33 98 21 100/65 (77) 93 Nasal Cannula 2.0 11/22/17 13:03 112 20 115/60 (78) 93 Nasal Cannula 2.0 11/22/17 12:30 114 18 102/68 (79) 93 Nasal Cannula 2.0 Laboratory Results: Last 24 Hours Test 11/22/17 18:15 11/22/17 23:52 11/23/17 05:10 11/23/17 05:44 Bedside Glucose 173 mg/dl 152 mg/dl 170 mg/dl White Blood Count 12.85 K/uL Red Blood Count 3.13 M/uL Hemoglobin 8.9 g/dL Hematocrit 26.9 % Mean Corpuscular Volume 85.9 fL Mean Corpuscular Hemoglobin 28.4 pg Mean Corpuscular Hemoglobin Concent 33.1 g/dl RDW Standard Deviation 51.8 fL RDW Coefficient of Variation 16.5 % Platelet Count 77 K/uL Mean Platelet Volume 8.8 fL Sodium Level 136 mmol/L Potassium Level 4.0 mmol/L Chloride Level 105 mmol/L Carbon Dioxide Level 25 mmol/L Anion Gap 6.0 mmol/L Blood Urea Nitrogen 38 mg/dl Creatinine 0.66 mg/dl Est Creatinine Clear Calc Drug Dose 96.7 ml/min Estimated GFR () 106.6 Estimated GFR (Non- 92.0 BUN/Creatinine Ratio 57.5 Random Glucose 159 mg/dl Calcium Level 6.8 mg/dl Phosphorus Level 2.8 mg/dl Magnesium Level 2.4 mg/dl Total Bilirubin 0.6 mg/dl Aspartate Amino Transf (AST/SGOT) 8 U/L Alanine Aminotransferase (ALT/SGPT) 9 U/L Alkaline Phosphatase 58 U/L C-Reactive Protein 16.80 mg/dl Total Protein 4.1 gm/dl Albumin 1.8 gm/dl Globulin 2.3 gm/dl Albumin/Globulin Ratio 0.8 Prealbumin 3.4 mg/dl Triglycerides Level 51 mg/dl Test 11/23/17 08:35 11/23/17 11:34 Peritoneal Fluid Amylase 18 U/L Ionized Calcium 1.01 mmol/l
[2017-11-23] MEDS ORDERED: AZTREONAM IV 1,000 MG in DEXTROSE 5% 100ML 100 ML IV SCH (14:00)
[2017-11-23] MEDS: AZTREONAM IV SCH (14:29)
[2017-11-23] MEDS ORDERED: CUSTOM CENTRAL PN 1 BAG IV SCH (16:00)
[2017-11-23] MEDS ORDERED: NURSING VERBAL MED ORDER ONE (17:00)
[2017-11-23] MEDS ORDERED: CALCIUM CHLORIDE 10% 10 ML SYR IV STA (17:32)
[2017-11-23] MEDS ORDERED: CALCIUM CHLORIDE 10% 1,000 MG in SODIUM CHLORIDE 0.9% 50ML 50 ML IV ONE (17:45)
--- NOTE | 2017-11-23 19:58 | Progress Note ---
Progress Note Date of Service Nov 23, 2017. Progress Note Subjective: patient remains in the ICU. 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 Main issues has been sepsis and toxic-metabolic encephalopathy secondary to sepsis Is on Azactam, Vanco, metronidazole, caspofungin for broad coverage of possible bacterial or fungal sources Patient also requiring TPN for nutrition and while nutrition is needed for recovery, this could also predispose patient to further infections Follow up on abdominal fluid culture Patient has also been on Amiodarone drip for a-fib with RVR. Had Converted to NSR. But will need to monitor rhythm. Heart rate is rate controlled Patient is not an anticoagulation candidate due to recent GI bleeding, thrombocytopenia DVT prophylaxis: SCDs, Holding Lovenox, secondary to thrombocytopenia
[2017-11-24] VITALS (21 sets, daily range): BP systolic 91–144; BP diastolic 49–85; PULSE 77–106; TEMP 36.6–36.8; O2SAT 94–98
[2017-11-24] MEDS: FENTANYL CITRATE INJ 50 MCG/1 ML 2 ML VIAL IV PRN ×3 (00:01→19:00)
[2017-11-24] MEDS: ALBUMIN HUMAN 25% 12.5 GM/50 ML VIAL IV SCH ×3 (02:07→17:41)
[2017-11-24] MEDS: AZTREONAM IV SCH ×2 (02:07→13:58)
[2017-11-24] MEDS ORDERED: VANCOMYCIN TROUGH ONE (03:30)
[2017-11-24 03:31] LABS: HEMATOCRIT 23.5 % (42-52); HEMOGLOBIN 7.6 g/dL (14.0-18.0); MEAN CELL VOLUME 86.4 fL (80-100); MEAN CORPUSCULAR HEMOGLOBIN 27.9 pg (25-34); MEAN CORPUSCULAR HGB CONC 32.3 g/dl (32-36); NUCLEATED RED BLOOD CELL ABS 0.02 K/uL (0-0); RED CELL DISTRIBUTION WIDTH CV 16.6 % (11.5-14.5); RED CELL DISTRIBUTION WIDTH SD 51.8 fL (36.4-46.3); WHITE BLOOD COUNT 8.55 K/uL (4.8-10.8)
[2017-11-24 03:36] LABS: PLATELET COUNT 70 K/uL (130-400)
[2017-11-24 03:46] LABS: ALBUMIN 2.2 gm/dl (3.4-5.0); CALCIUM 7.3 mg/dl (8.5-10.1); CREATININE 0.57 mg/dl (0.60-1.40); POTASSIUM 3.8 mmol/L (3.5-5.1)
[2017-11-24 03:49] LABS: PHOSPHORUS 2.4 mg/dl (2.5-4.9); TOTAL PROTEIN 4.5 gm/dl (6.4-8.2)
[2017-11-24 04:19] LABS: BASO % 0.2 %; BASO ABS # 0.02 K/uL (0-0.2); EOS % 0.8 %; EOS ABS # 0.07 K/uL (0-0.5); IG# 0.14 K/uL (0.00-0.02); LYMPH % 13.7 %; LYMPH ABS # 1.17 K/uL (1.2-3.4); MONO % 9.2 %; MONO ABS # 0.79 K/uL (0.11-0.59); NEUT % 74.5 %; NEUT ABS # 6.36 K/uL (1.4-6.5)
[2017-11-24] MEDS: VANCOMYCIN INJ 1,250 MG in SODIUM CHLORIDE 0.9% 250ML 250 ML IV SCH (05:12)
[2017-11-24] MEDS: METRONIDAZOLE / NSS 500 MG in PREMIXED NSS 100 ML IV SCH ×3 (05:12→19:00)
[2017-11-24] MEDS: INSULIN ASPART 100 UNITS/ML 3 ML PEN SC SCH ×4 (06:00→18:00)
--- NOTE | 2017-11-24 07:47 | Surgery Progress Note ---
Surgery Progress Note Date of Service Nov 24, 2017. Subjective Post OP Day: little more awake today, O2 at 4lpm, positive for C. diff Objective Vital Signs: Date Time Temp Pulse Resp B/P (MAP) Pulse Ox O2 Delivery O2 Flow Rate FiO2 11/24/17 06:00 99 21 116/77 (90) 96 Oxymask 4.0 11/24/17 05:00 102 22 125/75 (92) 95 Oxymask 4.0 11/24/17 04:00 Nasal Cannula 2.0 Oxymask 11/24/17 04:00 36.7 79 20 108/62 (77) 95 Oxymask 4.0 11/24/17 03:00 84 18 103/63 (76) 96 Oxymask 4.0 11/24/17 02:11 77 20 98/62 (74) 98 Oxymask 4.0 11/24/17 02:00 80 20 99/56 (70) 97 Oxymask 4.0 11/24/17 01:00 83 15 91/49 (63) 94 Oxymask 4.0 11/24/17 00:01 Nasal Cannula 2.0 Oxymask 11/24/17 00:01 36.6 84 21 111/68 (82) 94 Oxymask 4.0 11/23/17 23:00 80 23 119/64 (82) 94 Oxymask 4.0 11/23/17 22:00 78 28 133/66 (88) 94 Oxymask 4.0 11/23/17 21:00 80 18 109/62 (78) 94 Oxymask 4.0 11/23/17 20:00 Nasal Cannula 2.0 Oxymask 11/23/17 20:00 36.9 82 22 132/70 (90) 96 Oxymask 4.0 11/23/17 19:00 73 15 112/60 (77) 94 Oxymask 4.0 11/23/17 18:00 74 16 112/60 (77) 94 Oxymask 4.0 11/23/17 16:00 95 Nasal Cannula 4.0 Oxymask 11/23/17 16:00 37.4 73 16 102/64 (77) 97 Oxymask 4.0 11/23/17 15:00 74 15 120/60 (80) 95 Oxymask 6.0 11/23/17 14:00 70 18 105/59 (74) 100 Oxymask 6.0 11/23/17 13:00 73 18 114/56 (75) 98 Oxymask 6.0 11/23/17 12:00 37.5 77 20 117/64 (81) 96 Oxymask 8.0 11/23/17 12:00 95 Nasal Cannula 8.0 Oxymask 11/23/17 11:00 78 21 114/56 (75) 95 Oxymask 8.0 11/23/17 10:00 80 20 101/54 (70) 95 Oxymask 8.0 11/23/17 09:00 77 15 93/54 (67) 96 Oxymask 8.0 11/23/17 08:00 Oxymask 11/23/17 08:00 95 Nasal Cannula 8.0 Oxymask 11/23/17 08:00 37.6 82 22 100/57 (71) 95 Oxymask 8.0 Physical Exam: MICHAEL drainage (1300/710), urine output (500) Abdomen: + distended (mildy) Incision(s): clean, no erythema Extremities: + pedal edema, + swelling (less UE edema) Laboratory Results: Results Past 24 Hours Test 11/23/17 08:35 11/23/17 11:19 11/23/17 11:34 11/23/17 17:53 Range/Units Peritoneal Fluid Amylase 18 U/L Bedside Glucose 179 146 70-99 mg/dl Ionized Calcium 1.01 1.12-1.32 mmol/l Test 11/23/17 23:42 11/24/17 03:20 11/24/17 06:07 Range/Units Bedside Glucose 140 129 70-99 mg/dl White Blood Count 8.55 4.8-10.8 K/uL Red Blood Count 2.72 4.7-6.1 M/uL Hemoglobin 7.6 14.0-18.0 g/dL Hematocrit 23.5 42-52 % Mean Corpuscular Volume 86.4 80-100 fL Mean Corpuscular Hemoglobin 27.9 25-34 pg Mean Corpuscular Hemoglobin Concent 32.3 32-36 g/dl Platelet Count 70 130-400 K/uL Mean Platelet Volume 9.0 7.4-10.4 fL Neutrophils (%) (Auto) 74.5 % Lymphocytes (%) (Auto) 13.7 % Monocytes (%) (Auto) 9.2 % Eosinophils (%) (Auto) 0.8 % Basophils (%) (Auto) 0.2 % Neutrophils # (Auto) 6.36 1.4-6.5 K/uL Lymphocytes # (Auto) 1.17 1.2-3.4 K/uL Monocytes # (Auto) 0.79 0.11-0.59 K/uL Eosinophils # (Auto) 0.07 0-0.5 K/uL Basophils # (Auto) 0.02 0-0.2 K/uL RDW Standard Deviation 51.8 36.4-46.3 fL RDW Coefficient of Variation 16.6 11.5-14.5 % Immature Granulocyte % (Auto) 1.6 % Immature Granulocyte # (Auto) 0.14 0.00-0.02 K/uL Nucleated RBC Absolute Count (auto) 0.02 0-0 K/uL Nucleated Red Blood Cells % 0.2 % Dohle Bodies 2+ Sodium Level 139 136-145 mmol/L Potassium Level 3.8 3.5-5.1 mmol/L Chloride Level 108 98-107 mmol/L Carbon Dioxide Level 23 21-32 mmol/L Anion Gap 8.0 3-11 mmol/L Blood Urea Nitrogen 32 7-18 mg/dl Creatinine 0.57 0.60-1.40 mg/dl Est Creatinine Clear Calc Drug Dose 111.9 ml/min Estimated GFR () 113.2 Estimated GFR (Non- 97.7 BUN/Creatinine Ratio 55.9 10-20 Random Glucose 132 70-99 mg/dl Calcium Level 7.3 8.5-10.1 mg/dl Ionized Calcium 1.08 1.12-1.32 mmol/l Phosphorus Level 2.4 2.5-4.9 mg/dl Magnesium Level 2.2 1.8-2.4 mg/dl Total Bilirubin 0.7 0.2-1 mg/dl Direct Bilirubin 0.4 0-0.2 mg/dl Aspartate Amino Transf (AST/SGOT) 15 15-37 U/L Alanine Aminotransferase (ALT/SGPT) 11 12-78 U/L Alkaline Phosphatase 78 45-117 U/L Total Protein 4.5 6.4-8.2 gm/dl Albumin 2.2 3.4-5.0 gm/dl Lipase 516 73-393 U/L Procalcitonin 4.09 0-0.5 ng/ml Vancomycin Level Trough 16.4 SEE COMMENT mcg/ml Microbiology Results 11/24/17 Blood Culture, Received Pending 11/24/17 Blood Culture, Received Pending 11/23/17 C.difficile Toxin B Gene (PCR) - Final, Complete Positive for C. difficile toxin B gene 11/23/17 Gram Stain, Received Pending 11/23/17 Bacterial Culture, Received Pending Assessment & Plan extended left hemicolectomy; partial small resection/partial duodenal resection for obstructing colon cancer with coloenteric fistula(s) anemia A-fib, converted C. diff Hgb 7.6, BP stable HR 100 on flagyl + Azactam, vanco and caspofungin UGI on hold, could consider NG feeds if/when resp status stable cont TPN
--- NOTE | 2017-11-24 09:33 | Progress Note ---
Internal Med Progress Note Date of Service: Nov 24, 2017. Provider Documentation: Subjective: patient remains in the ICU. 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 Patient also receiving albumin to alleviate lower extremity swelling / anasarca Patient has had protracted hospital course and is an ICU level of care patient. Main issues has been sepsis and toxic-metabolic encephalopathy secondary to sepsis Is on Azactam IV, Vancomycin IV, Metronidazole IV, Caspofungin for broad coverage of possible bacterial or fungal sources 11/23/17 is C. diff positive Follow up on abdominal fluid specimen 11/23/17 Patient also requiring TPN for nutrition and while nutrition is needed for recovery and for severe protein calorie malnutrition, the TPN can be an infectious risk as well Will consult infectious disease service on antibiotic selection as there appears to be multiple antibiotics/antifungal active right now and in the context of C.diff positive, would like expert consultation on possibly narrowing the antibiotic/antifungal regimen while at the same time weighing on the multiple possible infectious sources Patient has also been on Amiodarone drip for a-fib with RVR. Had Converted to NSR. But will need to monitor rhythm. Heart rate is rate controlled Patient is not an anticoagulation candidate due to recent GI bleeding and thrombocytopenia Patient's hemoglobin noted to have dropped to 7.6 and discussed with ICU doctor in regards to further monitoring and possible blood transfusion DVT prophylaxis: SCDs, Holding Lovenox, secondary to thrombocytopenia Vital Signs: Date Time Temp Pulse Resp B/P (MAP) Pulse Ox O2 Delivery O2 Flow Rate FiO2 11/24/17 08:00 97 Oxymask 4.0 11/24/17 08:00 36.8 103 20 132/85 (101) 97 Oxymask 4.0 11/24/17 06:00 99 21 116/77 (90) 96 Oxymask 4.0 11/24/17 05:00 102 22 125/75 (92) 95 Oxymask 4.0 11/24/17 04:00 Nasal Cannula 2.0 Oxymask 11/24/17 04:00 36.7 79 20 108/62 (77) 95 Oxymask 4.0 11/24/17 03:00 84 18 103/63 (76) 96 Oxymask 4.0 11/24/17 02:11 77 20 98/62 (74) 98 Oxymask 4.0 11/24/17 02:00 80 20 99/56 (70) 97 Oxymask 4.0 11/24/17 01:00 83 15 91/49 (63) 94 Oxymask 4.0 11/24/17 00:01 Nasal Cannula 2.0 Oxymask 11/24/17 00:01 36.6 84 21 111/68 (82) 94 Oxymask 4.0 11/23/17 23:00 80 23 119/64 (82) 94 Oxymask 4.0 11/23/17 22:00 78 28 133/66 (88) 94 Oxymask 4.0 11/23/17 21:00 80 18 109/62 (78) 94 Oxymask 4.0 11/23/17 20:00 Nasal Cannula 2.0 Oxymask 11/23/17 20:00 36.9 82 22 132/70 (90) 96 Oxymask 4.0 11/23/17 19:00 73 15 112/60 (77) 94 Oxymask 4.0 11/23/17 18:00 74 16 112/60 (77) 94 Oxymask 4.0 11/23/17 16:00 95 Nasal Cannula 4.0 Oxymask 11/23/17 16:00 37.4 73 16 102/64 (77) 97 Oxymask 4.0 11/23/17 15:00 74 15 120/60 (80) 95 Oxymask 6.0 11/23/17 14:00 70 18 105/59 (74) 100 Oxymask 6.0 11/23/17 13:00 73 18 114/56 (75) 98 Oxymask 6.0 11/23/17 12:00 37.5 77 20 117/64 (81) 96 Oxymask 8.0 11/23/17 12:00 95 Nasal Cannula 8.0 Oxymask 11/23/17 11:00 78 21 114/56 (75) 95 Oxymask 8.0 11/23/17 10:00 80 20 101/54 (70) 95 Oxymask 8.0 Lab Results: Results Past 24 Hours Test 11/23/17 11:19 11/23/17 11:34 11/23/17 17:53 11/23/17 23:42 Range/Units Bedside Glucose 179 146 140 70-99 mg/dl Ionized Calcium 1.01 1.12-1.32 mmol/l Test 11/24/17 03:20 11/24/17 06:07 Range/Units White Blood Count 8.55 4.8-10.8 K/uL Red Blood Count 2.72 4.7-6.1 M/uL Hemoglobin 7.6 14.0-18.0 g/dL Hematocrit 23.5 42-52 % Mean Corpuscular Volume 86.4 80-100 fL Mean Corpuscular Hemoglobin 27.9 25-34 pg Mean Corpuscular Hemoglobin Concent 32.3 32-36 g/dl Platelet Count 70 130-400 K/uL Mean Platelet Volume 9.0 7.4-10.4 fL Neutrophils (%) (Auto) 74.5 % Lymphocytes (%) (Auto) 13.7 % Monocytes (%) (Auto) 9.2 % Eosinophils (%) (Auto) 0.8 % Basophils (%) (Auto) 0.2 % Neutrophils # (Auto) 6.36 1.4-6.5 K/uL Lymphocytes # (Auto) 1.17 1.2-3.4 K/uL Monocytes # (Auto) 0.79 0.11-0.59 K/uL Eosinophils # (Auto) 0.07 0-0.5 K/uL Basophils # (Auto) 0.02 0-0.2 K/uL RDW Standard Deviation 51.8 36.4-46.3 fL RDW Coefficient of Variation 16.6 11.5-14.5 % Immature Granulocyte % (Auto) 1.6 % Immature Granulocyte # (Auto) 0.14 0.00-0.02 K/uL Nucleated RBC Absolute Count (auto) 0.02 0-0 K/uL Nucleated Red Blood Cells % 0.2 % Dohle Bodies 2+ Sodium Level 139 136-145 mmol/L Potassium Level 3.8 3.5-5.1 mmol/L Chloride Level 108 98-107 mmol/L Carbon Dioxide Level 23 21-32 mmol/L Anion Gap 8.0 3-11 mmol/L Blood Urea Nitrogen 32 7-18 mg/dl Creatinine 0.57 0.60-1.40 mg/dl Est Creatinine Clear Calc Drug Dose 111.9 ml/min Estimated GFR () 113.2 Estimated GFR (Non- 97.7 BUN/Creatinine Ratio 55.9 10-20 Random Glucose 132 70-99 mg/dl Calcium Level 7.3 8.5-10.1 mg/dl Ionized Calcium 1.08 1.12-1.32 mmol/l Phosphorus Level 2.4 2.5-4.9 mg/dl Magnesium Level 2.2 1.8-2.4 mg/dl Total Bilirubin 0.7 0.2-1 mg/dl Direct Bilirubin 0.4 0-0.2 mg/dl Aspartate Amino Transf (AST/SGOT) 15 15-37 U/L Alanine Aminotransferase (ALT/SGPT) 11 12-78 U/L Alkaline Phosphatase 78 45-117 U/L Total Protein 4.5 6.4-8.2 gm/dl Albumin 2.2 3.4-5.0 gm/dl Lipase 516 73-393 U/L Procalcitonin 4.09 0-0.5 ng/ml Vancomycin Level Trough 16.4 SEE COMMENT mcg/ml Bedside Glucose 129 70-99 mg/dl Microbiology Results 11/24/17 Blood Culture, Received Pending 11/24/17 Blood Culture, Received Pending 11/23/17 C.difficile Toxin B Gene (PCR) - Final, Complete Positive for C. difficile toxin B gene
[2017-11-24] MEDS: PANTOprazole INJ 40 MG in SYRINGE 0 ML IV SCH (10:04)
--- NOTE | 2017-11-24 10:19 | Medical Consult ---
Consultation Date of Consultation: Nov 24, 2017. Attending Physician: Tom Best M.D. Reason for Consultation: Multiple antibiotics, antifungal, C diff, TPN History of Present Illness 77-year-old male with history of hypertension and hyperlipidemia, was seen at his local emergency room for weakness and fatigue and was found to be anemic. Subsequent colonoscopy revealed enlarged descending colon mass, and patient was transferred here for further management. He underwent laparotomy with finding of large colon cancer with coloenteric fistulae. Some spillage of intestinal material during resection. He has had stormy postoperative course recur requiring prolonged mechanical ventilation, extubated 2 days ago. Has been found to have positive C difficile PCR. He has had some degree of encephalopathy in remains lethargic after extubation. Complaining of abdominal pain. Blood cultures have been negative. Currently on broad-spectrum antibiotics with vancomycin, aztreonam, metronidazole, and caspofungin. Past Medical/Surgical History Medical Problems: (1) Anasarca (2) Anemia (3) Anxiety (4) BMI (body mass index) 20.0-29.9 (5) BPH (benign prostatic hyperplasia) (6) Colonic mass (7) GI bleed (8) Gout (9) HTN (hypertension) (10) Hyperlipidemia (11) Hypotension (12) Protein calorie malnutrition (13) Weight loss, non-intentional Surgical Problems: (1) Hx of transurethral resection of prostate Family History FH: skin cancer Social History Smoking Status: Never Smoker Smokeless Tobacco Use: No Alcohol Use: none Drug Use: none Marital Status: Housing Status: lives alone ( in Rehab with dementia) Occupation Status: retired Allergies Coded Allergies: Penicillins (Verified Allergy, Intermediate, HIVES, 11/11/17) swelling Current Inpatient Medications Current Inpatient Medications Medications (Trade) Dose Ordered Sig/Jose Route Start Time Stop Time Status Last Admin Dose Admin Pantoprazole Sodium 40 mg/ Syringe 10 ml @ 5 mls/min DAILY@11 IV 11/19/17 11:00 12/19/17 10:59 11/24/17 10:04 5 MLS/MIN Metoprolol Tartrate (Lopressor Iv) 5 mg Q4H PRN IV 11/19/17 08:30 12/19/17 08:29 Fentanyl Citrate (Fentanyl Inj) 100 mcg Q2H PRN IV 11/20/17 14:15 12/04/17 14:14 11/24/17 10:04 100 MCG Miscellaneous Information (Pharmacy Tpn/ Ppn Consult Active) 1 ea UD PRN N/A 11/21/17 11:29 12/21/17 11:28 Dextrose 1,000 ml @ 0 mls/hr Q0M PRN IV 11/21/17 16:00 12/21/17 15:59 Albumin Human (Albumin 25%) 25 gm Q8H IV 11/22/17 10:00 11/25/17 09:59 11/24/17 10:05 25 GM Metronidazole 500 mg/Prmx 100 ml @ 100 mls/hr Q8H IV 11/22/17 12:00 12/02/17 11:59 11/24/17 05:12 100 MLS/HR Miscellaneous Information (Consult) 1 ea UD PRN N/A 11/22/17 12:00 12/22/17 11:59 Insulin Aspart (novoLOG ASPART) SLIDING SCALE G... Q6 SC 11/22/17 18:00 12/19/17 06:44 Aztreonam 2000 mg/ Syringe 20 ml @ 4 mls/min Q12H IV 11/23/17 14:00 12/02/17 09:59 11/24/17 02:07 4 MLS/MIN Nutrition (Parenteral) 0 ml @ 0 mls/hr TODAY@1600 IV 11/23/17 16:00 11/24/17 15:59 11/23/17 15:59 0 MLS/HR Caspofungin 50 mg/ Sodium Chloride 110 ml @ 110 mls/hr Q24H IV 11/24/17 14:00 12/04/17 13:59 Vancomycin HCl 1250 mg/Sodium Chloride 175 ml @ 66 mls/hr Q10H IV 11/24/17 14:00 12/02/17 21:59 Review of Systems Constitutional: No fever Eyes: No problem reported ENT: No problem reported Respiratory: No problem reported Abdomen: + problem reported (See HPI) Musculoskeletal: No problem reported Genitourinary - Male: No problem reported Neurologic: No problem reported Psychiatric: No problem reported Endocrine: No problem reported Hematologic / Lymphatic: No problem reported Integumentary: No problem reported Allergic / Immunologic: No problem reported Physical Exam Date Time Temp Pulse Resp B/P (MAP) Pulse Ox O2 Delivery O2 Flow Rate FiO2 11/24/17 08:00 97 Oxymask 4.0 11/24/17 08:00 36.8 103 20 132/85 (101) 97 Oxymask 4.0 11/24/17 06:00 99 21 116/77 (90) 96 Oxymask 4.0 11/24/17 05:00 102 22 125/75 (92) 95 Oxymask 4.0 11/24/17 04:00 Nasal Cannula 2.0 Oxymask 11/24/17 04:00 36.7 79 20 108/62 (77) 95 Oxymask 4.0 11/24/17 03:00 84 18 103/63 (76) 96 Oxymask 4.0 11/24/17 02:11 77 20 98/62 (74) 98 Oxymask 4.0 11/24/17 02:00 80 20 99/56 (70) 97 Oxymask 4.0 11/24/17 01:00 83 15 91/49 (63) 94 Oxymask 4.0 11/24/17 00:01 Nasal Cannula 2.0 Oxymask 11/24/17 00:01 36.6 84 21 111/68 (82) 94 Oxymask 4.0 11/23/17 23:00 80 23 119/64 (82) 94 Oxymask 4.0 11/23/17 22:00 78 28 133/66 (88) 94 Oxymask 4.0 11/23/17 21:00 80 18 109/62 (78) 94 Oxymask 4.0 11/23/17 20:00 Nasal Cannula 2.0 Oxymask 11/23/17 20:00 36.9 82 22 132/70 (90) 96 Oxymask 4.0 11/23/17 19:00 73 15 112/60 (77) 94 Oxymask 4.0 11/23/17 18:00 74 16 112/60 (77) 94 Oxymask 4.0 11/23/17 16:00 95 Nasal Cannula 4.0 Oxymask 11/23/17 16:00 37.4 73 16 102/64 (77) 97 Oxymask 4.0 11/23/17 15:00 74 15 120/60 (80) 95 Oxymask 6.0 11/23/17 14:00 70 18 105/59 (74) 100 Oxymask 6.0 11/23/17 13:00 73 18 114/56 (75) 98 Oxymask 6.0 11/23/17 12:00 37.5 77 20 117/64 (81) 96 Oxymask 8.0 11/23/17 12:00 95 Nasal Cannula 8.0 Oxymask 11/23/17 11:00 78 21 114/56 (75) 95 Oxymask 8.0 General Appearance: no apparent distress, + thin, + pertinent finding ( Chronically ill-appearing) Head: normocephalic, atraumatic Eyes: normal inspection, EOMI, sclerae normal ENT: pharynx normal, + pertinent finding (N G-tube in place) Neck: supple, no adenopathy, thyroid normal, trachea midline Respiratory/Chest: chest non-tender, lungs clear, normal breath sounds, no respiratory distress Cardiovascular: regular rate, rhythm, no gallop, no murmur Abdomen/GI: normal bowel sounds, soft, no organomegaly, + tenderness, + pertinent finding (Left lower quadrant drain) Back: normal inspection, no CVA tenderness Extremities/Musculoskelatal: no calf tenderness, normal capillary refill, non- tender Neurologic/Psych: alert, oriented x 3 Skin: normal color, warm/dry, no rash Lymphatic: no adenopathy Laboratory Results Date/Time Source Procedure Growth Status 11/24/17 03:35 Blood Blood Culture Pending Received 11/24/17 03:20 Blood Blood Culture Pending Received 11/23/17 15:00 Stool C.difficile Toxin B Gene (PCR) - Final Positive for C. difficile toxin B gene Complete Last 24 Hours Test 11/23/17 11:19 11/23/17 11:34 11/23/17 17:53 11/23/17 23:42 Bedside Glucose 179 mg/dl 146 mg/dl 140 mg/dl Ionized Calcium 1.01 mmol/l Test 11/24/17 03:20 11/24/17 06:07 White Blood Count 8.55 K/uL Red Blood Count 2.72 M/uL Hemoglobin 7.6 g/dL Hematocrit 23.5 % Mean Corpuscular Volume 86.4 fL Mean Corpuscular Hemoglobin 27.9 pg Mean Corpuscular Hemoglobin Concent 32.3 g/dl Platelet Count 70 K/uL Mean Platelet Volume 9.0 fL Neutrophils (%) (Auto) 74.5 % Lymphocytes (%) (Auto) 13.7 % Monocytes (%) (Auto) 9.2 % Eosinophils (%) (Auto) 0.8 % Basophils (%) (Auto) 0.2 % Neutrophils # (Auto) 6.36 K/uL Lymphocytes # (Auto) 1.17 K/uL Monocytes # (Auto) 0.79 K/uL Eosinophils # (Auto) 0.07 K/uL Basophils # (Auto) 0.02 K/uL RDW Standard Deviation 51.8 fL RDW Coefficient of Variation 16.6 % Immature Granulocyte % (Auto) 1.6 % Immature Granulocyte # (Auto) 0.14 K/uL Nucleated RBC Absolute Count (auto) 0.02 K/uL Nucleated Red Blood Cells % 0.2 % Dohle Bodies 2+ Sodium Level 139 mmol/L Potassium Level 3.8 mmol/L Chloride Level 108 mmol/L Carbon Dioxide Level 23 mmol/L Anion Gap 8.0 mmol/L Blood Urea Nitrogen 32 mg/dl Creatinine 0.57 mg/dl Est Creatinine Clear Calc Drug Dose 111.9 ml/min Estimated GFR () 113.2 Estimated GFR (Non- 97.7 BUN/Creatinine Ratio 55.9 Random Glucose 132 mg/dl Calcium Level 7.3 mg/dl Ionized Calcium 1.08 mmol/l Phosphorus Level 2.4 mg/dl Magnesium Level 2.2 mg/dl Total Bilirubin 0.7 mg/dl Direct Bilirubin 0.4 mg/dl Aspartate Amino Transf (AST/SGOT) 15 U/L Alanine Aminotransferase (ALT/SGPT) 11 U/L Alkaline Phosphatase 78 U/L Total Protein 4.5 gm/dl Albumin 2.2 gm/dl Lipase 516 U/L Procalcitonin 4.09 ng/ml Vancomycin Level Trough 16.4 mcg/ml Bedside Glucose 129 mg/dl Patient Name: LISA WATSON Unit Number: [id number] Dictated: 11/19/17699 Transcribed: 11/19/17699 JA Printed Date/Time: [~ rep prt dt]/[~ rep prt tm] [~ rep ct labl] - [~ rep ct ivnm] [facility] [address] Radiology [place] [address] Dictated: 11/19/17699 Transcribed: 11/19/17699 JA Printed Date/Time: [~ rep prt dt]/[~ rep prt tm] [~ rep ct labl] - [~ rep ct ivnm] [~ rep ct add3]] CHEST ONE VIEW PORTABLE CLINICAL HISTORY: CVL Placement COMPARISON STUDY: Chest radiograph November 18, 2017. FINDINGS: The tip of the endotracheal tube 6 cm above the esther. There is apparent kinking or discontinuity of the distal endotracheal tube which is probably artifactual. The tip of the right internal jugular central line projects over the distal SVC. There is no pneumothorax. There is no evidence for pulmonary edema. Cardiomediastinal silhouette is stable. Tip of nasogastric tube projects over the gastric cardia. IMPRESSION: 1. No pneumothorax following placement of right internal jugular central line. 2. Tip of endotracheal tube approximately 6 cm above the esther. Linear radiodensity adjacent to the endotracheal tube tip is indeterminate and may be artifactual. Kinking/discontinuity of the tube is considered unlikely. This can be assessed on subsequent chest radiograph. Electronically signed by: Olegario Hurtado M.D. 11/19/2017 7:06 AM Dictated Date/Time: 11/19/2017 7:00 AM The status of this report is Signed. Draft = Not yet reviewed or approved by Radiologist. Signed = Reviewed and approved by Radiologist. <AttendingPhy>Pradeep Caceres MD</AttendingPhy> <FamilyPhy>No Doctor, Assigned</FamilyPhy> <PrimaryPhy>No Doctor, Assigned</PrimaryPhy> <UnitNumber> [id number]</UnitNumber> <VisitNumber>[id number]</VisitNumber> <PatientName> SHIRLEYLISA</PatientName> <DateOfBirth>1940</DateOfBirth> <Location> [facility]</Location> <ServiceDate></ServiceDate> <MNE>ESINDI</MNE> <OrderingPhy> Marisol Kirk PA-C</OrderingPhy> <OrderingPhyMNE>f rep ord dr rascon</ OrderingPhyMNE> <DictatingPhyMNE>f rep dict dr mne</DictatingPhyMNE> <CCListMNE> f rep ct mendozae</CCListMNE> <AdmittingPhyMNE>f pt admit dr rascon</AdmittingPhyMNE> < AttendingPhyMNE>f pt attend dr rascon</AttendingPhyMNE> <ConsultingPhyMNE>f pt consult dr rascon</ConsultingPhyMNE> <FamilyPhyMNE>f pt fam dr rascon</FamilyPhyMNE> <OtherPhyMNE>f pt other dr rascon</OtherPhyMNE> < PrimaryPhyMNE>f pt prim care dr rascon</PrimaryPhyMNE> <ReferringPhyMNE>f pt referring dr rascon</ReferringPhyMNE> Assessment & Plan 77-year-old male with colon cancer with coloenteric fistula, status post resection and repair with intraoperative spillage. Now with also C difficile infection. No evidence of disseminated fungal infection at present, would recommend discontinuation of caspofungin. Await culture of drainage and hopefully can narrow antibacterial therapy in the setting of C difficile infection.. Will follow.
--- NOTE | 2017-11-24 10:26 | Pharmacy Progress Note ---
Pharmacy Abx Dose Short Note Date of Service Nov 24, 2017. Assessment & Plan Assessment * 77 year old male receiving VANCOMYCIN IV dosing per pharmacy. He is also receiving IV aztreonam + metronidazole + caspofungin for possible intraabdominal infxn (h/o colon CA w/ coloenteric fistulas, s/p L hemicolectomy , partial sm bowel resection, spillage GI contents during procedure) * Day # 3 of antimicrobial therapy * + c diff * BLCX's and MCIHAEL drainage cx's pending * Leukocytosis improved, Tmax 37.6 last 24 hours, BPs improving, RR 18-22, Sat well on 4L Oxymask * Renal fxn stable; SCr 0.57, U.O. 1250mL yesterday * 18.5L + fluid balance; maximally concentrating IV medications to minimize additional fluid Plan Vancomycin * Trough level of 16.4 mcg/mL is therapeutic. Level was drawn w/ 4th maint dose. Prior doses hung on time. Level drawn at appropriate time. * Continue dose of 1250 mg IV every 10 hours * Goal trough level for intra-abd infxn : 10 to 20 mcg/mL (15 to 20 initially due to severity of illness) * Will repeat trough level in 2 days if therapy continues (11/26/17 @0600) Pharmacy will continue to follow and will adjust dose/frequency as necessary. Thank you.
[2017-11-24] MEDS ORDERED: DAPTOmycin IV 500 MG in SODIUM CHLORIDE 0.9% 50ML 50 ML IV SCH (11:00)
--- NOTE | 2017-11-24 11:03 | Critical Care Progress Note ---
Critical Care Progress Note Date of Service Nov 24, 2017. Attending Dr. Marrero Subjective Seems more awake today, stronger Still with high output from the MICHAEL drain Objective Vital signs reviewed Physical Exam: General - NAD, lethargic Eyes - PERRL, EOMI No icterus Neck - Supple, trachea midline Lungs - No paradoxical chest wall movement, clear and diminished to auscultation bilaterally, no wheezes, rales, or rhonchi Heart - Regular rate and rhythm, No murmur, rubs, clicks, or gallops appreciated Abdomen - BS Absent, no bruits noted, tympanic to percussion, soft, nontender, nondistended, surgical dressing clean dry and intact down the midline. [address], with serous fluid Extremities - Anasarca Neuro - Mildly lethargic, he does wake up with stimulation and converses in short sentences Assessment & Plan 77 year-old male s/p resection of large colonic mass, with colo-duodenal fistula , difficult post-operative course, requiring blood transfusions, prolonged ventilation, hypotension requiring pressor support, development of atrial fibrillation. Extubated post-op Problems: Severe sepsis, of abdominal source. Was in shock but has resolved Toxic-metabolic encephalopathy Cdiff A-fib with RVR Colonic mass Malnutrition Plan: BUNDLE CUTTER: Still lethargic, likely toxic-metabolic encephalopathy, secondary to sepsis Continue to monitor Fentanyl prn for pain Physical therapy CVS: Converted to NSR. Off amiodarone drip Not an anticoagulation candidate due to recent GI bleeding, thrombocytopenia Respiratory: Incentive spirometry if able to perform ID: Abx: Azactam, Vanco, metronidazole. Change Vanco to daptomycin to decrease the volume intake Continue caspofungin Procalcitonin increasing to 4 Follow abdominal fluid culture Cdiff positive, on contact isolation Renal/metabolic: Continue TPN Albumin 25%, 25 mg tid for 3 days (last day today_ Monitor renal output Adjust electrolytes GI: Maintain NGT Monitor MICHAEL output. Start low dose tube feedings today and observe Follow up pathology Heme: Holding Lovenox, secondary to thrombocytopenia HIT panel negative DVT prophylaxis: SCDs Patient is DNR/DNI Overall prognosis is poor, even if he survives this admission Critical care time spent with the patient, reviewing chart, discussing with consultants, excluding procedures, greater than 35 minutes Consults & Procedures Consultants: Surgery: Dr Juarez GI - Dr Nam Procedures: 11/16/17 - Colonoscopy/EGD 11/18/17 - Left hemicolectomy, partial small bowel resection, partial duodenal resection 11/20/17 - Extubation Right IJ TLC Data Medications: Current Inpatient Medications Medications (Trade) Dose Ordered Sig/Jose Route Start Time Stop Time Status Last Admin Dose Admin Pantoprazole Sodium 40 mg/ Syringe 10 ml @ 5 mls/min DAILY@11 IV 11/19/17 11:00 12/19/17 10:59 11/24/17 10:04 5 MLS/MIN Metoprolol Tartrate (Lopressor Iv) 5 mg Q4H PRN IV 11/19/17 08:30 12/19/17 08:29 Fentanyl Citrate (Fentanyl Inj) 100 mcg Q2H PRN IV 11/20/17 14:15 12/04/17 14:14 11/24/17 10:04 100 MCG Miscellaneous Information (Pharmacy Tpn/ Ppn Consult Active) 1 ea UD PRN N/A 11/21/17 11:29 12/21/17 11:28 Dextrose 1,000 ml @ 0 mls/hr Q0M PRN IV 11/21/17 16:00 12/21/17 15:59 Albumin Human (Albumin 25%) 25 gm Q8H IV 11/22/17 10:00 11/25/17 09:59 11/24/17 10:05 25 GM Metronidazole 500 mg/Prmx 100 ml @ 100 mls/hr Q8H IV 11/22/17 12:00 12/02/17 11:59 11/24/17 05:12 100 MLS/HR Miscellaneous Information (Consult) 1 UD PRN N/A 11/22/17 12:00 12/22/17 11:59 Insulin Aspart (novoLOG ASPART) SLIDING SCALE G... Q6 SC 11/22/17 18:00 12/19/17 06:44 Aztreonam 2000 mg/ Syringe 20 ml @ 4 mls/min Q12H IV 11/23/17 14:00 12/02/17 09:59 11/24/17 02:07 4 MLS/MIN Nutrition (Parenteral) 0 ml @ 0 mls/hr TODAY@1600 IV 11/23/17 16:00 11/24/17 15:59 11/23/17 15:59 0 MLS/HR Caspofungin 50 mg/ Sodium Chloride 110 ml @ 110 mls/hr Q24H IV 11/24/17 14:00 12/04/17 13:59 Vancomycin HCl 1250 mg/Sodium Chloride 175 ml @ 66 mls/hr Q10H IV 11/24/17 14:00 12/02/17 21:59 Enteral Nutritional Formula (Peptamen 1.5) 1,000 ml UD PRN NG 11/24/17 10:45 12/24/17 10:44 Nutrition (Parenteral) 0 ml @ 0 mls/hr TODAY@1600 IV 11/24/17 16:00 11/25/17 15:59 Vital Signs: Date Time Temp Pulse Resp B/P (MAP) Pulse Ox O2 Delivery O2 Flow Rate FiO2 11/24/17 10:00 106 22 141/83 (102) 96 11/24/17 08:00 97 Oxymask 4.0 11/24/17 08:00 36.8 103 20 132/85 (101) 97 Oxymask 4.0 11/24/17 06:00 99 21 116/77 (90) 96 Oxymask 4.0 11/24/17 05:00 102 22 125/75 (92) 95 Oxymask 4.0 11/24/17 04:00 Nasal Cannula 2.0 Oxymask 11/24/17 04:00 36.7 79 20 108/62 (77) 95 Oxymask 4.0 11/24/17 03:00 84 18 103/63 (76) 96 Oxymask 4.0 11/24/17 02:11 77 20 98/62 (74) 98 Oxymask 4.0 11/24/17 02:00 80 20 99/56 (70) 97 Oxymask 4.0 11/24/17 01:00 83 15 91/49 (63) 94 Oxymask 4.0 11/24/17 00:01 Nasal Cannula 2.0 Oxymask 11/24/17 00:01 36.6 84 21 111/68 (82) 94 Oxymask 4.0 11/23/17 23:00 80 23 119/64 (82) 94 Oxymask 4.0 11/23/17 22:00 78 28 133/66 (88) 94 Oxymask 4.0 11/23/17 21:00 80 18 109/62 (78) 94 Oxymask 4.0 11/23/17 20:00 Nasal Cannula 2.0 Oxymask 11/23/17 20:00 36.9 82 22 132/70 (90) 96 Oxymask 4.0 11/23/17 19:00 73 15 112/60 (77) 94 Oxymask 4.0 11/23/17 18:00 74 16 112/60 (77) 94 Oxymask 4.0 11/23/17 16:00 95 Nasal Cannula 4.0 Oxymask 11/23/17 16:00 37.4 73 16 102/64 (77) 97 Oxymask 4.0 11/23/17 15:00 74 15 120/60 (80) 95 Oxymask 6.0 11/23/17 14:00 70 18 105/59 (74) 100 Oxymask 6.0 11/23/17 13:00 73 18 114/56 (75) 98 Oxymask 6.0 11/23/17 12:00 37.5 77 20 117/64 (81) 96 Oxymask 8.0 11/23/17 12:00 95 Nasal Cannula 8.0 Oxymask 11/23/17 11:00 78 21 114/56 (75) 95 Oxymask 8.0 Laboratory Results: Last 24 Hours Test 11/23/17 11:19 11/23/17 11:34 11/23/17 17:53 11/23/17 23:42 Bedside Glucose 179 mg/dl 146 mg/dl 140 mg/dl Ionized Calcium 1.01 mmol/l Test 11/24/17 03:20 11/24/17 06:07 White Blood Count 8.55 K/uL Red Blood Count 2.72 M/uL Hemoglobin 7.6 g/dL Hematocrit 23.5 % Mean Corpuscular Volume 86.4 fL Mean Corpuscular Hemoglobin 27.9 pg Mean Corpuscular Hemoglobin Concent 32.3 g/dl Platelet Count 70 K/uL Mean Platelet Volume 9.0 fL Neutrophils (%) (Auto) 74.5 % Lymphocytes (%) (Auto) 13.7 % Monocytes (%) (Auto) 9.2 % Eosinophils (%) (Auto) 0.8 % Basophils (%) (Auto) 0.2 % Neutrophils # (Auto) 6.36 K/uL Lymphocytes # (Auto) 1.17 K/uL Monocytes # (Auto) 0.79 K/uL Eosinophils # (Auto) 0.07 K/uL Basophils # (Auto) 0.02 K/uL RDW Standard Deviation 51.8 fL RDW Coefficient of Variation 16.6 % Immature Granulocyte % (Auto) 1.6 % Immature Granulocyte # (Auto) 0.14 K/uL Nucleated RBC Absolute Count (auto) 0.02 K/uL Nucleated Red Blood Cells % 0.2 % Dohle Bodies 2+ Sodium Level 139 mmol/L Potassium Level 3.8 mmol/L Chloride Level 108 mmol/L Carbon Dioxide Level 23 mmol/L Anion Gap 8.0 mmol/L Blood Urea Nitrogen 32 mg/dl Creatinine 0.57 mg/dl Est Creatinine Clear Calc Drug Dose 111.9 ml/min Estimated GFR () 113.2 Estimated GFR (Non- 97.7 BUN/Creatinine Ratio 55.9 Random Glucose 132 mg/dl Calcium Level 7.3 mg/dl Ionized Calcium 1.08 mmol/l Phosphorus Level 2.4 mg/dl Magnesium Level 2.2 mg/dl Total Bilirubin 0.7 mg/dl Direct Bilirubin 0.4 mg/dl Aspartate Amino Transf (AST/SGOT) 15 U/L Alanine Aminotransferase (ALT/SGPT) 11 U/L Alkaline Phosphatase 78 U/L Total Protein 4.5 gm/dl Albumin 2.2 gm/dl Lipase 516 U/L Procalcitonin 4.09 ng/ml Vancomycin Level Trough 16.4 mcg/ml Bedside Glucose 129 mg/dl
[2017-11-24] MEDS: PEPTAMEN 1.5 CAL 1000ML BAG NG PRN (11:49)
[2017-11-24] MEDS: DAPTOmycin IV 500 MG in SYRINGE 0 ML IV SCH (11:49)
[2017-11-24] MEDS ORDERED: CASPOFUNGIN INJ 50 MG in SODIUM CHLORIDE 0.9% 100ML 100 ML IV SCH (14:00)
[2017-11-24] MEDS ORDERED: SODIUM CHLORIDE 0.9% IV SCH (14:00)
[2017-11-24] MEDS ORDERED: CASPOFUNGIN INJ 50 MG in SODIUM CHLORIDE 0.9% 250ML 250 ML IV SCH (14:00)
[2017-11-24] MEDS ORDERED: VANCOMYCIN IV SCH (14:00)
[2017-11-24] MEDS ORDERED: RASPBERRY SYRUP 5 ML UDP PO SCH (14:30)
[2017-11-24] MEDS ORDERED: CUSTOM CENTRAL PN 1 BAG IV SCH (16:00)
[2017-11-24] MEDS: VANCOMYCIN HCL 250 MG/5 ML SOLN NG SCH ×2 (16:35→19:00)
[2017-11-25] VITALS (25 sets, daily range): BP systolic 91–153; BP diastolic 59–80; PULSE 75–106; TEMP 36.4–37; O2SAT 89–99
[2017-11-25] MEDS: VANCOMYCIN HCL 250 MG/5 ML SOLN NG SCH ×5 (00:39→23:54)
[2017-11-25] MEDS: FENTANYL CITRATE INJ 50 MCG/1 ML 2 ML VIAL IV PRN ×2 (00:40→19:49)
[2017-11-25] MEDS: ALBUMIN HUMAN 25% 12.5 GM/50 ML VIAL IV SCH (02:10)
[2017-11-25] MEDS: AZTREONAM IV SCH ×3 (02:12→14:02)
[2017-11-25] MEDS: METRONIDAZOLE / NSS 500 MG in PREMIXED NSS 100 ML IV SCH ×3 (04:26→19:49)
[2017-11-25] MEDS: INSULIN ASPART 100 UNITS/ML 3 ML PEN SC SCH ×4 (05:55→18:38)
[2017-11-25 06:05] LABS: HEMATOCRIT 25.2 % (42-52); HEMOGLOBIN 7.8 g/dL (14.0-18.0); MEAN CELL VOLUME 88.1 fL (80-100); MEAN CORPUSCULAR HEMOGLOBIN 27.3 pg (25-34); RED CELL DISTRIBUTION WIDTH CV 17.1 % (11.5-14.5); RED CELL DISTRIBUTION WIDTH SD 54.4 fL (36.4-46.3); WHITE BLOOD COUNT 10.62 K/uL (4.8-10.8)
[2017-11-25 06:11] LABS: MEAN PLATELET VOLUME 10.2 fL (7.4-10.4); PLATELET COUNT 88 K/uL (130-400)
[2017-11-25 06:51] LABS: CALCIUM 7.3 mg/dl (8.5-10.1); CREATININE 0.42 mg/dl (0.60-1.40); POTASSIUM 3.7 mmol/L (3.5-5.1)
[2017-11-25 07:05] LABS: PHOSPHORUS 3.1 mg/dl (2.5-4.9)
--- NOTE | 2017-11-25 08:19 | Surgery Progress Note ---
Surgery Progress Note Date of Service Nov 25, 2017. Subjective 77-year-old male status post left hemicolectomy and duodenal resection for large fistulas and colon mass, POD #7. Overall doing well, appears more awake and slightly stronger. Tolerating tube feeds, being treated for C. difficile. Objective Vital Signs: Date Time Temp Pulse Resp B/P (MAP) Pulse Ox O2 Delivery O2 Flow Rate FiO2 11/25/17 06:00 103 31 116/78 (91) 95 Oxymask 4.0 11/25/17 05:00 105 25 130/73 (92) 94 11/25/17 04:00 37.0 103 22 119/77 (91) 91 Oxymask 4.0 11/25/17 04:00 Oxymask 4.0 11/25/17 03:39 101 28 153/80 (104) 93 Oxymask 4.0 11/25/17 03:01 106 25 153/80 (104) 94 Oxymask 4.0 11/25/17 02:00 101 23 110/70 (83) 95 Oxymask 4.0 11/25/17 01:00 103 20 103/67 (79) 95 Oxymask 4.0 11/25/17 00:00 36.8 102 25 119/68 (85) 95 Oxymask 4.0 11/24/17 23:59 Oxymask 4.0 11/24/17 22:00 36.8 102 24 111/71 (84) 95 Oxymask 4.0 11/24/17 20:01 80 20 100/64 (76) 97 Oxymask 4.0 11/24/17 20:00 96 Oxymask 4.0 11/24/17 19:01 93 21 122/60 (80) 97 Oxymask 4.0 11/24/17 18:04 98 23 130/65 (86) 96 Oxymask 4.0 11/24/17 17:00 89 21 120/82 (95) 98 Oxymask 4.0 11/24/17 16:01 101 23 129/82 (98) 96 Oxymask 4.0 11/24/17 16:00 96 Oxymask 4.0 11/24/17 15:01 36.8 100 21 104/73 (83) 96 Oxymask 4.0 3/7/18 14:00 98 24 144/82 (102) 96 Oxymask 4.0 11/24/17 12:00 97 Oxymask 4.0 11/24/17 12:00 36.6 95 25 110/80 (90) 98 Oxymask 4.0 11/24/17 10:00 106 22 141/83 (102) 96 Physical Exam: MICHAEL drainage (Output slightly decreased still copious, serosanguineous) General Appearance: no apparent distress Abdomen: non tender, soft Incision(s): clean, dry, intact, no erythema, no drainage Laboratory Results: Results Past 24 Hours Test 11/24/17 11:27 11/24/17 17:43 11/24/17 23:52 11/25/17 05:42 Range/Units Bedside Glucose 140 130 132 70-99 mg/dl White Blood Count 10.62 4.8-10.8 K/uL Red Blood Count 2.86 4.7-6.1 M/uL Hemoglobin 7.8 14.0-18.0 g/dL Hematocrit 25.2 42-52 % Mean Corpuscular Volume 88.1 80-100 fL Mean Corpuscular Hemoglobin 27.3 25-34 pg Mean Corpuscular Hemoglobin Concent 31.0 32-36 g/dl Platelet Count 88 130-400 K/uL Mean Platelet Volume 10.2 7.4-10.4 fL RDW Standard Deviation 54.4 36.4-46.3 fL RDW Coefficient of Variation 17.1 11.5-14.5 % Neutrophils % (Manual) 86.1 % Lymphocytes % (Manual) 7.0 % Monocytes % (Manual) 2.6 % Eosinophils % (Manual) 0.9 % Metamyelocytes % 1.7 % Myelocytes % 1.7 % Neutrophils # (Manual) 9.14 1.4-6.5 K/uL Total Absolute Neutrophils 9.14 1.4-6.5 K/uL Lymphocytes # (Manual) 0.74 1.2-3.4 K/uL Total Absolute Lymphocytes 0.74 1.2-3.4 K/uL Monocytes # (Manual) 0.28 0.11-0.59 K/uL Eosinophils # (Manual) 0.10 0-0.5 K/uL Metamyelocytes # 0.18 0-0 K/uL Myelocytes # 0.18 0-0 K/uL Toxic Granulation 1+ Polychromasia 1+ Sodium Level 142 136-145 mmol/L Potassium Level 3.7 3.5-5.1 mmol/L Chloride Level 112 98-107 mmol/L Carbon Dioxide Level 25 21-32 mmol/L Anion Gap 5.0 3-11 mmol/L Blood Urea Nitrogen 25 7-18 mg/dl Creatinine 0.42 0.60-1.40 mg/dl Est Creatinine Clear Calc Drug Dose 156.5 ml/min Estimated GFR () 128.3 Estimated GFR (Non- 110.7 BUN/Creatinine Ratio 58.4 10-20 Random Glucose 163 70-99 mg/dl Calcium Level 7.3 8.5-10.1 mg/dl Ionized Calcium 1.09 1.12-1.32 mmol/l Phosphorus Level 3.1 2.5-4.9 mg/dl Magnesium Level 2.2 1.8-2.4 mg/dl Test 11/25/17 05:49 Range/Units Bedside Glucose 159 70-99 mg/dl Assessment & Plan POD #7 left hemicolectomy partial small bowel resection, overall doing well, appreciate critical care management of this patient. Consider blue dye down NG tube or purple popsicle test to rule out leak If negative then we will remove the MICHAEL drain medical management per ICU team surgery will follow, call with questions or concerns
[2017-11-25] MEDS ORDERED: POTASSIUM CHLORIDE PWD 20 MEQ PACK PO ONE (10:00)
[2017-11-25] MEDS: HEPARIN SOD 5000 UNIT/0.5 ML CARP SQ SCH ×2 (11:03→21:27)
[2017-11-25] MEDS: PANTOprazole INJ 40 MG in SYRINGE 0 ML IV SCH (11:03)
[2017-11-25] MEDS: DAPTOmycin IV 500 MG in SYRINGE 0 ML IV SCH (11:05)
--- NOTE | 2017-11-25 14:38 | Critical Care Progress Note ---
Critical Care Progress Note Date of Service Nov 25, 2017. Attending Dr. Marrero Subjective More awake today, more interactive Objective Vital signs reviewed Physical Exam: General - NAD, lethargic Eyes - PERRL, EOMI No icterus Neck - Supple, trachea midline Lungs - No paradoxical chest wall movement, clear and diminished to auscultation bilaterally, no wheezes, rales, or rhonchi Heart - Regular rate and rhythm, No murmur, rubs, clicks, or gallops appreciated Abdomen - Diffusely tender, MICHAEL drain Extremities - Anasarca, improving Neuro - Awake, alert, follows commands Assessment & Plan 77 year-old male s/p resection of large colonic mass, with colo-duodenal fistula , difficult post-operative course, requiring blood transfusions, prolonged ventilation, hypotension requiring pressor support, development of atrial fibrillation. Extubated post-op Problems: Severe sepsis, of abdominal source. Was in shock but has resolved Toxic-metabolic encephalopathy Cdiff A-fib with RVR Colonic mass Malnutrition Plan: JACKERMAN: toxic-metabolic encephalopathy improving daily Continue to monitor Fentanyl prn for pain Physical therapy CVS: Remains in NSR. Off amiodarone drip Not an anticoagulation candidate due to recent GI bleeding, thrombocytopenia Respiratory: Incentive spirometry if able to perform Hopefully we'll be able o mobilize him to a chair ID: Abx: Azactam, daptomycin, metronidazole. Change Vanco to daptomycin to decrease the volume intake Discontinued caspofungin, no evidence of fungal component Procalcitonin increased to 4 Follow abdominal fluid culture, prelim GBR. Consider stopping daptomycin Cdiff positive, on contact isolation. On iv Flagyl and PO vanco Renal/metabolic: Continue TPN, decreasing the rate though since on tube feedings S/p Albumin 25%, 25 mg tid for 3 days Monitor renal output Adjust electrolytes daily GI: Maintain NGT Monitor MICHAEL output. Increase tube feedings to 30 cc/hr Follow up pathology Heme: Resume DVT prophylaxis, heparin sc q 12 h HIT panel negative DVT prophylaxis: SCDs Patient is DNR/DNI Overall prognosis is poor, even if he survives this admission Critical care time spent with the patient, reviewing chart, discussing with consultants, excluding procedures, greater than 35 minutes Consults & Procedures Consultants: Surgery: Dr Juarez GI - Dr Nam Procedures: 11/16/17 - Colonoscopy/EGD 11/18/17 - Left hemicolectomy, partial small bowel resection, partial duodenal resection 11/20/17 - Extubation Right IJ TLC Data Medications: Current Inpatient Medications Medications (Trade) Dose Ordered Sig/Jose Route Start Time Stop Time Status Last Admin Dose Admin Pantoprazole Sodium 40 mg/ Syringe 10 ml @ 5 mls/min DAILY@11 IV 11/19/17 11:00 12/19/17 10:59 11/25/17 11:03 5 MLS/MIN Metoprolol Tartrate (Lopressor Iv) 5 mg Q4H PRN IV 11/19/17 08:30 12/19/17 08:29 Fentanyl Citrate (Fentanyl Inj) 100 mcg Q2H PRN IV 11/20/17 14:15 12/04/17 14:14 11/25/17 00:40 100 MCG Miscellaneous Information (Pharmacy Tpn/ Ppn Consult Active) 1 ea UD PRN N/A 11/21/17 11:29 12/21/17 11:28 Dextrose 1,000 ml @ 0 mls/hr Q0M PRN IV 11/21/17 16:00 12/21/17 15:59 Metronidazole 500 mg/Prmx 100 ml @ 100 mls/hr Q8H IV 11/22/17 12:00 12/02/17 11:59 11/25/17 11:07 100 MLS/HR Insulin Aspart (novoLOG ASPART) SLIDING SCALE G... Q6 SC 11/22/17 18:00 12/19/17 06:44 Aztreonam 2000 mg/ Syringe 20 ml @ 4 mls/min Q12H IV 11/23/17 14:00 12/02/17 09:59 11/25/17 14:02 4 MLS/MIN Enteral Nutritional Formula (Peptamen 1.5) 1,000 ml UD PRN NG 11/24/17 10:45 12/24/17 10:44 11/24/17 11:49 1,000 ML Nutrition (Parenteral) 0 ml @ 0 mls/hr TODAY@1600 IV 11/24/17 16:00 11/25/17 15:59 11/24/17 15:29 0 MLS/HR Daptomycin 500 mg/ Syringe 10 ml @ 5 mls/min Q24H IV 11/24/17 12:00 12/04/17 11:59 11/25/17 11:05 5 MLS/MIN Vancomycin HCl (Vancomycin Oral Soln) 250 mg Q6 NG 11/24/17 15:00 12/08/17 14:59 11/25/17 11:07 250 MG Heparin Sodium (Porcine) (Heparin Sq 5000 Unit/0.5ml) 5,000 unit Q12H SQ 11/25/17 10:00 12/25/17 09:59 11/25/17 11:03 5,000 UNIT Nutrition (Parenteral) 0 ml @ 0 mls/hr TODAY@1600 IV 11/25/17 16:00 11/26/17 15:59 I & O: 24-Hour Column 11/26/17 08:00 Intake Total 912 ml Output Total 970 ml Balance -58 ml Vital Signs: Date Time Temp Pulse Resp B/P (MAP) Pulse Ox O2 Delivery O2 Flow Rate FiO2 11/25/17 14:01 82 27 152/59 (90) 96 11/25/17 14:00 36.4 84 22 152/59 (90) 98 Oxymask 4.0 11/25/17 14:00 83 42 89 11/25/17 13:01 84 22 107/68 (81) 97 11/25/17 13:00 82 23 98 11/25/17 12:00 Oxymask 4.0 11/25/17 12:00 36.4 75 22 100/73 (82) 98 Oxymask 4.0 11/25/17 12:00 83 26 108/73 (85) 99 11/25/17 11:01 83 23 108/70 (83) 97 11/25/17 11:00 82 22 98 11/25/17 10:00 82 25 125/80 (95) 98 11/25/17 09:33 36.4 84 22 100/63 (75) 94 Oxymask 4.0 11/25/17 09:00 81 21 100/63 (75) 95 11/25/17 08:00 Nasal Cannula 11/25/17 08:00 83 26 102/71 (81) 95 11/25/17 07:30 36.4 103 22 113/63 (80) 93 Oxymask 4.0 11/25/17 07:30 Oxymask 4.0 11/25/17 07:00 81 29 113/63 (80) 95 11/25/17 06:00 103 31 116/78 (91) 95 Oxymask 4.0 11/25/17 05:00 105 25 130/73 (92) 94 11/25/17 04:00 37.0 103 22 119/77 (91) 91 Oxymask 4.0 11/25/17 04:00 Oxymask 4.0 11/25/17 03:39 101 28 153/80 (104) 93 Oxymask 4.0 11/25/17 03:01 106 25 153/80 (104) 94 Oxymask 4.0 11/25/17 02:00 101 23 110/70 (83) 95 Oxymask 4.0 11/25/17 01:00 103 20 103/67 (79) 95 Oxymask 4.0 11/25/17 00:00 36.8 102 25 119/68 (85) 95 Oxymask 4.0 11/24/17 23:59 Oxymask 4.0 11/24/17 22:00 36.8 102 24 111/71 (84) 95 Oxymask 4.0 11/24/17 20:01 80 20 100/64 (76) 97 Oxymask 4.0 11/24/17 20:00 96 Oxymask 4.0 11/24/17 19:01 93 21 122/60 (80) 97 Oxymask 4.0 11/24/17 18:04 98 23 130/65 (86) 96 Oxymask 4.0 11/24/17 17:00 89 21 120/82 (95) 98 Oxymask 4.0 11/24/17 16:01 101 23 129/82 (98) 96 Oxymask 4.0 11/24/17 16:00 96 Oxymask 4.0 11/24/17 15:01 36.8 100 21 104/73 (83) 96 Oxymask 4.0 Laboratory Results: Last 24 Hours Test 11/24/17 17:43 11/24/17 23:52 11/25/17 05:42 11/25/17 05:49 Bedside Glucose 130 mg/dl 132 mg/dl 159 mg/dl White Blood Count 10.62 K/uL Red Blood Count 2.86 M/uL Hemoglobin 7.8 g/dL Hematocrit 25.2 % Mean Corpuscular Volume 88.1 fL Mean Corpuscular Hemoglobin 27.3 pg Mean Corpuscular Hemoglobin Concent 31.0 g/dl Platelet Count 88 K/uL Mean Platelet Volume 10.2 fL RDW Standard Deviation 54.4 fL RDW Coefficient of Variation 17.1 % Neutrophils % (Manual) 86.1 % Lymphocytes % (Manual) 7.0 % Monocytes % (Manual) 2.6 % Eosinophils % (Manual) 0.9 % Metamyelocytes % 1.7 % Myelocytes % 1.7 % Neutrophils # (Manual) 9.14 K/uL Total Absolute Neutrophils 9.14 K/uL Lymphocytes # (Manual) 0.74 K/uL Total Absolute Lymphocytes 0.74 K/uL Monocytes # (Manual) 0.28 K/uL Eosinophils # (Manual) 0.10 K/uL Metamyelocytes # 0.18 K/uL Myelocytes # 0.18 K/uL Toxic Granulation 1+ Polychromasia 1+ Sodium Level 142 mmol/L Potassium Level 3.7 mmol/L Chloride Level 112 mmol/L Carbon Dioxide Level 25 mmol/L Anion Gap 5.0 mmol/L Blood Urea Nitrogen 25 mg/dl Creatinine 0.42 mg/dl Est Creatinine Clear Calc Drug Dose 156.5 ml/min Estimated GFR () 128.3 Estimated GFR (Non- 110.7 BUN/Creatinine Ratio 58.4 Random Glucose 163 mg/dl Calcium Level 7.3 mg/dl Ionized Calcium 1.09 mmol/l Phosphorus Level 3.1 mg/dl Magnesium Level 2.2 mg/dl
[2017-11-25] MEDS ORDERED: CUSTOM CENTRAL PN 1 BAG IV SCH (16:00)
[2017-11-25] MEDS: PEPTAMEN 1.5 CAL 1000ML BAG NG PRN (16:30)
--- NOTE | 2017-11-25 20:13 | Progress Note ---
Internal Med Progress Note Date of Service: Nov 25, 2017. Provider Documentation: Subjective: patient remains in the ICU. 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 Was in shock but has resolved Was intubated post op: 11/18/17 and Extubated on 11/20/17 Other post-operative course, requiring blood transfusions, prolonged ventilation , hypotension requiring pressor support, development of atrial fibrillation Patient also receiving albumin to alleviate lower extremity swelling / anasarca Patient has had protracted hospital course and is an ICU level of care patient. Cardiovascular Remains in NSR. Off amiodarone drip. Not an anticoagulation candidate due to recent GI bleeding, thrombocytopeni ID: Abx: Azactam, daptomycin, metronidazole. Change Vanco to daptomycin to decrease the volume intake Discontinued caspofungin, no evidence of fungal component Procalcitonin increased to 4 Abdominal fluid culture, prelim GRAM POSITIVE BACILLI, QUANTITY RARE, NO SENSITIVITY TO FOLLOW On daptomycin Cdiff positive, on contact isolation. On IV Flagyl and PO vancomycin Nutrition/Volume status Continue TPN, decreasing the rate though since on tube feedings S/p Albumin 25%, 25 mg TID for 3 days Monitor MICHAEL output. Anemia Resume DVT prophylaxis, heparin sc q 12 h, HIT panel negative Patient is DNR/DNI Disposition: patient remains in ICU Vital Signs: Date Time Temp Pulse Resp B/P (MAP) Pulse Ox O2 Delivery O2 Flow Rate FiO2 11/25/17 18:00 86 26 112/73 (86) 97 Oxymask 4.0 11/25/17 16:00 96 Oxymask 4.0 11/25/17 16:00 36.8 83 24 118/64 (82) 97 Oxymask 4.0 11/25/17 14:01 82 27 152/59 (90) 96 11/25/17 14:00 36.4 84 22 152/59 (90) 98 Oxymask 4.0 11/25/17 14:00 83 42 89 11/25/17 13:01 84 22 107/68 (81) 97 11/25/17 13:00 82 23 98 11/25/17 12:00 Oxymask 4.0 11/25/17 12:00 36.4 75 22 100/73 (82) 98 Oxymask 4.0 11/25/17 12:00 83 26 108/73 (85) 99 11/25/17 11:01 83 23 108/70 (83) 97 11/25/17 11:00 82 22 98 11/25/17 10:00 82 25 125/80 (95) 98 11/25/17 09:33 36.4 84 22 100/63 (75) 94 Oxymask 4.0 11/25/17 09:00 81 21 100/63 (75) 95 11/25/17 08:00 Nasal Cannula 11/25/17 08:00 83 26 102/71 (81) 95 11/25/17 07:30 36.4 103 22 113/63 (80) 93 Oxymask 4.0 11/25/17 07:30 Oxymask 4.0 11/25/17 07:00 81 29 113/63 (80) 95 11/25/17 06:00 103 31 116/78 (91) 95 Oxymask 4.0 11/25/17 05:00 105 25 130/73 (92) 94 11/25/17 04:00 37.0 103 22 119/77 (91) 91 Oxymask 4.0 11/25/17 04:00 Oxymask 4.0 11/25/17 03:39 101 28 153/80 (104) 93 Oxymask 4.0 11/25/17 03:01 106 25 153/80 (104) 94 Oxymask 4.0 11/25/17 02:00 101 23 110/70 (83) 95 Oxymask 4.0 11/25/17 01:00 103 20 103/67 (79) 95 Oxymask 4.0 11/25/17 00:00 36.8 102 25 119/68 (85) 95 Oxymask 4.0 11/24/17 23:59 Oxymask 4.0 11/24/17 22:00 36.8 102 24 111/71 (84) 95 Oxymask 4.0 Lab Results: Results Past 24 Hours Test 11/24/17 23:52 11/25/17 05:42 11/25/17 05:49 11/25/17 11:09 Range/Units Bedside Glucose 132 159 175 70-99 mg/dl White Blood Count 10.62 4.8-10.8 K/uL Red Blood Count 2.86 4.7-6.1 M/uL Hemoglobin 7.8 14.0-18.0 g/dL Hematocrit 25.2 42-52 % Mean Corpuscular Volume 88.1 80-100 fL Mean Corpuscular Hemoglobin 27.3 25-34 pg Mean Corpuscular Hemoglobin Concent 31.0 32-36 g/dl Platelet Count 88 130-400 K/uL Mean Platelet Volume 10.2 7.4-10.4 fL RDW Standard Deviation 54.4 36.4-46.3 fL RDW Coefficient of Variation 17.1 11.5-14.5 % Neutrophils % (Manual) 86.1 % Lymphocytes % (Manual) 7.0 % Monocytes % (Manual) 2.6 % Eosinophils % (Manual) 0.9 % Metamyelocytes % 1.7 % Myelocytes % 1.7 % Neutrophils # (Manual) 9.14 1.4-6.5 K/uL Total Absolute Neutrophils 9.14 1.4-6.5 K/uL Lymphocytes # (Manual) 0.74 1.2-3.4 K/uL Total Absolute Lymphocytes 0.74 1.2-3.4 K/uL Monocytes # (Manual) 0.28 0.11-0.59 K/uL Eosinophils # (Manual) 0.10 0-0.5 K/uL Metamyelocytes # 0.18 0-0 K/uL Myelocytes # 0.18 0-0 K/uL Toxic Granulation 1+ Polychromasia 1+ Sodium Level 142 136-145 mmol/L Potassium Level 3.7 3.5-5.1 mmol/L Chloride Level 112 98-107 mmol/L Carbon Dioxide Level 25 21-32 mmol/L Anion Gap 5.0 3-11 mmol/L Blood Urea Nitrogen 25 7-18 mg/dl Creatinine 0.42 0.60-1.40 mg/dl Est Creatinine Clear Calc Drug Dose 156.5 ml/min Estimated GFR () 128.3 Estimated GFR (Non- 110.7 BUN/Creatinine Ratio 58.4 10-20 Random Glucose 163 70-99 mg/dl Calcium Level 7.3 8.5-10.1 mg/dl Ionized Calcium 1.09 1.12-1.32 mmol/l Phosphorus Level 3.1 2.5-4.9 mg/dl Magnesium Level 2.2 1.8-2.4 mg/dl
--- NOTE | 2017-11-25 21:24 | Infectious Disease Progress Nt ---
Progress Note Date of Service Nov 25, 2017. Subjective Pt evaluation today including: conversation w/ patient, physical exam, chart review, lab review, review of studies, conversation w/ vocational rehabilitation consultant, review of inpatient medication list Still complaining of abdominal pain. Afebrile and hemodynamically stable overnight. Cultures from drainage growing gram-positive bacilli. All Other Systems: Reviewed and Negative Medications Current Inpatient Medications Medications (Trade) Dose Ordered Sig/Jose Route Start Time Stop Time Status Last Admin Dose Admin Pantoprazole Sodium 40 mg/ Syringe 10 ml @ 5 mls/min DAILY@11 IV 11/19/17 11:00 12/19/17 10:59 11/25/17 11:03 5 MLS/MIN Metoprolol Tartrate (Lopressor Iv) 5 mg Q4H PRN IV 11/19/17 08:30 12/19/17 08:29 Fentanyl Citrate (Fentanyl Inj) 100 mcg Q2H PRN IV 11/20/17 14:15 12/04/17 14:14 11/25/17 19:49 100 MCG Miscellaneous Information (Pharmacy Tpn/ Ppn Consult Active) 1 ea UD PRN N/A 11/21/17 11:29 12/21/17 11:28 Dextrose 1,000 ml @ 0 mls/hr Q0M PRN IV 11/21/17 16:00 12/21/17 15:59 Metronidazole 500 mg/Prmx 100 ml @ 100 mls/hr Q8H IV 11/22/17 12:00 12/02/17 11:59 11/25/17 19:49 100 MLS/HR Insulin Aspart (novoLOG ASPART) SLIDING SCALE G... Q6 SC 11/22/17 18:00 12/19/17 06:44 Aztreonam 2000 mg/ Syringe 20 ml @ 4 mls/min Q12H IV 11/23/17 14:00 12/02/17 09:59 11/25/17 14:02 4 MLS/MIN Enteral Nutritional Formula (Peptamen 1.5) 1,000 ml UD PRN NG 11/24/17 10:45 12/24/17 10:44 11/25/17 16:30 1,000 ML Daptomycin 500 mg/ Syringe 10 ml @ 5 mls/min Q24H IV 11/24/17 12:00 12/04/17 11:59 11/25/17 11:05 5 MLS/MIN Vancomycin HCl (Vancomycin Oral Soln) 250 mg Q6 NG 11/24/17 15:00 12/08/17 14:59 11/25/17 18:16 250 MG Heparin Sodium (Porcine) (Heparin Sq 5000 Unit/0.5ml) 5,000 unit Q12H SQ 11/25/17 10:00 12/25/17 09:59 11/25/17 11:03 5,000 UNIT Nutrition (Parenteral) 0 ml @ 0 mls/hr TODAY@1600 IV 11/25/17 16:00 11/26/17 15:59 11/25/17 16:29 44.82 MLS/HR Objective Vital Signs Date Time Temp Pulse Resp B/P (MAP) Pulse Ox O2 Delivery O2 Flow Rate FiO2 11/25/17 20:00 95 Oxymask 4.0 11/25/17 20:00 36.8 92 23 91/59 (70) 94 Oxymask 4.0 11/25/17 18:00 86 26 112/73 (86) 97 Oxymask 4.0 11/25/17 16:00 96 Oxymask 4.0 11/25/17 16:00 36.8 83 24 118/64 (82) 97 Oxymask 4.0 11/25/17 14:01 82 27 152/59 (90) 96 11/25/17 14:00 36.4 84 22 152/59 (90) 98 Oxymask 4.0 11/25/17 14:00 83 42 89 11/25/17 13:01 84 22 107/68 (81) 97 11/25/17 13:00 82 23 98 11/25/17 12:00 Oxymask 4.0 11/25/17 12:00 36.4 75 22 100/73 (82) 98 Oxymask 4.0 11/25/17 12:00 83 26 108/73 (85) 99 11/25/17 11:01 83 23 108/70 (83) 97 11/25/17 11:00 82 22 98 11/25/17 10:00 82 25 125/80 (95) 98 11/25/17 09:33 36.4 84 22 100/63 (75) 94 Oxymask 4.0 3/8/18 09:00 81 21 100/63 (75) 95 11/25/17 08:00 Nasal Cannula 11/25/17 08:00 83 26 102/71 (81) 95 11/25/17 07:30 36.4 103 22 113/63 (80) 93 Oxymask 4.0 11/25/17 07:30 Oxymask 4.0 11/25/17 07:00 81 29 113/63 (80) 95 11/25/17 06:00 103 31 116/78 (91) 95 Oxymask 4.0 11/25/17 05:00 105 25 130/73 (92) 94 11/25/17 04:00 37.0 103 22 119/77 (91) 91 Oxymask 4.0 11/25/17 04:00 Oxymask 4.0 11/25/17 03:39 101 28 153/80 (104) 93 Oxymask 4.0 11/25/17 03:01 106 25 153/80 (104) 94 Oxymask 4.0 11/25/17 02:00 101 23 110/70 (83) 95 Oxymask 4.0 11/25/17 01:00 103 20 103/67 (79) 95 Oxymask 4.0 11/25/17 00:00 36.8 102 25 119/68 (85) 95 Oxymask 4.0 11/24/17 23:59 Oxymask 4.0 11/24/17 22:00 36.8 102 24 111/71 (84) 95 Oxymask 4.0 Physical Exam General Appearance: no apparent distress, + pertinent finding (Chronically ill- appearing) Eyes: normal inspection, EOMI, sclerae normal ENT: normal ENT inspection, hearing grossly normal, pharynx normal Neck: supple, no adenopathy, thyroid normal, trachea midline Respiratory/Chest: chest non-tender, lungs clear, normal breath sounds, no respiratory distress Cardiovascular: regular rate, rhythm, no gallop, no murmur Abdomen: normal bowel sounds, soft, no organomegaly, + tenderness Extremities: non-tender, no calf tenderness Neurologic/Psychiatric: alert, oriented x 3 Skin: normal color, warm/dry, no rash Lymphatic: no adenopathy Laboratory Results RUN DATE: 11/25/17 [facility] LAB PAGE 1 RUN TIME: 1231 Specimen Inquiry PATIENT: LISA WATSON LOC: [facility] U # : [id number] AGE/SX: 77/M ROOM: [facility] REG : 11/11/[address]: Tom Best M.D. : 1940 BED: 1 DIS : STATUS: ADM IN TLOC: SPEC #: [id number] CHRISTIANA: 11/23/17 STATUS: RES REQ #: [id number] RECD: 11/23/[address]: Cortez Marrero MD SOURCE: DRAIN-DEEP ENTR: 11/23/[address]: Angelika Law, Assigned SPDESC: Cindi MORRISON Ayesha H., M.D. Schneider, Donald S., MD Wong, Gary K., M.D. Yang, Chunjie ., MD ORDERED: AER/ELISA CULTSMR COMMENTS: Has Specimen Been Obtained/Collected? Y Procedure Result Verified Site GRAM STAIN Final 11/24/17-907 RESULT MANY POLYS NO ORGANISMS SEEN OR AER/ELISA CULT Preliminary 11/25/17-1231 Organism 1 GRAM POSITIVE BACILLI QUANITY RARE SENS NO SENSITIVITY TO FOLLOW Last 24 Hours Test 11/24/17 23:52 11/25/17 05:42 11/25/17 05:49 11/25/17 11:09 Bedside Glucose 132 mg/dl 159 mg/dl 175 mg/dl White Blood Count 10.62 K/uL Red Blood Count 2.86 M/uL Hemoglobin 7.8 g/dL Hematocrit 25.2 % Mean Corpuscular Volume 88.1 fL Mean Corpuscular Hemoglobin 27.3 pg Mean Corpuscular Hemoglobin Concent 31.0 g/dl Platelet Count 88 K/uL Mean Platelet Volume 10.2 fL RDW Standard Deviation 54.4 fL RDW Coefficient of Variation 17.1 % Neutrophils % (Manual) 86.1 % Lymphocytes % (Manual) 7.0 % Monocytes % (Manual) 2.6 % Eosinophils % (Manual) 0.9 % Metamyelocytes % 1.7 % Myelocytes % 1.7 % Neutrophils # (Manual) 9.14 K/uL Total Absolute Neutrophils 9.14 K/uL Lymphocytes # (Manual) 0.74 K/uL Total Absolute Lymphocytes 0.74 K/uL Monocytes # (Manual) 0.28 K/uL Eosinophils # (Manual) 0.10 K/uL Metamyelocytes # 0.18 K/uL Myelocytes # 0.18 K/uL Toxic Granulation 1+ Polychromasia 1+ Sodium Level 142 mmol/L Potassium Level 3.7 mmol/L Chloride Level 112 mmol/L Carbon Dioxide Level 25 mmol/L Anion Gap 5.0 mmol/L Blood Urea Nitrogen 25 mg/dl Creatinine 0.42 mg/dl Est Creatinine Clear Calc Drug Dose 156.5 ml/min Estimated GFR () 128.3 Estimated GFR (Non- 110.7 BUN/Creatinine Ratio 58.4 Random Glucose 163 mg/dl Calcium Level 7.3 mg/dl Ionized Calcium 1.09 mmol/l Phosphorus Level 3.1 mg/dl Magnesium Level 2.2 mg/dl Test 11/25/17 18:18 Bedside Glucose 148 mg/dl Assessment and Plan (1) GI bleed (2) Colonic mass (3) Hypotension (4) Hyperlipidemia Status: Chronic (5) Anemia 77-year-old male with colon cancer with coloenteric fistula, status post resection and repair with intraoperative spillage. Now with also C difficile infection. No evidence of disseminated fungal infection at present, caspofungin has been discontinued. Vancomycin changed to daptomycin to decrease fluids. Await final culture from drainage. Will follow.
[2017-11-26] VITALS (24 sets, daily range): BP systolic 102–149; BP diastolic 52–101; PULSE 84–100; TEMP 36.4–37; O2SAT 93–100
[2017-11-26] MEDS: INSULIN ASPART 100 UNITS/ML 3 ML PEN SC SCH ×4 (00:51→18:35)
[2017-11-26] MEDS: AZTREONAM IV SCH ×2 (02:32→18:23)
[2017-11-26] MEDS: FENTANYL CITRATE INJ 50 MCG/1 ML 2 ML VIAL IV PRN (02:32)
[2017-11-26] MEDS: METRONIDAZOLE / NSS 500 MG in PREMIXED NSS 100 ML IV SCH ×3 (03:31→20:00)
[2017-11-26] MEDS ORDERED: VANCOMYCIN TROUGH ONE (05:30)
[2017-11-26 05:55] LABS: BASO % 0.3 %; BASO ABS # 0.04 K/uL (0-0.2); EOS ABS # 0.12 K/uL (0-0.5); HEMATOCRIT 26.3 % (42-52); IG# 0.61 K/uL (0.00-0.02); LYMPH % 10.9 %; LYMPH ABS # 1.32 K/uL (1.2-3.4); MEAN CELL VOLUME 89.2 fL (80-100); MEAN CORPUSCULAR HEMOGLOBIN 27.1 pg (25-34); MEAN CORPUSCULAR HGB CONC 30.4 g/dl (32-36); MONO % 7.9 %; MONO ABS # 0.96 K/uL (0.11-0.59); NEUT % 74.9 %; NEUT ABS # 9.11 K/uL (1.4-6.5); NUCLEATED RED BLOOD CELL ABS 0.06 K/uL (0-0); PLATELET COUNT 113 K/uL (130-400); RED CELL DISTRIBUTION WIDTH CV 17.5 % (11.5-14.5); RED CELL DISTRIBUTION WIDTH SD 56.1 fL (36.4-46.3); WHITE BLOOD COUNT 12.16 K/uL (4.8-10.8)
[2017-11-26 06:01] LABS: CALCIUM 7.4 mg/dl (8.5-10.1); CREATININE 0.39 mg/dl (0.60-1.40); POTASSIUM 4.2 mmol/L (3.5-5.1)
[2017-11-26 06:02] LABS: PHOSPHORUS 2.8 mg/dl (2.5-4.9)
[2017-11-26] MEDS: VANCOMYCIN HCL 250 MG/5 ML SOLN NG SCH ×3 (06:48→18:23)
--- NOTE | 2017-11-26 10:24 | Surgery Progress Note ---
Surgery Progress Note Date of Service Nov 26, 2017. Subjective Post OP Day: 6 talking more today, tolerating tube feeds at 40 cc/hr, continues to have diarrhea/incontinence Objective Vital Signs: Date Time Temp Pulse Resp B/P (MAP) Pulse Ox O2 Delivery O2 Flow Rate FiO2 11/26/17 09:30 36.6 96 22 123/52 (75) 98 Oxymask 4.0 11/26/17 07:30 Oxymask 4.0 11/26/17 07:30 36.6 95 22 118/76 (90) 98 Oxymask 4.0 30 11/26/17 07:00 95 22 118/76 (90) 98 Oxymask 4.0 11/26/17 06:00 91 22 113/73 (86) 96 Oxymask 4.0 11/26/17 05:00 95 23 109/71 (84) 98 Oxymask 4.0 11/26/17 04:00 36.4 95 24 118/72 (87) 93 Oxymask 4.0 11/26/17 04:00 Oxymask 4.0 11/26/17 03:01 95 25 117/79 (92) 96 Oxymask 4.0 11/26/17 03:00 96 22 95 Oxymask 4.0 11/26/17 02:00 96 27 111/71 (84) 95 Oxymask 4.0 11/26/17 01:00 100 28 117/76 (90) 94 Oxymask 4.0 11/26/17 00:00 36.4 96 27 114/76 (89) 95 Oxymask 4.0 11/25/17 23:59 Oxymask 4.0 11/25/17 22:00 88 26 106/76 (86) 96 Oxymask 4.0 11/25/17 20:00 95 Oxymask 4.0 11/25/17 20:00 36.8 92 23 91/59 (70) 94 Oxymask 4.0 11/25/17 18:00 86 26 112/73 (86) 97 Oxymask 4.0 11/25/17 16:00 96 Oxymask 4.0 11/25/17 16:00 36.8 83 24 118/64 (82) 97 Oxymask 4.0 11/25/17 14:01 82 27 152/59 (90) 96 3/8/18 14:00 36.4 84 22 152/59 (90) 98 Oxymask 4.0 11/25/17 14:00 83 42 89 11/25/17 13:01 84 22 107/68 (81) 97 11/25/17 13:00 82 23 98 11/25/17 12:00 Oxymask 4.0 11/25/17 12:00 36.4 75 22 100/73 (82) 98 Oxymask 4.0 11/25/17 12:00 83 26 108/73 (85) 99 11/25/17 11:01 83 23 108/70 (83) 97 11/25/17 11:00 82 22 98 Physical Exam: Manjeet drainage (2 L daily, serous) Abdomen: non distended, soft Incision(s): dry, no erythema Laboratory Results: Results Past 24 Hours Test 11/25/17 11:09 11/25/17 18:18 11/26/17 00:15 11/26/17 04:58 Range/Units Bedside Glucose 175 148 185 70-99 mg/dl Sodium Level 143 136-145 mmol/L Potassium Level 4.2 3.5-5.1 mmol/L Chloride Level 113 98-107 mmol/L Carbon Dioxide Level 26 21-32 mmol/L Anion Gap 4.0 3-11 mmol/L Blood Urea Nitrogen 26 7-18 mg/dl Creatinine 0.39 0.60-1.40 mg/dl Est Creatinine Clear Calc Drug Dose 168.6 ml/min Estimated GFR () 132.3 Estimated GFR (Non- 114.2 BUN/Creatinine Ratio 65.4 10-20 Random Glucose 171 70-99 mg/dl Calcium Level 7.4 8.5-10.1 mg/dl Phosphorus Level 2.8 2.5-4.9 mg/dl Magnesium Level 2.1 1.8-2.4 mg/dl Test 11/26/17 05:04 Range/Units White Blood Count 12.16 4.8-10.8 K/uL Red Blood Count 2.95 4.7-6.1 M/uL Hemoglobin 8.0 14.0-18.0 g/dL Hematocrit 26.3 42-52 % Mean Corpuscular Volume 89.2 80-100 fL Mean Corpuscular Hemoglobin 27.1 25-34 pg Mean Corpuscular Hemoglobin Concent 30.4 32-36 g/dl Platelet Count 113 130-400 K/uL Mean Platelet Volume 10.0 7.4-10.4 fL Neutrophils (%) (Auto) 74.9 % Lymphocytes (%) (Auto) 10.9 % Monocytes (%) (Auto) 7.9 % Eosinophils (%) (Auto) 1.0 % Basophils (%) (Auto) 0.3 % Neutrophils # (Auto) 9.11 1.4-6.5 K/uL Lymphocytes # (Auto) 1.32 1.2-3.4 K/uL Monocytes # (Auto) 0.96 0.11-0.59 K/uL Eosinophils # (Auto) 0.12 0-0.5 K/uL Basophils # (Auto) 0.04 0-0.2 K/uL RDW Standard Deviation 56.1 36.4-46.3 fL RDW Coefficient of Variation 17.5 11.5-14.5 % Immature Granulocyte % (Auto) 5.0 % Immature Granulocyte # (Auto) 0.61 0.00-0.02 K/uL Nucleated RBC Absolute Count (auto) 0.06 0-0 K/uL Nucleated Red Blood Cells % 0.5 % Toxic Granulation 2+ Polychromasia 1+ Assessment & Plan extended left hemicolectomy; partial small resection/partial duodenal resection for obstructing colon cancer with coloenteric fistula(s) anemia, stable A-fib, converted malnutrition remains stable, WBC up slightly tolerating tube feeds drain removed
[2017-11-26] MEDS: PANTOprazole INJ 40 MG in SYRINGE 0 ML IV SCH (10:37)
[2017-11-26] MEDS: HEPARIN SOD 5000 UNIT/0.5 ML CARP SQ SCH ×2 (10:38→22:00)
[2017-11-26] MEDS: DAPTOmycin IV 500 MG in SYRINGE 0 ML IV SCH (12:10)
--- NOTE | 2017-11-26 13:12 | Critical Care Progress Note ---
Critical Care Progress Note Date of Service Nov 26, 2017. Attending Dr. Marrero Subjective More awake today, comfortable Moved in chair MICHAEL drain removed today Objective Vital signs reviewed Physical Exam: General - NAD, lethargic Eyes - PERRL, EOMI No icterus Neck - Supple, trachea midline Lungs - No paradoxical chest wall movement, clear and diminished to auscultation bilaterally, no wheezes, rales, or rhonchi Heart - Regular rate and rhythm, No murmur, rubs, clicks, or gallops appreciated Abdomen - Mildly tender Extremities - Anasarca, improving Neuro - Awake, alert, follows commands Assessment & Plan 77 year-old male s/p resection of large colonic mass, with colo-duodenal fistula , difficult post-operative course, requiring blood transfusions, prolonged ventilation, hypotension requiring pressor support, development of atrial fibrillation. Extubated post-op Problems: Severe sepsis, of abdominal source. Was in shock but has resolved Toxic-metabolic encephalopathy Cdiff A-fib with RVR Colonic mass Malnutrition Plan: [employer]ATCH [employer]: toxic-metabolic encephalopathy markedly improved Continue to monitor Fentanyl prn for pain Physical therapy, up in chair today for the first time CVS: Remains in NSR. Off amiodarone drip Not an anticoagulation candidate due to recent GI bleeding, thrombocytopenia Respiratory: Incentive spirometry if able to perform Hopefully we'll be able o mobilize him to a chair Titrate down O2 ID: Abx: Azactam, daptomycin, metronidazole. Change Vanco to daptomycin to decrease the volume intake Discontinued caspofungin, no evidence of fungal component Follow abdominal fluid culture, prelim GPR. Await final report Renal/metabolic: D/c TP S/p Albumin 25%, 25 mg tid for 3 days Monitor renal output Adjust electrolytes daily GI: Maintain NGT MICHAEL removed Increase tube feedings to 40 cc/hr Discontinue TPN today Follow up pathology Heme: Resumed DVT prophylaxis, heparin sc q 12 h HIT panel negative DVT prophylaxis: SCDs Patient is DNR/DNI Overall prognosis is poor, even if he survives this admission, given poor nutritional status, probable malignancy Critical care time spent with the patient, reviewing chart, discussing with consultants, excluding procedures, greater than 25 minutes May be transferred to monitored floor, will sign off Consults & Procedures Consultants: Surgery: Dr Juarez GI - Dr Nam Procedures: 11/16/17 - Colonoscopy/EGD 11/18/17 - Left hemicolectomy, partial small bowel resection, partial duodenal resection 11/20/17 - Extubation Right IJ TLC Data Medications: Current Inpatient Medications Medications (Trade) Dose Ordered Sig/Jose Route Start Time Stop Time Status Last Admin Dose Admin Pantoprazole Sodium 40 mg/ Syringe 10 ml @ 5 mls/min DAILY@11 IV 11/19/17 11:00 12/19/17 10:59 11/26/17 10:37 5 MLS/MIN Metoprolol Tartrate (Lopressor Iv) 5 mg Q4H PRN IV 11/19/17 08:30 12/19/17 08:29 Fentanyl Citrate (Fentanyl Inj) 100 mcg Q2H PRN IV 11/20/17 14:15 12/04/17 14:14 11/26/17 02:32 100 MCG Miscellaneous Information (Pharmacy Tpn/ Ppn Consult Active) 1 ea UD PRN N/A 11/21/17 11:29 11/26/17 16:00 Dextrose 1,000 ml @ 0 mls/hr Q0M PRN IV 11/21/17 16:00 12/21/17 15:59 Metronidazole 500 mg/Prmx 100 ml @ 100 mls/hr Q8H IV 11/22/17 12:00 12/02/17 11:59 11/26/17 12:10 100 MLS/HR Insulin Aspart (novoLOG ASPART) SLIDING SCALE G... Q6 SC 11/22/17 18:00 12/19/17 06:44 11/26/17 00:51 1 UNITS Aztreonam 2000 mg/ Syringe 20 ml @ 4 mls/min Q12H IV 11/23/17 14:00 12/02/17 09:59 11/26/17 02:32 4 MLS/MIN Enteral Nutritional Formula (Peptamen 1.5) 1,000 ml UD PRN NG 11/24/17 10:45 12/24/17 10:44 11/25/17 16:30 1,000 ML Daptomycin 500 mg/ Syringe 10 ml @ 5 mls/min Q24H IV 11/24/17 12:00 12/04/17 11:59 11/26/17 12:10 5 MLS/MIN Vancomycin HCl (Vancomycin Oral Soln) 250 mg Q6 NG 11/24/17 15:00 12/08/17 14:59 11/26/17 12:10 250 MG Heparin Sodium (Porcine) (Heparin Sq 5000 Unit/0.5ml) 5,000 unit Q12H SQ 11/25/17 10:00 12/25/17 09:59 11/26/17 10:38 5,000 UNIT Nutrition (Parenteral) 0 ml @ 0 mls/hr TODAY@1600 IV 11/25/17 16:00 11/26/17 15:59 11/25/17 16:29 44.82 MLS/HR Miscellaneous (Stop Order) 1 ea ONE ONCE N/A 11/26/17 16:00 11/26/17 16:01 Vital Signs: Date Time Temp Pulse Resp B/P (MAP) Pulse Ox O2 Delivery O2 Flow Rate FiO2 11/26/17 11:30 Oxymask 4.0 11/26/17 11:30 37.0 98 22 115/76 (89) 98 Oxymask 4.0 11/26/17 09:30 36.6 96 22 123/52 (75) 98 Oxymask 4.0 11/26/17 07:30 Oxymask 4.0 11/26/17 07:30 36.6 95 22 118/76 (90) 98 Oxymask 4.0 30 11/26/17 07:00 95 22 118/76 (90) 98 Oxymask 4.0 11/26/17 06:00 91 22 113/73 (86) 96 Oxymask 4.0 11/26/17 05:00 95 23 109/71 (84) 98 Oxymask 4.0 11/26/17 04:00 36.4 95 24 118/72 (87) 93 Oxymask 4.0 11/26/17 04:00 Oxymask 4.0 11/26/17 03:01 95 25 117/79 (92) 96 Oxymask 4.0 11/26/17 03:00 96 22 95 Oxymask 4.0 11/26/17 02:00 96 27 111/71 (84) 95 Oxymask 4.0 11/26/17 01:00 100 28 117/76 (90) 94 Oxymask 4.0 11/26/17 00:00 36.4 96 27 114/76 (89) 95 Oxymask 4.0 11/25/17 23:59 Oxymask 4.0 11/25/17 22:00 88 26 106/76 (86) 96 Oxymask 4.0 11/25/17 20:00 95 Oxymask 4.0 11/25/17 20:00 36.8 92 23 91/59 (70) 94 Oxymask 4.0 11/25/17 18:00 86 26 112/73 (86) 97 Oxymask 4.0 11/25/17 16:00 96 Oxymask 4.0 11/25/17 16:00 36.8 83 24 118/64 (82) 97 Oxymask 4.0 11/25/17 14:01 82 27 152/59 (90) 96 11/25/17 14:00 36.4 84 22 152/59 (90) 98 Oxymask 4.0 11/25/17 14:00 83 42 89 Laboratory Results: Last 24 Hours Test 11/25/17 18:18 11/26/17 00:15 11/26/17 04:58 11/26/17 05:04 Bedside Glucose 148 mg/dl 185 mg/dl Sodium Level 143 mmol/L Potassium Level 4.2 mmol/L Chloride Level 113 mmol/L Carbon Dioxide Level 26 mmol/L Anion Gap 4.0 mmol/L Blood Urea Nitrogen 26 mg/dl Creatinine 0.39 mg/dl Est Creatinine Clear Calc Drug Dose 168.6 ml/min Estimated GFR () 132.3 Estimated GFR (Non- 114.2 BUN/Creatinine Ratio 65.4 Random Glucose 171 mg/dl Calcium Level 7.4 mg/dl Phosphorus Level 2.8 mg/dl Magnesium Level 2.1 mg/dl White Blood Count 12.16 K/uL Red Blood Count 2.95 M/uL Hemoglobin 8.0 g/dL Hematocrit 26.3 % Mean Corpuscular Volume 89.2 fL Mean Corpuscular Hemoglobin 27.1 pg Mean Corpuscular Hemoglobin Concent 30.4 g/dl Platelet Count 113 K/uL Mean Platelet Volume 10.0 fL Neutrophils (%) (Auto) 74.9 % Lymphocytes (%) (Auto) 10.9 % Monocytes (%) (Auto) 7.9 % Eosinophils (%) (Auto) 1.0 % Basophils (%) (Auto) 0.3 % Neutrophils # (Auto) 9.11 K/uL Lymphocytes # (Auto) 1.32 K/uL Monocytes # (Auto) 0.96 K/uL Eosinophils # (Auto) 0.12 K/uL Basophils # (Auto) 0.04 K/uL RDW Standard Deviation 56.1 fL RDW Coefficient of Variation 17.5 % Immature Granulocyte % (Auto) 5.0 % Immature Granulocyte # (Auto) 0.61 K/uL Nucleated RBC Absolute Count (auto) 0.06 K/uL Nucleated Red Blood Cells % 0.5 % Toxic Granulation 2+ Polychromasia 1+ Test 11/26/17 11:02 Bedside Glucose 172 mg/dl
[2017-11-26] MEDS ORDERED: [UNRECOGNIZED DRUG - REMARK] ONE (16:00)
--- NOTE | 2017-11-26 19:42 | Progress Note ---
Internal Med Progress Note Date of Service: Nov 26, 2017. 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 Was in shock but has resolved Was intubated post op: 11/18/17 and Extubated on 11/20/17 Other post-operative course, requiring blood transfusions, prolonged ventilation , hypotension requiring pressor support, development of atrial fibrillation Patient also receiving albumin to alleviate lower extremity swelling / anasarca Patient has had protracted hospital course and is an ICU level of care patient, transferred out of ICU on 11/26/17 Cardiovascular Remains in NSR. Off amiodarone drip. Not an anticoagulation candidate due to recent GI bleeding, thrombocytopenia In the ICU patient has received multiple antibiotics because of sepsis from presumed abdominal source, medicatiions include IV Azactam, IV daptomycin, IV metronidazole, IV daptomycin and caspofungin Patient also found to be C. diff positive on 11/23/17 Abdominal fluid culture 11/23/17, CLOSTRIDIUM PERFRINGENS QUANITY RARE NO SENSITIVITY TO FOLLOW Blood cultures 11/24/17: no growth to date At this point given that the is no identifiable bacterial burden, and patient already on IV metronidazole and PO vancomycin to treat C.diff and IV metronidazole can target clostridium perfringens, will end all other antibiotics on 11/26/17 such as the IV Azactam and IV daptomycin Nutrition/Volume status S/p Albumin 25%, 25 mg TID for 3 days, lower extremity edema improving MICHAEL drain removed in ICU stop TPN has NG tube feeds Anemia DVT prophylaxis, heparin sc q 12 h, HIT panel negative Patient is DNR/DNI Disposition: on telemetry Vital Signs: Date Time Temp Pulse Resp B/P (MAP) Pulse Ox O2 Delivery O2 Flow Rate FiO2 11/26/17 18:49 36.4 95 24 149/88 (108) 98 Room Air 11/26/17 16:00 Oxymask 4.0 11/26/17 15:15 36.7 91 24 124/74 (91) 94 Room Air 11/26/17 13:01 98 24 116/78 (91) 100 11/26/17 13:00 99 29 100 11/26/17 12:35 95 32 119/77 (91) 11/26/17 12:00 93 25 123/85 (98) 99 11/26/17 11:30 Oxymask 4.0 11/26/17 11:30 37.0 98 22 115/76 (89) 98 Oxymask 4.0 11/26/17 11:01 89 22 115/76 (89) 99 11/26/17 11:00 93 23 99 11/26/17 10:00 93 24 130/85 (100) 99 11/26/17 09:30 36.6 96 22 123/52 (75) 98 Oxymask 4.0 11/26/17 09:00 95 24 123/82 (96) 98 11/26/17 08:00 92 21 124/101 (109) 98 11/26/17 07:30 Oxymask 4.0 11/26/17 07:30 36.6 95 22 118/76 (90) 98 Oxymask 4.0 30 11/26/17 07:00 95 22 118/76 (90) 98 Oxymask 4.0 11/26/17 07:00 95 22 118/76 (90) 98 11/26/17 06:00 91 22 113/73 (86) 96 Oxymask 4.0 11/26/17 05:00 95 23 109/71 (84) 98 Oxymask 4.0 11/26/17 04:00 36.4 95 24 118/72 (87) 93 Oxymask 4.0 11/26/17 04:00 Oxymask 4.0 11/26/17 03:01 95 25 117/79 (92) 96 Oxymask 4.0 11/26/17 03:00 96 22 95 Oxymask 4.0 11/26/17 02:00 96 27 111/71 (84) 95 Oxymask 4.0 11/26/17 01:00 100 28 117/76 (90) 94 Oxymask 4.0 11/26/17 00:00 36.4 96 27 114/76 (89) 95 Oxymask 4.0 11/25/17 23:59 Oxymask 4.0 11/25/17 22:00 88 26 106/76 (86) 96 Oxymask 4.0 11/25/17 20:00 95 Oxymask 4.0 11/25/17 20:00 36.8 92 23 91/59 (70) 94 Oxymask 4.0 Lab Results: Results Past 24 Hours Test 11/26/17 00:15 11/26/17 04:58 11/26/17 05:04 11/26/17 11:02 Range/Units Bedside Glucose 185 172 70-99 mg/dl Sodium Level 143 136-145 mmol/L Potassium Level 4.2 3.5-5.1 mmol/L Chloride Level 113 98-107 mmol/L Carbon Dioxide Level 26 21-32 mmol/L Anion Gap 4.0 3-11 mmol/L Blood Urea Nitrogen 26 7-18 mg/dl Creatinine 0.39 0.60-1.40 mg/dl Est Creatinine Clear Calc Drug Dose 168.6 ml/min Estimated GFR () 132.3 Estimated GFR (Non- 114.2 BUN/Creatinine Ratio 65.4 10-20 Random Glucose 171 70-99 mg/dl Calcium Level 7.4 8.5-10.1 mg/dl Phosphorus Level 2.8 2.5-4.9 mg/dl Magnesium Level 2.1 1.8-2.4 mg/dl White Blood Count 12.16 4.8-10.8 K/uL Red Blood Count 2.95 4.7-6.1 M/uL Hemoglobin 8.0 14.0-18.0 g/dL Hematocrit 26.3 42-52 % Mean Corpuscular Volume 89.2 80-100 fL Mean Corpuscular Hemoglobin 27.1 25-34 pg Mean Corpuscular Hemoglobin Concent 30.4 32-36 g/dl Platelet Count 113 130-400 K/uL Mean Platelet Volume 10.0 7.4-10.4 fL Neutrophils (%) (Auto) 74.9 % Lymphocytes (%) (Auto) 10.9 % Monocytes (%) (Auto) 7.9 % Eosinophils (%) (Auto) 1.0 % Basophils (%) (Auto) 0.3 % Neutrophils # (Auto) 9.11 1.4-6.5 K/uL Lymphocytes # (Auto) 1.32 1.2-3.4 K/uL Monocytes # (Auto) 0.96 0.11-0.59 K/uL Eosinophils # (Auto) 0.12 0-0.5 K/uL Basophils # (Auto) 0.04 0-0.2 K/uL RDW Standard Deviation 56.1 36.4-46.3 fL RDW Coefficient of Variation 17.5 11.5-14.5 % Immature Granulocyte % (Auto) 5.0 % Immature Granulocyte # (Auto) 0.61 0.00-0.02 K/uL Nucleated RBC Absolute Count (auto) 0.06 0-0 K/uL Nucleated Red Blood Cells % 0.5 % Toxic Granulation 2+ Polychromasia 1+ Test 11/26/17 18:30 Range/Units Bedside Glucose 116 70-99 mg/dl
[2017-11-27] MEDS: INSULIN ASPART 100 UNITS/ML 3 ML PEN SC SCH ×2 (00:21→06:24)
[2017-11-27] MEDS: VANCOMYCIN HCL 250 MG/5 ML SOLN NG SCH ×2 (00:22→06:32)
[2017-11-27 03:56] VITALS: BP 117/72; PULSE 89; TEMP 36.6; O2SAT 99
[2017-11-27] MEDS: METRONIDAZOLE / NSS 500 MG in PREMIXED NSS 100 ML IV SCH (03:59)
[2017-11-27] MEDS: PEPTAMEN 1.5 CAL 1000ML BAG NG PRN (04:00)
[2017-11-27 04:21] LABS: HEMATOCRIT 25.7 % (42-52); HEMOGLOBIN 8.1 g/dL (14.0-18.0); MEAN CELL VOLUME 90.2 fL (80-100); MEAN CORPUSCULAR HEMOGLOBIN 28.4 pg (25-34); MEAN CORPUSCULAR HGB CONC 31.5 g/dl (32-36); MEAN PLATELET VOLUME 9.5 fL (7.4-10.4); PLATELET COUNT 124 K/uL (130-400); RED CELL DISTRIBUTION WIDTH CV 17.9 % (11.5-14.5); RED CELL DISTRIBUTION WIDTH SD 57.6 fL (36.4-46.3); WHITE BLOOD COUNT 10.54 K/uL (4.8-10.8)
[2017-11-27 04:48] LABS: ALBUMIN 1.6 gm/dl (3.4-5.0); CALCIUM 7.4 mg/dl (8.5-10.1); CREATININE 0.36 mg/dl (0.60-1.40); POTASSIUM 3.9 mmol/L (3.5-5.1)
[2017-11-27 04:51] LABS: TOTAL PROTEIN 4.8 gm/dl (6.4-8.2)
[2017-11-27 07:25] VITALS: BP 141/79; PULSE 88; TEMP 36.8; O2SAT 90
--- NOTE | 2017-11-27 08:11 | Progress Note ---
Progress Note Date of Service Nov 27, 2017. Progress Note Note Medical doctor was paged by nurse around 7:37 AM that 11/27/17 that patient is nonresponsive and appears to be dying Medical doctor arrived and assessed the patient. Was not responsive. Pupils were dilated. Patient not breathing. Patient did have some irregular slow heart sounds and telemetry box was picking up some rhythm. However pulse was not palpable. Review of telemetry appears to show more frequent PVCs after 7:30 AM and patient's rhythm became more irregular and bradycardic after wards. 12 lead EKG performed by 7:47 AM and did not document any viable rhythms and pulse could not be detected and patient not breathing and not responsive still. Patient pronounced at 7:47 AM Patient's family member Ernestine Andrade [phone] was notified about the patient expiring Review of morning labs of 11/27/17 and glucose did not show any gross electrolyte abnormalities or hypoglycemia. The Hgb stable. The leukocytosis downtrending and patient had last received antibiotics of PO vancomycin around 6 :30 AM, prior to that had daptomycin around midnight, and prior to that had aztreonam around 6:20 PM
--- NOTE | 2017-11-27 12:14 | Progress Note ---
Progress Note Date of Service Nov 27, 2017. Progress Note Nurse paged medical doctor at 7:37 am as patient was not responsive. Evaluation by Dr. Best proved patient was unresponsive and pupils dilated. He was pronounced at 7:47 am. Family members were contacted. Please see Dr. Best's note for more details today.
--- NOTE | 2017-11-27 16:06 | Discharge Summary ---
Discharge Summary Date of Service Nov 27, 2017. 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 s/p extended left hemicolectomy; partial small resection/partial duodenal resection for obstructing colon cancer with coloenteric fistula pathology as colonic adenocarcinoma sepsis / shock, intubation on mechanical ventilation and extubation, anemia requiring blood transfusions 4 PRBC, thrombocytopenia, anasarca requiring albumin, total parental nutrition, Clostridum difficile, atrial fibrillation/ arrhythmia, Consultations: GI Gen Surg Admission Information HPI (per Admitting provider): Pt is 77 y/o M with PMH HTN, gout, anxiety, BPH who presented as transfer from [facility] ER for anemia and heme +stool. Pt states went to ER secondary to SOB. There he was found to have Hgb: 8 and had Hemoccult positive stool. He had temp of 38.1 then 38.6C and was given tylenol. No leukocytosis, negative troponin, normal co-ags. negative CXR. He was given Protonix 80mg IV. Report no GI support there so pt was transferred here. Pt states for past 3 months has been having SOB, worse with exertion and generalized weakness. Denies CP, palpitations. He reports progressive anorexia and past couple of weeks hasn't been eating or drinking much. Pt reports approx 20 pound weight loss over past couple of months. He reports that has been working with his PCP - Dr Nunn and pt reports has had benign labs done and they had talked about him being referred for a colonoscopy. Reports hx anxiety with his having dementia and sometimes will use Ativan. Denies current anxiety. Denies known fever/chills, diaphoresis, N/V/D/C, LESTER, dizziness, syncope , vision changes, neck pain, CP, orthopnea, palpitations, cough, sore throat, choking, otalgia, rhinorrhea, abdominal pain, paresthesias, extremity edema, rashes, dysuria, hematuria, urinary frequency or retention, epistaxis, any melena, hematochezia, or indigestion. Denies ill contacts. Denies aspirin or NSAID use. Denies hx colonoscopy in past. Physical Exam (per Admitting): General Appearance: WD/WN, no apparent distress Head: normocephalic, atraumatic Eyes: normal inspection, PERRL, EOMI, sclerae normal ENT: pharynx normal, + pertinent finding (mucous membranes moist, hard of hearing) Neck: supple, no JVD, trachea midline Respiratory/Chest: lungs clear, normal breath sounds, no respiratory distress, no accessory muscle use Cardiovascular: regular rate, rhythm, normal peripheral pulses Abdomen/GI: normal bowel sounds, non tender, soft Extremities/Musculoskelatal: normal inspection, normal capillary refill, no pedal edema, normal range of motion, non-tender Neurologic/Psych: alert, normal mood/affect, oriented x 3 Skin: normal color, warm/dry Hospital Course Hospital Course 77 y/o M who presented as transfer from [facility] ER for anemia and heme +stool Patient found to have malignancy of descending colon with coloenteric fistula and on 11/18/17 had extended left hemicolectomy; partial duodenal resection for obstructing colon cancer with coloenteric fistula (pathology report as invasive adenoma consistent with metastatic colon carcinoma by direct extension) Patient subsequently developed severe sepsis and was in shock and needed ICU level of care Was intubated post op: 11/18/17 and Extubated on 11/20/17 Other post-operative course, requiring blood transfusions, prolonged ventilation , hypotension requiring pressor support, development of atrial fibrillation which resolved with amiodarone drip, thrombocytopenia, received albumin to alleviate lower extremity swelling / anasarca In the ICU patient has received multiple antibiotics because of sepsis from presumed abdominal source, medications include IV Azactam, IV daptomycin, IV metronidazole, IV daptomycin and caspofungin Patient also found to be C. diff positive on 11/23/17 Abdominal fluid culture 11/23/17, CLOSTRIDIUM PERFRINGENS QUANITY RARE NO SENSITIVITY TO FOLLOW Blood cultures 11/24/17: no growth to date Patient was transferred from ICU to Telemetry unit on 11/26/17 for continuation of care including antibiotics after his mentation was improving and in normal sinus rhythm Code Status DNR/DNI at time of Medical doctor was paged by nurse around 7:37 AM that 11/27/17 that patient is nonresponsive and appears to be dying Medical doctor arrived and assessed the patient. Was not responsive. Pupils were dilated. Patient not breathing. Patient did have some irregular slow heart sounds and telemetry box was picking up some rhythm. However pulse was not palpable. Review of telemetry appears to show more frequent PVCs after 7:30 AM and patient's rhythm became more irregular and bradycardic after wards. 12 lead EKG performed by 7:47 AM and did not document any viable rhythms and pulse could not be detected and patient not breathing and not responsive still. Patient pronounced at 7:47 AM Patient's family member Ernestine Andrade [phone] was notified about the patient expiring Review of morning labs of 11/27/17 and glucose did not show any gross electrolyte abnormalities or hypoglycemia. The Hgb stable. The leukocytosis downtrending and patient had last received antibiotics of PO vancomycin around 6 :30 AM, prior to that had daptomycin around midnight, and prior to that had aztreonam around 6:20 PM Total time spent on discharge = This includes examination of the patient, discharge planning, medication reconciliation, and communication with other providers. Discharge Instructions patient
== END 2017-11-27 13:58 | disposition expired | DRG 326 ==
LOC: C.MSICU 15:19 → ENRESERV 11-12 12:01 → C.4E 11-12 13:05 → C.MSICU 11-18 16:56 → ENRESERV 11-26 12:39 → C.2E 11-26 14:55
PROVIDERS: ADMIT Hospitalist; ATTEND Hospitalist
PROC: 0DJD8ZZ Inspection of Lower Intestinal Tract, Via Natural or Artificial Opening Endoscopic (ICD-10-PCS; principal; 2017-11-15 10:30)
PROC: 0DB68ZX Excision of Stomach, Via Natural or Artificial Opening Endoscopic, Diagnostic (ICD-10-PCS; principal; 2017-11-15 10:30)
PROC: 0DB98ZX Excision of Duodenum, Via Natural or Artificial Opening Endoscopic, Diagnostic (ICD-10-PCS; principal; 2017-11-15 10:30)
PROC: 0DTM0ZZ Resection of Descending Colon, Open Approach (ICD-10-PCS; 2017-11-18)
PROC: 0DB90ZZ Excision of Duodenum, Open Approach (ICD-10-PCS; 2017-11-18)
PROC: 0DBA0ZZ Excision of Jejunum, Open Approach (ICD-10-PCS; 2017-11-18)
PROC: 0DBL0ZZ Excision of Transverse Colon, Open Approach (ICD-10-PCS; 2017-11-18)
PROC: 0D1 Gastrointestinal System, Bypass (ICD-10-PCS; 2017-11-18)
PROC: 0D190ZA Bypass Duodenum to Jejunum, Open Approach (ICD-10-PCS; 2017-11-18)
PROC: 5A1945Z Respiratory Ventilation, 24-96 Consecutive Hours (ICD-10-PCS; 2017-11-18)
PROC: 05HM33Z Insertion of Infusion Device into Right Internal Jugular Vein, Percutaneous Approach (ICD-10-PCS; 2017-11-19)
DX: C18.6 Malignant neoplasm of descending colon (principal); E43 Unspecified severe protein-calorie malnutrition; A41.9 Sepsis, unspecified organism; G92 Toxic encephalopathy; R65.21 Severe sepsis with septic shock; K63.2 Fistula of intestine; N17.9 Acute kidney failure, unspecified; A04.72 Enterocolitis due to Clostridium difficile, not specified as recurrent; I48.0 Paroxysmal atrial fibrillation; D50.9 Iron deficiency anemia, unspecified; I10 Essential (primary) hypertension; I95.9 Hypotension, unspecified; M10.9 Gout, unspecified; F41.9 Anxiety disorder, unspecified; E87.6 Hypokalemia; N40.0 Benign prostatic hyperplasia without lower urinary tract symptoms; E78.5 Hyperlipidemia, unspecified; Z66 Do not resuscitate; Z79.899 Other long term (current) drug therapy; Z68.26 Body mass index [BMI] 26.0-26.9, adult; Z88.0 Allergy status to penicillin